=== PATIENT | male | born 1945 | race Caucasian/White ===

== ENCOUNTER 2019-02-08 01:09 | Inpatient (IN) | payer OTHER ==
[~2019-02-08] VITALS: Ht 180.3 cm; Wt 108.3 kg
[2019-02-08] MEDS ORDERED: cloNIDine HCL 0.1 MG TAB ONE (01:33)
[2019-02-08 02:14] LABS: Basophils # (auto) 0.1 uL; Eosinophils # (auto) 0.1 uL; Mean Corpuscular Hgb Conc. 32.9 g/dL (32.0-36.0); Monocytes # (auto) 0.4 uL; Monocytes % (auto) 3.3 % (0.0-12.0); Neutrophils # (auto) 11.3 uL; Red Blood Cells 4.66 10^6/uL (4.5-5.90)
[2019-02-08 02:16] LABS: Basophils % (auto) 0.5 % (0.0-2.0); Eosinophils % (auto) 1.1 % (0.0-7.0); Hematocrit 38.1 % (41.0-53.0); Hemoglobin 12.6 g/dL (13.5-17.5); Lymphocytes # (auto) 0.7 uL; Lymphocytes % (auto) 5.6 % (10.0-50.0); Mean Corpuscular Volume 81.9 fL (80.0-100.0); Neutrophils % (auto) 89.5 % (37.0-80.0); Platelet Count (auto) 292 10^3/uL (140-450); Red Cell Distribution Width 17.5 % (11.8-14.3); White Blood Cell 12.7 10^3/uL (4.4-10.8)
[2019-02-08 02:34] LABS: Albumin 3.9 g/dL (3.4-5.0); BUN/Creatinine Ratio 9.6; Calcium 9.1 mg/dL (8.5-10.1); Potassium 4.1 mmol/L (3.5-5.1)
[2019-02-08 02:37] LABS: Bilirubin, Total 0.6 mg/dL (0.2-1.0); Total Protein 7.9 g/dL (6.4-8.2)
[2019-02-08] MEDS ORDERED: BENZOCAINE (DENTAL) 20 % SPRAY 60ML MT ONE (02:45)
[2019-02-08 03:17] LABS: INR 0.99 (0.9-1.15); Partial Thromboplastin Time 27.4 sec (23.64-32.05)
[2019-02-08] MEDS ORDERED: ONDANSETRON HCL 4 MG/2 ML VIAL IV ONE (03:30)
[2019-02-08] MEDS ORDERED: HYDROmorphone HCL 2 MG/ML VL IV ONE (03:45)
[2019-02-08] MEDS ORDERED: SODIUM CHLORIDE 0.9% 500 ML IV ONE (03:45)
[2019-02-08] MEDS ORDERED: LOSA-39 PO (04:31)
[2019-02-08] MEDS ORDERED: OMEP-263 PO (04:31)
[2019-02-08] MEDS ORDERED: HYDR50TA15 PO (04:31)
[2019-02-08] MEDS ORDERED: TAMS0.4C36 PO (04:31)
[2019-02-08] MEDS ORDERED: FUR20T PO (04:31)
[2019-02-08] MEDS ORDERED: AMLO10TA13 PO (04:31)
[2019-02-08] MEDS ORDERED: ATEN50TA PO ×2 (04:31→04:40)
[2019-02-08] MEDS ORDERED: METF-372 PO (04:31)
[2019-02-08] MEDS ORDERED: DOCU-94 PO (04:31)
[2019-02-08] MEDS ORDERED: ATOR20TA50 PO (04:31)
[2019-02-08] MEDS ORDERED: RANI-185 PO (04:32)
[2019-02-08] MEDS ORDERED: OLAN5TAB30 PO (04:33)
[2019-02-08] MEDS ORDERED: ISOS30TA4 PO (04:33)
[2019-02-08] MEDS ORDERED: MAGN400T5 PO (04:34)
[2019-02-08] MEDS ORDERED: CHOL20007 PO (04:34)
[2019-02-08] MEDS ORDERED: ASPI81CH43 PO (04:34)
[2019-02-08] MEDS ORDERED: GABA300C10 PO (04:35)
[2019-02-08] MEDS ORDERED: TRAZ50TA2 PO (04:35)
[2019-02-08] MEDS ORDERED: COEN10CA4 PO (04:36)
[2019-02-08] MEDS ORDERED: MELA10TA PO (04:39)
[2019-02-08] MEDS ORDERED: SERT-274 PO (04:40)
[2019-02-08] MEDS ORDERED: FLUT1SPR5 (04:41)
[2019-02-08] MEDS ORDERED: SODIUM CHLORIDE 0.9% 1,000 ML IV SCH (05:54)
[2019-02-08] MEDS ORDERED: ACETAMINOPHEN 325 MG TAB PO PRN (06:00)
[2019-02-08] MEDS ORDERED: MORPHINE SULFATE 4 MG/ML SYR/VIAL IV PRN (06:00)
[2019-02-08] MEDS ORDERED: FLUTICASONE PROP NASAL SPR 0.05 % (50MCG) 16GM SCH (06:00)
[2019-02-08] MEDS ORDERED: DEXTROSE (50%) 50ML SYRG IV PRN (06:00)
[2019-02-08] MEDS ORDERED: GABAPENTIN 300 MG CAP PO SCH (06:00)
[2019-02-08] MEDS ORDERED: DOCUSATE SOD 100 MG CAP PO PRN (06:00)
[2019-02-08] MEDS ORDERED: HYDROcodone-ACET 5/325MG TAB PO PRN (06:00)
[2019-02-08] MEDS ORDERED: FUROSEMIDE 20 MG TAB PO ONE (06:45)
[2019-02-08] MEDS ORDERED: amLODIPine BESYLATE 5 MG TAB PO ONE (06:45)
[2019-02-08] MEDS ORDERED: LOSARTAN POTASSIUM 50 MG TAB PO ONE (06:45)
[2019-02-08] MEDS ORDERED: ATENOLOL 50 MG TAB PO ONE (06:45)
[2019-02-08] MEDS ORDERED: ASPirin 81 mg TAB PO ONE (06:45)
[2019-02-08] MEDS: traZODone HCL 50 MG TAB PO SCH ×3 (06:46→22:23)
[2019-02-08] MEDS: ASPirin 81 mg TAB PO SCH ×2 (06:58→10:31)
[2019-02-08] MEDS: LOSARTAN POTASSIUM 50 MG TAB PO SCH ×2 (06:58→10:33)
[2019-02-08] MEDS: FUROSEMIDE 20 MG TAB PO SCH ×2 (07:10→10:31)
[2019-02-08] MEDS: InsuLIN REG 1unit/0.01ml Soln (100units/ml) SC SCH ×4 (08:00→20:00)
[2019-02-08] MEDS: ACCU-CHEK COMFORT CURVE STRIP VI SCH ×4 (08:26→20:49)
--- NOTE | 2019-02-08 08:29 | NUR ---
RECEIVED REPORT FROM ERNST GALLEGOS.
--- NOTE | 2019-02-08 08:58 | NUR ---
MS admit from [facility] admitted to tele/MS after SBAR received. Patient oriented to SAMY MEHTA, primary RN, unit, room, bed, and unit policies regarding patient care and visiting hours. Patient weighed by bedscale and encouraged to call if they need something. PATIENT CONNECTED TO OXYGEN AT 2 LPM VIA NASAL CANNULA. NG TUBE CONNECTED TO LIS VIA WALL SUCTION. All questions and concerns addressed, patient verbalized understanding.
[2019-02-08] MEDS: OLANZapine 5 MG TAB PO SCH (10:30)
[2019-02-08] MEDS: ATENOLOL 50 MG TAB PO SCH ×2 (10:31→22:24)
[2019-02-08] MEDS: PANTOPRAZOLE 40 MG TAB PO SCH (10:32)
[2019-02-08] MEDS: ISOSORBIDE MONONITRATE ER 60 MG TAB PO SCH (10:32)
[2019-02-08] MEDS: TAMSULOSIN HYDROCHLORIDE 0.4 MG CAP PO SCH (10:33)
[2019-02-08] MEDS: amLODIPine BESYLATE 5 MG TAB PO SCH (10:33)
[2019-02-08] MEDS: SERTRALINE HCL 50 MG TAB PO SCH (10:33)
[2019-02-08] MEDS: ATORVASTATIN 20 MG TAB PO SCH (10:34)
[2019-02-08] MEDS: MAGNESIUM OXIDE 400 MG TAB PO SCH (10:34)
[2019-02-08 14:09] VITALS: BP 133/70
[2019-02-08] MEDS ORDERED: POTASSIUM CHLORIDE 20 MEQ, LIDOCAINE 1% (LOCAL ANESTH.) 2 ML in SODIUM CHL 0.9% 100 ML IV ONE (14:45)
[2019-02-08] MEDS: GABAPENTIN 100 MG CAP PO SCH ×2 (14:56→22:23)
[2019-02-08] MEDS: hydrALAZINE HCL 25 MG TAB PO SCH ×2 (14:57→22:23)
[2019-02-08] MEDS: ONDANSETRON HCL 4 MG/2 ML VIAL IV PRN ×2 (15:21→22:25)
[2019-02-08] MEDS: HYDROmorphone HCL 2 MG/ML VL IV PRN ×2 (15:22→22:26)
[2019-02-08 15:48] VITALS: BP 149/69
[2019-02-08] MEDS: D5W/ SOD CHL 0.9%/KCL 20MEQ 1,000 ML IV SCH (16:18)
[2019-02-08 17:00] VITALS: BP 122/58
--- NOTE | 2019-02-08 19:10 | NUR ---
Opening Shift Note Assumed care of patient, awake and alert. No S/S of distress/SOB or pain. NG tube in place on Low Intermittent suction. Instructed on POC and to call for assist PRN, will continue to monitor for changes Q1hr and PRN. Side rails up x2. Bed locked in lowest position. Call light within reach.
[2019-02-08 22:00] VITALS: BP 125/70
[2019-02-09] MEDS: InsuLIN REG 1unit/0.01ml Soln (100units/ml) SC SCH ×6 (04:00→20:00)
--- NOTE | 2019-02-09 04:03 | NUR ---
NG tube removal Patient removed NG tube. Patient verbalized "I dont want this thing anymore, it is very uncomfortable" Patient is alert and oriented. Reinforced patient on the importance of having the NG tube in place. Patient refused to have a new NG tube placed. Will continue to monitor.
[2019-02-09] MEDS: D5W/ SOD CHL 0.9%/KCL 20MEQ 1,000 ML IV SCH ×2 (04:36→17:25)
[2019-02-09] MEDS: ACCU-CHEK COMFORT CURVE STRIP VI SCH ×6 (04:36→22:39)
[2019-02-09 05:32] LABS: Basophils # (auto) 0 uL; Basophils % (auto) 0.5 % (0.0-2.0); Eosinophils # (auto) 0.4 uL; Hematocrit 31.7 % (41.0-53.0); Hemoglobin 10.7 g/dL (13.5-17.5); Mean Corpuscular Hemoglobin 27.8 pg (28.0-32.0); Mean Corpuscular Hgb Conc. 33.9 g/dL (32.0-36.0); Mean Corpuscular Volume 82.2 fL (80.0-100.0); Monocytes # (auto) 0.6 uL; Monocytes % (auto) 7.1 % (0.0-12.0); Neutrophils # (auto) 5.8 uL; Neutrophils % (auto) 74.4 % (37.0-80.0); Platelet Count (auto) 212 10^3/uL (140-450); Red Blood Cells 3.86 10^6/uL (4.5-5.90); Red Cell Distribution Width 17.6 % (11.8-14.3); White Blood Cell 7.8 10^3/uL (4.4-10.8)
[2019-02-09] MEDS: traZODone HCL 50 MG TAB PO SCH ×3 (05:47→22:31)
[2019-02-09] MEDS: hydrALAZINE HCL 25 MG TAB PO SCH ×3 (05:47→22:30)
[2019-02-09] MEDS: GABAPENTIN 100 MG CAP PO SCH ×3 (05:48→22:28)
[2019-02-09 05:51] LABS: BUN/Creatinine Ratio 11.7; Calcium 8.1 mg/dL (8.5-10.1); Potassium 4.1 mmol/L (3.5-5.1)
[2019-02-09 05:55] VITALS: BP 135/71
--- NOTE | 2019-02-09 07:20 | NUR ---
Endorsed care to day shift RN.
--- NOTE | 2019-02-09 07:30 | NUR ---
Opening Shift Note Assumed care of patient, awake and alert. No S/S of distress/SOB or pain. Instructed on POC and to call for assist PRN, will continue to monitor for changes Q1hr and PRN. Fall precautions in place per Safety protocol
[2019-02-09 08:00] VITALS: BP 138/78
[2019-02-09 09:00] VITALS: BP 138/78
--- NOTE | 2019-02-09 09:05 | NUR ---
Hospitalist at bedside MD Rodgers at bedside. aware of patient status and POC discussed with patient. No new orders received, will cont to monitor.
[2019-02-09] MEDS: TAMSULOSIN HYDROCHLORIDE 0.4 MG CAP PO SCH (10:20)
[2019-02-09] MEDS: PANTOPRAZOLE 40 MG TAB PO SCH (10:20)
[2019-02-09] MEDS: ISOSORBIDE MONONITRATE ER 60 MG TAB PO SCH (10:21)
[2019-02-09] MEDS: ATORVASTATIN 20 MG TAB PO SCH (10:22)
[2019-02-09] MEDS: ATENOLOL 50 MG TAB PO SCH ×2 (10:25→22:30)
[2019-02-09] MEDS: SERTRALINE HCL 50 MG TAB PO SCH (10:26)
[2019-02-09] MEDS: OLANZapine 5 MG TAB PO SCH (10:27)
[2019-02-09] MEDS: amLODIPine BESYLATE 5 MG TAB PO SCH (10:27)
[2019-02-09] MEDS: MAGNESIUM OXIDE 400 MG TAB PO SCH (10:28)
[2019-02-09 13:00] VITALS: BP 125/69
[2019-02-09 17:16] VITALS: BP 131/66
--- NOTE | 2019-02-09 19:10 | NUR ---
Patient care endorsed endorsed care to Mike rn. Patient resting comfortably in bed in no acute distress or sob. Call light within reach.
--- NOTE | 2019-02-09 19:30 | NUR ---
Opening Shift Note Assumed care of patient. Patient is awake and alert. No S/S of distress/SOB or pain. Instructed on POC and to call for assist PRN, will continue to monitor for changes. Bed locked in lowest position and bed rails up x2. Call light within reach.
--- NOTE | 2019-02-09 20:35 | NUR ---
Jermaine at bedside
[2019-02-09 21:46] VITALS: BP 154/75
[2019-02-10] MEDS: ACCU-CHEK COMFORT CURVE STRIP VI SCH ×6 (01:02→21:58)
[2019-02-10] MEDS: InsuLIN REG 1unit/0.01ml Soln (100units/ml) SC SCH ×6 (04:00→20:00)
[2019-02-10 04:46] VITALS: BP 129/71
[2019-02-10] MEDS: hydrALAZINE HCL 25 MG TAB PO SCH ×3 (06:32→21:59)
[2019-02-10] MEDS: GABAPENTIN 100 MG CAP PO SCH ×3 (06:32→22:00)
[2019-02-10] MEDS: traZODone HCL 50 MG TAB PO SCH ×3 (06:32→22:00)
[2019-02-10] MEDS: D5W/ SOD CHL 0.9%/KCL 20MEQ 1,000 ML IV SCH ×2 (06:34→22:09)
[2019-02-10 06:47] LABS: Basophils # (auto) 0 uL; Basophils % (auto) 0.7 % (0.0-2.0); Eosinophils # (auto) 0.4 uL; Eosinophils % (auto) 5.4 % (0.0-7.0); Hematocrit 37.7 % (41.0-53.0); Hemoglobin 12.4 g/dL (13.5-17.5); Lymphocytes # (auto) 1.1 uL; Lymphocytes % (auto) 16.4 % (10.0-50.0); Mean Corpuscular Hemoglobin 27.4 pg (28.0-32.0); Monocytes # (auto) 0.3 uL; Monocytes % (auto) 4.5 % (0.0-12.0); Neutrophils # (auto) 5.1 uL; Platelet Count (auto) 304 10^3/uL (140-450); Red Blood Cells 4.54 10^6/uL (4.5-5.90); Red Cell Distribution Width 17.7 % (11.8-14.3)
[2019-02-10 07:07] LABS: BUN/Creatinine Ratio 11.8; Calcium 9.1 mg/dL (8.5-10.1); Potassium 3.7 mmol/L (3.5-5.1)
[2019-02-10] MEDS ORDERED: GASTROGRAFIN 120 ML SOL ONE (07:28)
--- NOTE | 2019-02-10 07:30 | NUR ---
Opening Shift Note Assumed care of patient, awake and alert. No S/S of distress/SOB or pain. Instructed on POC and to call for assist PRN, will continue to monitor for changes Q1hr and PRN. Safety precautions in place per fall risk protocol.
[2019-02-10 08:17] LABS: Urine Bacteria NONE SEEN /hpf (None Seen); Urine Blood Negative /uL (Negative); Urine Specific Gravity 1.011 (1.001-1.035); Urine WBC <1 /hpf (0 - 3)
--- NOTE | 2019-02-10 09:13 | NUR ---
Hospitalist at bedside MD. Rodgers at bedside, aware of patient status. Patient currently in Radiology. New orders received for advanced diet as tolerated if bowel series is negative. Will cont to monitor patient when patient returns to unit.
[2019-02-10 09:19] VITALS: BP 115/71
[2019-02-10] MEDS: LOSARTAN POTASSIUM 50 MG TAB PO SCH (11:28)
[2019-02-10] MEDS: amLODIPine BESYLATE 5 MG TAB PO SCH (11:28)
[2019-02-10] MEDS: SERTRALINE HCL 50 MG TAB PO SCH (11:29)
[2019-02-10] MEDS: ISOSORBIDE MONONITRATE ER 60 MG TAB PO SCH (11:29)
[2019-02-10] MEDS: ATENOLOL 50 MG TAB PO SCH ×2 (11:30→22:00)
[2019-02-10] MEDS: OLANZapine 5 MG TAB PO SCH (11:30)
[2019-02-10] MEDS: ATORVASTATIN 20 MG TAB PO SCH (11:30)
[2019-02-10] MEDS: PANTOPRAZOLE 40 MG TAB PO SCH (11:30)
[2019-02-10] MEDS: FUROSEMIDE 20 MG TAB PO SCH (11:30)
[2019-02-10] MEDS: MAGNESIUM OXIDE 400 MG TAB PO SCH (11:31)
[2019-02-10] MEDS: TAMSULOSIN HYDROCHLORIDE 0.4 MG CAP PO SCH (11:31)
[2019-02-10] MEDS: ASPirin 81 mg TAB PO SCH (11:31)
[2019-02-10 12:57] VITALS: BP 142/82
--- NOTE | 2019-02-10 14:55 | NUR ---
Nutrition Assessment Notes please see attached link for complete assessment Est. Needs ABW 93 [id number] kcal (23-25 kcal/kgBW), 74-93 gms pro (0.8-1.0 gms/kgBW r/t elev RFT). Will continue to monitor pertinent labs and reassess nutrient need prn Addendum: 02/10/19 at [address] Amended: Links added.
[2019-02-10 17:00] VITALS: BP 130/72
--- NOTE | 2019-02-10 19:15 | NUR ---
Patient care endorsed Patient care endorsed to ERNST Mckeon. Patient is resting comfortably and showing no signs of distress, sob, or pain at this time. Call light within reach.
[2019-02-10 22:00] VITALS: BP 133/65
[2019-02-11] MEDS: ACCU-CHEK COMFORT CURVE STRIP VI SCH ×4 (00:30→12:00)
[2019-02-11] MEDS: InsuLIN REG 1unit/0.01ml Soln (100units/ml) SC SCH ×4 (04:00→12:00)
[2019-02-11 05:00] VITALS: BP 145/76
[2019-02-11] MEDS: GABAPENTIN 100 MG CAP PO SCH (05:30)
[2019-02-11] MEDS: traZODone HCL 50 MG TAB PO SCH (05:30)
[2019-02-11] MEDS: hydrALAZINE HCL 25 MG TAB PO SCH (05:30)
[2019-02-11 06:43] LABS: Basophils # (auto) 0 uL; Basophils % (auto) 0.6 % (0.0-2.0); Eosinophils # (auto) 0.2 uL; Eosinophils % (auto) 3.8 % (0.0-7.0); Hematocrit 35.5 % (41.0-53.0); Hemoglobin 11.6 g/dL (13.5-17.5); Lymphocytes % (auto) 14.8 % (10.0-50.0); Mean Corpuscular Hgb Conc. 32.6 g/dL (32.0-36.0); Mean Corpuscular Volume 82.8 fL (80.0-100.0); Monocytes # (auto) 0.5 uL; Monocytes % (auto) 7.1 % (0.0-12.0); Neutrophils # (auto) 4.8 uL; Neutrophils % (auto) 73.7 % (37.0-80.0); Platelet Count (auto) 253 10^3/uL (140-450); Red Blood Cells 4.29 10^6/uL (4.5-5.90); Red Cell Distribution Width 17.5 % (11.8-14.3); White Blood Cell 6.6 10^3/uL (4.4-10.8)
[2019-02-11 07:04] LABS: BUN/Creatinine Ratio 11.5; Calcium 8.8 mg/dL (8.5-10.1); Potassium 3.7 mmol/L (3.5-5.1)
--- NOTE | 2019-02-11 07:25 | NUR ---
Opening Shift Note Assumed care of patient, appears to be sleeping, awoken by name. No S/S of distress/SOB, no pain noted or reported at this time. Updated on POC and instructed to call for assistance as needed, patient verbalized understanding. Bed locked in lowest position, side rails up x 2, call light within reach. Safety measures in place. Will continue to monitor for changes Q1hr and PRN.
[2019-02-11] MEDS: D5W/ SOD CHL 0.9%/KCL 20MEQ 1,000 ML IV SCH (08:21)
--- NOTE | 2019-02-11 08:22 | NUR ---
IV removal IV DC'd with clean sterile technique, catheter fully intact. Pressure dressing applied to site. Patient tolerated well. NOTE: [IV was infiltrated, patient refused new IV insertion at this time, states I will be getting discharged soon, educated on importance of IV access during hospital stay, continues to refuse]
[2019-02-11 09:34] VITALS: BP 142/79
[2019-02-11] MEDS: PANTOPRAZOLE 40 MG TAB PO SCH (09:50)
[2019-02-11] MEDS: SERTRALINE HCL 50 MG TAB PO SCH (09:50)
[2019-02-11] MEDS: OLANZapine 5 MG TAB PO SCH (09:50)
[2019-02-11] MEDS: TAMSULOSIN HYDROCHLORIDE 0.4 MG CAP PO SCH (09:50)
[2019-02-11] MEDS: LOSARTAN POTASSIUM 50 MG TAB PO SCH (09:51)
[2019-02-11] MEDS: FUROSEMIDE 20 MG TAB PO SCH (09:51)
[2019-02-11] MEDS: ATENOLOL 50 MG TAB PO SCH (09:51)
[2019-02-11] MEDS: ATORVASTATIN 20 MG TAB PO SCH (09:52)
[2019-02-11] MEDS: ASPirin 81 mg TAB PO SCH (09:52)
[2019-02-11] MEDS: amLODIPine BESYLATE 5 MG TAB PO SCH (09:52)
[2019-02-11] MEDS: MAGNESIUM OXIDE 400 MG TAB PO SCH (09:52)
[2019-02-11] MEDS: ISOSORBIDE MONONITRATE ER 60 MG TAB PO SCH (09:53)
[2019-02-11 10:55] VITALS: BP 142/79
--- NOTE | 2019-02-11 12:10 | NUR ---
[facility] Discharge Home Discharge instructions given as ordered. Encourage to follow up with PMD as instructed. All questions and concerns addressed. Patient verbalized understanding. Medication reconciliation form completed and copy given to patient. Patient accompanied by staff with all personal belongings down to front lobby, patient requested to wait in lobby for to pickup. No distress noted at time of departure.
== END 2019-02-11 12:10 | disposition home or self-care (01) | DRG 388 ==
LOC: ER 01:13 → OVERFLOW 01:14 → CENTRAL 08:39
PROVIDERS: ADMIT Hospitalist; ATTEND Internal Medicine
PROC: 0D9670Z Drainage of Stomach with Drainage Device, Via Natural or Artificial Opening (ICD-10-PCS; principal; 2019-02-08)
DX: K56.609 Unspecified intestinal obstruction, unspecified as to partial versus complete obstruction (principal); N17.0 Acute kidney failure with tubular necrosis; I13.0 Hypertensive heart and chronic kidney disease with heart failure and stage 1 through stage 4 chronic kidney disease, or unspecified chronic kidney disease; K57.30 Diverticulosis of large intestine without perforation or abscess without bleeding; K80.20 Calculus of gallbladder without cholecystitis without obstruction; E11.21 Type 2 diabetes mellitus with diabetic nephropathy; N18.9 Chronic kidney disease, unspecified; N40.0 Benign prostatic hyperplasia without lower urinary tract symptoms; E78.5 Hyperlipidemia, unspecified; I50.9 Heart failure, unspecified; E66.9 Obesity, unspecified; E11.22 Type 2 diabetes mellitus with diabetic chronic kidney disease; Z68.33 Body mass index [BMI] 33.0-33.9, adult
CPT/HCPCS: 36415; 74176; 74250; 80048; 80053; 81001; 82150; 82962; 83036; 83690; 84443; 85025; 85610; 85730; 93005; 96365; 96366; G0378; J1815; J2001; J2405

== ENCOUNTER 2019-05-06 10:27 | Emergency (ER) | payer OTHER ==
[~2019-05-06] VITALS: Ht 180.3 cm; Wt 105.7 kg
[~2019-05-06 10:27] MED LIST: AMLO10TA13 PO; ASPI81CH43 PO; ATEN50TA PO; ATOR20TA50 PO; CHOL20007 PO; COEN10CA4 PO; DOCU-94 PO; FLUT1SPR5; FUR20T PO; GABA300C10 PO; HYDR50TA15 PO; ISOS30TA4 PO; LOSA-39 PO; MAGN400T40 PO; MELA10TA PO; METF-372 PO; OLAN5TAB30 PO; OMEP-263 PO; RANI-185 PO; SERT-274 PO; TAMS0.4C36 PO; TRAZ50TA2 PO
[2019-05-06 11:26] LABS: Urine Bacteria NONE SEEN /hpf (None Seen); Urine Blood Negative /uL (Negative); Urine Specific Gravity 1.006 (1.001-1.035); Urine WBC 1 /hpf (0 - 3)
[2019-05-06 13:06] VITALS: BP 109/60
== END 2019-05-06 13:40 | disposition home or self-care (01) ==
LOC: ER 10:27
DX: R33.9 Retention of urine, unspecified (principal); R10.30 Lower abdominal pain, unspecified; I13.0 Hypertensive heart and chronic kidney disease with heart failure and stage 1 through stage 4 chronic kidney disease, or unspecified chronic kidney disease; E11.22 Type 2 diabetes mellitus with diabetic chronic kidney disease; N18.3 Chronic kidney disease, stage 3 (moderate); I50.9 Heart failure, unspecified
CPT/HCPCS: 51702; 81001

== ENCOUNTER 2024-12-20 11:44 | Inpatient (IN) | payer OTHER, MEDICARE ==
[~2024-12-20] VITALS: Ht 180.3 cm; Wt 78.6 kg
[~2024-12-20 11:44] MED LIST changes: +AMIO200T13 PO; -AMLO10TA13 PO; +AMLO1TAB23 PO; +APIX5TAB PO; +BUSP5TAB51 PO; +FIN5T PO; -FUR20T PO; +FURO20TA4 PO; +GABA-1250 PO; -GABA300C10 PO; -HYDR50TA15 PO; +HYDR50TA47 PO; +ISOS1TAB28 PO; -ISOS30TA4 PO; +LEVO75TA6 PO; -LOSA-39 PO; +LOSA-535 PO; +METO1TAB9 PO; +OLAN1TAB7 PO; -OLAN5TAB30 PO; -OMEP-263 PO; +OMEP-448 PO; +PANT40T PO; +SERT-160 PO; +SERT-206 PO; -SERT-274 PO; -TAMS0.4C36 PO; +TAMS0.4C39 PO; +TRAZ-227 PO; -TRAZ50TA2 PO
--- NOTE | 2024-12-20 12:06 | ED.PDOC ---
SOB-HPI HPI Comments This is a 79 year old male BIB presenting to the ED with chief complaint of SOB. reports patient was discharged yesterday from a rehab facility where he was admitted following a bowel perforation, but since last night patient has been experiencing worsening SOB. relays that the patient was not sent home from rehab with O2 despite being on O2 throughout his stay in the rehab facility. Patient is due for dialysis tomorrow. Patient states that he had fell this morning as well due to weakness in his legs, unable to get up out of a chair. Patient denies any chest pain, fever, chills, N/V, dizziness, abdominal pain, or cough. Chief Complaint: Shortness of Breath Time Seen by MD: 12:03 Primary Care Provider: INES Moore notes: Nurses Notes, Medications, Allergies Information Source: Patient, Spouse Mode of Arrival: Wheelchair Severity: Severe Timing: Hours Duration: Since onset Context: At Rest PE Risk Factors: Recent Surgery History of: None Prehospital treatment: None Modifying Factors: Nothing Associated Signs and Symptoms: None Past Medical History PAST MEDICAL HISTORY: CHF, CKF, DM, Gallstones, HTN Past Medical History (Other): BPH Surgical History: Hernia Repair Surgical History (Other): Colostomy, right chest catheter Family History Family History: Reviewed,noncontributory to illness, Family hx of DM, Family hx of Cancer Family History (Other): Crohn's Disease Social History Smoker: Non-Smoker Alcohol: Rarely Drugs: Denies Drug Use Lives In: Home Constitutional: denies: chills, diaphoresis, fatigue, fever, malaise, sweats, weakness, others EENTM: denies: blurred vision, double vision, ear bleeding, ear discharge, ear drainage, ear pain, ear ringing, eye pain, eye redness, hearing loss, mouth pain, mouth swelling, nasal discharge, nose bleeding, nose congestion, nose pain, photophobia, tearing, throat pain, throat swelling, voice changes, others Respiratory: reports: shortness of breath; denies: cough, hemoptysis, orthopnea, SOB at rest, SOB with excertion, stridor, wheezing, others Cardiovascular: denies: chest pain, dizzy spells, diaphoresis, Dyspnea on exertion, edema, irregular heart beat, left arm pain, lightheadedness, palpitations, PND, syncope, others Gastrointestinal: denies: abdomen distended, abdominal pain, blood streaked bowels, constipated, diarrhea, dysphagia, difficulty swallowing, hematemesis, melena, nausea, poor appetite, poor fluid intake, rectal bleeding, rectal pain, vomiting, others Genitourinary: denies: burning, dysuria, flank pain, frequency, hematuria, incontinence, penile discharge, penile sore, pain, testicle pain, testicle swelling, urgency, others Neurological: denies: dizziness, fainting, headache, left sided numbness, left sided weakness, numbness, paresthesia, pre-existing deficit, right sided numbness, right sided weakness, seizure, speech problems, tingling, tremors, weakness, others Musculoskeletal: denies: back pain, gout, joint pain, joint swelling, muscle pain, muscle stiffness, neck pain, others Integumetry: denies: bruises, change in color, change in hair/nails, dryness, laceration, lesions, lumps, rash, wounds, others Allergic/Immunocompromised: denies: Difficulty Healing, Frequent Infections, Hives, Itching, others Hematologic/Lymphatic: denies: anemia, blood clots, easy bleeding, easy bruising, swollen glands, others Endocrine: denies: excessive hunger, excessive sweating, excessive thirst, excessive urination, flushing, intolerance to cold, intolerance to heat, unexplained weight gain, unexplained weight loss, others Psychiatric: denies: anxiety, bipolar disorder, depression, hopeless, panic disorder, schizophrenia, sleepless, suicidal, others All Other Systems: Reviewed and Negative Physical Exam General Appearance: Mild Distress HEENT: Other (Pupils and face symmetric. Moist mucous membranes.) Neck: Full Range of Motion, Normal Inspection Respiratory: Decreased Breath Sounds, No Accessory Muscle Use, Respiratory Distress (Mild), Other (Right chest hemodialysis catheter site appears clean, dry and intact) Cardiovascular: Irregular, Tachycardia Breast Exam: Deferred Gastrointestinal: Non Tender, Soft, Other (PEG and left lower abdominal colostomy sites appear clean, dry and intact) Genitalia: Deferred Pelvic: Deferred Rectal: Deferred Extremities: Normal inspection, Normal range of motion, Non-tender, No pedal edema Neurologic: Alert (Oriented x4), Normal Affect, Normal Mood, Other (Moves all extremities and follows commands) Cerebellar Function: NOT DONE Reflexes: NOT DONE Skin: Dry, Pallor, Warm Lymphatic: NOT DONE EKG EKG : Comments AFib/flutter with RVR, rate 131, normal QRS interval, QTC prolonged at 496, left axis deviation, lateral T-wave inversion Was a procedure done? Was a procedure done?: No Differential Dx Differential Diagnosis: Asthma, Bronchitis, CHF, COPD, Myocardial infarction, Pneumonia, Respiratory Distress, URI X-Ray, Labs, Meds, VS Vital Signs Date Time Temp Pulse Resp B/P (MAP) Pulse Ox O2 Delivery O2 Flow Rate FiO2 12/20/24 19:00 105 17 94/67 (76) 90 12/20/24 18:00 109 19 93/68 (76) 98 12/20/24 17:00 106 18 108/70 (83) 98 12/20/24 15:30 107 23 Nasal Cannula* 3 32 12/20/24 15:00 97.9 107 23 99/47 (64) 91 97.9 12/20/24 13:00 122 15 112/83 (93) 12/20/24 12:10 124 16 Nasal Cannula* 3 32 12/20/24 12:10 97.7 124 16 108/79 (89) 97.7 12/20/24 12:02 131 12/20/24 11:52 98.3 73 18 102/68 67 98.3 Lab Test 12/20/24 16:31 12/20/24 14:10 12/20/24 13:02 12/20/24 12:20 Range/Units Potassium Level 4.9 5.8 *H 3.5-5.1 mmol/L Troponin I High Sensitivity 8 9 10 </=54 ng/L White Blood Count 6.5 4.4-10.8 10^3/uL Red Blood Count 4.01 L 4.5-5.90 10^6/uL Hemoglobin 12.4 L 13.5-17.5 g/dL Hematocrit 38.8 L 41.0-53.0 % Mean Corpuscular Volume 96.7 80.0-100.0 fL Mean Corpuscular Hemoglobin 31.0 28.0-32.0 pg Mean Corpuscular Hemoglobin Concent 32.1 32.0-36.0 g/dL Red Cell Distribution Width 16.9 H 11.8-14.3 % Platelet Count 142 140-450 10^3/uL Mean Platelet Volume 10.0 6.9-10.8 fL Neutrophils (%) (Auto) 79.3 37.0-80.0 % Lymphocytes (%) (Auto) 13.1 10.0-50.0 % Monocytes (%) (Auto) 5.6 0.0-12.0 % Eosinophils (%) (Auto) 1.2 0.0-7.0 % Basophils (%) (Auto) 0.8 0.0-2.0 % Neutrophils # (Auto) 5.2 1.6-8.6 10 ^3/uL Lymphocytes # (Auto) 0.9 0.4-5.4 10 ^3/uL Monocytes # (Auto) 0.4 0-1.3 10 ^3/uL Eosinophils # (Auto) 0.1 0-0.8 10 ^3/uL Basophils # (Auto) 0.1 0-0.2 10 ^3/uL Nucleated Red Blood Cells 0.1 % Sodium Level 139 136-145 mmol/L Chloride Level 105 98-107 mmol/L Carbon Dioxide Level 22 20-31 mmol/L Anion Gap 12 5-15 Blood Urea Nitrogen 46 H 9-23 mg/dL Creatinine 5.63 H 0.700-1.30 mg/dL Glomerular Filtration Rate Calc 10 >90 mL/min BUN/Creatinine Ratio 8.2 L 10.0-20.0 Serum Glucose 141 H 74-106 mg/dL Calcium Level 8.4 L 8.7-10.4 mg/dL Total Bilirubin 0.6 0.2-1.0 mg/dL Aspartate Amino Transferase (AST) 21 13-40 U/L Alanine Aminotransferase (ALT) 44 H 7-40 U/L Alkaline Phosphatase 89 46-116 U/L B-Type Natriuretic Peptide > 5000.00 0-100 pg/mL Total Protein 5.9 5.7-8.2 g/dL Albumin 3.4 3.2-4.8 g/dL Blood Gas Specimen Type Arterial Blood Gas Sample Site Left radial Blood Gas Patient Temperature 37.0 Arterial Blood Date Drawn [id number] Arterial Blood pH 7.412 7.350-7.450 Arterial Blood Partial Pressure CO2 29.1 L 35.0-48.0 mmHg Arterial Blood Partial Pressure O2 211.2 H 83.0-108.0 mmHg Arterial Blood HCO3 18.1 L 21.0-28.0 mmol/L Arterial Blood Oxygen Saturation 99.5 H 94.0-98.0 % Arterial Blood Base Excess -5.2 L -2.0-3.0 mmol/L Arterial Blood Oxyhemoglobin 98.3 H 94.0-98.0 % Arterial Blood Carboxyhemoglobin 0.5 0.5-1.5 % Arterial Blood Methemoglobin 0.7 0.0-1.5 % Krishna Test Modified Blood Gas Total Hemoglobin 12.80 L 13.5-17.5 g/dL Blood Gas Liter Flow 10.00 Blood Gas Modality Oxymizer FiO2 % 72.0 Current Medications Medications (Trade) Dose Ordered Sig/Isidra Route Start Time Stop Time Status Last Admin Amiodarone HCl 100 ml @ 600 mls/hr ONCE ONCE IV 12/20/24 12:15 12/20/24 12:24 DC 12/20/24 12:58 Amiodarone HCL/ Dextrose 200 ml @ 33.33 mls/ hr ONCE ONCE IV 12/20/24 12:30 12/20/24 18:30 DC 12/20/24 13:11 Insulin Human Regular (InsuLIN R) 10 units ONCE ONCE IV 12/20/24 13:45 12/20/24 13:56 DC 12/20/24 14:49 Dextrose 50 ml ONCE ONCE IV 12/20/24 13:45 12/20/24 13:56 DC 12/20/24 14:48 Zirconium Oxide (Lokelma) 10 gm ONCE ONCE PO 12/20/24 13:45 12/20/24 13:56 DC 12/20/24 14:49 Calcium Gluconate/ Sodium Chloride 50 ml @ 100 mls/hr ONCE ONCE IV 12/20/24 13:45 12/20/24 14:14 DC 12/20/24 14:46 Sodium Bicarbonate 50 ml ONCE ONCE IV 12/20/24 13:45 12/20/24 13:56 DC 12/20/24 14:46 Ceftriaxone Sodium 50 ml @ 100 mls/hr ONCE ONCE IV 12/20/24 14:00 12/20/24 14:29 DC 12/20/24 15:03 Azithromycin 250 ml @ 125 mls/hr ONCE ONCE IV 12/20/24 14:00 12/20/24 15:59 DC 12/20/24 18:58 Amiodarone HCL/ Dextrose 200 ml @ 16.66 mls/ hr Q12H IV 12/20/24 19:00 12/20/24 19:29 [place] [id number] Ph: [phone] DIAGNOSTIC IMAGING Diagnostic Imaging Report : [id number] Signed PATIENT: ELIZABETH STAUFFER ACCT: [id number] UNIT: [id number] : 1945 LOC: ER ROOM / BED: / AGE / SEX: 79 / M ADM STATUS: REG ER SERVICE 1202 ORDERING PHYSICIAN: EDITA ESTRADA MD PROCEDURE(s): CXRP - CHEST PORTABLE REASON: sob hypoxia ORDER NUMBER(s): [id number], ACCESSION NUMBER(s): [id number] EXAM: XY CHEST PORTABLE Indication: sob hypoxia Technique: Single frontal view of the chest was obtained Comparison: None FINDINGS: Lines and Tubes: Right internal jugular central venous catheter tip projects over superior vena cava. Lungs: Bibasilar opacities. Pleura: Trace left pleural effusion. No pneumothorax. Cardiomediastinal contours: Cardiomegaly. Bones: No acute osseous abnormality. IMPRESSION: Cardiomegaly with bibasilar opacities and trace left pleural effusion. ATED BY: ROXY GENTILE MD DICTATED DATE/TIME: 12/20/24 1235 SIGNED BY: ROXY GENTILE MD SIGNED DATE/TIME: 12/20/24 1235 CC: X-Ray, Labs, Meds, VS Comment 79-year-old male with a history of diabetes, hypertension, dyslipidemia, end- stage renal disease on dialysis and recent bowel perforation status post colostomy and PEG complaining of shortness of breath Vitals remarkable for heart rate 131, oxygen saturation 67% on room air, improved to 93% on nasal cannula oxygen Exam remarkable for diminished breath sounds and pallor Rhythm strip independently interpreted by me: AFib RVR, rate 131, no PVCs. Chest x-ray Cardiomegaly with bibasilar opacities and trace left pleural effusion. CBC unremarkable, comprehensive metabolic panel remarkable for potassium 5.8, BUN 46, creatinine 5.63, troponin negative, BNP pending Patient treated with the following in the ED: Albuterol 2.5 mg/Atrovent 0.5 mg nebulized, amiodarone 150 mg IV bolus, then infused per protocol, Lokelma 10 g p.o., insulin 10 units IV, D50 50 ml IV, calcium gluconate 1 g IV, sodium bicarb 50 mEqu IV, Rocephin 1 g IV, Zithromax 500 mg IV On re-evaluation, heart rate is 115, AFib, other vitals were stable, patient is not in respiratory distress. Plan is to admit the patient for respiratory support, dialysis, rate control and Cardiology evaluation. Time of 1ST Reevaluation: 13:02 Reevaluation 1ST: Unchanged Patient Education/Counseling: Diagnosis, Treatment Family Education/Counseling: Diagnosis, Treatment SEPSIS Sepsis Screen Date sepsis recognized/suspect: Dec 20, 2024 Time Sepsis recognized/suspect: 1151 Recent Procedure: No On Antibiotic Therapy: No Respiratory Rate >20: No Heart Rate >90: Yes Temp<36 C (96.8 F) or >38.3 C: No SBP <90 or MAP <65 mmHG: No New Acute Mental Status Change: No Is the patient on CPAP, BIPAP,: No SEPSIS EXCLUSION NOTE: Sepsis Exclusion Note: Patient presents with SIRS criteria, but the SIRS response is attributed to [shortness of breath , hypoxic respiratory failure], not sepsis. Sepsis bundle is not initiated at this time, due to this reason. Further management will focus on the treatment of the above condition (s). Physician Orders Chest Portable (12/20/24 12:02) Urinalysis (12/20/24 12:02) Electrocardigram (12/20/24 12:02) Abg W/ Co-Ox (12/20/24 12:22) Amiodarone 360mg/200ml Premix (Nexterone (12/20/24 19:00) Vital Signs Date Time Temp Pulse Resp B/P (MAP) Pulse Ox O2 Delivery O2 Flow Rate FiO2 12/20/24 19:00 105 17 94/67 (76) 90 12/20/24 18:00 109 19 93/68 (76) 98 12/20/24 17:00 106 18 108/70 (83) 98 12/20/24 15:30 107 23 Nasal Cannula* 3 32 12/20/24 15:00 97.9 107 23 99/47 (64) 91 97.9 12/20/24 13:00 122 15 112/83 (93) 12/20/24 12:10 124 16 Nasal Cannula* 3 32 12/20/24 12:10 97.7 124 16 108/79 (89) 97.7 12/20/24 12:02 131 12/20/24 11:52 98.3 73 18 102/68 67 98.3 Laboratory Tests Test 12/20/24 13:02 White Blood Count 6.5 10^3/uL (4.4-10.8) Medications Medications Dose Ordered Sig/Isidra Route Start Time Stop Time Status Last Admin Dose Admin Amiodarone HCl 100 ml @ 600 mls/hr ONCE ONCE IV 12/20/24 12:15 12/20/24 12:24 DC 12/20/24 12:58 Amiodarone HCL/ Dextrose 200 ml @ 16.66 mls/ hr Q12H IV 12/20/24 19:00 12/20/24 19:29 Amiodarone HCL/ Dextrose 200 ml @ 33.33 mls/ hr ONCE ONCE IV 12/20/24 12:30 12/20/24 18:30 DC 12/20/24 13:11 Azithromycin 250 ml @ 125 mls/hr ONCE ONCE IV 12/20/24 14:00 12/20/24 15:59 DC 12/20/24 18:58 Calcium Gluconate/ Sodium Chloride 50 ml @ 100 mls/hr ONCE ONCE IV 12/20/24 13:45 12/20/24 14:14 DC 12/20/24 14:46 Ceftriaxone Sodium 50 ml @ 100 mls/hr ONCE ONCE IV 12/20/24 14:00 12/20/24 14:29 DC 12/20/24 15:03 Dextrose 50 ml ONCE ONCE IV 12/20/24 13:45 12/20/24 13:56 DC 12/20/24 14:48 Insulin Human Regular 10 units ONCE ONCE IV 12/20/24 13:45 12/20/24 13:56 DC 12/20/24 14:49 Sodium Bicarbonate 50 ml ONCE ONCE IV 12/20/24 13:45 12/20/24 13:56 DC 12/20/24 14:46 Zirconium Oxide 10 gm ONCE ONCE PO 12/20/24 13:45 9/22/25 13:56 DC 12/20/24 14:49 Departure 1 Departure Time of Disposition: 14:24 Impression: Primary Impression: Hypoxic respiratory failure Additional Impressions: Pneumonia Fluid overload Hyperkalemia Rapid atrial fibrillation Disposition: ADMITTED INPATIENT Admit to: Tele Condition: Guarded Critical Care Note Critical Care Time?: Yes (55 min-critical care time only) Critical care comment: Critical care time including multiple bedside re-evaluations, review of lab and imaging studies, and discussion of the case with the admitting provider. Patient is high risk for respiratory, metabolic and/or hemodynamic decompensation. Stability Stability form required: No Heart Score Heart Score: Heart Score Response (Comments) Value History N/A 0 EKG N/A 0 Age N/A 0 Risk Factors N/A 0 Troponin N/A 0 Total 0 I personally scribed for EDITA ESTRADA MD ([email or web address]) on 12/20/24 at 12:05. Electronically submitted by Asa Sahni ([email or web address]). I personally scribed for EDITA ESTRADA MD ([email or web address]) on 12/20/24 at 13:00. Electronically submitted by Asa aShni ([email or web address]). EDITA ESTRADA MD Dec 20, 2024 12:05
--- NOTE | 2024-12-20 12:09 | ECG ---
[facility] Test Date: 2024-12-20 Test Time: 12:02:49 Pat Name: ELIZABETH STAUFFER Department: ED Room: Gender: M [employer]pper Helper: FRANTZ : 1945 Requested By: EDITA RUBIO Order Number: [id number] Reading MD: Peyman Witt Measurements Intervals [place] Rate: 131 P: 0 ID: 0 QRS: -43 QRSD: 100 T: 138 QT: 336 QTc: 496 Interpretive Statements Atrial flutter with predominant 2:1 AV block Abnormal R-wave progression, late transition LVH with secondary repolarization abnormality Borderline prolonged QT interval Electronically Signed On 12-20-2024 19:19:36 PDT by Peyman Witt Please click the below link to view image of tracing.
[2024-12-20 12:10] VITALS: PULSE 124; RESP 16
[2024-12-20] MEDS ORDERED: ALBUTEROL SULF 2.5 MG/0.5ML(0.5%) NEB SOLN NEB ONE (12:15)
[2024-12-20] MEDS ORDERED: IPRATROPIUM BROM 0.5 MG/2.5ML INH SOL NEB ONE (12:15)
--- NOTE | 2024-12-20 12:38 | DVH ---
EXAM: XY CHEST PORTABLE Indication: sob hypoxia Technique: Single frontal view of the chest was obtained Comparison: None FINDINGS: Lines and Tubes: Right internal jugular central venous catheter tip projects over superior vena cava. Lungs: Bibasilar opacities. Pleura: Trace left pleural effusion. No pneumothorax. Cardiomediastinal contours: Cardiomegaly. Bones: No acute osseous abnormality. IMPRESSION: Cardiomegaly with bibasilar opacities and trace left pleural effusion.
[2024-12-20 12:50] LABS: Base Excess -5.2 mmol/L (-2.0-3.0)
[2024-12-20] MEDS: AMIODARONE BOLUS KIT 100 ML IV ONE (12:58)
[2024-12-20] MEDS: AMIODARONE 360mg/200mL PREMIX 200 ML IV ONE (13:11)
[2024-12-20 13:22] LABS: Hematocrit 38.8 % (41.0-53.0); Hemoglobin 12.4 g/dL (13.5-17.5); Mean Corpuscular Hemoglobin 31.0 pg (28.0-32.0); Mean Corpuscular Volume 96.7 fL (80.0-100.0); Nucleated Red Blood Cells % 0.1 %
[2024-12-20 13:38] LABS: Albumin 3.4 g/dL (3.2-4.8); Alkaline Phosphatase 89 U/L (46-116); Anion Gap 12 (5-15); BUN/Creatinine Ratio 8.2 (10.0-20.0); Bilirubin, Total 0.6 mg/dL (0.2-1.0); Carbon Dioxide 22 mmol/L (20-31); Chloride 105 mmol/L (98-107); Sodium 139 mmol/L (136-145); Total Protein 5.9 g/dL (5.7-8.2)
[2024-12-20 13:40] LABS: Alanine Aminotransferase 44 U/L (7-40); Blood Urea Nitrogen 46 mg/dL (9-23); Calcium 8.4 mg/dL (8.7-10.4); Glucose 141 mg/dL (74-106)
[2024-12-20 13:41] LABS: Potassium 5.8 mmol/L (3.5-5.1)
[2024-12-20] MEDS: SODIUM BICARB 8.4% 50Meq/50ml SYR Vial IV ONE (14:46)
[2024-12-20] MEDS: CALCIUM GLUC 1,000mg/50ml-NS 50 ML IV ONE (14:46)
[2024-12-20] MEDS: DEXTROSE (50%) 50ML SYRG IV ONE (14:48)
[2024-12-20] MEDS: SODIUM ZIRCONIUM CYCL 10 GM PAK PO ONE (14:49)
[2024-12-20] MEDS: InsuLIN REG 1unit/0.01ml Soln (100units/ml) IV ONE (14:49)
[2024-12-20 15:30] VITALS: PULSE 107; RESP 23
[2024-12-20] MEDS: AZITHROMYCIN 500MG/ 250ML 250 ML IV ONE (18:58)
[2024-12-20] MEDS: AMIODARONE 360mg/200mL PREMIX 200 ML IV SCH (19:29)
[2024-12-20] MEDS ORDERED: ONDANSETRON HCL 4 MG/2 ML VIAL IV PRN (19:30)
[2024-12-20] MEDS ORDERED: DEXTROSE (50%) 50ML SYRG IV PRN (19:30)
[2024-12-20] MEDS ORDERED: NITROGLYCERIN 0.4 MG SL TAB SL PRN (19:30)
[2024-12-20] MEDS ORDERED: MORPHINE SULFATE INJ 2 MG/ml SYRG IV PRN (19:30)
[2024-12-20 19:31] VITALS: BP 108/70; PULSE 106; RESP 18; TEMP 97.9; O2SAT 98
[2024-12-20] MEDS: diazePAM 5 MG TAB PO ONE (20:59)
[2024-12-20] MEDS: TEMAZEPAM 15 MG CAP PO ONE (21:00)
[2024-12-20] MEDS ORDERED: diazePAM 5 MG TAB PO ONE ×2 (21:00→21:15)
[2024-12-20] MEDS ORDERED: GABAPENTIN 300 MG CAP PO PRN (21:30)
[2024-12-20] MEDS: InsuLIN REG 1unit/0.01ml Soln (100units/ml) SC SCH (22:00)
[2024-12-20] MEDS: ACCU-CHEK COMFORT CURVE STRIP VI SCH (22:00)
[2024-12-20] MEDS: ALBUMIN 5% 250 ML IV ONE (22:28)
[2024-12-20] MEDS: ATORVASTATIN 20 MG TAB PO SCH (23:40)
[2024-12-21] VITALS (74 sets, daily range): BP systolic 27–150; BP diastolic 12–117; PULSE 60–128; RESP 9–29; TEMP 92.7–99.5; O2SAT 49–100
--- NOTE | 2024-12-21 04:18 | DVHHP2 ---
History of Present Illness Reason for Visit: Shortness for breath History of Present Illness 79-year-old male presents for evaluation of shortness for breath. Patient reports a one day history of shortness for breath. Patient states recently being discharged from rehab facility. Patient reports having dialysis Friday and Friday. Reports some chest pressure. States having a nonproductive cough as well. No fever or chills. Past Medical History ESRD, CHF, diabetes mellitus, hypertension, BPH Past Surgical History Colostomy Family History Noncontributory Smoke: No ALCOHOL: none Drugs: None Lives: with Family Review of Systems Review of Systems Review of systems are currently negative otherwise addressed in HPI. Allergies: Coded Allergies: NO KNOWN ALLERGIES (Unverified , 02/08/14) Medications Current Medications Medications Dose Ordered Sig/Isidra Route Start Time Stop Time Status Last Admin Dose Admin Amiodarone HCL/ Dextrose 200 ml @ 16.66 mls/ hr Q12H IV 12/20/24 19:00 12/20/24 19:29 16.66 MLS/HR Azithromycin 250 ml @ 125 mls/hr DAILY IV 12/21/24 10:00 Ceftriaxone Sodium 50 ml @ 100 mls/hr DAILY@09 IV 12/21/24 09:00 Atorvastatin Calcium 20 mg HS PO 12/20/24 22:00 12/20/24 23:40 20 MG Aspirin 162 mg DAILY PO 12/21/24 10:00 Atenolol 50 mg DAILY PO 12/21/24 10:00 Gabapentin 300 mg DAILY PO 12/21/24 10:00 Losartan Potassium 100 mg DAILY PO 12/21/24 10:00 Tamsulosin HCl 0.4 mg QPM PO 12/21/24 18:00 Furosemide 20 mg BIDD IV 12/21/24 06:00 Albuterol 2.5 mg Q6HPRN PRN NEB 12/20/24 19:30 Diagnostic Test (Pha) 1 strip ACHS 12/20/24 22:00 12/20/24 22:00 1 STRIP Insulin Human Regular ACHS SC 12/20/24 22:00 Dextrose 50 ml UD PRN IV 12/20/24 19:30 Ondansetron HCl 4 mg Q4HP PRN IV 12/20/24 19:30 Acetaminophen 650 mg Q6HP PRN PO 12/20/24 19:30 Nitroglycerin 0.4 mg Q5MINP PRN SL 12/20/24 19:30 Morphine Sulfate 2 mg Q30M PRN IV 12/20/24 19:30 Gabapentin 300 mg POSTDI PRN PO 12/20/24 21:30 Exam Vital Signs Vital Signs Date Time Temp Pulse Resp B/P (MAP) Pulse Ox O2 Delivery O2 Flow Rate FiO2 12/21/24 04:00 115 15 101/63 (76) 96 12/21/24 01:00 Nasal Cannula* 3 32 12/20/24 19:31 97.9 97.9 Exam Gen: 79-year-old male in mild distress Skin: Warm, dry, normal color and texture, no rash. HEENT: Normocephalic atraumatic, mucous membranes moist and pink. Neck: Cervical and supraclavicular nodes normal without enlargement, trachea is midline, thyroid gland is normal without masses. Pulmonary: Clear to auscultation and percussion bilaterally. Cardiac: Regular rate and rhythm. No murmur Abdomen: Soft, nontender, nondistended, bowel sounds present all 4 quadrants, no guarding, no rigidity, no organomegaly. Extremities: No cyanosis, clubbing, no edema Neuro: Cranial nerves II through XII grossly intact, normal affect and speech, no focal motor deficits. Labs/Xrays ORDERING PHYSICIAN: EDITA ESTRADA MD PROCEDURE(s): CXRP - CHEST PORTABLE REASON: sob hypoxia ORDER NUMBER(s): [id number], ACCESSION NUMBER(s): [id number] EXAM: XY CHEST PORTABLE Indication: sob hypoxia Technique: Single frontal view of the chest was obtained Comparison: None FINDINGS: Lines and Tubes: Right internal jugular central venous catheter tip projects over superior vena cava. Lungs: Bibasilar opacities. Pleura: Trace left pleural effusion. No pneumothorax. Cardiomediastinal contours: Cardiomegaly. Bones: No acute osseous abnormality. IMPRESSION: Cardiomegaly with bibasilar opacities and trace left pleural effusion. Labs Test 12/20/24 23:08 12/20/24 16:31 12/20/24 13:02 12/20/24 12:20 Range/Units POC Glucose 159 H 70-106 mg/dl Potassium Level 4.9 3.5-5.1 mmol/L Troponin I High Sensitivity 8 </=54 ng/L White Blood Count 6.5 4.4-10.8 10^3/uL Red Blood Count 4.01 L 4.5-5.90 10^6/uL Hemoglobin 12.4 L 13.5-17.5 g/dL Hematocrit 38.8 L 41.0-53.0 % Mean Corpuscular Volume 96.7 80.0-100.0 fL Mean Corpuscular Hemoglobin 31.0 28.0-32.0 pg Mean Corpuscular Hemoglobin Concent 32.1 32.0-36.0 g/dL Red Cell Distribution Width 16.9 H 11.8-14.3 % Platelet Count 142 140-450 10^3/uL Mean Platelet Volume 10.0 6.9-10.8 fL Neutrophils (%) (Auto) 79.3 37.0-80.0 % Lymphocytes (%) (Auto) 13.1 10.0-50.0 % Monocytes (%) (Auto) 5.6 0.0-12.0 % Eosinophils (%) (Auto) 1.2 0.0-7.0 % Basophils (%) (Auto) 0.8 0.0-2.0 % Neutrophils # (Auto) 5.2 1.6-8.6 10 ^3/uL Lymphocytes # (Auto) 0.9 0.4-5.4 10 ^3/uL Monocytes # (Auto) 0.4 0-1.3 10 ^3/uL Eosinophils # (Auto) 0.1 0-0.8 10 ^3/uL Basophils # (Auto) 0.1 0-0.2 10 ^3/uL Nucleated Red Blood Cells 0.1 % Sodium Level 139 136-145 mmol/L Chloride Level 105 98-107 mmol/L Carbon Dioxide Level 22 20-31 mmol/L Anion Gap 12 5-15 Blood Urea Nitrogen 46 H 9-23 mg/dL Creatinine 5.63 H 0.700-1.30 mg/dL Glomerular Filtration Rate Calc 10 >90 mL/min BUN/Creatinine Ratio 8.2 L 10.0-20.0 Serum Glucose 141 H 74-106 mg/dL Calcium Level 8.4 L 8.7-10.4 mg/dL Total Bilirubin 0.6 0.2-1.0 mg/dL Aspartate Amino Transferase (AST) 21 13-40 U/L Alanine Aminotransferase (ALT) 44 H 7-40 U/L Alkaline Phosphatase 89 46-116 U/L B-Type Natriuretic Peptide > 5000.00 0-100 pg/mL Total Protein 5.9 5.7-8.2 g/dL Albumin 3.4 3.2-4.8 g/dL Blood Gas Specimen Type Arterial Blood Gas Sample Site Left radial Blood Gas Patient Temperature 37.0 Arterial Blood Date Drawn [id number] Arterial Blood pH 7.412 7.350-7.450 Arterial Blood Partial Pressure CO2 29.1 L 35.0-48.0 mmHg Arterial Blood Partial Pressure O2 211.2 H 83.0-108.0 mmHg Arterial Blood HCO3 18.1 L 21.0-28.0 mmol/L Arterial Blood Oxygen Saturation 99.5 H 94.0-98.0 % Arterial Blood Base Excess -5.2 L -2.0-3.0 mmol/L Arterial Blood Oxyhemoglobin 98.3 H 94.0-98.0 % Arterial Blood Carboxyhemoglobin 0.5 0.5-1.5 % Arterial Blood Methemoglobin 0.7 0.0-1.5 % Krishna Test Modified Blood Gas Total Hemoglobin 12.80 L 13.5-17.5 g/dL Blood Gas Liter Flow 10.00 Blood Gas Modality Oxymizer FiO2 % 72.0 SEPSIS Sepsis Screen Date sepsis recognized/suspect: Dec 21, 2024 Time Sepsis recognized/suspect: 0100 Recent Procedure: No On Antibiotic Therapy: No Respiratory Rate >20: No Heart Rate >90: Yes Temp<36 C (96.8 F) or >38.3 C: No SBP <90 or MAP <65 mmHG: No New Acute Mental Status Change: No Is the patient on CPAP, BIPAP,: No Physician Orders Gabapentin Capsule (Neurontin Capsule) (12/20/24 21:30) Vital Signs Date Time Temp Pulse Resp B/P (MAP) Pulse Ox O2 Delivery O2 Flow Rate FiO2 12/21/24 04:00 115 15 101/63 (76) 96 12/21/24 03:00 107 16 103/71 (82) 96 12/21/24 02:00 103 26 93/66 (75) 95 12/21/24 01:00 101 9 95 Nasal Cannula* 3 32 12/21/24 01:00 101 18 99/69 (79) 96 12/21/24 00:00 107 23 97/71 (80) 95 12/20/24 23:00 103 15 95/65 (75) 95 12/20/24 22:00 100 22 92/74 (80) 95 12/20/24 21:00 101 17 94/76 (82) 95 Medications Medications Dose Ordered Sig/Isidra Route Start Time Stop Time Status Last Admin Dose Admin Albumin Human 250 ml @ 250 mls/hr ONCE ONCE IV 12/20/24 22:30 12/20/24 23:29 DC 12/20/24 22:28 250 MLS/HR Amiodarone HCL/ Dextrose 200 ml @ 16.66 mls/ hr Q12H IV 12/20/24 19:00 12/20/24 19:29 16.66 MLS/HR Atorvastatin Calcium 20 mg HS PO 12/20/24 22:00 12/20/24 23:40 20 MG Diagnostic Test (Pha) 1 strip ACHS 12/20/24 22:00 12/20/24 22:00 1 STRIP Temazepam 15 mg ONCE ONCE PO 12/20/24 21:00 12/20/24 22:18 DC 12/20/24 21:56 15 MG Assessment/Plan Assessment/Plan Assessment Acute on chronic respiratory failure Possible fluid overload CHF ? Pneumonia AFib with RVR Elevated troponin, demand ischemia Plan Admit the patient to [facility] to the hospitalist Nephrology consultation Cardiology consult Resume home medications Rocephin/azithromycin Med nebs Continue amiodarone drip Total critical care time excluding procedures performed this 50 minutes. Plan discussed with: Patient My Orders Orders - ALY HUTCHISON AGACNP Procedure Category Date Status Time Azithromycin 500mg/ PHA 12/21/24 In Process 250ml (Zithromax 50 10:00 Ceftriaxone 1gm/50ml PHA 12/21/24 In Process (Rocephin) 09:00 Atorvastatin (Lipitor) PHA 12/20/24 In Process 22:00 Aspirin Tablet PHA 12/21/24 In Process 10:00 Atenolol Tablet PHA 12/21/24 In Process (Tenormin Tablet) 10:00 Losartan Tablet PHA 12/21/24 In Process (Cozaar Tablet) 10:00 Tamsulosin PHA 12/21/24 In Process Hydrochloride (Flomax) 18:00 Furosemide Injection PHA 12/21/24 In Process (Lasix Injection) 06:00 Albuterol Medneb PHA 12/20/24 In Process (Ventolin Medneb) 19:30 *[facility] CONS 12/20/24 Transmitted -[place] 19:21 * Cardiology Consult CONS 12/20/24 Transmitted 19:21 Glucose Blood PHA 12/20/24 In Process (Accu-Chek Comfort 22:00 Insulin R (Human) PHA 12/20/24 In Process (Insulin R) 22:00 Dextrose 50% Syringe PHA 12/20/24 In Process 19:30 Admit ADMIT 12/20/24 Transmitted 19:21 Renal DIET 12/21/24 Transmitted Standard(2gna,3gk,Lopho) Breakfast Ondansetron Hcl PHA 12/20/24 In Process (Zofran) 19:30 Complete Blood Count LAB 12/21/24 Logged 04:00 Comprehensive LAB 12/21/24 Logged Metabolic Panel 04:00 Cardiac DIET 12/21/24 Transmitted Diet-2gna,Lofat,Lochol Breakfast Echo 2d Mode Cardiac US 12/20/24 Logged DOP 19:21 Condition: Serious JAYNE 12/20/24 In Process 19:21 Acetaminophen Tablet PHA 12/20/24 In Process (Tylenol Tablet) 19:30 Bedrest With Bathroom JAYNE 12/20/24 In Process Privileg 19:21 Nitroglycerin [facility] 12/20/24 In Process Sublingual (Ntrostat 19:30 Morphine Sulfate PHA 12/20/24 In Process Injection 19:30 Stat Ekg For Chest JAYNE 12/20/24 In Process Pain 19:21 Notify Md Of Changes [facility] 12/20/24 In Process From Base 19:21 Biochemistry Specialist For [facility] 12/20/24 In Process 24 Hours 19:21 Emergency Dysrhythmia JAYNE 12/20/24 In Process Protocol 19:21 Rhythm Strips Once [facility] 12/20/24 In Process Every Shift 19:21 Oxygen By Nasal RT 12/20/24 Transmitted Cannula 19:21 Gabapentin Capsule PHA 12/21/24 In Process (Neurontin Capsule) 10:00 Gabapentin Capsule PHA 12/20/24 In Process (Neurontin Capsule) 21:30 Date of Service: Dec 20, 2024 Billing Provider: ALY HUTCHISON Common Visit Codes: [id number] CARE 30-74 MIN [facility] Dec 21, 2024 04:18
[2024-12-21 05:37] LABS: Hematocrit 38.0 % (41.0-53.0); Hemoglobin 12.0 g/dL (13.5-17.5); Mean Corpuscular Hemoglobin 30.2 pg (28.0-32.0); Mean Corpuscular Volume 95.3 fL (80.0-100.0); Nucleated Red Blood Cells % 0.1 %
[2024-12-21 05:57] LABS: Alanine Aminotransferase 36 U/L (7-40); Albumin 3.4 g/dL (3.2-4.8); Alkaline Phosphatase 85 U/L (46-116); Anion Gap 13 (5-15); BUN/Creatinine Ratio 6.8 (10.0-20.0); Bilirubin, Total 0.5 mg/dL (0.2-1.0); Carbon Dioxide 24 mmol/L (20-31); Chloride 101 mmol/L (98-107); Sodium 138 mmol/L (136-145); Total Protein 5.9 g/dL (5.7-8.2)
[2024-12-21 06:15] LABS: Blood Urea Nitrogen 41 mg/dL (9-23); Calcium 8.5 mg/dL (8.7-10.4); Glucose 122 mg/dL (74-106)
[2024-12-21 06:16] LABS: Potassium 5.8 mmol/L (3.5-5.1)
[2024-12-21] MEDS: FUROSEMIDE 20 MG/2 ML VIAL IV SCH (08:19)
[2024-12-21] MEDS: AZITHROMYCIN 500MG/ 250ML 250 ML IV SCH (09:38)
[2024-12-21] MEDS: ATENOLOL 25 MG TAB PO SCH (09:58)
[2024-12-21] MEDS: LOSARTAN POTASSIUM 50 MG TAB PO SCH (09:58)
[2024-12-21] MEDS: GABAPENTIN 300 MG CAP PO SCH (09:59)
--- NOTE | 2024-12-21 10:33 | MEDREC ---
[facility] Intervention Section I [facility] Intervention: Review courses of therapy (Pt QTc reported to be 496. Currently on Azithromycin which may prolong QT. May consider changing to Doxycyline if/when clinically appropriate.) DONALD MAHARAJ [facility] Dec 21, 2024 10:33
[2024-12-21] MEDS: SODIUM BICARB 8.4% 50Meq/50ml SYR Vial IV ONE (11:00)
[2024-12-21] MEDS: DEXTROSE (50%) 50ML SYRG IV ONE (11:00)
[2024-12-21] MEDS: InsuLIN REG 1unit/0.01ml Soln (100units/ml) IV ONE (11:00)
[2024-12-21] MEDS: DIGOXIN (250MCG/ML) 2 ML AMPULE IV ONE (11:00)
[2024-12-21] MEDS: BUMETANIDE 2.5mg/10ml (0.25 mg/ml) INJ IV ONE (11:00)
[2024-12-21] MEDS: CALCIUM GLUC 1,000mg/50ml-NS 50 ML IV ONE (11:00)
[2024-12-21] MEDS ORDERED: ENOXAPARIN SOD 100 MG/1 ML SYRINGE SC ONE (11:00)
[2024-12-21] MEDS: InsuLIN REG 1unit/0.01ml Soln (100units/ml) ONE (11:10)
[2024-12-21] MEDS: DEXTROSE 50% SYRINGE 50 ML IV ONE (11:10)
[2024-12-21] MEDS: BUMETANIDE INJECTION 10 ML ONE (11:10)
[2024-12-21] MEDS: CALCIUM GLUC 1,000mg/50ml-NS 0 ML IV ONE ×2 (11:11→11:40)
[2024-12-21] MEDS: SODIUM BICARB 8.4% 50Meq/50ml SYR INJ ONE (11:11)
[2024-12-21] MEDS: ETOMIDATE (2MG/ML) 20ML VIAL IV ONE ×2 (11:19→12:34)
[2024-12-21] MEDS: ROCURONIUM 10MG/ML 10ML VIAL IV ONE (11:22)
--- NOTE | 2024-12-21 11:25 | DVHINCON2 ---
Date Seen: Dec 21, 2024 Referring Physician CK Barros Reason for Consultation CHF, A-fib History of Present Illness This is a 79-year-old man who presented to the emergency room via EMS with a chief complaint of shortness of breath since Friday night (). At time of assessment, the patient was found A&O x2. Information obtained from and son at bedside. Per , was discharged from [facility] on Friday and after arriving home developing increased SOB and dyspnea with calling 911. Denies any complains of chest pain, palpitations, diaphoresis, or syncopal events. A twelve-lead electrocardiogram revealed an atrial flutter rhythm with a predominant 2:1 AV block at 131 bpm. bus transportation manager at bedside revealed an atrial flutter rhythm with an associated left bundle branch block up to the 110s bpm. Serial troponin levels are negative. Follows up in the outpatient setting with primary regional engagement consultant at [facility], Dr. Mccauley. Significant medical history includes non-ischemic cardiomyopathy undergoing a cardiac catheterization without catheter based intervention on July 2022, atrial fibrillation/atrial flutter status post cardi ac ablation at [facility] on October 2022 with transient sinus rhythm and reoccurrence on 2024 currently on amiodarone/metoprolol Succ/Eliquis therapy, hypertension, dyslipidemia, thyroid disease, diverticulitis with bowel perforation and repair with colostomy on July 2024, chronic kidney disease stage III-IV, benign prostatic hyperplasia, and obstructive sleep apnea with history of CPAP HS which he stopped 2.5 years ago. Past Medical History Past medical history reviewed. No other significant than mentioned above. Past Surgical History Cardiac ablation, October 2022 Colon resection (9 in chest removed) with colostomy, July 2024 Hernia repair Prostate surgery Family History: Autoimmune disorder G8 MOTHER Family History Family history reviewed. Social History Per family at bedside, no use of alcohol, tobacco, or illicit drugs. Discharge from [facility] [place] on 2024. Allergies: Coded Allergies: NO KNOWN ALLERGIES (Unverified , 02/08/14) Home Meds Reported Medications Fluticasone Propionate (Nasal) (Flonase Allergy Relief) 50 Mcg/Act Spr, 50 MCG NA PRN, SPRAY 02/08/19 Sertraline Hcl (Sertraline Hcl) 50 Mg Tab, 100 MG PO DAILY for 30 Days, MG 02/08/19 Atenolol (Atenolol) 50 Mg Tab, 50 MG PO BID for 30 Days, MG 02/08/19 Melatonin (MELATONIN CR) 10 Mg Tab, 5 MG PO DAILY, TAB 02/08/19 Coenzyme Q10 (Co Q 10) 10 Mg Cap, 10 MG PO DAILY, CAP 02/08/19 Gabapentin (Gabapentin) 300 Mg Cap, 1 CAP PO TID, #90 CAP 5 Refills 02/08/19 Trazodone Hcl (Trazodone Hcl) 50 Mg Tab, 50 MG PO TID, TAB 02/08/19 Magnesium Oxide (MAGNESIUM OXIDE) 400 Mg Tab, 1 TAB PO DAILY, #90 TAB 3 Refills 02/08/19 Aspirin (Asa) 81 Mg Ch, 81 MG PO DAILY, TAB.CHEW 02/08/19 Cholecalciferol (VITAMIN D3) 2,000 Unit Tab, 1 TAB PO DAILY, #30 TAB 5 Refills 02/08/19 Olanzapine (OLANZAPINE) 5 Mg Tab, 5 MG PO DAILY for 30 Days, MG 02/08/19 Isosorbide Mononitrate (Isosorbide Mononitrate Er) 30 Mg Tab, 30 MG PO DAILY for 30 Days, MG 02/08/19 Ranitidine Hcl (Zantac) 150 Mg Tab, 150 MG PO PRN, TAB 02/08/19 Docusate Sodium (Colace) 100 Mg Cap, 1 CAP PO BID, #30 CAP 02/08/19 Atenolol (Atenolol) 50 Mg Tab, 50 MG PO BID 02/08/19 Metformin Hydrochloride (Metformin Hcl) 1,000 Mg Tab, 100 MG PO DAILY 02/08/19 Furosemide (Furosemide) 20 Mg Tab, 20 MG PO DAILY 02/08/19 Tamsulosin Hcl (Tamsulosin Hcl) 0.4 Mg Cap, 0.4 MG PO DAILY 02/08/19 Losartan Potassium (Losartan Potassium) 100 Mg Tab, 100 MG PO DAILY 02/08/19 Hydralazine Hcl (Hydralazine Hcl) 50 Mg Tab, 50 MG PO TID 02/08/19 Amlodipine Besylate (Amlodipine Besylate) 10 Mg Tab, 10 MG PO DAILY 02/08/19 Omeprazole (Omeprazole Dr) 40 Mg Cap, 40 MG PO DAILY 02/08/19 Atorvastatin Calcium (ATORVASTATIN CALCIUM) 20 Mg Tab, 20 MG PO DAILY 02/08/19 Home Meds Home medications reviewed. Current Medications Current Medications Medications (Trade) Dose Ordered Sig/Isidra Route PRN Reason Start Time Stop Time Status Last Admin Amiodarone HCL/ Dextrose 200 ml @ 16.66 mls/ hr Q12H IV 12/21/24 19:00 12/20/24 19:11 DC Amiodarone HCL/ Dextrose 200 ml @ 16.66 mls/ hr Q12H IV 12/20/24 19:00 12/20/24 19:29 Azithromycin 250 ml @ 125 mls/hr DAILY IV 12/21/24 10:00 Ceftriaxone Sodium 50 ml @ 100 mls/hr DAILY@09 IV 12/21/24 09:00 12/21/24 08:39 Atorvastatin Calcium (Lipitor) 20 mg HS PO 12/20/24 22:00 12/20/24 23:40 Aspirin 162 mg DAILY PO 12/21/24 10:00 Atenolol (Tenormin Tablet) 50 mg DAILY PO 12/21/24 10:00 Gabapentin (Neurontin Capsule) 300 mg DAILY PO 12/21/24 10:00 Losartan Potassium (Cozaar Tablet) 100 mg DAILY PO 12/21/24 10:00 Tamsulosin HCl (Flomax) 0.4 mg QPM PO 12/21/24 18:00 Furosemide (Lasix Injection) 20 mg BIDD IV 12/21/24 06:00 12/21/24 08:19 Albuterol (Ventolin Medneb) 2.5 mg Q6HPRN PRN NEB SHORTNESS OF BREATH 12/20/24 19:30 Diagnostic Test (Pha) (Accu-Chek Comfort Curve T) 1 strip ACHS 12/20/24 22:00 12/21/24 08:21 Insulin Human Regular (InsuLIN R) ACHS SC 12/20/24 22:00 Dextrose 50 ml UD PRN IV Blood Sugar LESS THAN 60 12/20/24 19:30 Ondansetron HCl (Zofran) 4 mg Q4HP PRN IV NAUSEA / VOMITING 12/20/24 19:30 Acetaminophen (Tylenol Tablet) 650 mg Q6HP PRN PO PAIN SCALE 1-3 OR TEMP>100.4 12/20/24 19:30 Nitroglycerin (Ntrostat Sublingual) 0.4 mg Q5MINP PRN SL FOR CHEST PAIN 12/20/24 19:30 Morphine Sulfate 2 mg Q30M PRN IV FOR CHEST PAIN 12/20/24 19:30 Gabapentin (Neurontin Capsule) 300 mg POSTDI PRN PO X1 DOSE POST HD 12/20/24 21:30 Review of Systems Constitutional: No symptom reported Ears, Nose, & Throat: No symptom reported Eyes: No symptom reported Neurological: ALOC Pulmonary/Respiratory: SOB Cardiovascular: No symptom reported Gastrointestinal: No symptom reported Genitourinary: No symptom reported Musculoskeletal: No symptom reported Skin: No symptom reported Psychiatric: No symptom reported Endocrine: No symptom reported Hemotologic/Lymphatic: No symptom reported Vital Signs Vital Signs Date Time Temp Pulse Resp B/P (MAP) Pulse Ox O2 Delivery O2 Flow Rate FiO2 12/21/24 08:19 107/62 12/21/24 06:57 125 14 99 Oxymizer 3 N/A 12/20/24 19:31 97.9 97.9 Physical Exam General Appearance: A&O x 2. Passive. Cooperative Head Exam: Normal inspection Neck Exam: Normal inspection. Normal alignment Pulmonary/Respiratory: Chest non-tender. Diminished bilateral breath sounds R>L. O2 via oxymizer Cardiovascular/Chest: Irregularly irregular rate and rhythm. Atrial flutter with an associated LBBB. No murmurs. +JVD. Peripheral Pulses: 2+ Radial (R). 2+ Radial (L). 2+ Pedal (R). 2+ Pedal (L) Abdominal Exam: Normal bowel sounds. Soft. Nontender. No hepatospenomegaly. No masses Ankle Exam: Negative ankle edema Lower extremities: Negative lower extremity edema Neuro/Mental Status: A&O x2. Passive Thoughts/Psych: Normal thought pattern. Alert, not coherent Appearance: In no acute distress Skin Exam: Normal inspection. Normal color. Warm. Dry Labs/Diagnostic Data Labs Test 12/21/24 08:26 12/21/24 04:21 12/20/24 16:31 12/20/24 13:02 Range/Units POC Glucose 107 H 70-106 mg/dl White Blood Count 7.0 4.4-10.8 10^3/uL Red Blood Count 3.99 L 4.5-5.90 10^6/uL Hemoglobin 12.0 L 13.5-17.5 g/dL Hematocrit 38.0 L 41.0-53.0 % Mean Corpuscular Volume 95.3 80.0-100.0 fL Mean Corpuscular Hemoglobin 30.2 28.0-32.0 pg Mean Corpuscular Hemoglobin Concent 31.7 L 32.0-36.0 g/dL Red Cell Distribution Width 16.8 H 11.8-14.3 % Platelet Count 156 140-450 10^3/uL Mean Platelet Volume 10.8 6.9-10.8 fL Neutrophils (%) (Auto) 75.2 37.0-80.0 % Lymphocytes (%) (Auto) 17.9 10.0-50.0 % Monocytes (%) (Auto) 6.2 0.0-12.0 % Eosinophils (%) (Auto) 0.2 0.0-7.0 % Basophils (%) (Auto) 0.5 0.0-2.0 % Neutrophils # (Auto) 5.2 1.6-8.6 10 ^3/uL Lymphocytes # (Auto) 1.2 0.4-5.4 10 ^3/uL Monocytes # (Auto) 0.4 0-1.3 10 ^3/uL Eosinophils # (Auto) 0 0-0.8 10 ^3/uL Basophils # (Auto) 0 0-0.2 10 ^3/uL Nucleated Red Blood Cells 0.1 % Sodium Level 138 136-145 mmol/L Potassium Level 5.8 *H 3.5-5.1 mmol/L Chloride Level 101 98-107 mmol/L Carbon Dioxide Level 24 20-31 mmol/L Anion Gap 13 5-15 Blood Urea Nitrogen 41 H 9-23 mg/dL Creatinine 6.01 H 0.700-1.30 mg/dL Glomerular Filtration Rate Calc 9 >90 mL/min BUN/Creatinine Ratio 6.8 L 10.0-20.0 Serum Glucose 122 H 74-106 mg/dL Calcium Level 8.5 L 8.7-10.4 mg/dL Total Bilirubin 0.5 0.2-1.0 mg/dL Aspartate Amino Transferase (AST) 17 13-40 U/L Alanine Aminotransferase (ALT) 36 7-40 U/L Alkaline Phosphatase 85 46-116 U/L Total Protein 5.9 5.7-8.2 g/dL Albumin 3.4 3.2-4.8 g/dL Troponin I High Sensitivity 8 </=54 ng/L B-Type Natriuretic Peptide > 5000.00 0-100 pg/mL Test 12/20/24 12:20 Range/Units Blood Gas Specimen Type Arterial Blood Gas Sample Site Left radial Blood Gas Patient Temperature 37.0 Arterial Blood Date Drawn [id number] Arterial Blood pH 7.412 7.350-7.450 Arterial Blood Partial Pressure CO2 29.1 L 35.0-48.0 mmHg Arterial Blood Partial Pressure O2 211.2 H 83.0-108.0 mmHg Arterial Blood HCO3 18.1 L 21.0-28.0 mmol/L Arterial Blood Oxygen Saturation 99.5 H 94.0-98.0 % Arterial Blood Base Excess -5.2 L -2.0-3.0 mmol/L Arterial Blood Oxyhemoglobin 98.3 H 94.0-98.0 % Arterial Blood Carboxyhemoglobin 0.5 0.5-1.5 % Arterial Blood Methemoglobin 0.7 0.0-1.5 % Krishna Test Modified Blood Gas Total Hemoglobin 12.80 L 13.5-17.5 g/dL Blood Gas Liter Flow 10.00 Blood Gas Modality Oxymizer FiO2 % 72.0 Assessment Atrial flutter/atrial fibrillation with RVR, likely Stage IIIa (on amiodarone/BB/Eliquis therapy at home-) Acute on chronic decompensated unspecified HF, NYHA Class IV Nonischemic cardiomyopathy Advanced CKD now ESRD with HD and associated hyperkalemia Hx of cardiac ablation in 2022 Thyroid disease Recent colon resection with colostomy Plan/Recommendation (Dr. Urias) We will continue further cardiac evaluation with a transthoracic echocardiogram to evaluate cardiac function. In the meantime, initiate rate control with digoxin therapy given hypotension including bolus dose and maintenance EOD. Continue amiodarone therapy per pharmacy protocol. Initiate therapeutic Lovenox for renal disease and transition to Eliquis with the appropriate ([id number] Score 5 points, HAS-BLED Score 3 points). Discontinue single-antiplatelet therapy given NICM, advanced age, and high-risk for bleed. Initiate home HF medications when BP able to tolerate (metoprolol succ., Entresto, empagliflozin). Continue Nephrology recommendations. Further recommendations per clinical course. Thank you for allowing us to participate in this patient's care. Please call if you have any questions or concerns. Critical care time: 40 min. This medical document was created using an electronic medical record system with voice recognition software and computerized dictation system. Although this document has been carefully reviewed, there might still be some phonetic and typographical errors. Occasional wrong-word or ``sound-alike substitutions may have occurred due to the inherent limitations of voice recognition software. These areas are purely typographical due to imperfections of the software programs and do not reflect any compromise in the patient's medical care. Please read the chart carefully and recognize, using context, where these substitutions have occurred. Plan discussed with: Patient, Spouse, Son, Other NYHA Physical activity limitations: Class4(Severe)discomfort (w any activit,symptoms at rest) Date of Service: Dec 21, 2024 Billing Provider: DAHLIA HENDRICKS Cardiology Common Codes: [id number] CARE 30-74 MIN DAHLIA HENDRICKS Dec 21, 2024 11:25
[2024-12-21] MEDS: ENOXAPARIN SOD 80 MG/0.8ML SYRINGE SC ONE (11:30)
[2024-12-21] MEDS: NOREPINEPHRINE 8 MG/250ML KIT 250 ML IV ONE (11:31)
[2024-12-21] MEDS: VASOPRESSIN 20 UNIT/ML ONE (11:42)
[2024-12-21] MEDS: fentaNYL Drip 2500mCg/250mlNS 250 ML IV SCH (11:45)
[2024-12-21] MEDS: MEROPENEM 1GM IVPB 50 ML IV ONE ×2 (11:45→11:50)
[2024-12-21] MEDS ORDERED: VANCOMYCIN PER PHARMACY 0 MG IV SCH (11:45)
[2024-12-21] MEDS: MIDAZOLAM DRIP 50 mg/50mL 50 ML IV SCH (11:45)
[2024-12-21] MEDS: fentaNYL Drip 2500mCg/250mlNS 250 ML IV ONE (11:47)
--- NOTE | 2024-12-21 12:05 | DVHPN2 ---
Progress Note Date Seen: Dec 21, 2024 Medical Necessity Reason Pt with a Central, PICC or Fol: Yes The following are medically ne: Stearns Catheter Reason for stearns catheter: Strict I&O Subjective Patient reports: No new complaints Review of Systems: HEENT:Normal, CVS:Normal, RESPIRATORY:Normal, GI:Normal, :Normal, MSK:Normal, NEURO:Normal Objective vital signs Vital Sign Date Time Temp Pulse Resp B/P (MAP) Pulse Ox O2 Delivery O2 Flow Rate FiO2 12/21/24 11:32 113 20 121/91 (101) 64 100 12/21/24 06:57 Oxymizer 3 12/20/24 19:31 97.9 97.9 Total Intake and Output 12/20/24 12/20/24 12/21/24 15:00 23:00 07:00 Intake Total 133.33 ml 383.33 ml 333.30 ml Balance 133.33 ml 383.33 ml 333.30 ml medications Current Medications Medications Dose Ordered Sig/Isidra Route Start Time Stop Time Status Last Admin Dose Admin Amiodarone HCL/ Dextrose 200 ml @ 16.66 mls/ hr Q12H IV 12/20/24 19:00 12/20/24 19:29 16.66 MLS/HR Albuterol 2.5 mg Q6HPRN PRN NEB 12/20/24 19:30 Diagnostic Test (Pha) 1 strip ACHS 12/20/24 22:00 12/21/24 08:21 1 STRIP Insulin Human Regular ACHS SC 12/20/24 22:00 Dextrose 50 ml UD PRN IV 12/20/24 19:30 Ondansetron HCl 4 mg Q4HP PRN IV 12/20/24 19:30 Acetaminophen 650 mg Q6HP PRN PO 12/20/24 19:30 Nitroglycerin 0.4 mg Q5MINP PRN SL 12/20/24 19:30 Morphine Sulfate 2 mg Q30M PRN IV 12/20/24 19:30 Enoxaparin Sodium 80 mg DAILY SC 12/22/24 10:00 UNV Vancomycin HCl 0 ml @ 0 mls/hr UD IV 12/21/24 11:45 UNV Meropenem 50 ml @ 17 mls/hr Q12HR IV 12/21/24 22:00 UNV Pantoprazole Sodium 40 mg DAILY IV 12/22/24 10:00 UNV Midazolam HCl 50 ml @ 1 mls/hr Q24H IV 12/21/24 11:45 UNV Fentanyl Citrate 250 ml @ 2.5 mls/hr Q24H IV 12/21/24 11:45 UNV Examination: GENERAL:Normal, HEENT:Normal, NECK:Normal, LUNGS:Normal, LUNGS:Abnormal (INTUBATED), CVS:Normal, ABDOMEN:Normal, MSK:Normal, SKIN:Normal, NEURO:Normal, :Normal laboratory and microbiology Laboratory Tests 12/21/24 04:21 Test 12/21/24 04:21 Range/Units Serum Glucose 122 H 74-106 mg/dL Problem List/Assessment/Plan Problem List/Assessment/Plan #1 acute resp failure: on acv #2 shock ? septic ?cardiac: cultures, iv antibiotics, iv pressors #3 esrd: on dialysis #4 s/p bowel perf s/p exp lap #5 s/p peg/ostomy #6 a fib s/p cardioversion #7 dm: ssi #8 bph long dw family regards current condition and code status Plan discussed with: Spouse My Orders My Orders Orders - ALY SCHROEDER MD Procedure Category Date Status Time Ventilator Orders RT 12/21/24 Transmitted 11:27 Abg W/ Co-Ox RT 12/21/24 Logged 12:30 Respiratory Culture KAELA 12/21/24 Logged W/ Gs 11:27 Ventilator Orders RT 12/21/24 Transmitted 11:33 Abg W/ Co-Ox RT 12/21/24 Logged 12:30 Respiratory Culture KAELA 12/21/24 Logged W/ Gs 11:33 Chest Xray 1 View XY 12/21/24 Taken 11:42 Blood Culture KAELA 12/21/24 Logged 11:43 Insert/Manage Urinary JAYNE 12/21/24 In Process Catheter 11:43 Urinalysis LAB 12/21/24 Uncollected 11:43 Urine Bacterial KAELA 12/21/24 Logged Culture 11:43 Vancomycin Per PHA 12/21/24 Logged Pharmacy 11:45 Meropenem 1gm Ivpb PHA 12/21/24 Logged (Merrem 1gm/50ml) 11:45 Meropenem 1gm Ivpb PHA 12/21/24 Logged (Merrem 1gm/50ml) 22:00 Pantoprazole PHA 12/21/24 Logged (Protonix) 11:45 Pantoprazole PHA 12/22/24 Logged (Protonix) 10:00 Midazolam Drip 50 PHA 12/21/24 Logged Mg/50ml (Versed Drip 5 11:45 Fentanyl Drip PHA 12/21/24 Logged 2500mcg/250mlns 11:45 Rass Sedation Scale JAYNE 12/21/24 In Process 11:45 Complete Blood Count LAB 12/22/24 Verified 06:00 Comprehensive LAB 12/22/24 Verified Metabolic Panel 06:00 Chest Portable XY 12/22/24 Logged 06:00 Abg W/ Co-Ox RT 12/22/24 Logged 06:00 PTPTT LAB 12/22/24 Verified 04:00 Respiratory Misc. RT 12/21/24 Transmitted Order 11:59 Critical Care Time (mins): 82 (critical care time excluding procedures is 82 mins) Date of Service: Dec 21, 2024 Billing Provider: ALY SCHROEDER MD Common Visit Codes: 27188-[id number] CARE 30-74 MIN, [id number] CARE-EACH +30MIN ALY SCHROEDER MD Dec 21, 2024 12:05
--- NOTE | 2024-12-21 12:06 | DVHNC2 ---
Central Line Recorder of insertion practice: Floor Steward/Stewardess Occupation of commutator undercutter: Attending Physician Indication: Hypotension Room prepared for procedure: Yes Floor Steward/Stewardess performed hand hygien: Yes Maximal sterile barrier precau: Mask/Eye shield, Sterile gown, Cap, Sterlie gloves, Large sterlie drape Skin Preparation: Chlorhexidine gluconate Skin preparation completely dr: Yes Insertion site: Left, Internal jugular Central line catheter type: [id number] dialysis Number of lumens: 3 Central line exchanged over a: No Antiseptic ointment applied to: Yes Post Assessment: Chest X-Ray Date of Service: Dec 21, 2024 Billing Provider: LAY SCHROEDER MD Common Visit Codes: PROCEDURE ONLY Procedure Codes: [id number] NON-TUNNEL CV CATH ALY SCHROEDER MD Dec 21, 2024 12:06
--- NOTE | 2024-12-21 12:10 | DVHNC2 ---
Intubation Indication: Respiratory Insufficiency Prep: Preoxygenation Pretreated with: Analgesia, Sedation Intubation Approach: Orotracheal Intubation size: cm (8) Date of Service: Dec 21, 2024 Billing Provider: ALY SCHROEDER MD Common Visit Codes: PROCEDURE ONLY Procedure Codes: [id number] ALY SCHROEDER MD Dec 21, 2024 12:10
[2024-12-21] MEDS: VASOPRESSIN 20 UNITS in SODIUM CHL 0.9% 99 ML IV SCH (12:15)
--- NOTE | 2024-12-21 12:20 | DVH ---
CHEST RADIOGRAPH Indication: CENTRAL LINE AND ETT PLACEMENT Technique: Single frontal view of the chest was obtained COMPARISON: XY CHEST PORTABLE on DOS: 12/20/24 FINDINGS: Lines and Tubes: Endotracheal tube is slightly low in position at the level of the mateo. Right tunn eled central venous catheter tip is located in the superior vena cava, unchanged compared to prior po rtable chest from 12/20/24. Left central venous catheter is in satisfactory position. Lungs: Pulmonary vascular congestion, unchanged Pleura: No effusion. No pneumothorax. Cardiomediastinal contours: Unremarkable Bones: Unremarkable IMPRESSION: Endotracheal tube is slightly low in position at the level of the mateo. Recommend retraction by 2 cm. Increased interstital prominence. This may represent pulmonary vascular congestion and/or viral pneum onia. Clinical correlation advised. Left central venous catheter in satisfactory position.
[2024-12-21] MEDS: LIDOCAINE 2% JELLY 11ml (GLYDO) ONE (12:32)
[2024-12-21] MEDS: NOREPINEPHRINE 8 MG/250ML KIT 250 ML IV SCH (12:35)
--- NOTE | 2024-12-21 12:44 | RESUS ---
KENDRA IRBY ASSESSSMENT History of Events History of Events: Per nurse, patient was having echocardiogram when suddenly a change in rhythym and heart rate was noted. Bradycardia in the 20's. Patient then became agonal and stopped breathing but did not lose pulse. Nurse immediately began bagging patient and kendra irby was called. Initial Information Date: Dec 21, 2024 Time: 11:12 Location of Arrest: ICU (Central) (104) Arrest Witnessed: Yes Pre-Hospital Care: ACLS Type of arrest: Respiratory, Adult, Witnessed Spontaneous Respirations: No Pulse Present: Yes Monitoring: ECG, Pulse Oximetry, Telemetry Crash Cart Opened and Supplies: Yes Airway Ventilation Breathing at Onset: Apneic Oxygen Delivery Method: Ambu-Bag Time of first Assisted Ventila: 11:14 Artificial Ventilation: Bag/Mask, Bag/Endo tube Intubation Size: 8.0 cuffed Intubated by: Dr. Santamaria Intubation Attempts: 1 Intubated orally: Yes Intubated Nasaly: No Tube secured at: 26 Cricoid pressure done: Yes CO2 indicator used: Yes Confirmation: Auscultation, Exhaled CO2, Chest X-ray Suctioning (Oral/Tracheal): No Circulation Circulation #1: Time: 11:16 Pulse Rate (adult): 120 Blood Pressure Systolic: 108 Blood Pressure Diastolic: 54 Circulation Comment: O2 sat 100%, bagged Circulation #2: Time: 11:19 Pulse Rate (adult): 55 Blood Pressure Systolic: 137 Blood Pressure Diastolic: 36 Circulation #3: Time: 11:21 Pulse Rate (adult): 56 Blood Pressure Systolic: 91 Blood Pressure Diastolic: 56 Circulation Comment: O2sat 89% intubated Circulation #4: Time: 11:25 Pulse Rate (adult): 104 Blood Pressure Systolic: 80 Blood Pressure Diastolic: 56 Circulation Comment: O2sat 89% Circulation #5: Time: 11:31 Pulse Rate (adult): 92 Blood Pressure Systolic: 27 Blood Pressure Diastolic: 12 Circulation Comment: O2sat 59% Circulation #6: Time: 11:37 Pulse Rate (adult): 137 Blood Pressure Systolic: 121 Blood Pressure Diastolic: 91 Circulation #7: Time: 11:42 Pulse Rate (adult): 159 Blood Pressure Systolic: 139 Blood Pressure Diastolic: 112 Circulation #8: Time: 11:45 Pulse Rate (adult): 178 Blood Pressure Systolic: 106 Blood Pressure Diastolic: 0 Circulation #9: Time: 11:53 Pulse Rate (adult): 92 Blood Pressure Systolic: 111 Blood Pressure Diastolic: 79 Defibrillation Defbrillation : Time Defibrillator Applied: 11:10 EKG Rhythm: SVT Time Defibrillator Shocked Pt.: 11:46 Defib. Joules: 120 (sync) EKG Rhythm: Sinus Rhythm Procedure - IV Procedure - IV #1: IV Side: Left IV Location: Antecubital IV Catheter Type: Peripheral IV IV Gauge: 20 IV Line Care: Saline Flush Comment Placed prior to respiratory arrest. Procedure - IV #2: IV Side: Right IV Location: Wrist IV Catheter Type: Saline Lock IV Gauge: 22 IV Line Care: Saline Flush Comment Placed prior to respiratory arrest. Medications & Response Medications and Responses #1: Medication Time: 11:13 ADULT Medications Given ADULT: 2 Amps Na Bicarb Route of Administration: IV Medication Comment: This securities underwriter not present for initial drug administrations. Data collected from Nneka RN. Medications and Responses #2: Medication Time: 11:14 ADULT Medications Given ADULT: Calcium Chloride 10 mL Route of Administration: IV Medication Comment: This securities underwriter not present for initial drug administrations. Data collected from Nneka RN. Medications and Responses #3: ADULT Medications Given ADULT: D50 (amp) Route of Administration: IV Medication Comment: Regular insulin 10 units IVP x1. This securities underwriter not present for initial drug administrations. Data collected from Nneka DUKES. Medications and Responses #4: Medication Time: 11:34 ADULT Medications Given ADULT: Epinephrine 1 mg Route of Administration: IV Medication Comment: Pulse present. Heart rate dropping. Medicated per V.O. Dr. Santamaria. Unable to obtain blood pressure during this time. O2sat 52%. Heart Rate: 68 Procedure - Central Venous Cat Central venous catheter time: 11:35 Central venous catheter site: Left IJ Comment: Central line placed at bedside by Dr. Santamaria. Nurses Notes Dimitris Coma Scale Eye Opening: None (1) Dimitris Coma Scale Verbal: None (1) Dimitris Coma Scale Motor: None (1) Glascow Total: 3 Pupil Reaction: Sluggish Bedside Blood Glucose: 106 (Checked at 1155) EKG Rhythm: Sinus Rhythm, Sinus Bradycardia, Atrial Fibrillation, SVT Nurses Notes - Comment: 1116- Etomidate 15 mg IVP x1 per V.O. Dr. Santamaria for intubation. 1118- Etomidate 15 mg IVP x1 repeated per V.O. Dr. Santamaria for intubation. 1131-Levophed gtt started at 20 mcg/min per V.O. Dr. Santamaria. 1135-Levophed gtt increased to 30 mcg/min per V.O. Dr. Santamaria. 1147-Fentanyl gtt started at 25 mcg/hr per V.O. Dr. Santamaria. 1150-Portable chest xray done at bedside. Time Code Ended Time Code Ended: 11:55 Post Arrest Status: Ventilated Outcome of code: Successful Family notified: Yes (Dr. Santamaria spoke to family.) Attending called: Yes (Dr. Santamaria) Code Team Present: Dr. Santamaria, Connor RN, Nneka RN, Ramya RN, Holli RN, Sara RN, Patrice RT, Shantal RT, Bev RN Post Resuscitation Neurologica Pupil Size: 2 Comment: Equal and sluggish. Date of Service: Dec 21, 2024 Billing Provider: ALY SANTAMARIA MD Common Visit Codes: PROCEDURE ONLY Procedure Codes: [id number] CODE Bev Espitia Dec 21, 2024 12:44 ALY SANTAMARIA MD Dec 26, 2024 10:53
[2024-12-21 12:57] LABS: Base Excess -11.5 mmol/L (-2.0-3.0)
--- NOTE | 2024-12-21 13:28 | DVHINCON2 ---
Date of service: Dec 21, [address] Santamaria Reason for Consultation stearns placement History of Present Illness History Source: MD Notes Exam Limitations: Clinical condition HPI 79 yo male BIB presented to the ED with chief complaint of SOB. reports patient was discharged yesterday from a rehab facility where he was admitted following a bowel perforation, but since last night patient has been experiencing worsening SOB. relays that the patient was not sent home from rehab with O2 despite being on O2 throughout his stay in the rehab facility. Patient is due for dialysis tomorrow.He is relatively new to ESRD and still produces urine. He is seen in ICU bed 264 intubated and on levophed. Stearns catheter placement attempted by RN unsuccessfully. US bedside shows 200 mls in the bladder with diverticulum, no hydronephrosis bilaterally. Urology asked to assist. Home Meds Reported Medications Fluticasone Propionate (Nasal) (Flonase Allergy Relief) 50 Mcg/Act Spr, 50 MCG NA PRN, SPRAY 02/08/19 Sertraline Hcl (Sertraline Hcl) 50 Mg Tab, 100 MG PO DAILY for 30 Days, MG 02/08/19 Atenolol (Atenolol) 50 Mg Tab, 50 MG PO BID for 30 Days, MG 02/08/19 Melatonin (MELATONIN CR) 10 Mg Tab, 5 MG PO DAILY, TAB 02/08/19 Coenzyme Q10 (Co Q 10) 10 Mg Cap, 10 MG PO DAILY, CAP 02/08/19 Gabapentin (Gabapentin) 300 Mg Cap, 1 CAP PO TID, #90 CAP 5 Refills 02/08/19 Trazodone Hcl (Trazodone Hcl) 50 Mg Tab, 50 MG PO TID, TAB 02/08/19 Magnesium Oxide (MAGNESIUM OXIDE) 400 Mg Tab, 1 TAB PO DAILY, #90 TAB 3 Refills 02/08/19 Aspirin (Asa) 81 Mg Ch, 81 MG PO DAILY, TAB.CHEW 02/08/19 Cholecalciferol (VITAMIN D3) 2,000 Unit Tab, 1 TAB PO DAILY, #30 TAB 5 Refills 02/08/19 Olanzapine (OLANZAPINE) 5 Mg Tab, 5 MG PO DAILY for 30 Days, MG 02/08/19 Isosorbide Mononitrate (Isosorbide Mononitrate Er) 30 Mg Tab, 30 MG PO DAILY for 30 Days, MG 02/08/19 Ranitidine Hcl (Zantac) 150 Mg Tab, 150 MG PO PRN, TAB 02/08/19 Docusate Sodium (Colace) 100 Mg Cap, 1 CAP PO BID, #30 CAP 02/08/19 Atenolol (Atenolol) 50 Mg Tab, 50 MG PO BID 02/08/19 Metformin Hydrochloride (Metformin Hcl) 1,000 Mg Tab, 100 MG PO DAILY 02/08/19 Furosemide (Furosemide) 20 Mg Tab, 20 MG PO DAILY 02/08/19 Tamsulosin Hcl (Tamsulosin Hcl) 0.4 Mg Cap, 0.4 MG PO DAILY 02/08/19 Losartan Potassium (Losartan Potassium) 100 Mg Tab, 100 MG PO DAILY 02/08/19 Hydralazine Hcl (Hydralazine Hcl) 50 Mg Tab, 50 MG PO TID 02/08/19 Amlodipine Besylate (Amlodipine Besylate) 10 Mg Tab, 10 MG PO DAILY 02/08/19 Omeprazole (Omeprazole Dr) 40 Mg Cap, 40 MG PO DAILY 02/08/19 Atorvastatin Calcium (ATORVASTATIN CALCIUM) 20 Mg Tab, 20 MG PO DAILY 02/08/19 Past Medical History Patient Family History: Autoimmune disorder G8 MOTHER Review of Systems Comments unable to obtain H&P Exam Vital Signs Vital Signs Date Time Temp Pulse Resp B/P (MAP) Pulse Ox O2 Delivery O2 Flow Rate FiO2 12/21/24 13:05 68 12/21/24 13:02 24 132/85 (101) 65 12/21/24 12:44 Ambu-Bag 12/21/24 11:32 64 12/21/24 06:57 3 12/20/24 19:31 97.9 97.9 General Appeara: Well developed, Well nourished Pulmonary/Respiratory: Other (intubated) Abdominal Exam: Soft, Other (old scar midline suprapubic, colostomy present) Rectal Exam: Deferred Male Genital Exam: Normal genitalia, Bleeding Neuro/Mental St: Other (responds to painful stimuli) Skin Exam: Cyanosis, Mottled, Pallor Labs/Xrays Labs Test 12/21/24 12:44 12/21/24 11:55 12/21/24 11:42 12/21/24 04:21 Range/Units Blood Gas Specimen Type Arterial Blood Gas Sample Site Left radial Blood Gas Patient Temperature 37.0 Arterial Blood Date Drawn [id number] Arterial Blood pH 7.296 L 7.350-7.450 Arterial Blood Partial Pressure CO2 28.3 L 35.0-48.0 mmHg Arterial Blood Partial Pressure O2 394.6 *H 83.0-108.0 mmHg Arterial Blood HCO3 13.5 L 21.0-28.0 mmol/L Arterial Blood Oxygen Saturation 99.6 H 94.0-98.0 % Arterial Blood Base Excess -11.5 L -2.0-3.0 mmol/L Arterial Blood Oxyhemoglobin 98.9 H 94.0-98.0 % Arterial Blood Carboxyhemoglobin 0.2 L 0.5-1.5 % Arterial Blood Methemoglobin 0.5 0.0-1.5 % Krishna Test Modified Blood Gas Total Hemoglobin 12.90 L 13.5-17.5 g/dL Blood Gas Set Respiration Rate 20.0 Blood Gas Modality Vent - ac FiO2 % 100.0 Blood Gas Tidal Volume 500.0 Blood Gas PEEP or CPAP 8.0 Blood Gas Critical Value Read Back yes Blood Gas Notified Whom dr. pa md Blood Gas Notified Time [id number] Blood Gas Notified By laurent guevara, dennis POC Glucose 106 70-106 mg/dl Magnesium Level 2.0 1.6-2.6 mg/dL Thyroid Stimulating Hormone (TSH) 14.60 H 0.55-4.78 uIU/mL White Blood Count 7.0 4.4-10.8 10^3/uL Red Blood Count 3.99 L 4.5-5.90 10^6/uL Hemoglobin 12.0 L 13.5-17.5 g/dL Hematocrit 38.0 L 41.0-53.0 % Mean Corpuscular Volume 95.3 80.0-100.0 fL Mean Corpuscular Hemoglobin 30.2 28.0-32.0 pg Mean Corpuscular Hemoglobin Concent 31.7 L 32.0-36.0 g/dL Red Cell Distribution Width 16.8 H 11.8-14.3 % Platelet Count 156 140-450 10^3/uL Mean Platelet Volume 10.8 6.9-10.8 fL Neutrophils (%) (Auto) 75.2 37.0-80.0 % Lymphocytes (%) (Auto) 17.9 10.0-50.0 % Monocytes (%) (Auto) 6.2 0.0-12.0 % Eosinophils (%) (Auto) 0.2 0.0-7.0 % Basophils (%) (Auto) 0.5 0.0-2.0 % Neutrophils # (Auto) 5.2 1.6-8.6 10 ^3/uL Lymphocytes # (Auto) 1.2 0.4-5.4 10 ^3/uL Monocytes # (Auto) 0.4 0-1.3 10 ^3/uL Eosinophils # (Auto) 0 0-0.8 10 ^3/uL Basophils # (Auto) 0 0-0.2 10 ^3/uL Nucleated Red Blood Cells 0.1 % Sodium Level 138 136-145 mmol/L Potassium Level 5.8 *H 3.5-5.1 mmol/L Chloride Level 101 98-107 mmol/L Carbon Dioxide Level 24 20-31 mmol/L Anion Gap 13 5-15 Blood Urea Nitrogen 41 H 9-23 mg/dL Creatinine 6.01 H 0.700-1.30 mg/dL Glomerular Filtration Rate Calc 9 >90 mL/min BUN/Creatinine Ratio 6.8 L 10.0-20.0 Serum Glucose 122 H 74-106 mg/dL Hemoglobin A1c 6.3 H <5.7 % A1C Calcium Level 8.5 L 8.7-10.4 mg/dL Phosphorus Level 4.6 2.4-5.1 mg/dL Total Bilirubin 0.5 0.2-1.0 mg/dL Aspartate Amino Transferase (AST) 17 13-40 U/L Alanine Aminotransferase (ALT) 36 7-40 U/L Alkaline Phosphatase 85 46-116 U/L Total Protein 5.9 5.7-8.2 g/dL Albumin 3.4 3.2-4.8 g/dL Test 12/20/24 16:31 12/20/24 13:02 12/20/24 12:20 Range/Units Troponin I High Sensitivity 8 </=54 ng/L B-Type Natriuretic Peptide > 5000.00 0-100 pg/mL Blood Gas Liter Flow 10.00 Assessment/Plan Problem List: (1) BPH loc w urin obs/LUTS (2) Complication of Stearns catheter (3) Accelerated hypertension (4) Anemia (5) Renal insufficiency (6) Accelerated hypertension (7) Fluid overload (8) Hyperkalemia (9) Pneumonia (10) Rapid atrial fibrillation (11) Hypoxic respiratory failure Plan stearns placement done over guidewire using bedside flexible cystoscope keep to gravity dialysis orders per nephrology Plan discussed with: RANDI Sanders NP Dec 21, 2024 13:28
--- NOTE | 2024-12-21 13:47 | DVHNC2 ---
Procedure Note Procedure: stearns placement over guidewire Indication: acute urinary retention, multiple failed attempts Informed consent discussed w/: No Emergent procedure Patient or: Yes Procedure Summary: The patient was prepped and draped in sterile fashion. multiple prior attempts to apss a coude catheter were unsuccessful. 10cc of viscous lidocaine jelly was adminstered into the urethra and was allowed to dwell for 5 min. then a flexible scope was introduced under sterile technique using copious lubrication. The bladder was entered and a guidewire was advanced into the bladder under direct visualization. Over the guidewire a 16F [place] tip stearns catheter was successfully placed. Balloon was inflated with 10 cc sterile water. yellow urine noted immediately. There were no strictures along the course of the urethra. There was bilobar hypertrophy and high median bar at the bladder neck. In the bladder there was a right small mouthed diverticulum. Visualization was impaired by blood however no obvious tumors or stones. Pertinent hx/findings - patient intubated on dialysis - colostomy present - Bladder diverticulum noted - bilobar prostatic hypertrophy with median lobe No immediate complications Dispo: stearns catheter to gravity drainage. Patient tolerated procedure. RANDI ABRAMS NP Dec 21, 2024 13:47
[2024-12-21 14:06] LABS: Alkaline Phosphatase 86 U/L (46-116); Anion Gap 19 (5-15); BUN/Creatinine Ratio 7.2 (10.0-20.0); Calcium 9.4 mg/dL (8.7-10.4); Chloride 102 mmol/L (98-107); Sodium 139 mmol/L (136-145)
[2024-12-21 14:07] LABS: Bilirubin, Total 0.5 mg/dL (0.2-1.0)
[2024-12-21 14:09] LABS: Alanine Aminotransferase 98 U/L (7-40); Albumin 3.1 g/dL (3.2-4.8); Blood Urea Nitrogen 44 mg/dL (9-23); Carbon Dioxide 18 mmol/L (20-31); Glucose 259 mg/dL (74-106); Total Protein 5.3 g/dL (5.7-8.2)
[2024-12-21 14:10] LABS: Potassium 6.3 mmol/L (3.5-5.1)
--- NOTE | 2024-12-21 14:11 | DVHCONRES ---
Date Seen: Dec 21, 2024 Resident Creating Document: JOSEFINA AKERS RESIDENT Referring Physician CK Barros Reason for Consultation ESRD History of Present Illness This is a 79 years old male with past medical history of ESRD on hemodialysis 3 times a week, CHF, AFib, type 2 diabetes mellitus, hypertension, BPH, status post colostomy for diverticular perforation presented to the ED with a chief complaint of shortness of breath. The patient stated that [facility] with diverticular perforation and later developed BECKY and [facility]. One month ago he discharge to rehab for physical therapy and he went to home 1 days ago from rehab. He was complaining of shortness of breath in home, desaturating that prompted this visit. He denies fever, chills, cough, sputum, chest pain, dizziness, abdominal pain, nausea, vomiting, hematuria, dysuria ,altered bowel habit, recent traveling or any positive sick contact. The patient was seen and examined on the bedside. The patient was complaining of shortness of breath, desaturating, respiratory arrest and underwent mechanical ventilation. Past Medical History Hypertension, CHF, AFib, type 2 diabetes mellitus, ESRD, BPH Past Surgical History Status post colostomy for diverticular perforation Family History: Autoimmune disorder G8 MOTHER Allergies: Coded Allergies: NO KNOWN ALLERGIES (Unverified , 02/08/14) Home Meds Reported Medications Apixaban Base (ELIQUIS) 5 Mg Tab, 1 TAB PO BID for 14 Days, #28 12/21/24 Tamsulosin Hcl (Tamsulosin Hcl) 0.4 Mg Cap, 1 CAP PO DAILY for 31 Days, #31 12/21/24 Sertraline Hcl (Sertraline Hcl) 100 Mg Tab, 1 TAB PO BID for 31 Days, #62 12/21/24 Buspirone Hcl (Buspirone Hcl) 5 Mg Tab, 1 TAB PO TID for 31 Days, #93 12/21/24 Finasteride (Finasteride) 5 Mg Tab, 1 TAB PO DAILY for 31 Days, #31 12/21/24 Amiodarone HCl (Amiodarone HCl) 200 Mg Tab, 1 TAB PO DAILY for 31 Days, #31 12/21/24 Metoprolol Succinate (Metoprolol Succinate Er) 100 Mg Tab, 100 MG PO UD for 31 Days, #124 12/21/24 Levothyroxine Sodium (Levothyroxine Sodium) 75 Mcg Tab, 1 TAB PO DAILY for 31 Days, #31 12/21/24 Pantoprazole Sodium Sesquihydr (Pantoprazole Sodium) 40 Mg Tab, 1 TAB PO BID for 31 Days, #62 12/21/24 Current Medications Current Medications Medications (Trade) Dose Ordered Sig/Isidra Route PRN Reason Start Time Stop Time Status Last Admin Amiodarone HCL/ Dextrose 200 ml @ 16.66 mls/ hr Q12H IV 12/21/24 19:00 12/20/24 19:11 DC Amiodarone HCL/ Dextrose 200 ml @ 16.66 mls/ hr Q12H IV 12/20/24 19:00 12/20/24 19:29 Azithromycin 250 ml @ 125 mls/hr DAILY IV 12/21/24 10:00 12/21/24 11:46 DC 12/21/24 09:38 Ceftriaxone Sodium 50 ml @ 100 mls/hr DAILY@09 IV 12/21/24 09:00 12/21/24 11:46 DC 12/21/24 08:39 Atorvastatin Calcium (Lipitor) 20 mg HS PO 12/20/24 22:00 12/21/24 11:46 DC 12/20/24 23:40 Aspirin 162 mg DAILY PO 12/21/24 10:00 12/21/24 11:09 DC 12/21/24 09:52 Atenolol (Tenormin Tablet) 50 mg DAILY PO 12/21/24 10:00 12/21/24 11:09 DC Gabapentin (Neurontin Capsule) 300 mg DAILY PO 12/21/24 10:00 12/21/24 11:46 DC 12/21/24 09:59 Losartan Potassium (Cozaar Tablet) 100 mg DAILY PO 12/21/24 10:00 12/21/24 11:09 DC Tamsulosin HCl (Flomax) 0.4 mg QPM PO 12/21/24 18:00 12/21/24 11:46 DC Furosemide (Lasix Injection) 20 mg BIDD IV 12/21/24 06:00 12/21/24 11:46 DC 12/21/24 08:19 Albuterol (Ventolin Medneb) 2.5 mg Q6HPRN PRN NEB SHORTNESS OF BREATH 12/20/24 19:30 Diagnostic Test (Pha) (Accu-Chek Comfort Curve T) 1 strip ACHS 12/20/24 22:00 12/21/24 11:30 Insulin Human Regular (InsuLIN R) ACHS SC 12/20/24 22:00 Dextrose 50 ml UD PRN IV Blood Sugar LESS THAN 60 12/20/24 19:30 Ondansetron HCl (Zofran) 4 mg Q4HP PRN IV NAUSEA / VOMITING 12/20/24 19:30 Acetaminophen (Tylenol Tablet) 650 mg Q6HP PRN PO PAIN SCALE 1-3 OR TEMP>100.4 12/20/24 19:30 Nitroglycerin (Ntrostat Sublingual) 0.4 mg Q5MINP PRN SL FOR CHEST PAIN 12/20/24 19:30 Morphine Sulfate 2 mg Q30M PRN IV FOR CHEST PAIN 12/20/24 19:30 Gabapentin (Neurontin Capsule) 300 mg POSTDI PRN PO X1 DOSE POST HD 12/20/24 21:30 12/21/24 11:46 DC Enoxaparin Sodium (Lovenox) 80 mg DAILY SC 12/22/24 10:00 UNV Digoxin (Lanoxin Tablet) 0.125 mg EOD PO 12/23/24 10:00 12/21/24 11:46 DC Enoxaparin Sodium (Lovenox) 80 mg DAILY SC 12/22/24 10:00 12/21/24 11:49 DC Vancomycin HCl 0 ml @ 0 mls/hr UD IV 12/21/24 11:45 Meropenem 50 ml @ 17 mls/hr DAILY@POSTDI IV 12/21/24 22:00 Pantoprazole Sodium (Protonix) 40 mg DAILY IV 12/22/24 10:00 Midazolam HCl 50 ml @ 1 mls/hr Q24H IV 12/21/24 11:45 12/21/24 11:45 Fentanyl Citrate 250 ml @ 2.5 mls/hr Q24H IV 12/21/24 11:45 12/21/24 11:45 Norepinephrine Bitartrate 250 ml @ 3.75 mls/hr Q24H IV 12/21/24 12:15 12/21/24 12:35 Vasopressin 20 units/Sodium Chloride 100 ml @ 9 mls/hr Q11H7M IV 12/21/24 12:15 Review of Systems Constitutional: No: Fever, Chills, Sweats, Weakness, Malaise, Other Eyes: No: Pain, Vision change, Conjunctivae inflammation, Eyelid inflammation, Other, Redness ENT: No: Ear pain, Ear discharge, Nose pain, Nose discharge, Nose congestion, Mouth pain, Mouth swelling, Throat pain, Throat swelling, Other Respiratory: Shortness of breath, No: Cough, Dry,Wheezing, Hemoptysis, Pleuritic Pain, Sputum, Wheezing, Other Cardiovascular: Palpitation No: Chest Pain, Orthopnea, Paroxysmal Noc. Dyspnea, Edema, Lt Headedness, Other Gastrointestinal: No: Nausea, Vomiting, Abdominal Pain, Diarrhea, Constipation, Melena, Hematochezia, Other Musculoskeletal: No: other, neck pain, shoulder pain, arm pain, back pain, hand pain, leg pain, foot pain Neurological:; No: Weakness, Numbness, Incoordination, Change in speech, Confusion, Seizures Vital Signs Vital Signs Date Time Temp Pulse Resp B/P (MAP) Pulse Ox O2 Delivery O2 Flow Rate FiO2 12/21/24 13:05 68 12/21/24 13:02 24 132/85 (101) 65 12/21/24 12:44 Ambu-Bag 12/21/24 11:32 64 12/21/24 06:57 3 12/20/24 19:31 97.9 97.9 Physical Exam Physical examination: General Appearance: Alert, Oriented X3, Cooperative, mild resp distress HEENT: Atraumatic, PERRLA, EOMI, Mucous membrane moist/pink Respiratory: Bilateral crackles, decreased breath sound in the left lower zone. Cardiovascular: Regular rate, Normal S1, Normal S2, No murmurs, no chest wall tenderness Abdominal: Normal bowel sounds, Soft, No tenderness, No hepatospenomegaly, No masses Extremities: No clubbing, No cyanosis, No edema, Normal pulses, No tenderness/swelling Skin: No rashes, No breakdown, No significant lesion Neuro: Normal speech, Strength at 5/5 X4 ext, Normal tone, Sensation intact, Cranial nerves 3-12 NL, Reflexes 2+ Psych/Mental Status: Mental status NL, Mood NL Labs/Diagnostic Data Labs Test 12/21/24 12:44 12/21/24 11:55 12/21/24 11:42 12/21/24 04:21 Range/Units Blood Gas Specimen Type Arterial Blood Gas Sample Site Left radial Blood Gas Patient Temperature 37.0 Arterial Blood Date Drawn [id number] Arterial Blood pH 7.296 L 7.350-7.450 Arterial Blood Partial Pressure CO2 28.3 L 35.0-48.0 mmHg Arterial Blood Partial Pressure O2 394.6 *H 83.0-108.0 mmHg Arterial Blood HCO3 13.5 L 21.0-28.0 mmol/L Arterial Blood Oxygen Saturation 99.6 H 94.0-98.0 % Arterial Blood Base Excess -11.5 L -2.0-3.0 mmol/L Arterial Blood Oxyhemoglobin 98.9 H 94.0-98.0 % Arterial Blood Carboxyhemoglobin 0.2 L 0.5-1.5 % Arterial Blood Methemoglobin 0.5 0.0-1.5 % Krishna Test Modified Blood Gas Total Hemoglobin 12.90 L 13.5-17.5 g/dL Blood Gas Set Respiration Rate 20.0 Blood Gas Modality Vent - ac FiO2 % 100.0 Blood Gas Tidal Volume 500.0 Blood Gas PEEP or CPAP 8.0 Blood Gas Critical Value Read Back yes Blood Gas Notified Whom dr. pa md Blood Gas Notified Time [id number] Blood Gas Notified By laurent guevara, dennis POC Glucose 106 70-106 mg/dl Magnesium Level 2.0 1.6-2.6 mg/dL Thyroid Stimulating Hormone (TSH) 14.60 H 0.55-4.78 uIU/mL Eosinophils (%) (Auto) 0.2 0.0-7.0 % Eosinophils # (Auto) 0 0-0.8 10 ^3/uL Basophils # (Auto) 0 0-0.2 10 ^3/uL Nucleated Red Blood Cells 0.1 % Hemoglobin A1c 6.3 H <5.7 % A1C Phosphorus Level 4.6 2.4-5.1 mg/dL Test 12/20/24 16:31 12/20/24 13:02 12/20/24 12:20 Range/Units Troponin I High Sensitivity 8 </=54 ng/L B-Type Natriuretic Peptide > 5000.00 0-100 pg/mL Blood Gas Liter Flow 10.00 Assessment Assessment and plan: # Acute hypoxic respiratory failure, status post mechanical ventilation # AFib with RVR # Acute on chronic CHF # possible septic/cardiogenic shock # Gram-positive versus Gram-negative community-acquired pneumonia # ESRD on hemodialysis # Hyperkalemia # Metabolic acidosis with respiratory alkalosis # BPH # S/P exploratory laparotomy with colostomy Plan: - status post mechanical ventilation - continue vasopressor - Hyperkalemia protocol management - 2 amp IV bicarb once - Hemodialysis today after stabilization of the patient - Rate control and pharmacological cardioversion as per Cardiology - Continue IV antibiotic as per primary for pneumonia - strict I&O - monitor BMP - we will follow this patient. Plan discussed with Plan discussed with: Spouse, Son ADDENDUM ADDENDUM seen with resident at bedside new ESRD presented with respiratory distress in setting of high cardiac demand from afib RVR. Noted decompensated HF EF < 30% , hyperkalemia and metabolic acidosis due to lactic acidosis emergently dialyzed for k 6.3 will schedule HD again tomorrow critical care time 75mins JOSEFINA AKERS RESIDENT Dec 21, 2024 14:11 JESSICA OBRIEN MD Dec 21, 2024 21:01
[2024-12-21 14:13] LABS: Hematocrit 37.5 % (41.0-53.0); Hemoglobin 11.8 g/dL (13.5-17.5); Mean Corpuscular Hemoglobin 30.3 pg (28.0-32.0); Mean Corpuscular Volume 96.7 fL (80.0-100.0)
[2024-12-21 14:32] LABS: Lactic Acid w/Reflex 7.3 mmol/L (0.4-2.0)
--- NOTE | 2024-12-21 14:38 | DVH ---
INDICATION: retention and hematuria TECHNIQUE: Multiple real-time sonographic images of the kidneys and bladder were obtained. COMPARISON: None FINDINGS: The right kidney measures 8.5 cm in length, which is normal in size. There is increased ech ogenicity of the right kidney. No hydronephrosis. Right renal cyst measuring 2.6 cm. The left kidney measures 9.2 cm in length, which is normal in size. There is increased echogenicity o f the left kidney. No hydronephrosis. Left renal cyst measuring 2.3 cm. Possible urinary bladder wall thickening. Small volume ascites. Partially visualized left pleural eff usion. IMPRESSION: Echogenic bilateral kidneys suggestive of chronic medical renal disease. No hydronephrosis. Possible urinary bladder wall thickening. Correlate with urinalysis for cystitis. Small volume ascites. Partially visualized left pleural effusion.
[2024-12-21 15:14] LABS: Total Cells Counted 100.0 (100)
--- NOTE | 2024-12-21 15:37 | ECG ---
[facility] [place] Test Date: 2024-12-20 Test Time: 12:47:10 Pat Name: ELIZABETH STAUFFER Department: Room: 0264 A Gender: M Marketing Teacher: IVANNA : 1945 Requested By: EDITA RUBIO Order Number: [id number] Reading MD: Peyman Witt Measurements Intervals Dawson Rate: 128 P: 0 NH: 0 QRS: -44 QRSD: 99 T: 125 QT: 345 QTc: 504 Interpretive Statements Atrial fibrillation Borderline low voltage, extremity leads LVH with secondary repolarization abnormality Prolonged QT interval Electronically Signed On 12-21-2024 15:40:06 PDT by Peyman Witt Please click the below link to view image of tracing.
[2024-12-21] MEDS: SODIUM CHL 0.9% 1000 ML BAG XX ONE (15:58)
[2024-12-21] MEDS: PANTOPRAZOLE 40 MG/10 ML VIAL INJ IV ONE (16:46)
[2024-12-21] MEDS: VANCOMYCIN 1GM/250ML KIT 250 ML IV ONE (16:46)
[2024-12-21] MEDS ORDERED: TAMSULOSIN HYDROCHLORIDE 0.4 MG CAP PO SCH (18:00)
--- NOTE | 2024-12-21 18:18 | DVHSR ---
APPROVED REPORT EXAM: Two-dimensional and M-mode echocardiogram with Doppler and color Doppler. Blood Pressure: 95/64 mmHg INDICATION EF RISK FACTORS Height: 5'11", Weight: 171 DIMENSIONS LVDd5.9 (3.8-5.7cm)LA (2D)4.7 (1.9-4.0cm)Aortic Root3.3 (2.0-3.7cm) LVDs5.1 (2.5-4.0cm)LA (MM) (1.9-4.0cm)Aortic Cusp Exc1.6 (1.5-2.0cm) EF (%) 29.0 (55-70%)Rt. Atrium6.0 (1.9-4.0cm)Asc. Aorta2.9 cm IVSd1.2 (0.7-1.1cm)RV (D)4.1 (1.8-2.4cm) PWd1.5 (0.7-1.1cm) Mitral Valve MitralMitral Stenosis E/A ratio0.02D MVAcm2 Aortic Valve Aortic ValveAortic Stenosis LVOT Diameter2.3 (1.8-2.4cm)Doppler AVAcm2 Tricuspid Valve TR Velocity1.37m/s [id number] Conclusion DILATED ALL CARDIAC CHAMBERS SEVERE GLOBAL HYPOKINESIS OF ALL CARDIAC CHAMBERS LV EF IS IN RANGE OF ONLY 25% MILD PERICARDIAL EFFUSION MODERATE DEGREE MR AND TR GROSSLY NORMAL VALVES
[2024-12-21] MEDS ORDERED: AMIODARONE 360mg/200mL PREMIX 200 ML IV SCH (19:00)
[2024-12-21] MEDS ORDERED: EPINEPHrine HCL 1 MG/10 ML SYRG IV ONE (20:15)
[2024-12-21 21:34] LABS: Chloride 102 mmol/L (98-107); Potassium 4.5 mmol/L (3.5-5.1); Sodium 141 mmol/L (136-145)
[2024-12-21 21:35] LABS: Anion Gap 12 (5-15); Carbon Dioxide 27 mmol/L (20-31)
[2024-12-21 21:40] LABS: Glucose 87 mg/dL (74-106)
[2024-12-21 21:41] LABS: BUN/Creatinine Ratio 6.8 (10.0-20.0); Magnesium 1.7 mg/dL (1.6-2.6)
[2024-12-21 21:43] LABS: Blood Urea Nitrogen 32 mg/dL (9-23); Calcium 8.3 mg/dL (8.7-10.4)
[2024-12-21] MEDS ORDERED: MEROPENEM 1GM IVPB 50 ML IV SCH (22:00)
--- NOTE | 2024-12-21 22:47 | DVHINCON2 ---
Date Seen: Dec 21, 2024 Referring Physician CK Barros Reason for Consultation CHF, A-fib History of Present Illness This is a 79-year-old male with a PMH of non-ischemic cardiomyopathy undergoing a cardiac catheterization without catheter based intervention on July 2022, atrial fibrillation/atrial flutter status post cardiac ablation at [facility] on October 2022 with transient sinus rhythm and reoccurrence on 2024 currently on amiodarone/metoprolol Succ/Eliquis therapy, hypertension, dyslipidemia, thyroid disease, diverticulitis with bowel perforation and repair with colostomy on July 2024, chronic kidney disease stage III-IV, benign prostatic hyperplasia, and obstructive sleep apnea with history of CPAP HS which he stopped 2.5 years ago who presented to the emergency room via EMS with a complaint of shortness of breath since Friday night (Spt. ). At time of assessment, the patient was found A&O x2. Information obtained from and son at bedside. Per , was discharged from [facility] on Friday and after arriving home developing increased SOB and dyspnea with calling 911. Denies any complains of chest pain, palpitations, diaphoresis, or syncopal events. A twelve-lead electrocardiogram revealed an atrial flutter rhythm with a predominant 2:1 AV block at 131 bpm. geological survey field assistant at bedside revealed an atrial flutter rhythm with an associated left bundle branch block up to the 110s bpm. Serial troponin levels are negative. Follows up in the outpatient setting with primary automatic wheel line operator at [facility], Dr. Mccauley. Patient was admitted to the hospital. I am asked to consult on this patient. Past Medical History Past medical history reviewed. No other significant than mentioned above. Past Surgical History Cardiac ablation, October 2022 Colon resection (9 in chest removed) with colostomy, July 2024 Hernia repair Prostate surgery Family History: Autoimmune disorder G8 MOTHER Allergies: Coded Allergies: NO KNOWN ALLERGIES (Unverified , 02/08/14) Home Meds Reported Medications Apixaban Base (ELIQUIS) 5 Mg Tab, 1 TAB PO BID for 14 Days, #28 12/21/24 Tamsulosin Hcl (Tamsulosin Hcl) 0.4 Mg Cap, 1 CAP PO DAILY for 31 Days, #31 12/21/24 Sertraline Hcl (Sertraline Hcl) 100 Mg Tab, 1 TAB PO BID for 31 Days, #62 12/21/24 Buspirone Hcl (Buspirone Hcl) 5 Mg Tab, 1 TAB PO TID for 31 Days, #93 12/21/24 Finasteride (Finasteride) 5 Mg Tab, 1 TAB PO DAILY for 31 Days, #31 12/21/24 Amiodarone HCl (Amiodarone HCl) 200 Mg Tab, 1 TAB PO DAILY for 31 Days, #31 12/21/24 Metoprolol Succinate (Metoprolol Succinate Er) 100 Mg Tab, 100 MG PO UD for 31 Days, #124 12/21/24 Levothyroxine Sodium (Levothyroxine Sodium) 75 Mcg Tab, 1 TAB PO DAILY for 31 Days, #31 12/21/24 Pantoprazole Sodium Sesquihydr (Pantoprazole Sodium) 40 Mg Tab, 1 TAB PO BID for 31 Days, #62 12/21/24 Current Medications Current Medications Medications (Trade) Dose Ordered Sig/Isidra Route PRN Reason Start Time Stop Time Status Last Admin Amiodarone HCL/ Dextrose 200 ml @ 16.66 mls/ hr Q12H IV 12/21/24 19:00 12/20/24 19:11 DC Azithromycin 250 ml @ 125 mls/hr DAILY IV 12/21/24 10:00 12/21/24 11:46 DC 12/21/24 09:38 Ceftriaxone Sodium 50 ml @ 100 mls/hr DAILY@09 IV 12/21/24 09:00 12/21/24 11:46 DC 12/21/24 08:39 Aspirin 162 mg DAILY PO 12/21/24 10:00 12/21/24 11:09 DC 12/21/24 09:52 Atenolol (Tenormin Tablet) 50 mg DAILY PO 12/21/24 10:00 12/21/24 11:09 DC Gabapentin (Neurontin Capsule) 300 mg DAILY PO 12/21/24 10:00 12/21/24 11:46 DC 12/21/24 09:59 Losartan Potassium (Cozaar Tablet) 100 mg DAILY PO 12/21/24 10:00 12/21/24 11:09 DC Tamsulosin HCl (Flomax) 0.4 mg QPM PO 12/21/24 18:00 12/21/24 11:46 DC Furosemide (Lasix Injection) 20 mg BIDD IV 12/21/24 06:00 12/21/24 11:46 DC 12/21/24 08:19 Enoxaparin Sodium (Lovenox) 80 mg DAILY SC 12/22/24 10:00 UNV Digoxin (Lanoxin Tablet) 0.125 mg EOD PO 12/23/24 10:00 12/21/24 11:46 DC Enoxaparin Sodium (Lovenox) 80 mg DAILY SC 12/22/24 10:00 12/21/24 11:49 DC Vancomycin HCl 0 ml @ 0 mls/hr UD IV 12/21/24 11:45 Meropenem 50 ml @ 17 mls/hr DAILY@POSTDI IV 12/21/24 22:00 Pantoprazole Sodium (Protonix) 40 mg DAILY IV 12/22/24 10:00 Midazolam HCl 50 ml @ 1 mls/hr Q24H IV 12/21/24 11:45 12/21/24 11:45 Fentanyl Citrate 250 ml @ 2.5 mls/hr Q24H IV 12/21/24 11:45 12/21/24 11:45 Norepinephrine Bitartrate 250 ml @ 3.75 mls/hr Q24H IV 12/21/24 12:15 12/21/24 12:35 Vasopressin 20 units/Sodium Chloride 100 ml @ 9 mls/hr Q11H7M IV 12/21/24 12:15 Diagnostic Test (Pha) (Accu-Chek Comfort Curve T) 1 strip Q6HR 12/22/24 00:00 Insulin Human Regular (InsuLIN R) Q6HR SC 12/22/24 00:00 Dextrose 50 ml UD PRN IV Blood Sugar LESS THAN 60 12/21/24 21:00 Review of Systems Constitutional: No symptom reported Ears, Nose, & Throat: No symptom reported Eyes: No symptom reported Neurological: ALOC Pulmonary/Respiratory: SOB Cardiovascular: No symptom reported Gastrointestinal: No symptom reported Genitourinary: No symptom reported Musculoskeletal: No symptom reported Skin: No symptom reported Psychiatric: No symptom reported Endocrine: No symptom reported Hemotologic/Lymphatic: No symptom reported Vital Signs Vital Signs Date Time Temp Pulse Resp B/P (MAP) Pulse Ox O2 Delivery O2 Flow Rate FiO2 12/21/24 21:44 72 22 99/55 (70) 100 40 12/21/24 18:30 98.4 209.1 12/21/24 18:00 Mechanical Ventilator+ 12/21/24 18:00 40.0 Physical Exam GENERAL: A&O x 2. No acute distress. EYES: PERRL, EOMI. Anicteric. HENT: Moist mucous membranes. LUNGS: Clear to auscultation bilaterally. CARDIOVASCULAR: Regular rate and rhythm. ABDOMEN: Soft, non-tender and non-distended. EXTREMITIES: No edema. SKIN: Warm, dry. Labs/Diagnostic Data Labs Test 12/21/24 21:00 12/21/24 17:07 12/21/24 12:44 12/21/24 11:42 Range/Units Sodium Level 141 136-145 mmol/L Potassium Level 4.5 3.5-5.1 mmol/L Chloride Level 102 98-107 mmol/L Carbon Dioxide Level 27 20-31 mmol/L Anion Gap 12 5-15 Blood Urea Nitrogen 32 #H 9-23 mg/dL Creatinine 4.70 H 0.700-1.30 mg/dL Glomerular Filtration Rate Calc 12 >90 mL/min BUN/Creatinine Ratio 6.8 L 10.0-20.0 Serum Glucose 87 # 74-106 mg/dL Calcium Level 8.3 L 8.7-10.4 mg/dL Magnesium Level 1.7 1.6-2.6 mg/dL POC Glucose 132 H 70-106 mg/dl Blood Gas Specimen Type Arterial Blood Gas Sample Site Left radial Blood Gas Patient Temperature 37.0 Arterial Blood Date Drawn [id number] Arterial Blood pH 7.296 L 7.350-7.450 Arterial Blood Partial Pressure CO2 28.3 L 35.0-48.0 mmHg Arterial Blood Partial Pressure O2 394.6 *H 83.0-108.0 mmHg Arterial Blood HCO3 13.5 L 21.0-28.0 mmol/L Arterial Blood Oxygen Saturation 99.6 H 94.0-98.0 % Arterial Blood Base Excess -11.5 L -2.0-3.0 mmol/L Arterial Blood Oxyhemoglobin 98.9 H 94.0-98.0 % Arterial Blood Carboxyhemoglobin 0.2 L 0.5-1.5 % Arterial Blood Methemoglobin 0.5 0.0-1.5 % Krishna Test Modified Blood Gas Total Hemoglobin 12.90 L 13.5-17.5 g/dL Blood Gas Set Respiration Rate 20.0 Blood Gas Modality Vent - ac FiO2 % 100.0 Blood Gas Tidal Volume 500.0 Blood Gas PEEP or CPAP 8.0 Blood Gas Critical Value Read Back yes Blood Gas Notified Whom dr. pa md Blood Gas Notified Time [id number] Blood Gas Notified By laurent guevara rrt White Blood Count 9.0 # 4.4-10.8 10^3/uL Red Blood Count 3.88 L 4.5-5.90 10^6/uL Hemoglobin 11.8 L 13.5-17.5 g/dL Hematocrit 37.5 L 41.0-53.0 % Mean Corpuscular Volume 96.7 80.0-100.0 fL Mean Corpuscular Hemoglobin 30.3 28.0-32.0 pg Mean Corpuscular Hemoglobin Concent 31.4 L 32.0-36.0 g/dL Red Cell Distribution Width 17.2 H 11.8-14.3 % Platelet Count 150 140-450 10^3/uL Mean Platelet Volume 11.7 H 6.9-10.8 fL Neutrophils (%) (Auto) 37.0-80.0 % Lymphocytes (%) (Auto) 10.0-50.0 % Monocytes (%) (Auto) 0.0-12.0 % Basophils (%) (Auto) 0.0-2.0 % Neutrophils # (Auto) 1.6-8.6 10 ^3/uL Lymphocytes # (Auto) 0.4-5.4 10 ^3/uL Monocytes # (Auto) 0-1.3 10 ^3/uL Differential Total Cells Counted 100.0 100 Neutrophils % (Manual) 60 37.0-80.0 Band Neutrophils % (Manual) 5 Lymphocytes % (Manual) 30 10.0-50.0 Monocytes % (Manual) 5 0-12 Eosinophils % (Manual) 0 0-7 Basophils % (Manual) 0 0.0-2.0 Metamyelocytes % (manual) 0 Myelocytes % (Manual) 0 Promyelocytes % (Manual) 0 Blast Cells % (Manual) 0 Reactive Lymphocytes 0 Platelet Estimate Adequate Large Platelets Few Lactic Acid Level 7.3 *H 0.4-2.0 mmol/L Total Bilirubin 0.5 0.2-1.0 mg/dL Aspartate Amino Transferase (AST) 128 H 13-40 U/L Alanine Aminotransferase (ALT) 98 H 7-40 U/L Alkaline Phosphatase 86 46-116 U/L Total Protein 5.3 L 5.7-8.2 g/dL Albumin 3.1 L 3.2-4.8 g/dL Thyroid Stimulating Hormone (TSH) 14.60 H 0.55-4.78 uIU/mL Test 12/21/24 04:21 12/20/24 16:31 12/20/24 13:02 12/20/24 12:20 Range/Units Eosinophils (%) (Auto) 0.2 0.0-7.0 % Eosinophils # (Auto) 0 0-0.8 10 ^3/uL Basophils # (Auto) 0 0-0.2 10 ^3/uL Nucleated Red Blood Cells 0.1 % Hemoglobin A1c 6.3 H <5.7 % A1C Phosphorus Level 4.6 2.4-5.1 mg/dL Troponin I High Sensitivity 8 </=54 ng/L B-Type Natriuretic Peptide > 5000.00 0-100 pg/mL Blood Gas Liter Flow 10.00 Assessment Atrial flutter/atrial fibrillation with RVR, likely Stage IIIa (on amiodarone/BB/Eliquis therapy at home-). Acute on chronic decompensated unspecified HF, NYHA Class IV. Nonischemic cardiomyopathy. Advanced CKD now ESRD with HD and associated hyperkalemia. Hx of cardiac ablation in 2022. Thyroid disease. Recent colon resection with colostomy. Plan/Recommendation I agree with your ongoing assessment and care of plan. Patient has been seen by Sonam Saleh NP on my behalf. We have discussed the plan with the patient. We will continue further cardiac evaluation with a transthoracic echocardiogram to evaluate cardiac function. In the meantime, initiate rate control with digoxin therapy given hypotension including bolus dose and maintenance EOD. Continue amiodarone therapy per pharmacy protocol. Initiate therapeutic Lovenox for renal disease and transition to Eliquis with the appropriate ([id number] Score 5 points, HAS-BLED Score 3 points). Discontinue single-antiplatelet therapy given NICM, advanced age, and high-risk for bleed. Initiate home HF medications when BP able to tolerate (metoprolol succ., Entresto, empagliflozin). Continue Nephrology recommendations. Additional plan as per the hospital course. Plan discussed with: Patient, Spouse NYHA Physical activity limitations: Class4(Severe)discomfort Date of Service: Dec 21, 2024 Billing Provider: KRISTOPHER ARMANDO MD Cardiology Common Codes: 43695-[facility], 95089-[id number] CARE 30-74 MIN KRISTOPHER ARMANDO MD Dec 21, 2024 22:47
[2024-12-22] VITALS (105 sets, daily range): BP systolic 82–128; BP diastolic 48–78; PULSE 59–69; RESP 15–24; TEMP 95.4–98.2; O2SAT 99–100
[2024-12-22] MEDS: InsuLIN REG 1unit/0.01ml Soln (100units/ml) SC SCH
[2024-12-22] MEDS: ACCU-CHEK COMFORT CURVE STRIP VI SCH
[2024-12-22 05:15] LABS: Hematocrit 37.1 % (41.0-53.0); Hemoglobin 12.0 g/dL (13.5-17.5); Mean Corpuscular Hemoglobin 30.6 pg (28.0-32.0); Mean Corpuscular Volume 94.3 fL (80.0-100.0); Nucleated Red Blood Cells % 0.2 %
[2024-12-22 05:28] LABS: INR 1.65 (0.9-1.15); Partial Thromboplastin Time 35.0 SEC (24.5-34.5); Prothrombin Time 16.6 sec (9.3-11.8)
--- NOTE | 2024-12-22 05:30 | DVH ---
CHEST RADIOGRAPH Indication: RESP FAILURE Technique: Single frontal view of the chest was obtained COMPARISON: XY CHEST XRAY 1 VIEW on DOS: 12/21/24, XY CHEST PORTABLE on DOS: 12/20/24 FINDINGS: Lines and Tubes: Interval retraction of endotracheal tube such that the tip now projects approximatel y 7.2 cm above the level of the mateo. Remaining lines and tubes unchanged. Lungs: Moderate diffuse increased prominence of the pulmonary vasculature. Small bilateral pleural e ffusions. No pneumothorax. Cardiomediastinal contours: Cardiomegaly. Bones: Unremarkable IMPRESSION: 1. Interval retraction of endotracheal tube such that the tip now projects approximately 7.2 cm above the level of the mateo. Remaining lines and tubes unchanged. 2. Diffuse increased prominence of the pulmonary vasculature, small bilateral pleural effusions and c ardiomegaly.
[2024-12-22 05:32] LABS: Alanine Aminotransferase 274 U/L (7-40); Albumin 2.7 g/dL (3.2-4.8); Alkaline Phosphatase 95 U/L (46-116); Anion Gap 15 (5-15); BUN/Creatinine Ratio 7.4 (10.0-20.0); Bilirubin, Total 0.8 mg/dL (0.2-1.0); Blood Urea Nitrogen 39 mg/dL (9-23); Carbon Dioxide 23 mmol/L (20-31); Chloride 103 mmol/L (98-107); Glucose 52 mg/dL (74-106); Potassium 4.9 mmol/L (3.5-5.1); Sodium 141 mmol/L (136-145); Total Protein 4.6 g/dL (5.7-8.2)
[2024-12-22 05:39] LABS: Calcium 8.2 mg/dL (8.7-10.4)
[2024-12-22] MEDS: DEXTROSE (50%) 50ML SYRG IV PRN (06:03)
[2024-12-22 08:27] LABS: Base Excess -0.2 mmol/L (-2.0-3.0)
[2024-12-22] MEDS ORDERED: ENOXAPARIN SOD 100 MG/1 ML SYRINGE SC SCH (10:00)
[2024-12-22] MEDS ORDERED: ENOXAPARIN SOD 80 MG/0.8ML SYRINGE SC SCH (10:00)
[2024-12-22] MEDS: PANTOPRAZOLE 40 MG/10 ML VIAL INJ IV SCH (10:11)
--- NOTE | 2024-12-22 11:26 | DVHPN2 ---
Progress Note Date Seen: Dec 22, 2024 Resident Creating Document: JOSEFINA AKERS RESIDENT Medical Necessity Reason Pt with a Central, PICC or Fol: Yes The following are medically ne: Stearns Catheter Reason for stearns catheter: Strict I&O Subjective Review of Systems The patient was seen and examined on the bedside. He is on mechanical ventilation with FiO2 35%, tidal volume 500 mL, peep 5 and respiratory rate 22. Objective vital signs Vital Sign Date Time Temp Pulse Resp B/P (MAP) Pulse Ox O2 Delivery O2 Flow Rate FiO2 12/22/24 09:42 61 22 98/60 (73) 100 30 12/22/24 06:15 98.1 208.6 12/21/24 20:00 Mechanical Ventilator+ 12/21/24 18:00 40.0 Total Intake and Output 12/21/24 12/21/24 12/22/24 15:00 23:00 07:00 Intake Total 483.98 ml 150.00 ml 152.50 ml Output Total 300 ml 450 ml Balance 483.98 ml -150.00 ml -297.50 ml medications Current Medications Medications Dose Ordered Sig/Isidra Route Start Time Stop Time Status Last Admin Dose Admin Amiodarone HCL/ Dextrose 200 ml @ 16.66 mls/ hr Q12H IV 12/20/24 19:00 12/20/24 19:29 16.66 MLS/HR Albuterol 2.5 mg Q6HPRN PRN NEB 12/20/24 19:30 Acetaminophen 650 mg Q6HP PRN PO 12/20/24 19:30 Nitroglycerin 0.4 mg Q5MINP PRN SL 12/20/24 19:30 Morphine Sulfate 2 mg Q30M PRN IV 12/20/24 19:30 Enoxaparin Sodium 80 mg DAILY SC 12/22/24 10:00 UNV Vancomycin HCl 0 ml @ 0 mls/hr UD IV 12/21/24 11:45 Meropenem 50 ml @ 17 mls/hr DAILY@POSTDI IV 12/21/24 22:00 Pantoprazole Sodium 40 mg DAILY IV 12/22/24 10:00 12/22/24 10:11 40 MG Midazolam HCl 50 ml @ 1 mls/hr Q24H IV 12/21/24 11:45 12/22/24 05:44 5 MLS/HR Fentanyl Citrate 250 ml @ 2.5 mls/hr Q24H IV 12/21/24 11:45 12/21/24 11:45 2.5 MLS/HR Norepinephrine Bitartrate 250 ml @ 3.75 mls/hr Q24H IV 12/21/24 12:15 12/22/24 05:44 7.5 MLS/HR Vasopressin 20 units/Sodium Chloride 100 ml @ 9 mls/hr Q11H7M IV 12/21/24 12:15 Diagnostic Test (Pha) 1 strip Q6HR 12/22/24 00:00 12/22/24 05:50 1 STRIP Insulin Human Regular Q6HR SC 12/22/24 00:00 Dextrose 50 ml UD PRN IV 12/21/24 21:00 12/22/24 06:03 50 ML Examination General: RASS -3, afebrile, mucosae are moist Cardiovascular: Normal S1 and S2. No murmurs, gallops or rubs Respiratory: Mechanically assisted ventilation, equal bilateral airway entree. Bilateral crackles Abdomen: Soft, nontender, no organomegaly, normal bowel sounds MSK/skin: Mobilization of limbs cannot be evaluated. Skin is dry and warm. Neurological: Orientation cannot be assessed. No apparent motor no sensitive deficits. Pupils are isocoric and reactive laboratory and microbiology Laboratory Tests 12/22/24 04:10 Test 12/22/24 04:10 Range/Units Serum Glucose 52 L 74-106 mg/dL Microbiology Date/Time Source Procedure Growth Status 12/21/24 11:27 Sputum Gram Stain Pending Resulted 12/21/24 11:27 Sputum Respiratory Culture - Preliminary Resulted Labs and/or images reviewed: Labs reviewed by me, Image(s) reviewed by me Problem List/Assessment/Plan Problem List/Assessment/Plan Assessment and plan: # Acute hypoxic respiratory failure, status post mechanical ventilation # AFib with RVR, currently sinus rhythm with controlled heart rate # Acute on chronic decompensated systolic heart failure with reduced EF # possible septic/cardiogenic shock # Gram-positive versus Gram-negative community-acquired pneumonia # ESRD on hemodialysis # Hyperkalemia resolved # Acute DVT of right upper extremity # Metabolic acidosis with respiratory alkalosis # BPH # S/P exploratory laparotomy with colostomy Plan: - status post mechanical ventilation - continue vasopressor - Had 1 session of dialysis yesterday, post dialysis BUN /creatinine 39/5.29 - Hemodialysis today . - Continue IV antibiotic and other management as per primary. - strict I&O - monitor BMP Thank you so much for the opportunity to consult on your patient. Nephro team will follow the patient. In case of any questions or concerns please feel free to reach out. Plan discussed with Dr. Walton . The patient and caregiver team agreed to the plan. Plan discussed with: Spouse (RN), Other Critical Care Time (mins): 33 JOSEFINA AKERS RESIDENT Dec 22, 2024 11:26 JESSICA WALTON MD Dec 23, 2024 14:09
[2024-12-22 11:29] LABS: Hepatitis B Surface Antigen Negative (Negative)
[2024-12-22 11:30] LABS: Hepatitis C Antibody Negative (Negative)
[2024-12-22] MEDS ORDERED: Nepro With Carb Steady 1 Liter Bottle GT SCH ×2 (12:00→13:15)
--- NOTE | 2024-12-22 12:05 | DVHPN2 ---
Progress Note Date Seen: Dec 22, 2024 Medical Necessity Reason Pt with a Central, PICC or Fol: Yes The following are medically ne: Central Line, Stearns Catheter Reason for stearns catheter: Strict I&O Subjective Patient reports: No new complaints Review of Systems: HEENT:Normal, CVS:Normal, RESPIRATORY:Normal, GI:Normal, :Normal, MSK:Normal, NEURO:Normal Objective vital signs Vital Sign Date Time Temp Pulse Resp B/P (MAP) Pulse Ox O2 Delivery O2 Flow Rate FiO2 12/22/24 11:00 96.3 59 22 107/61 (76) 100 205.3 12/22/24 10:00 35 12/22/24 08:00 Mechanical Ventilator+ 12/21/24 18:00 40.0 Total Intake and Output 12/21/24 12/21/24 12/22/24 15:00 23:00 07:00 Intake Total 483.98 ml 150.00 ml 152.50 ml Output Total 300 ml 450 ml Balance 483.98 ml -150.00 ml -297.50 ml medications Current Medications Medications Dose Ordered Sig/Isidra Route Start Time Stop Time Status Last Admin Dose Admin Amiodarone HCL/ Dextrose 200 ml @ 16.66 mls/ hr Q12H IV 12/20/24 19:00 12/20/24 19:29 16.66 MLS/HR Albuterol 2.5 mg Q6HPRN PRN NEB 12/20/24 19:30 Acetaminophen 650 mg Q6HP PRN PO 12/20/24 19:30 Nitroglycerin 0.4 mg Q5MINP PRN SL 12/20/24 19:30 Morphine Sulfate 2 mg Q30M PRN IV 12/20/24 19:30 Enoxaparin Sodium 80 mg DAILY SC 12/22/24 10:00 UNV Vancomycin HCl 0 ml @ 0 mls/hr UD IV 12/21/24 11:45 Meropenem 50 ml @ 17 mls/hr DAILY@POSTDI IV 12/21/24 22:00 Pantoprazole Sodium 40 mg DAILY IV 12/22/24 10:00 12/22/24 10:11 40 MG Midazolam HCl 50 ml @ 1 mls/hr Q24H IV 12/21/24 11:45 12/22/24 05:44 5 MLS/HR Fentanyl Citrate 250 ml @ 2.5 mls/hr Q24H IV 12/21/24 11:45 12/21/24 11:45 2.5 MLS/HR Norepinephrine Bitartrate 250 ml @ 3.75 mls/hr Q24H IV 12/21/24 12:15 12/22/24 05:44 7.5 MLS/HR Vasopressin 20 units/Sodium Chloride 100 ml @ 9 mls/hr Q11H7M IV 12/21/24 12:15 Diagnostic Test (Pha) 1 strip Q6HR 12/22/24 00:00 12/22/24 05:50 1 STRIP Insulin Human Regular Q6HR SC 12/22/24 00:00 Dextrose 50 ml UD PRN IV 12/21/24 21:00 12/22/24 06:03 50 ML Examination: GENERAL:Normal, HEENT:Normal, NECK:Normal, LUNGS:Normal, LUNGS:Abnormal (intubated), CVS:Normal, ABDOMEN:Normal, ABDOMEN:Abnormal (ostomy, peg), MSK:Normal, SKIN:Normal, NEURO:Normal, :Normal laboratory and microbiology Laboratory Tests 12/22/24 04:10 Test 12/22/24 04:10 Range/Units Serum Glucose 52 L 74-106 mg/dL Microbiology Date/Time Source Procedure Growth Status 12/21/24 11:27 Sputum Gram Stain Pending Resulted 12/21/24 11:27 Sputum Respiratory Culture - Preliminary Resulted Problem List/Assessment/Plan Problem List/Assessment/Plan #1 acute resp failure: on acv #2 shock ? septic ?cardiac: cultures, iv antibiotics, iv pressors #3 esrd: on dialysis #4 s/p bowel perf s/p exp lap: ct chest/abd #5 s/p peg/ostomy #6 a fib s/p cardioversion: off amiodarone #7 dm: ssi #8 bph #9 check for dvt long dw family regards current condition and code status- no cpr/cardioversion per Plan discussed with: Other (rn) My Orders My Orders Orders - ALY SCHROEDER MD Procedure Category Date Status Time * Urology Consult CONS 12/21/24 Transmitted 11:49 Norepinephrine 8 PHA 12/21/24 In Process Mg/250ml Kit 12:15 Sodium Chl 0.9% PHA 12/21/24 In Process (So... W/Vasopressin 12:15 Communication Order ORDERS 12/21/24 Transmitted 12:15 Ventilator Orders RT 12/21/24 Transmitted 12:58 * Dietary Consult CONS 12/21/24 Transmitted 17:41 Mrsa Screen KAELA 12/21/24 Logged 17:41 Transfer Orders XFER 12/21/24 Transmitted 20:39 Bi Lat Upper Dvt US 12/22/24 Logged 11:51 Ventilator Orders RT 12/22/24 Transmitted 11:59 Bilat Lower Dvt US 12/22/24 Verified 11:51 Right Upper Ext. US 12/22/24 Verified 11:51 Chst Ab Pel Wo Con-No CT 12/22/24 Verified Iv/Oral 11:51 Nutritional PHA 12/22/24 Verified Supplements (Nepro 12:00 Complete Blood Count LAB 12/23/24 Verified 06:00 Comprehensive LAB 12/23/24 Verified Metabolic Panel 06:00 Chest Portable XY 12/23/24 Verified 06:00 Abg W/ Co-Ox RT 12/23/24 Verified 06:00 Critical Care Time (mins): 81 (critical care time including dw family and excluding procedures is 81 mins) Date of Service: Dec 22, 2024 Billing Provider: ALY SCHROEDER MD Common Visit Codes: 84165-EDHINUYW CARE 30-74 MIN, 62446-RVNUUHTK CARE-EACH +30MIN ALY SCHROEDER MD Dec 22, 2024 12:05
--- NOTE | 2024-12-22 13:21 | DVHPN2 ---
Consult Progress Note Date Seen: Dec 22, 2024 Subjective Other Systems: Notified of code assist on status post DCCV Objective vital signs Vital Sign Date Time Temp Pulse Resp B/P (MAP) Pulse Ox O2 Delivery O2 Flow Rate FiO2 12/22/24 12:45 97.2 61 18 109/68 (82) 100 97.2 12/22/24 12:11 30 12/22/24 08:00 Mechanical Ventilator+ 12/21/24 18:00 40.0 Total Intake and Output 12/21/24 12/21/24 12/22/24 15:00 23:00 07:00 Intake Total 483.98 ml 150.00 ml 157.50 ml Output Total 300 ml 450 ml Balance 483.98 ml -150.00 ml -292.50 ml medications Current Medications Medications Dose Ordered Sig/Isidra Route Start Time Stop Time Status Last Admin Dose Admin Amiodarone HCL/ Dextrose 200 ml @ 16.66 mls/ hr Q12H IV 12/20/24 19:00 12/20/24 19:29 16.66 MLS/HR Albuterol 2.5 mg Q6HPRN PRN NEB 12/20/24 19:30 Acetaminophen 650 mg Q6HP PRN PO 12/20/24 19:30 Nitroglycerin 0.4 mg Q5MINP PRN SL 12/20/24 19:30 Morphine Sulfate 2 mg Q30M PRN IV 12/20/24 19:30 Enoxaparin Sodium 80 mg DAILY SC 12/22/24 10:00 UNV Vancomycin HCl 0 ml @ 0 mls/hr UD IV 12/21/24 11:45 Meropenem 50 ml @ 17 mls/hr DAILY@POSTDI IV 12/21/24 22:00 Pantoprazole Sodium 40 mg DAILY IV 12/22/24 10:00 12/22/24 10:11 40 MG Midazolam HCl 50 ml @ 1 mls/hr Q24H IV 12/21/24 11:45 12/22/24 05:44 5 MLS/HR Fentanyl Citrate 250 ml @ 2.5 mls/hr Q24H IV 12/21/24 11:45 12/22/24 11:45 10 MLS/HR Norepinephrine Bitartrate 250 ml @ 3.75 mls/hr Q24H IV 12/21/24 12:15 12/22/24 05:44 7.5 MLS/HR Vasopressin 20 units/Sodium Chloride 100 ml @ 9 mls/hr Q11H7M IV 12/21/24 12:15 Diagnostic Test (Pha) 1 strip Q6HR 12/22/24 00:00 12/22/24 12:00 1 STRIP Insulin Human Regular Q6HR SC 12/22/24 00:00 Dextrose 50 ml UD PRN IV 12/21/24 21:00 12/22/24 06:03 50 ML Enteral Nutritional Formula 1,000 ml 30ML/HR GT 12/22/24 12:00 Examination: GENERAL:Abnormal, LUNGS:Abnormal (Enodtracheally intubated with FiO2 at 30%), CVS:Abnormal (NSR. On low-dose single vasopressor), NEURO:Abnormal (Chemically sedated) laboratory and microbiology Laboratory Tests 12/22/24 04:10 Test 12/22/24 04:10 Range/Units Serum Glucose 52 L 74-106 mg/dL Problem List/Assessment/Plan Problem List/Assessment/Plan Atrial flutter/atrial fibrillation with RVR s/p DCCV, Stage IIIa, now NSR (on amiodarone/BB/Eliquis therapy at home-) Acute on chronic decompensated unspecified HF, NYHA Class IV Nonischemic/dilated cardiomyopathy Advanced CKD now ESRD with HD and associated hyperkalemia Hx of cardiac ablation in 2022 Thyroid disease Recent colon resection with colostomy Plan/Recommendation (Dr. Urias) Transthoracic echocardiogram revealed LVEF 25% with mild pericardial effusion and moderate degree of MR and TR. Status post DCCV, continue low-dose amiodarone therapy. Off AC therapy given borderline thrombocytopenia. Transition to low-dose Eliquis when appropriate ([id number] Score 5 points, HAS-BLED Score 3 points). Initiate home HF medications when BP able to tolerate (metoprolol succ., Entresto, empagliflozin). Continue Nephrology recommendations. Kindly call if in need to continue following up. Cardiac stable at this time. Thank you for allowing us to participate in this patient's care. Critical care time: 30 min. This medical document was created using an electronic medical record system with voice recognition software and computerized dictation system. Although this document has been carefully reviewed, there might still be some phonetic and typographical errors. Occasional wrong-word or ``sound-alike substitutions may have occurred due to the inherent limitations of voice recognition software. These areas are purely typographical due to imperfections of the software programs and do not reflect any compromise in the patient's medical care. Please read the chart carefully and recognize, using context, where these substitutions have occurred. Plan discussed with: Other Date of Service: Dec 22, 2024 Billing Provider: DAHLIA HENDRICKS Cardiology Common Codes: 69071-[id number] CARE 30-74 MIN DAHLIA HENDRICKS Dec 22, 2024 13:21
[2024-12-22 13:51] LABS: Urine Protein, UAD 1+ (Negative)
--- NOTE | 2024-12-22 14:36 | DVH ---
Bilateral lower extremity venous duplex Clinical History: Pain; dvt Comparison: US BI LAT UPPER DVT on DOS: 12/22/24 Technique: Duplex Doppler evaluation of the deep venous systems of both lower extremities from the common femora l veins to the popliteal veins including color Doppler and spectral/pulsed waveform analysis was perf ormed. Findings: RIGHT SIDE: The common femoral vein demonstrates appropriate compressibility and waveform variability. There is compressibility/patency of the great saphenous vein at the proximal thigh. The femoral vein demonstrates appropriate compressibility and waveform variability. The deep femoral vein demonstrates appropriate compressibility and waveform variability. The popliteal vein demonstrates appropriate compressibility and waveform variability. There is normal compressibility at the tibioperoneal trunk. LEFT SIDE: The common femoral vein demonstrates appropriate compressibility and waveform variability. There is compressibility/patency of the great saphenous vein at the proximal thigh. The femoral vein demonstrates appropriate compressibility and waveform variability. The deep femoral vein demonstrates appropriate compressibility and waveform variability. The popliteal vein demonstrates appropriate compressibility and waveform variability. There is normal compressibility at the tibioperoneal trunk. Impression: No right or left femoropopliteal venous thrombosis.
[2024-12-22] MEDS: MAGNESIUM SULFATE 1GM/100ML 100 ML IV ONE ×2 (14:49→21:31)
[2024-12-22] MEDS: AMIODARONE HCL 200 MG TAB GT ONE (14:51)
--- NOTE | 2024-12-22 14:59 | DVH ---
Bilateral Upper Extremity Venous Duplex Clinical History: edema Comparison: US BILAT LOWER DVT on DOS: 12/22/24 Findings: Duplex Doppler evaluation of the venous systems of the right and left lower neck and upper extremitie s including color Doppler and spectral/pulsed waveform analysis was performed. RIGHT SIDE: DVT seen in the right internal jugular vein, brachial vein, radial vein, ulnar vein, and cephalic vei n. LEFT SIDE: The internal jugular vein demonstrates appropriate compressibility and waveform variability. The subclavian vein is patent on color Doppler evaluation without intraluminal thrombus and demonstra gustavo waveform variability. The visualized portion of the brachiocephalic vein is patent on color Doppler evaluation without intr aluminal thrombus and demonstrates waveform variability. The axillary vein demonstrates appropriate compressibility and waveform variability. The brachial veins demonstrate appropriate compressibility and patency on Doppler evaluation. The basilic vein demonstrates appropriate compressibility and patency on Doppler evaluation. Superficial thrombus seen in the left cephalic vein. Impression: DVT right lower extremity. Superficial thrombus left lower extremity. If clinical concern/symptoms persist or worsen, short-interval follow-up study is suggested. Critical Result: DVT Findings discussed with patients RN at 12/22/2024 02:56 PM, and acknowledged receipt and understandin g of the findings. ..
[2024-12-22] MEDS: SODIUM CHL 0.9% 1000 ML BAG XX ONE (17:30)
--- NOTE | 2024-12-22 17:37 | DVH ---
EXAM: CT CHST AB PEL WO CON-NO IV/ORAL INDICATION: sepsis, s/p exp lap TECHNIQUE: Volumetric multidetector CT images of the chest, abdomen and pelvis were obtained after th e administration of IV contrast. All CT scans at this facility use dose modulation, iterative reconst ruction, and/or weight based dosing when appropriate to reduce radiation dose to as low as reasonably achievable. COMPARISON: None FINDINGS: LOWER NECK: Unremarkable LYMPH NODES/MEDIASTINUM: No abnormal lymph nodes by CT size criteria. CARDIOVASCULAR: Normal cardiac size. Moderate pericardial effusion. No aneurysmal dilatation of the g reat vessels. Coronary artery calcifications. LUNG PARENCHYMA/PLEURAL SPACE: Medium to large left-sided pleural effusion. Small right-sided pleural effusion. Atelectasis and consolidation suspected in the partially collapsed left lower lobe with ma rginal ground-glass. Atelectasis of the right lower lobe. CHEST WALL: Moderate right and mild left gynecomastia LIVER: Normal hepatic size without suspicious focal lesion. GALLBLADDER/BILIARY TREE: Cholelithiasis. SPLEEN: Unremarkable. PANCREAS: Unremarkable. ADRENAL GLANDS: Unremarkable KIDNEYS: No hydronephrosis. bilateral perinephric edema. Fluid attenuating cysts of the right kidney . BLADDER: Johnston catheter decompression PELVIC ORGANS: Unremarkable. BOWEL/MESENTERY: Gastrostomy tube in place. Mild stool burden. Left lower quadrant ostomy with the ad jacent edema. Minimal sigmoid diverticulosis. ASCITES: Small volume ascites. Mesenteric congestion. LYMPHADENOPATHY: No pathologically enlarged lymph nodes by CT size criteria VASCULATURE: No aneurysmal dilatation. ABDOMINAL WALL: Body wall edema. Left lower quadrant ostomy. MUSCULOSKELETAL: No acute fracture or aggressive focal osseous lesion. Multifocal degenerative change of the visualized spine. IMPRESSION: 1. Medium to large left-sided pleural effusion with atelectasis and consolidation in the left lower l obe. 2. Small right-sided pleural effusion with right lower lobe atelectasis. 3. Moderate pericardial effusion. 4. Cholelithiasis. 5. Small volume ascites. 6. Left lower quadrant ostomy with adjacent edema.
[2024-12-22] MEDS: ENOXAPARIN SOD 80 MG/0.8ML SYRINGE SC ONE (19:05)
[2024-12-22] MEDS: VANCOMYCIN 1GM/250ML KIT 250 ML IV ONE (20:13)
--- NOTE | 2024-12-22 21:12 | DVHPN2 ---
Consult Progress Note Date Seen: Dec 22, 2024 Subjective Other Systems: Patient was seen and evaluated in follow up in the ICU. Notified of code assist on status post DCCV. Patient was intubated for airway protection. BUN 39,RECREATION TEACHER 5.29, CA 8.2, AST 349,ALT 274. Chest x-ray shows diffuse increased prominence of the pulmonary vasculature, small bilateral pleural effusions and cardiomegaly. BLE Venous Doppler show is negative for DVT. Objective vital signs Vital Sign Date Time Temp Pulse Resp B/P (MAP) Pulse Ox O2 Delivery O2 Flow Rate FiO2 12/22/24 14:25 64 18 88/52 (64) 100 30 12/22/24 12:45 97.2 97.2 12/22/24 08:00 Mechanical Ventilator+ 12/21/24 18:00 40.0 Total Intake and Output 12/21/24 12/21/24 12/22/24 15:00 23:00 07:00 Intake Total 483.98 ml 150.00 ml 157.50 ml Output Total 300 ml 450 ml Balance 483.98 ml -150.00 ml -292.50 ml medications Current Medications Medications Dose Ordered Sig/Isidra Route Start Time Stop Time Status Last Admin Dose Admin Albuterol 2.5 mg Q6HPRN PRN NEB 12/20/24 19:30 Acetaminophen 650 mg Q6HP PRN PO 12/20/24 19:30 Nitroglycerin 0.4 mg Q5MINP PRN SL 12/20/24 19:30 Morphine Sulfate 2 mg Q30M PRN IV 12/20/24 19:30 Enoxaparin Sodium 80 mg DAILY SC 12/22/24 10:00 UNV Vancomycin HCl 0 ml @ 0 mls/hr UD IV 12/21/24 11:45 Meropenem 50 ml @ 17 mls/hr DAILY@POSTDI IV 12/21/24 22:00 Pantoprazole Sodium 40 mg DAILY IV 12/22/24 10:00 12/22/24 10:11 40 MG Midazolam HCl 50 ml @ 1 mls/hr Q24H IV 12/21/24 11:45 12/22/24 05:44 5 MLS/HR Fentanyl Citrate 250 ml @ 2.5 mls/hr Q24H IV 12/21/24 11:45 12/22/24 11:45 10 MLS/HR Norepinephrine Bitartrate 250 ml @ 3.75 mls/hr Q24H IV 12/21/24 12:15 12/22/24 05:44 7.5 MLS/HR Vasopressin 20 units/Sodium Chloride 100 ml @ 9 mls/hr Q11H7M IV 12/21/24 12:15 Diagnostic Test (Pha) 1 strip Q6HR 12/22/24 00:00 12/22/24 12:00 1 STRIP Insulin Human Regular Q6HR SC 12/22/24 00:00 Dextrose 50 ml UD PRN IV 12/21/24 21:00 12/22/24 06:03 50 ML Enteral Nutritional Formula 1,000 ml 30ML/HR GT 12/22/24 12:00 Enteral Nutritional Formula 1,000 ml 30ML/HR GT 12/22/24 13:15 Amiodarone HCl 100 mg Q12HR GT 12/22/24 22:00 Examination: GENERAL:Abnormal, LUNGS:Abnormal (Enodtracheally intubated with FiO2 at 30%), CVS:Abnormal (NSR. On low-dose single vasopressor), NEURO:Abnormal (Chemically sedated) laboratory and microbiology Laboratory Tests 12/22/24 04:10 Test 12/22/24 04:10 Range/Units Serum Glucose 52 L 74-106 mg/dL Problem List/Assessment/Plan Problem List/Assessment/Plan Problem list Atrial flutter/atrial fibrillation with RVR s/p DCCV, Stage IIIa, now NSR (on amiodarone/BB/Eliquis therapy at home-). Acute on chronic decompensated unspecified HF, NYHA Class IV. Nonischemic/dilated cardiomyopathy. Advanced CKD now ESRD with HD and associated hyperkalemia. History of cardiac ablation in 2022. Thyroid disease. Recent colon resection with colostomy. Plan/Recommendation Continued all current supportive medical care. Patient has been seen by Alicia Kumar NP on my behalf. We have discussed the plan with the patient. Transthoracic echocardiogram revealed LVEF 25% with mild pericardial effusion and moderate degree of MR and TR. Status post DCCV, continue low-dose amiodarone therapy. Off AC therapy given borderline thrombocytopenia. Transition to low-dose Eliquis when appropriate ([id number] Score 5 points, HAS-BLED Score 3 points). Initiate home HF medications when BP able to tolerate (metoprolol succ., Entresto, empagliflozin). Continue Nephrology recommendations. Additional plan as per the hospital course. Plan discussed with: Other Dietary Evaluation Review Comments: Nutrition Recommendation: 1) TF Nepro Carbsteady @ 40ml/hr x 24hr (goal rate) along with Pro-stat 1 pk TID. TF @ goal volume along with Pro-Stat provide 2028 kcal (100% energy needs), 123 gm protein (100% protein needs), 698 ml free water. 2) Water flush 80 ml Q6H if allowed, adjust PRN 3) TPN if NPO >7 days 4) Monitor NPO status, lab values, wt trend, I/O Expected Outcomes/Goals: To meet >75% estimated needs Lab values to improve Fu 2-3 days Date of Service: Dec 22, 2024 Billing Provider: KRISTOPHER ARMANDO MD Cardiology Common Codes: [id number]-[id number] CARE 30-74 MIN KRISTOPHER ARMANDO MD Dec 22, 2024 15:10
[2024-12-22] MEDS: AMIODARONE HCL 200 MG TAB GT SCH (22:00)
[2024-12-23] VITALS (109 sets, daily range): BP systolic 86–150; BP diastolic 45–86; PULSE 63–74; RESP 15–24; TEMP 78.1–99; O2SAT 98–100
[2024-12-23 05:05] LABS: Hematocrit 36.8 % (41.0-53.0); Hemoglobin 12.3 g/dL (13.5-17.5); Mean Corpuscular Hemoglobin 30.9 pg (28.0-32.0); Mean Corpuscular Volume 92.5 fL (80.0-100.0); Nucleated Red Blood Cells % 0.1 %
[2024-12-23 05:07] LABS: Alkaline Phosphatase 91 U/L (46-116); Anion Gap 12 (5-15); BUN/Creatinine Ratio 5.7 (10.0-20.0); Carbon Dioxide 26 mmol/L (20-31); Chloride 102 mmol/L (98-107); Glucose 102 mg/dL (74-106); Magnesium 2.1 mg/dL (1.6-2.6); Potassium 4.0 mmol/L (3.5-5.1); Sodium 140 mmol/L (136-145)
[2024-12-23 05:08] LABS: Bilirubin, Total 0.8 mg/dL (0.2-1.0)
[2024-12-23 05:11] LABS: Alanine Aminotransferase 191 U/L (7-40); Albumin 2.5 g/dL (3.2-4.8); Blood Urea Nitrogen 30 mg/dL (9-23); Calcium 8.0 mg/dL (8.7-10.4); Total Protein 4.7 g/dL (5.7-8.2)
--- NOTE | 2024-12-23 05:16 | DVH ---
CHEST RADIOGRAPH Indication: resp failue Technique: Single frontal view of the chest was obtained COMPARISON: XY CHEST PORTABLE on DOS: 12/22/24, XY CHEST XRAY 1 VIEW on DOS: 12/21/24, XY CHEST PORTABL E on DOS: 12/20/24 FINDINGS: Lines and Tubes: Endotracheal tube, enteric catheter, left central venous catheter in satisfactory po sition. Right tunneled central venous catheter unchanged. Lungs: Unchanged pulmonary vascular congestion. Pleura: No effusion.No pneumothorax. Cardiomediastinal contours: Unchanged cardiomegaly. Bones: Unremarkable. IMPRESSION: Lines and tubes in satisfactory position. No significant interval change.
[2024-12-23] MEDS: ALBUTEROL SULF 2.5 MG/0.5ML(0.5%) NEB SOLN NEB PRN (06:20)
--- NOTE | 2024-12-23 07:28 | ECG ---
[facility] Test Date: 2024-12-21 Test Time: 11:01:54 Pat Name: ELIZABETH STAUFFER Department: Room: 0264 A Gender: M Nursing Home Manager: ERNST : 1945 Requested By: ALY SCHROEDER Order Number: [id number] Reading MD: Peyman Witt Measurements Intervals [place] Rate: 108 P: 0 NE: 0 QRS: 262 QRSD: 186 T: 101 QT: 437 QTc: 586 Interpretive Statements Atrial fibrillation Nonspecific IVCD with LAD LVH with secondary repolarization abnormality Electronically Signed On 12-28-2024 21:33:59 PDT by Peyman Witt Please click the below link to view image of tracing.
[2024-12-23 07:49] LABS: Base Excess -0.6 mmol/L (-2.0-3.0)
[2024-12-23] MEDS ORDERED: DIGOXIN 0.125 MG TAB PO SCH (10:00)
--- NOTE | 2024-12-23 10:23 | DVHPN2 ---
Progress Note Date Seen: Dec 23, 2024 Resident Creating Document: JOSEFINA AKERS RESIDENT Medical Necessity Reason Pt with a Central, PICC or Fol: Yes The following are medically ne: Central Line, Stearns Catheter Reason for stearns catheter: Strict I&O Subjective Review of Systems The patient was seen and examined on the bedside. He is on mechanical ventilation with FiO2 35%, tidal volume 500 mL, peep 5 and respiratory rate 22. Objective vital signs Vital Sign Date Time Temp Pulse Resp B/P (MAP) Pulse Ox O2 Delivery O2 Flow Rate FiO2 12/23/24 08:40 88/50 12/23/24 08:30 70 18 100 30 12/23/24 08:00 Mechanical Ventilator+ 12/23/24 06:45 97.9 97.9 12/21/24 18:00 40.0 Total Intake and Output 12/22/24 12/22/24 12/23/24 15:00 23:00 07:00 Intake Total 183.75 ml 210.00 ml 312.00 ml Output Total 100 ml 205 ml Balance 183.75 ml 110.00 ml 107.00 ml medications Current Medications Medications Dose Ordered Sig/Isidra Route Start Time Stop Time Status Last Admin Dose Admin Albuterol 2.5 mg Q6HPRN PRN NEB 12/20/24 19:30 12/23/24 06:20 2.5 MG Acetaminophen 650 mg Q6HP PRN PO 12/20/24 19:30 Nitroglycerin 0.4 mg Q5MINP PRN SL 12/20/24 19:30 Morphine Sulfate 2 mg Q30M PRN IV 12/20/24 19:30 Enoxaparin Sodium 80 mg DAILY SC 12/22/24 10:00 UNV Vancomycin HCl 0 ml @ 0 mls/hr UD IV 12/21/24 11:45 Meropenem 50 ml @ 17 mls/hr DAILY@POSTDI IV 12/21/24 22:00 Pantoprazole Sodium 40 mg DAILY IV 12/22/24 10:00 12/22/24 10:11 40 MG Midazolam HCl 50 ml @ 1 mls/hr Q24H IV 12/21/24 11:45 12/23/24 01:13 5 MLS/HR Fentanyl Citrate 250 ml @ 2.5 mls/hr Q24H IV 12/21/24 11:45 12/22/24 11:45 10 MLS/HR Norepinephrine Bitartrate 250 ml @ 3.75 mls/hr Q24H IV 12/21/24 12:15 12/23/24 06:37 11.25 MLS/HR Vasopressin 20 units/Sodium Chloride 100 ml @ 9 mls/hr Q11H7M IV 12/21/24 12:15 Diagnostic Test (Pha) 1 strip Q6HR 12/22/24 00:00 12/23/24 06:23 1 STRIP Insulin Human Regular Q6HR SC 12/22/24 00:00 Dextrose 50 ml UD PRN IV 12/21/24 21:00 12/22/24 06:03 50 ML Enteral Nutritional Formula 1,000 ml 30ML/HR GT 12/22/24 12:00 Enteral Nutritional Formula 1,000 ml 30ML/HR GT 12/22/24 13:15 Amiodarone HCl 100 mg Q12HR GT 12/22/24 22:00 Enoxaparin Sodium 70 mg DAILY SC 12/23/24 10:00 Examination Examination General: RASS -3, afebrile, mucosae are moist Cardiovascular: Normal S1 and S2. No murmurs, gallops or rubs Respiratory: Mechanically assisted ventilation, equal bilateral airway entree. Bilateral crackles Abdomen: Soft, nontender, no organomegaly, normal bowel sounds MSK/skin: Mobilization of limbs cannot be evaluated. Rt upper extremity is swollen. Skin is dry and warm. Neurological: Orientation cannot be assessed. No apparent motor no sensitive deficits. Pupils are isocoric and reactive laboratory and microbiology Laboratory Tests 12/23/24 04:20 Test 12/23/24 04:20 Range/Units Serum Glucose 102 74-106 mg/dL Microbiology Date/Time Source Procedure Growth Status 12/22/24 13:19 Urine - [place] Urine Culture - Preliminary Resulted 12/21/24 12:00 Nose MRSA Screen - Final Methicillin Resistant S.aureus Complete 12/21/24 11:46 Blood Blood Culture - Preliminary NO GROWTH AFTER 24 HOURS OF INCUBATION. Resulted 12/21/24 11:27 Sputum Gram Stain - Final Resulted 12/21/24 11:27 Sputum Respiratory Culture - Preliminary Resulted Labs and/or images reviewed: Labs reviewed by me, Image(s) reviewed by me Problem List/Assessment/Plan Problem List/Assessment/Plan Assessment and plan: # Acute hypoxic respiratory failure, status post mechanical ventilation # AFib with RVR, currently sinus rhythm with controlled heart rate # Acute on chronic decompensated systolic heart failure with reduced EF # possible septic/cardiogenic shock # Gram-positive versus Gram-negative community-acquired pneumonia # ESRD on hemodialysis # Hyperkalemia resolved # Acute DVT of right upper extremity # Metabolic acidosis with respiratory alkalosis # BPH # S/P exploratory laparotomy with colostomy Plan: - status post mechanical ventilation - continue vasopressor - Had dialysis yesterday, post dialysis BUN /creatinine 30/5.22 - putty and patch worker was consulted for outpatient chair time. - Continue IV antibiotic and other management as per primary. - strict I&O - monitor BMP Thank you so much for the opportunity to consult on your patient. Nephro team will follow the patient. In case of any questions or concerns please feel free to reach out. Plan discussed with Dr. Walton . The patient and caregiver team agreed to the plan. Plan discussed with: Spouse, Other (RN) Dietary Evaluation Review Comments: Nutrition Recommendation: 1) TF Nepro Carbsteady @ 40ml/hr x 24hr (goal rate) along with Pro-stat 1 pk TID. TF @ goal volume along with Pro-Stat provide 2028 kcal (100% energy needs), 123 gm protein (100% protein needs), 698 ml free water. 2) Water flush 80 ml Q6H if allowed, adjust PRN 3) TPN if NPO >7 days 4) Monitor NPO status, lab values, wt trend, I/O Expected Outcomes/Goals: To meet >75% estimated needs Lab values to improve Fu 2-3 days JOSEFINA AKERS RESIDENT Dec 23, 2024 10:22
--- NOTE | 2024-12-23 10:31 | MEDREC ---
[facility] Intervention Section I [facility] Intervention: Review courses of therapy (MRSA nares resulted positive, may consider applying mupirocin 2% ointment in each nostril BID for 5 days.) DONALD MAHARAJ [facility] RESIDENT Dec 23, 2024 10:31
--- NOTE | 2024-12-23 14:13 | DVHPN2 ---
Progress Note Date Seen: Dec 23, 2024 Medical Necessity Reason Pt with a Central, PICC or Fol: Yes The following are medically ne: Central Line, Stearns Catheter Reason for stearns catheter: Strict I&O Subjective Patient reports: No new complaints Review of Systems: HEENT:Normal, CVS:Normal, RESPIRATORY:Normal, GI:Normal, :Normal, MSK:Normal, NEURO:Normal Objective vital signs Vital Sign Date Time Temp Pulse Resp B/P (MAP) Pulse Ox O2 Delivery O2 Flow Rate FiO2 12/23/24 13:00 97.5 70 18 138/85 (102) 100 207.5 12/23/24 12:33 30 12/23/24 08:00 Mechanical Ventilator+ 12/21/24 18:00 40.0 Total Intake and Output 12/22/24 12/22/24 12/23/24 15:00 23:00 07:00 Intake Total 183.75 ml 210.00 ml 312.00 ml Output Total 100 ml 205 ml Balance 183.75 ml 110.00 ml 107.00 ml medications Current Medications Medications Dose Ordered Sig/Isidra Route Start Time Stop Time Status Last Admin Dose Admin Albuterol 2.5 mg Q6HPRN PRN NEB 12/20/24 19:30 12/23/24 06:20 2.5 MG Acetaminophen 650 mg Q6HP PRN PO 12/20/24 19:30 Nitroglycerin 0.4 mg Q5MINP PRN SL 12/20/24 19:30 Morphine Sulfate 2 mg Q30M PRN IV 12/20/24 19:30 Enoxaparin Sodium 80 mg DAILY SC 12/22/24 10:00 UNV Vancomycin HCl 0 ml @ 0 mls/hr UD IV 12/21/24 11:45 Meropenem 50 ml @ 17 mls/hr DAILY@POSTDI IV 12/21/24 22:00 Pantoprazole Sodium 40 mg DAILY IV 12/22/24 10:00 12/23/24 10:29 40 MG Midazolam HCl 50 ml @ 1 mls/hr Q24H IV 12/21/24 11:45 12/23/24 10:28 5 MLS/HR Fentanyl Citrate 250 ml @ 2.5 mls/hr Q24H IV 12/21/24 11:45 12/22/24 11:45 10 MLS/HR Norepinephrine Bitartrate 250 ml @ 3.75 mls/hr Q24H IV 12/21/24 12:15 12/23/24 06:37 11.25 MLS/HR Vasopressin 20 units/Sodium Chloride 100 ml @ 9 mls/hr Q11H7M IV 12/21/24 12:15 Diagnostic Test (Pha) 1 strip Q6HR 12/22/24 00:00 12/23/24 06:23 1 STRIP Insulin Human Regular Q6HR SC 12/22/24 00:00 Dextrose 50 ml UD PRN IV 12/21/24 21:00 12/22/24 06:03 50 ML Enteral Nutritional Formula 1,000 ml 30ML/HR GT 12/22/24 12:00 Enteral Nutritional Formula 1,000 ml 30ML/HR GT 12/22/24 13:15 Amiodarone HCl 100 mg Q12HR GT 12/22/24 22:00 12/23/24 10:29 100 MG Enoxaparin Sodium 70 mg DAILY SC 12/23/24 10:00 Examination: GENERAL:Normal, HEENT:Normal, NECK:Normal, LUNGS:Normal, LUNGS:Abnormal (intubated), CVS:Normal, ABDOMEN:Normal, ABDOMEN:Abnormal (peg, ostomy), MSK:Normal, SKIN:Normal, NEURO:Normal, :Normal laboratory and microbiology Laboratory Tests 12/23/24 04:20 Test 12/23/24 04:20 Range/Units Serum Glucose 102 74-106 mg/dL Microbiology Date/Time Source Procedure Growth Status 12/22/24 13:19 Urine - [place] Urine Culture - Preliminary Resulted 12/21/24 12:00 Nose MRSA Screen - Final Methicillin Resistant S.aureus Complete 12/21/24 11:46 Blood Blood Culture - Preliminary NO GROWTH AFTER 48 HOURS OF INCUBATION. Resulted 12/21/24 11:27 Sputum Gram Stain - Final Complete 12/21/24 11:27 Respiratory Culture - Final Methicillin Resistant S.aureus Complete Problem List/Assessment/Plan Problem List/Assessment/Plan #1 acute resp failure: on acv #2 shock - septic due to mrsa pneumonia?cardiac: cultures, iv antibiotics, iv pressors #3 esrd: on dialysis #4 s/p bowel perf s/p exp lap: tube feedings #5 s/p peg/ostomy #6 a fib s/p cardioversion: amiodarone #7 dm: ssi #8 bph: stearns cath #9 right upper extremity dvt: lovenox #10 gallstones #11 thrombocytopeniap; monitor long dw family regards current condition and code status- no cpr/cardioversion per Plan discussed with: Son My Orders My Orders Orders - ALY SCHROEDER MD Procedure Category Date Status Time Enoxaparin Sodium PHA 12/23/24 In Process (Lovenox) 10:00 Vancomycin,Random LAB 12/24/24 Verified 04:00 Creatinine LAB 12/24/24 Verified 04:00 * Radiologist Consult CONS 12/23/24 Transmitted 13:56 Dietary Evaluation Review Comments: Nutrition Recommendation: 1) TF Nepro Carbsteady @ 40ml/hr x 24hr (goal rate) along with Pro-stat 1 pk TID. TF @ goal volume along with Pro-Stat provide 2028 kcal (100% energy needs), 123 gm protein (100% protein needs), 698 ml free water. 2) Water flush 80 ml Q6H if allowed, adjust PRN 3) TPN if NPO >7 days 4) Monitor NPO status, lab values, wt trend, I/O Expected Outcomes/Goals: To meet >75% estimated needs Lab values to improve Fu 2-3 days Critical Care Time (mins): 81 (critical care time excluding procedures is 81 mins) Date of Service: Dec 22, 2024 Billing Provider: ALY SCHROEDER MD Common Visit Codes: 72037-[id number] CARE 30-74 MIN, [id number] CARE-EACH +30MIN ALY SCHROEDER MD Dec 23, 2024 14:13
[2024-12-23] MEDS: ENOXAPARIN SOD 80 MG/0.8ML SYRINGE SC SCH (14:37)
--- NOTE | 2024-12-23 23:55 | DVHPN2 ---
Progress Note - Dictate Date Seen: Dec 23, 2024 Medical Necessity Reason Pt with a Central, PICC or Fol: Yes The following are medically ne: Central Line, Stearns Catheter Reason for stearns catheter: Strict I&O Subjective Patient was seen and evaluated in follow up in the ICU. Patient is intubated and sedated on ventilator. 30% FiO2. Per radiologist, thoracentesis will not be able to be performed today. Patient is planned for HD tomorrow. BUN 30, FACILITY ENVIRONMENTAL TECHNICIAN 5.22, AST 111, ALT 191. Chest x-ray shows pulmonary vascular congestion. vital signs Vital Sign Date Time Temp Pulse Resp B/P (MAP) Pulse Ox O2 Delivery O2 Flow Rate FiO2 12/23/24 18:45 97.0 65 18 118/72 (87) 100 206.6 12/23/24 16:38 30 12/23/24 08:00 Mechanical Ventilator+ 12/21/24 18:00 40.0 Total Intake and Output 12/22/24 12/22/24 12/23/24 15:00 23:00 07:00 Intake Total 183.75 ml 210.00 ml 312.00 ml Output Total 100 ml 205 ml Balance 183.75 ml 110.00 ml 107.00 ml medications Current Medications Medications Dose Ordered Sig/Isidra Route Start Time Stop Time Status Last Admin Dose Admin Albuterol 2.5 mg Q6HPRN PRN NEB 12/20/24 19:30 12/23/24 06:20 2.5 MG Acetaminophen 650 mg Q6HP PRN PO 12/20/24 19:30 Nitroglycerin 0.4 mg Q5MINP PRN SL 12/20/24 19:30 Morphine Sulfate 2 mg Q30M PRN IV 12/20/24 19:30 Enoxaparin Sodium 80 mg DAILY SC 12/22/24 10:00 UNV Vancomycin HCl 0 ml @ 0 mls/hr UD IV 12/21/24 11:45 Meropenem 50 ml @ 17 mls/hr DAILY@POSTDI IV 12/21/24 22:00 Pantoprazole Sodium 40 mg DAILY IV 12/22/24 10:00 12/23/24 10:29 40 MG Midazolam HCl 50 ml @ 1 mls/hr Q24H IV 12/21/24 11:45 12/23/24 10:28 5 MLS/HR Fentanyl Citrate 250 ml @ 2.5 mls/hr Q24H IV 12/21/24 11:45 12/23/24 14:37 10 MLS/HR Norepinephrine Bitartrate 250 ml @ 3.75 mls/hr Q24H IV 12/21/24 12:15 12/23/24 06:37 11.25 MLS/HR Vasopressin 20 units/Sodium Chloride 100 ml @ 9 mls/hr Q11H7M IV 12/21/24 12:15 Diagnostic Test (Pha) 1 strip Q6HR 12/22/24 00:00 12/23/24 12:00 1 STRIP Insulin Human Regular Q6HR SC 12/22/24 00:00 Dextrose 50 ml UD PRN IV 12/21/24 21:00 12/22/24 06:03 50 ML Enteral Nutritional Formula 1,000 ml 30ML/HR GT 12/22/24 12:00 Enteral Nutritional Formula 1,000 ml 30ML/HR GT 12/22/24 13:15 Amiodarone HCl 100 mg Q12HR GT 12/22/24 22:00 12/23/24 10:29 100 MG Enoxaparin Sodium 70 mg DAILY SC 12/23/24 10:00 12/23/24 14:37 70 MG objective GENERAL: Intubated on ventilator. EYES: PERRL, EOMI. Anicteric. HENT: Moist mucous membranes. LUNGS: Decreased breath sounds. CARDIOVASCULAR: Regular rate and rhythm. ABDOMEN: Soft, nontender and nondistended. EXTREMITIES: No edema. NEUROLOGIC: No focal neurological deficits. SKIN: Warm, dry. laboratory and microbiology Laboratory Tests 12/23/24 04:20 Test 12/23/24 04:20 Range/Units Serum Glucose 102 74-106 mg/dL Problem List Atrial flutter/atrial fibrillation with RVR s/p DCCV, Stage IIIa, now NSR (on amiodarone/BB/Eliquis therapy at home-). Acute on chronic decompensated unspecified HF, NYHA Class IV. Nonischemic/dilated cardiomyopathy. Advanced CKD now ESRD with HD and associated hyperkalemia. History of cardiac ablation in 2022. Thyroid disease. Recent colon resection with colostomy. Assessment/Plan Continued all current supportive medical care. Amiodarone. DVT and GI prophylactics. IV antibiotics as ordered. Morphine for pain management. Vasopressors for hemodynamic support. Additional plan as per the hospital course. Critical care time of 45 minutes provided to include time spent evaluation of patient at bedside, when appropriate patient/family education for diagnosis, treatment plan, review of pertinent medical information and discussion of care with specialty providers and PCP. Mechanical ventilator parameters, treatment and adjustments have personally been reviewed by me and treatment plan by beamster has also been reviewed. Dietary Evaluation Review Comments: Nutrition Recommendation: 1) TF Nepro Carbsteady @ 40ml/hr x 24hr (goal rate) along with Pro-stat 1 pk TID. TF @ goal volume along with Pro-Stat provide 2028 kcal (100% energy needs), 123 gm protein (100% protein needs), 698 ml free water. 2) Water flush 80 ml Q6H if allowed, adjust PRN 3) TPN if NPO >7 days 4) Monitor NPO status, lab values, wt trend, I/O Expected Outcomes/Goals: To meet >75% estimated needs Lab values to improve Fu 2-3 days Plan discussed with: KRISTOPHER Khan MD Dec 23, 2024 19:18
[2024-12-24] VITALS (110 sets, daily range): BP systolic 86–148; BP diastolic 46–90; PULSE 66–106; RESP 16–22; TEMP 97.9–99.7; O2SAT 95–100
[2024-12-24 04:51] LABS: Hematocrit 37.4 % (41.0-53.0); Hemoglobin 12.5 g/dL (13.5-17.5); Mean Corpuscular Hemoglobin 30.7 pg (28.0-32.0); Mean Corpuscular Volume 91.9 fL (80.0-100.0); Nucleated Red Blood Cells % 0.1 %
[2024-12-24 05:03] LABS: Alkaline Phosphatase 95 U/L (46-116); Anion Gap 10 (5-15); BUN/Creatinine Ratio 5.5 (10.0-20.0); Carbon Dioxide 26 mmol/L (20-31); Chloride 103 mmol/L (98-107); Potassium 4.2 mmol/L (3.5-5.1); Sodium 139 mmol/L (136-145)
[2024-12-24 05:04] LABS: Alanine Aminotransferase 141 U/L (7-40); Albumin 2.5 g/dL (3.2-4.8); Bilirubin, Total 0.6 mg/dL (0.2-1.0); Blood Urea Nitrogen 33 mg/dL (9-23); Calcium 8.2 mg/dL (8.7-10.4); Glucose 114 mg/dL (74-106); Total Protein 4.7 g/dL (5.7-8.2)
--- NOTE | 2024-12-24 05:58 | DVH ---
CHEST RADIOGRAPH Indication: RESP FAILURE Technique: Single frontal view of the chest was obtained COMPARISON: XY CHEST PORTABLE on DOS: 12/23/24, XY CHEST PORTABLE on DOS: 12/22/24, XY CHEST XRAY 1 VIE W on DOS: 12/21/24, XY CHEST PORTABLE on DOS: 12/20/24 FINDINGS: Lines and Tubes: Endotracheal tube in satisfactory position. Enteric catheter in satisfactory positio n. Left central venous catheter in satisfactory position. Right tunneled central venous catheter unch anged. Lungs: Unchanged pulmonary vascular congestion. Pleura: No effusion. No pneumothorax. Cardiomediastinal contours: Unchanged cardiomegaly. Bones: Unremarkable. IMPRESSION: No significant interval change.
[2024-12-24] MEDS: SODIUM CHL 0.9% 1000 ML BAG XX ONE (07:00)
[2024-12-24 07:15] LABS: Base Excess 1.2 mmol/L (-2.0-3.0)
--- NOTE | 2024-12-24 08:54 | DVH ---
Exam: US CHEST ULTRASOUND Clinical History: fluid check, possible thoracentesis Comparison: XY CHEST PORTABLE on DOS: 12/24/24, XY CHEST PORTABLE on DOS: 12/23/24, XY CHEST PORTABLE o n DOS: 12/22/24, US ECHO 2D MODE CARDIAC DOP on DOS: 12/21/24, XY CHEST XRAY 1 VIEW on DOS: 12/21/24 Technique: Targeted sonographic evaluation of the soft tissues of the chest was obtained utilizing grayscale an d color Doppler imaging. Findings/Impression: Trace right and moderate left pleural effusion.
--- NOTE | 2024-12-24 09:39 | DVHPN2 ---
Subjective Patient intubated and sedated Reviewed: Care Plan, H&P, Labs, Medications Changes from previous H/P or p: No Changes General: Per HPI Objective Vitals Vital Signs Date Time Temp Pulse Resp B/P (MAP) Pulse Ox O2 Delivery O2 Flow Rate FiO2 12/24/24 09:00 98.4 72 18 134/86 (102) 100 209.1 12/24/24 08:24 30 12/24/24 08:00 Mechanical Ventilator+ Intake/Output Intake and Output 12/24/24 07:00 Intake Total 1181.00 ml Output Total 375 ml Balance 806.00 ml Intake Oral 256 ml IV Total 625.00 ml Tube Feeding 300 ml Output Urine Total 375 ml General Appearance: moderate distress, Other (Chemically sedated) HEENT: Atraumatic, PERRLA Lungs: Clear to auscultation, Normal air movement Cardiovascular: Normal S1, Normal S2 Abdomen: Normal bowel sounds, Soft, No tenderness, No hepatospenomegaly Genitourinary: No Apparent Abnormalities Back: Flank Tenderness, Midline Tenderness Musculoskeletal: Normal sensory function, Normal motor function Neuro: Normal gait, Normal speech Skin: Dry, Intact Psych/Mental Status: Mental status NL, Mood NL Medications Current Medications Medications Dose Ordered Sig/Isidra Route Start Time Stop Time Status Last Admin Dose Admin Albuterol 2.5 mg Q6HPRN PRN NEB 12/20/24 19:30 12/23/24 06:20 2.5 MG Acetaminophen 650 mg Q6HP PRN PO 12/20/24 19:30 Nitroglycerin 0.4 mg Q5MINP PRN SL 12/20/24 19:30 Morphine Sulfate 2 mg Q30M PRN IV 12/20/24 19:30 Enoxaparin Sodium 80 mg DAILY SC 12/22/24 10:00 UNV Vancomycin HCl 0 ml @ 0 mls/hr UD IV 12/21/24 11:45 Meropenem 50 ml @ 17 mls/hr DAILY@POSTDI IV 12/21/24 22:00 Pantoprazole Sodium 40 mg DAILY IV 12/22/24 10:00 12/24/24 07:29 40 MG Midazolam HCl 50 ml @ 1 mls/hr Q24H IV 12/21/24 11:45 12/24/24 07:28 5 MLS/HR Fentanyl Citrate 250 ml @ 2.5 mls/hr Q24H IV 12/21/24 11:45 12/24/24 07:30 10 MLS/HR Norepinephrine Bitartrate 250 ml @ 3.75 mls/hr Q24H IV 12/21/24 12:15 12/24/24 03:00 11.25 MLS/HR Vasopressin 20 units/Sodium Chloride 100 ml @ 9 mls/hr Q11H7M IV 12/21/24 12:15 Diagnostic Test (Pha) 1 strip Q6HR 12/22/24 00:00 12/24/24 07:30 1 STRIP Insulin Human Regular Q6HR SC 12/22/24 00:00 Dextrose 50 ml UD PRN IV 12/21/24 21:00 12/22/24 06:03 50 ML Enteral Nutritional Formula 1,000 ml 30ML/HR GT 12/22/24 12:00 Enteral Nutritional Formula 1,000 ml 30ML/HR GT 12/22/24 13:15 Amiodarone HCl 100 mg Q12HR GT 12/22/24 22:00 12/24/24 07:29 100 MG Enoxaparin Sodium 70 mg DAILY SC 12/23/24 10:00 12/24/24 07:29 70 MG Laboratory Results Laboratory Tests 12/24/24 04:28 Chemistry Test 12/24/24 04:28 Albumin 2.5 g/dL (3.2-4.8) L Calcium Level 8.2 mg/dL (8.7-10.4) L Total Protein 4.7 g/dL (5.7-8.2) L LFT Test 12/24/24 04:28 Alanine Aminotransferase (ALT) 141 U/L (7-40) H Alkaline Phosphatase 95 U/L (46-116) Aspartate Amino Transferase (AST) 60 U/L (13-40) H Total Bilirubin 0.6 mg/dL (0.2-1.0) Urinalysis Test 12/22/24 12:02 Urine Color Dark yellow (Yellow) Urine Clarity Turbid (Clear) H Urine pH 7.5 (5.0-9.0) Urine Specific [place] 1.010 (1.001-1.035) Urine Protein 1+ (Negative) H Urine Ketones Negative (Negative) Urine Blood 3+ /uL (Negative) H Urine Nitrite Negative (Negative) Urine Bilirubin Negative (Negative) Urine Urobilinogen Normal mg/dL (Negative) Urine Leukocyte Esterase 3+ /uL (Negative) Urine RBC 273 /hpf (0 - 3) Urine Microscopic WBC 126 /HPF (0-3) H Urine Squamous Epithelial Cells Few /hpf (<5) Urine Bacteria None seen /hpf (None Seen) Urine Mucus Few (None Seen) Urine Glucose Normal mg/dL (Normal) Blood Gas Results Test 12/24/24 06:30 Arterial Blood pH 7.488 (7.350-7.450) FiO2 % 30.0 Microbiology Microbiology Date/Time Source Procedure Growth Status 12/22/24 13:19 Urine - [place] Urine Culture - Preliminary Resulted 12/21/24 12:00 Nose MRSA Screen - Final Methicillin Resistant S.aureus Complete 12/21/24 11:46 Blood Blood Culture - Preliminary NO GROWTH AFTER 48 HOURS OF INCUBATION. Resulted 12/21/24 11:27 Sputum Gram Stain - Final Complete 12/21/24 11:27 Respiratory Culture - Final Methicillin Resistant S.aureus Complete Labs and/or images reviewed: Labs reviewed by me, Image(s) reviewed by me Assessment/Plan Assessment/Plan Impression: -acute hypoxic respiratory failure -hospital-acquired pneumonia with MRSA -end-stage renal disease with hemodialysis -status post colostomy and PEG tube placement -anemia of chronic disease -DVT right upper arm -AFib with RVR, status post cardioversion -rule out pulmonary embolism -thrombocytopenia -cholelithiasis -BPH Plan: -CT angiogram of the chest rule out PE -nephrology consultation for hemodialysis -continue amiodarone for rate and rhythm control -continue tube feeding -continue full-dose anticoagulation -PPI -continue current ventilator settings and sedation -repeat labs, chest x-ray, ABG in a.m. Critical care time spent with patient discussing and formulating plan of care: 40 minutes. This does not include time spent performing procedures. This medical document was created using an electronic medical record system with [employer] dictation system. Although this document has been carefully reviewed, there may still be some phonetic and typographical errors. These areas are purely typographical due to imperfections of the software programs, and do not reflect any compromise in the patient's medical care. Plan discussed with: Patient, Other (RN) Date of Service: Dec 24, 2024 Billing Provider: FLORENTINO LANGLEY NP Common Visit Codes: [id number] CARE 30-74 MIN FLORENTINO LANGLEY NP Dec 24, 2024 09:39
--- NOTE | 2024-12-24 10:56 | DVHPN2 ---
Progress Note Date Seen: Dec 24, 2024 Resident Creating Document: JOSEFINA AKERS RESIDENT Medical Necessity Reason Pt with a Central, PICC or Fol: Yes The following are medically ne: Central Line, Stearns Catheter Reason for stearns catheter: Strict I&O Subjective Review of Systems The patient was seen and examined on the bedside. He is on mechanical ventilation with FiO2 30%, tidal volume 500 mL, peep 5 and respiratory rate 22. Objective vital signs Vital Sign Date Time Temp Pulse Resp B/P (MAP) Pulse Ox O2 Delivery O2 Flow Rate FiO2 12/24/24 10:24 82 18 92/58 (69) 98 30 12/24/24 10:00 98.1 208.6 12/24/24 08:00 Mechanical Ventilator+ Total Intake and Output 12/23/24 12/23/24 12/24/24 15:00 23:00 07:00 Intake Total 344.75 ml 427.25 ml 409.00 ml Output Total 175 ml 200 ml Balance 344.75 ml 252.25 ml 209.00 ml medications Current Medications Medications Dose Ordered Sig/Isidra Route Start Time Stop Time Status Last Admin Dose Admin Albuterol 2.5 mg Q6HPRN PRN NEB 12/20/24 19:30 12/23/24 06:20 2.5 MG Acetaminophen 650 mg Q6HP PRN PO 12/20/24 19:30 Nitroglycerin 0.4 mg Q5MINP PRN SL 12/20/24 19:30 Morphine Sulfate 2 mg Q30M PRN IV 12/20/24 19:30 Enoxaparin Sodium 80 mg DAILY SC 12/22/24 10:00 UNV Vancomycin HCl 0 ml @ 0 mls/hr UD IV 12/21/24 11:45 Pantoprazole Sodium 40 mg DAILY IV 12/22/24 10:00 12/24/24 07:29 40 MG Midazolam HCl 50 ml @ 1 mls/hr Q24H IV 12/21/24 11:45 12/24/24 07:28 5 MLS/HR Fentanyl Citrate 250 ml @ 2.5 mls/hr Q24H IV 12/21/24 11:45 12/24/24 07:30 10 MLS/HR Norepinephrine Bitartrate 250 ml @ 3.75 mls/hr Q24H IV 12/21/24 12:15 12/24/24 03:00 11.25 MLS/HR Vasopressin 20 units/Sodium Chloride 100 ml @ 9 mls/hr Q11H7M IV 12/21/24 12:15 Diagnostic Test (Pha) 1 strip Q6HR 12/22/24 00:00 12/24/24 07:30 1 STRIP Insulin Human Regular Q6HR SC 12/22/24 00:00 Dextrose 50 ml UD PRN IV 12/21/24 21:00 12/22/24 06:03 50 ML Enteral Nutritional Formula 1,000 ml 30ML/HR GT 12/22/24 12:00 Amiodarone HCl 100 mg Q12HR GT 12/22/24 22:00 12/24/24 07:29 100 MG Enoxaparin Sodium 70 mg DAILY SC 12/23/24 10:00 12/24/24 07:29 70 MG Examination Examination General: RASS -3, afebrile, mucosae are moist Cardiovascular: Normal S1 and S2. No murmurs, gallops or rubs Respiratory: Mechanically assisted ventilation, equal bilateral airway entree. Bilateral crackles Abdomen: Soft, nontender, no organomegaly, normal bowel sounds MSK/skin: Mobilization of limbs cannot be evaluated. Rt upper extremity is swollen. Skin is dry and warm. Neurological: Orientation cannot be assessed. No apparent motor no sensitive deficits. Pupils are isocoric and reactive laboratory and microbiology Laboratory Tests 12/24/24 04:28 Test 12/24/24 04:28 Range/Units Serum Glucose 114 H 74-106 mg/dL Microbiology Date/Time Source Procedure Growth Status 12/22/24 13:19 Urine - [place] Urine Culture - Preliminary Resulted 12/21/24 12:00 Nose MRSA Screen - Final Methicillin Resistant S.aureus Complete 12/21/24 11:46 Blood Blood Culture - Preliminary NO GROWTH AFTER 48 HOURS OF INCUBATION. Resulted 12/21/24 11:27 Sputum Gram Stain - Final Complete 12/21/24 11:27 Respiratory Culture - Final Methicillin Resistant S.aureus Complete Labs and/or images reviewed: Labs reviewed by me, Image(s) reviewed by me Problem List/Assessment/Plan Problem List/Assessment/Plan Assessment and plan: # Acute hypoxic respiratory failure, status post mechanical ventilation # AFib with RVR, currently sinus rhythm with controlled heart rate # Acute on chronic decompensated systolic heart failure with reduced EF # possible septic/cardiogenic shock # Gram-positive versus Gram-negative community-acquired pneumonia # ESRD on hemodialysis # Hyperkalemia resolved # Acute DVT of right upper extremity # Metabolic acidosis with respiratory alkalosis # BPH # S/P exploratory laparotomy with colostomy Plan: - status post mechanical ventilation - Underwent hemodialysis today and 1 L removed - continue vasopressor - plant worker was consulted for outpatient chair time. - Continue IV antibiotic and other management as per primary. - strict I&O - monitor BMP Thank you so much for the opportunity to consult on your patient. Nephro team will follow the patient. In case of any questions or concerns please feel free to reach out. Plan discussed with Dr. Marin . The patient and caregiver team agreed to the plan. Plan discussed with: Spouse, Other (RN) My Orders My Orders Orders - JOSEFINA AKERS RESIDENT Procedure Category Date Status Time * Fleet Maintenance Foreman CONS 12/23/24 Transmitted Consult Hepatitis B Surface LAB 12/24/24 Logged Antigen 10:52 Dietary Evaluation Review Comments: Nutrition Recommendation: 1) TF Nepro Carbsteady @ 40ml/hr x 24hr (goal rate) along with Pro-stat 1 pk TID. TF @ goal volume along with Pro-Stat provide 2028 kcal (100% energy needs), 123 gm protein (100% protein needs), 698 ml free water. 2) Water flush 80 ml Q6H if allowed, adjust PRN 3) TPN if NPO >7 days 4) Monitor NPO status, lab values, wt trend, I/O Expected Outcomes/Goals: To meet >75% estimated needs Lab values to improve Fu 2-3 days JOSEFINA AKERS RESIDENT Dec 24, 2024 10:56
[2024-12-24] MEDS: VANCOMYCIN 750MG KIT 100 ML IV ONE (12:14)
--- NOTE | 2024-12-24 13:30 | DVH ---
US THORACENTESIS, HISTORY: LT PLEURAL EFFUSION PROCEDURE: Informed consent was obtained. The patient was decubitus on the bed. A limited localizatio n ultrasound of the left thorax was obtained, and the optimal approach was marked on the skin. The ar ea was prepped with chlorhexidine which was allowed to dry and draped in the usual sterile fashion. T pancho out was performed. The skin and the soft tissues were infiltrated with 1% lidocaine. A 5.5 [place] centesis needle catheter was advanced into left pleural space. Following aspiration of fluid, the ca theter was advanced and the needle removed. About 1050 cc of fluid was drained. Specimen/s was/were s ent for appropriate cultures/cytology/cultures and cytology. No immediate complication was identified . FINDINGS: Moderate left pleural effusion. Aspirated fluid is clear and serous. IMPRESSION: Left thoracentesis with 1.05L removed.
--- NOTE | 2024-12-24 14:30 | DVH ---
XY CHEST PORTABLE, HISTORY: S/P THORA COMPARISON: US CHEST ULTRASOUND on DOS: 12/24/24, XY CHEST PORTABLE on DOS: 12/24/24, XY CHEST PORTABLE on DOS: 12/23/24 US CHEST ULTRASOUND on DOS: 12/24/24, XY CHEST PORTABLE on DOS: 12/24/24, XY CHEST PORTABLE on DOS: 11/30 08/22 TECHNICAL DATA: 1 view of the chest was obtained. FINDINGS: Lines and tubes: ET in the mid thoracic trachea, Right CVC in similar position. Left central line is noted. Cardiomediastinal silhouette: normal Pulmonary vasculature: normal Lung expansion: normal Lung airspace: normal Lung interstitium: normal Pleura: normal Pneumothorax: no Bones: Unremarkable Other: no IMPRESSION: Resolved left pleural effusion and no pneumothorax after thoracentesis.
[2024-12-24] MEDS: IOHEXOL 350 MG/ML 100ML IJ ONE (15:09)
--- NOTE | 2024-12-24 19:26 | DVH ---
CLINICAL HISTORY: rule out PE TECHNIQUE: CT angiogram of the chest was performed with intravenous contrast. 3D MIP reconstructed i mages were created and archived on the PACS system. This exam was performed according to our [facility] dose optimization program. Up-to-date CT equipment and radiation dose reduction techniques are u tilized as appropriate. 17.98 CTDI: 17.98 DLP: 616.17 WID: COMPARISON: CT chest abdomen and pelvis from 12/22/2024 FINDINGS: Lower Neck: Unremarkable Axilla, Mediastinum and Jossy: No axillary lymphadenopathy. No hilar lymphadenopathy. Mildly prominen t mediastinal lymph nodes. There is mild fluid distention of the esophagus in the upper aspect. Heart and Great Vessels: Mild cardiomegaly with small pericardial effusion. The thoracic aorta is pat ent and normal caliber containing [id number] mixed atherosclerotic plaque. Common origin of th e left common carotid and right brachiocephalic arteries, normal variant. Mild calcified coronary art jannet disease. There is a tunneled right IJ central venous catheter which terminates in the upper SVC. No central, segmental, or subsegmental pulmonary artery filling defect to suggest pulmonary embolism. Left IJ central venous catheter is in place which terminates in the low SVC. Airway, Lungs and Pleura: Endotracheal tube terminates above the mateo. There is mild bronchial wall thickening. The trachea and central airways are patent. There is mild interlobular septal thickeni ng in the lungs. A few subtle patchy ground-glass opacities in the lungs. Small bilateral pleural eff usions. There are mild dependent consolidations in the bilateral lungs likely atelectasis. Chest Wall and Osseous Structures: Mild thoracic spondylosis. No destructive osseous lesion. Mild ch est wall edema. Upper abdomen: Mild ascites in the upper abdomen. No acute abnormality in the upper abdomen. IMPRESSION: 1. No evidence of pulmonary embolism. 2. CHF/volume overload, with mild cardiomegaly, small pericardial effusion, mild interstitial and scarlett eolar pulmonary edema, and small bilateral pleural effusions. 3. Mild fluid distention of the upper esophagus which could be due to gastroesophageal reflux or esop hageal dysmotility. 4. Mild ascites in the upper abdomen. 5. Mild calcified coronary artery disease. 6. Right IJ central venous catheter and left IJ central venous catheter in place.
--- NOTE | 2024-12-24 22:44 | DVHPN2 ---
Progress Note - Dictate Date Seen: Dec 24, 2024 Medical Necessity Reason Pt with a Central, PICC or Fol: Yes The following are medically ne: Central Line, Stearns Catheter Reason for stearns catheter: Strict I&O Subjective Patient was seen and evaluated in follow up in the ICU. Patient is intubated and sedated on ventilator. 30% FiO2. Patient receiving vasopressors. Patient received HD with 1018ml removed. BUN 33, WASTE BALER 5.97, CA 8.2, AST 60, ALT 141. Chest US showed trace right and moderate left pleural effusion. vital signs Vital Sign Date Time Temp Pulse Resp B/P (MAP) Pulse Ox O2 Delivery O2 Flow Rate FiO2 12/24/24 12:30 98.2 78 19 147/89 (108) 100 208.8 12/24/24 12:04 30 12/24/24 08:00 Mechanical Ventilator+ Total Intake and Output 12/23/24 12/23/24 12/24/24 15:00 23:00 07:00 Intake Total 344.75 ml 427.25 ml 409.00 ml Output Total 175 ml 200 ml Balance 344.75 ml 252.25 ml 209.00 ml medications Current Medications Medications Dose Ordered Sig/Isidra Route Start Time Stop Time Status Last Admin Dose Admin Albuterol 2.5 mg Q6HPRN PRN NEB 12/20/24 19:30 12/23/24 06:20 2.5 MG Acetaminophen 650 mg Q6HP PRN PO 12/20/24 19:30 Nitroglycerin 0.4 mg Q5MINP PRN SL 12/20/24 19:30 Morphine Sulfate 2 mg Q30M PRN IV 12/20/24 19:30 Enoxaparin Sodium 80 mg DAILY SC 12/22/24 10:00 UNV Vancomycin HCl 0 ml @ 0 mls/hr UD IV 12/21/24 11:45 Pantoprazole Sodium 40 mg DAILY IV 12/22/24 10:00 12/24/24 07:29 40 MG Midazolam HCl 50 ml @ 1 mls/hr Q24H IV 12/21/24 11:45 12/24/24 07:28 5 MLS/HR Fentanyl Citrate 250 ml @ 2.5 mls/hr Q24H IV 12/21/24 11:45 12/24/24 07:30 10 MLS/HR Norepinephrine Bitartrate 250 ml @ 3.75 mls/hr Q24H IV 12/21/24 12:15 12/24/24 03:00 11.25 MLS/HR Vasopressin 20 units/Sodium Chloride 100 ml @ 9 mls/hr Q11H7M IV 12/21/24 12:15 Diagnostic Test (Pha) 1 strip Q6HR 12/22/24 00:00 12/24/24 07:30 1 STRIP Insulin Human Regular Q6HR SC 12/22/24 00:00 Dextrose 50 ml UD PRN IV 12/21/24 21:00 12/22/24 06:03 50 ML Enteral Nutritional Formula 1,000 ml 30ML/HR GT 12/22/24 12:00 Amiodarone HCl 100 mg Q12HR GT 12/22/24 22:00 12/24/24 07:29 100 MG Enoxaparin Sodium 70 mg DAILY SC 12/23/24 10:00 12/24/24 07:29 70 MG Enteral Nutritional Formula 1,000 ml 30ML/HR GT 12/24/24 12:45 UNV objective GENERAL: Ill appearing, intubated on ventilator. EYES: PERRL, EOMI. Anicteric. HENT: Moist mucous membranes. LUNGS: Decreased breath sounds. CARDIOVASCULAR: Regular rate and rhythm. ABDOMEN: Soft, nontender and nondistended. EXTREMITIES: No edema. SKIN: Warm, dry. laboratory and microbiology Laboratory Tests 12/24/24 04:28 Test 12/24/24 04:28 Range/Units Serum Glucose 114 H 74-106 mg/dL Problem List Atrial flutter/atrial fibrillation with RVR s/p DCCV, Stage IIIa, now NSR (on amiodarone/BB/Eliquis therapy at home-). Acute on chronic decompensated unspecified HF, NYHA Class IV. Nonischemic/dilated cardiomyopathy. Advanced CKD now ESRD with HD and associated hyperkalemia. History of cardiac ablation in 2022. Thyroid disease. Recent colon resection with colostomy. Assessment/Plan Continued all current supportive medical care. Amiodarone. DVT and GI prophylactics. IV antibiotics as ordered. Morphine for pain management. Vasopressors for hemodynamic support. Additional plan as per the hospital course. Critical care time of 45 minutes provided to include time spent evaluation of patient at bedside, when appropriate patient/family education for diagnosis, treatment plan, review of pertinent medical information and discussion of care with specialty providers and PCP. Mechanical ventilator parameters, treatment and adjustments have personally been reviewed by me and treatment plan by medical device engineer has also been reviewed. Dietary Evaluation Review Comments: Nutrition Recommendation: 1) TF Nepro Carbsteady @ 40ml/hr x 24hr (goal rate) along with Pro-stat 1 pk TID. TF @ goal volume along with Pro-Stat provide 2028 kcal (100% energy needs), 123 gm protein (100% protein needs), 698 ml free water. 2) Water flush 80 ml Q6H if allowed, adjust PRN 3) TPN if NPO >7 days 4) Monitor NPO status, lab values, wt trend, I/O Expected Outcomes/Goals: To meet >75% estimated needs Lab values to improve Fu 2-3 days Plan discussed with: KRISTOPHER Khan MD Dec 24, 2024 12:48
[2024-12-25] VITALS (135 sets, daily range): BP systolic 73–161; BP diastolic 49–93; PULSE 67–160; RESP 17–22; TEMP 77.9–99.3; O2SAT 95–100
[2024-12-25 05:41] LABS: Hematocrit 37.7 % (41.0-53.0); Hemoglobin 12.5 g/dL (13.5-17.5); Mean Corpuscular Hemoglobin 30.7 pg (28.0-32.0); Mean Corpuscular Volume 92.3 fL (80.0-100.0); Nucleated Red Blood Cells % 0.0 %
[2024-12-25 05:42] LABS: Anion Gap 11 (5-15); Carbon Dioxide 27 mmol/L (20-31); Chloride 101 mmol/L (98-107); Potassium 4.3 mmol/L (3.5-5.1); Sodium 139 mmol/L (136-145)
[2024-12-25 05:47] LABS: Calcium 8.1 mg/dL (8.7-10.4)
[2024-12-25 05:49] LABS: BUN/Creatinine Ratio 5.2 (10.0-20.0); Blood Urea Nitrogen 27 mg/dL (9-23); Glucose 182 mg/dL (74-106); Magnesium 2.0 mg/dL (1.6-2.6)
--- NOTE | 2024-12-25 06:22 | DVH ---
CHEST RADIOGRAPH Indication: RESP FAILURE Technique: Single frontal view of the chest was obtained COMPARISON: CT CT ANGIO CHEST CONTRAST on DOS: 12/24/24, XY CHEST PORTABLE on DOS: 12/24/24, US CHEST U LTRASOUND on DOS: 12/24/24, XY CHEST PORTABLE on DOS: 12/24/24, XY CHEST PORTABLE on DOS: 12/23/24 FINDINGS: Lines and Tubes: Slight interval advancement of the endotracheal tube such that the tip now projects approximately 6.1 cm above the level of the mateo. Remaining lines and tubes unchanged. Lungs: Clear Pleura: No effusion. No pneumothorax. Cardiomediastinal contours: Unremarkable Bones: Unremarkable IMPRESSION: 1. Slight interval advancement of the endotracheal tube such that the tip now projects approximately 6.1 cm above the level of the mateo. Remaining lines and tubes unchanged. 2. No acute cardiopulmonary process.
[2024-12-25 07:13] LABS: Base Excess 2.4 mmol/L (-2.0-3.0)
[2024-12-25 12:07] LABS: Glucose, Body Fluid 124.0 mg/dL (.); LD, Body Fluid 77.0 IU/L (.)
[2024-12-25] MEDS: AMIODARONE BOLUS KIT 100 ML IV ONE (12:42)
[2024-12-25] MEDS: AMIODARONE 360mg/200mL PREMIX 200 ML IV ONE (12:50)
--- NOTE | 2024-12-25 13:55 | DVHPN2 ---
Progress Note - Dictate Date Seen: Dec 25, 2024 Medical Necessity Reason Pt with a Central, PICC or Fol: Yes The following are medically ne: Central Line, Stearns Catheter Reason for stearns catheter: Strict I&O Subjective Remains intubated, CT angiogram without signs of pulmonary embolism. vital signs Vital Sign Date Time Temp Pulse Resp B/P (MAP) Pulse Ox O2 Delivery O2 Flow Rate FiO2 12/25/24 13:01 97.9 129 19 102/67 (79) 100 208.2 12/25/24 12:08 30 12/25/24 08:00 Mechanical Ventilator+ Total Intake and Output 12/24/24 12/24/24 12/25/24 15:00 23:00 07:00 Intake Total 310.00 ml 405.00 ml 600.00 ml Output Total 150 ml 200 ml Balance 310.00 ml 255.00 ml 400.00 ml medications Current Medications Medications Dose Ordered Sig/Isidra Route Start Time Stop Time Status Last Admin Dose Admin Albuterol 2.5 mg Q6HPRN PRN NEB 12/20/24 19:30 12/23/24 06:20 2.5 MG Acetaminophen 650 mg Q6HP PRN PO 12/20/24 19:30 Nitroglycerin 0.4 mg Q5MINP PRN SL 12/20/24 19:30 Morphine Sulfate 2 mg Q30M PRN IV 12/20/24 19:30 Enoxaparin Sodium 80 mg DAILY SC 12/22/24 10:00 UNV Vancomycin HCl 0 ml @ 0 mls/hr UD IV 12/21/24 11:45 Pantoprazole Sodium 40 mg DAILY IV 12/22/24 10:00 12/25/24 07:27 40 MG Midazolam HCl 50 ml @ 1 mls/hr Q24H IV 12/21/24 11:45 12/25/24 12:44 5 MLS/HR Fentanyl Citrate 250 ml @ 2.5 mls/hr Q24H IV 12/21/24 11:45 12/25/24 06:44 10 MLS/HR Norepinephrine Bitartrate 250 ml @ 3.75 mls/hr Q24H IV 12/21/24 12:15 12/24/24 20:31 11.25 MLS/HR Vasopressin 20 units/Sodium Chloride 100 ml @ 9 mls/hr Q11H7M IV 12/21/24 12:15 Diagnostic Test (Pha) 1 strip Q6HR 12/22/24 00:00 12/25/24 07:27 1 STRIP Insulin Human Regular Q6HR SC 12/22/24 00:00 12/25/24 06:36 2 UNITS Dextrose 50 ml UD PRN IV 12/21/24 21:00 12/22/24 06:03 50 ML Enoxaparin Sodium 70 mg DAILY SC 12/23/24 10:00 12/25/24 07:27 70 MG Enteral Nutritional Formula 1,000 ml 30ML/HR GT 12/24/24 12:45 Amiodarone HCL/ Dextrose 200 ml @ 16.66 mls/ hr Q12H IV 12/25/24 18:45 objective Gen: nad, intubated lungs: Occasional rhonchi cvs: no rub ext: + edema laboratory and microbiology Laboratory Tests 12/25/24 04:51 Test 12/25/24 04:51 Range/Units Serum Glucose 182 H 74-106 mg/dL Assessment/Plan IMP: 1) ESRD on dialysis 2) acute hypoxemic respiratory failure 3) AFib with RVR 4) right upper extremity DVT 5) acute on chronic systolic heart failure REC: - dialysis again today for solute and volume removal as hemodynamics permit - we will continue to follow closely. Dietary Evaluation Review Comments: Nutrition Recommendation: 1) TF Nepro Carbsteady @ 40ml/hr x 24hr (goal rate) along with Pro-stat 1 pk TID. TF @ goal volume along with Pro-Stat provide 2028 kcal (100% energy needs), 123 gm protein (100% protein needs), 698 ml free water. 2) Water flush 80 ml Q6H if allowed, adjust PRN 3) TPN if NPO >7 days 4) Monitor NPO status, lab values, wt trend, I/O Expected Outcomes/Goals: To meet >75% estimated needs Lab values to improve Fu 2-3 days Plan discussed with: Other FAYE ORTIZ MD Dec 25, 2024 13:55
[2024-12-25] MEDS: PHENYLEPHRINE IV 250 ML IV SCH (15:30)
[2024-12-25] MEDS: SODIUM CHLORIDE 0.9% 250 ML IV ONE (15:59)
[2024-12-25] MEDS: DIGOXIN (250MCG/ML) 2 ML AMPULE IV SCH (16:06)
[2024-12-25] MEDS: ALBUMIN 25% 50 ML IV ONE (16:36)
--- NOTE | 2024-12-25 17:37 | DVHPN2 ---
Subjective VENT Reviewed: Care Plan, H&P, Labs, Medications, Previous Orders, Radiology Changes from previous H/P or p: No Changes General: Per HPI Objective Vitals Vital Signs Date Time Temp Pulse Resp B/P (MAP) Pulse Ox O2 Delivery O2 Flow Rate FiO2 12/25/24 17:00 98.2 129 18 136/76 (96) 98 208.8 12/25/24 16:01 30 12/25/24 08:00 Mechanical Ventilator+ Intake/Output Intake and Output 12/25/24 06:59 Intake Total 1315.00 ml Output Total 350 ml Balance 965.00 ml Intake Oral 105 ml IV Total 730.00 ml Tube Feeding 480 ml Output Urine Total 350 ml General Appearance: Other (ON VENT) HEENT: Atraumatic Lungs: Other (FEW CRACKLES B LUNGS) Cardiovascular: Other (IRREG TACHYCARDIA) Abdomen: No tenderness Skin: Dry, Intact Medications Current Medications Medications Dose Ordered Sig/Isidra Route Start Time Stop Time Status Last Admin Dose Admin Albuterol 2.5 mg Q6HPRN PRN NEB 12/20/24 19:30 12/23/24 06:20 2.5 MG Acetaminophen 650 mg Q6HP PRN PO 12/20/24 19:30 Nitroglycerin 0.4 mg Q5MINP PRN SL 12/20/24 19:30 Morphine Sulfate 2 mg Q30M PRN IV 12/20/24 19:30 Enoxaparin Sodium 80 mg DAILY SC 12/22/24 10:00 UNV Vancomycin HCl 0 ml @ 0 mls/hr UD IV 12/21/24 11:45 Pantoprazole Sodium 40 mg DAILY IV 12/22/24 10:00 12/25/24 07:27 40 MG Midazolam HCl 50 ml @ 1 mls/hr Q24H IV 12/21/24 11:45 12/25/24 12:44 5 MLS/HR Fentanyl Citrate 250 ml @ 2.5 mls/hr Q24H IV 12/21/24 11:45 12/25/24 06:44 10 MLS/HR Norepinephrine Bitartrate 250 ml @ 3.75 mls/hr Q24H IV 12/21/24 12:15 12/24/24 20:31 11.25 MLS/HR Vasopressin 20 units/Sodium Chloride 100 ml @ 9 mls/hr Q11H7M IV 12/21/24 12:15 Diagnostic Test (Pha) 1 strip Q6HR 12/22/24 00:00 12/25/24 16:06 1 STRIP Insulin Human Regular Q6HR SC 12/22/24 00:00 12/25/24 06:36 2 UNITS Dextrose 50 ml UD PRN IV 12/21/24 21:00 12/22/24 06:03 50 ML Enteral Nutritional Formula 1,000 ml 30ML/HR GT 12/24/24 12:45 Amiodarone HCL/ Dextrose 200 ml @ 16.66 mls/ hr Q12H IV 12/25/24 18:45 Digoxin 250 mcg Q4H IV 12/25/24 16:00 12/26/24 00:01 12/25/24 16:06 250 MCG Digoxin 125 mcg DAILY IV 12/26/24 10:00 Phenylephrine HCl 250 ml @ 30 mls/hr Q8H20M IV 12/25/24 15:30 Enoxaparin Sodium 80 mg DAILY SC 12/26/24 10:00 Laboratory Results Laboratory Tests 12/25/24 04:51 Chemistry Test 12/25/24 04:51 Calcium Level 8.1 mg/dL (8.7-10.4) L Magnesium Level 2.0 mg/dL (1.6-2.6) Urinalysis Test 12/22/24 12:02 Urine Color Dark yellow (Yellow) Urine Clarity Turbid (Clear) H Urine pH 7.5 (5.0-9.0) Urine Specific [place] 1.010 (1.001-1.035) Urine Protein 1+ (Negative) H Urine Ketones Negative (Negative) Urine Blood 3+ /uL (Negative) H Urine Nitrite Negative (Negative) Urine Bilirubin Negative (Negative) Urine Urobilinogen Normal mg/dL (Negative) Urine Leukocyte Esterase 3+ /uL (Negative) Urine RBC 273 /hpf (0 - 3) Urine Microscopic WBC 126 /HPF (0-3) H Urine Squamous Epithelial Cells Few /hpf (<5) Urine Bacteria None seen /hpf (None Seen) Urine Mucus Few (None Seen) Urine Glucose Normal mg/dL (Normal) Blood Gas Results Test 12/25/24 07:05 Arterial Blood pH 7.425 (7.350-7.450) FiO2 % 30.0 Microbiology Microbiology Date/Time Source Procedure Growth Status 12/24/24 13:05 Pleural Fluid Gram Stain - Final Resulted 12/24/24 13:05 Pleural Fluid Aerobic Culture - Preliminary Resulted 12/22/24 13:19 Urine - [place] Urine Culture - Final Complete 12/21/24 12:00 Nose MRSA Screen - Final Methicillin Resistant S.aureus Complete 12/21/24 11:46 Blood Blood Culture - Preliminary NO GROWTH AFTER 72 HOURS OF INCUBATION. Resulted 12/21/24 11:27 Sputum Gram Stain - Final Complete 12/21/24 11:27 Respiratory Culture - Final Methicillin Resistant S.aureus Complete Assessment/Plan Assessment/Plan Acute respiratory failure with hypoxemia AFib with RVR End-stage renal disease on hemodialysis Pneumonia with MRSA UTI Colostomy Peg tube Anemia Thrombocytopenia Plan: IV amiodarone drip. Digoxin. Antibiotics. Bolus normal saline 250 mL x1. Monitor vital signs blood pressure and oxygenation. Further plan per orders. Total critical care time 55 minutes. Plan discussed with: Other (Nursing) My Orders Orders - PILAR CARSON MD Procedure Category Date Status Time Amiodarone PHA 12/25/24 In Process 360mg/200ml Premix 12:45 Amiodarone PHA 12/25/24 In Process 360mg/200ml Premix 18:45 Digoxin Injection PHA 12/25/24 In Process (Lanoxin Injection) 16:00 Digoxin Injection PHA 12/26/24 In Process (Lanoxin Injection) 10:00 Phenylephrine Iv PHA 12/25/24 In Process (Phenylephrine/Ns) 15:30 Cleanse Wound With JAYNE 12/25/24 In Process Wound Clean 17:23 Apply Z-Guard JAYNE 12/25/24 In Process 10:05 * Wound Consult CONS 12/25/24 Transmitted Complete Blood Count LAB 12/26/24 Verified 06:00 Comprehensive LAB 12/26/24 Verified Metabolic Panel 06:00 Chest Portable XY 12/26/24 Logged 06:00 Abg W/ Co-Ox RT 12/26/24 Logged 06:00 Urine Bacterial KAELA 12/25/24 Transmitted Culture 17:32 Ceftriaxone Ivpb PHA 12/26/24 Transmitted Rocephin 09:00 Ceftriaxone Ivpb PHA 12/25/24 Transmitted Rocephin 17:45 Date of Service: Dec 25, 2024 Billing Provider: PILAR CARSON MD Common Visit Codes: 14822-[id number] CARE 30-74 MIN PILAR CARSON MD Dec 25, 2024 17:37
[2024-12-25] MEDS: AMIODARONE 360mg/200mL PREMIX 200 ML IV SCH (17:58)
--- NOTE | 2024-12-25 20:03 | DVHPN2 ---
Progress Note - Dictate Date Seen: Dec 25, 2024 Medical Necessity Reason Pt with a Central, PICC or Fol: Yes The following are medically ne: Central Line, Stearns Catheter Reason for stearns catheter: Strict I&O Subjective Patient was seen and evaluated in follow up in the ICU. Patient is intubated and sedated on ventilator. 30% FiO2. Patient is in A-fib with RVR in the 170's on the registered nurse cardiac telemetry. HD was terminated. BUN 27, BIOMEDICAL EQUIPMENT TECHNICIAN 5.19, CA 8.1. Chest x-ray showed slight interval advancement of the endotracheal tube such that the tip now projects approximately 6.1 cm above the level of the mateo. Remaining lines and tubes unchanged. vital signs Vital Sign Date Time Temp Pulse Resp B/P (MAP) Pulse Ox O2 Delivery O2 Flow Rate FiO2 12/25/24 18:00 126/63 12/25/24 18:00 98.2 116 18 100 208.8 12/25/24 17:46 30 12/25/24 08:00 Mechanical Ventilator+ Total Intake and Output 12/24/24 12/24/24 12/25/24 15:00 23:00 07:00 Intake Total 310.00 ml 405.00 ml 600.00 ml Output Total 150 ml 200 ml Balance 310.00 ml 255.00 ml 400.00 ml medications Current Medications Medications Dose Ordered Sig/Isidra Route Start Time Stop Time Status Last Admin Dose Admin Albuterol 2.5 mg Q6HPRN PRN NEB 12/20/24 19:30 12/23/24 06:20 2.5 MG Acetaminophen 650 mg Q6HP PRN PO 12/20/24 19:30 Nitroglycerin 0.4 mg Q5MINP PRN SL 12/20/24 19:30 Morphine Sulfate 2 mg Q30M PRN IV 12/20/24 19:30 Enoxaparin Sodium 80 mg DAILY SC 12/22/24 10:00 UNV Vancomycin HCl 0 ml @ 0 mls/hr UD IV 12/21/24 11:45 Pantoprazole Sodium 40 mg DAILY IV 12/22/24 10:00 12/25/24 07:27 40 MG Midazolam HCl 50 ml @ 1 mls/hr Q24H IV 12/21/24 11:45 12/25/24 12:44 5 MLS/HR Fentanyl Citrate 250 ml @ 2.5 mls/hr Q24H IV 12/21/24 11:45 12/25/24 06:44 10 MLS/HR Norepinephrine Bitartrate 250 ml @ 3.75 mls/hr Q24H IV 12/21/24 12:15 12/25/24 17:00 15 MLS/HR Vasopressin 20 units/Sodium Chloride 100 ml @ 9 mls/hr Q11H7M IV 12/21/24 12:15 Diagnostic Test (Pha) 1 strip Q6HR 12/22/24 00:00 12/25/24 16:06 1 STRIP Insulin Human Regular Q6HR SC 12/22/24 00:00 12/25/24 06:36 2 UNITS Dextrose 50 ml UD PRN IV 12/21/24 21:00 12/22/24 06:03 50 ML Enteral Nutritional Formula 1,000 ml 30ML/HR GT 12/24/24 12:45 Amiodarone HCL/ Dextrose 200 ml @ 16.66 mls/ hr Q12H IV 12/25/24 18:45 12/25/24 17:58 16.66 MLS/HR Digoxin 250 mcg Q4H IV 12/25/24 16:00 12/26/24 00:01 12/25/24 16:06 250 MCG Digoxin 125 mcg DAILY IV 12/26/24 10:00 Phenylephrine HCl 250 ml @ 30 mls/hr Q8H20M IV 12/25/24 15:30 Enoxaparin Sodium 80 mg DAILY SC 12/26/24 10:00 Ceftriaxone Sodium 50 ml @ 100 mls/hr DAILY@09 IV 12/26/24 09:00 objective GENERAL: Ill appearing, intubated on ventilator. EYES: PERRL, EOMI. Anicteric. HENT: Moist mucous membranes. LUNGS: Decreased breath sounds. CARDIOVASCULAR: Regular rate and rhythm. ABDOMEN: Soft, nontender and nondistended. EXTREMITIES: No edema. SKIN: Warm, dry. laboratory and microbiology Laboratory Tests 12/25/24 04:51 Test 12/25/24 04:51 Range/Units Serum Glucose 182 H 74-106 mg/dL Problem List Atrial flutter/atrial fibrillation with RVR s/p DCCV, Stage IIIa, now NSR (on amiodarone/BB/Eliquis therapy at home-). Acute on chronic decompensated unspecified HF, NYHA Class IV. Nonischemic/dilated cardiomyopathy. Advanced CKD now ESRD with HD and associated hyperkalemia. History of cardiac ablation in 2022. Thyroid disease. Recent colon resection with colostomy. Assessment/Plan Continued all current supportive medical care. IV Amiodarone. IV antibiotics as ordered. Digoxin. DVT and GI prophylactics. Morphine for pain management. Vasopressors for hemodynamic support. Additional plan as per the hospital course. Critical care time of 45 minutes provided to include time spent evaluation of patient at bedside, when appropriate patient/family education for diagnosis, treatment plan, review of pertinent medical information and discussion of care with specialty providers and PCP. Mechanical ventilator parameters, treatment and adjustments have personally been reviewed by me and treatment plan by electric well logging operator has also been reviewed. Dietary Evaluation Review Comments: Nutrition Recommendation: 1) TF Nepro Carbsteady @ 40ml/hr x 24hr (goal rate) along with Pro-stat 1 pk TID. TF @ goal volume along with Pro-Stat provide 2028 kcal (100% energy needs), 123 gm protein (100% protein needs), 698 ml free water. 2) Water flush 80 ml Q6H if allowed, adjust PRN 3) TPN if NPO >7 days 4) Monitor NPO status, lab values, wt trend, I/O Expected Outcomes/Goals: To meet >75% estimated needs Lab values to improve Fu 2-3 days Plan discussed with: KRISTOPHER Khan MD Dec 25, 2024 18:47
[2024-12-25] MEDS: Nepro With Carb Steady 1 Liter Bottle GT SCH (20:21)
--- NOTE | 2024-12-25 21:51 | DVH ---
Exam: XY KUB ABDOMEN SINGLE VIEW Indication: r/o Bowel Obstruction. Pain. Comparison: None Technique: Single AP radiographic views of the abdomen. Findings: Nonobstructive bowel gas pattern noted. There is no definite evidence for pneumoperitoneum. No abnormal calcifications noted. Impression: Nonobstructive bowel gas pattern noted.
[2024-12-26] VITALS (122 sets, daily range): BP systolic 70–170; BP diastolic 36–97; PULSE 76–126; RESP 16–20; TEMP 91.6–99.1; O2SAT 97–100
[2024-12-26 04:32] LABS: Alanine Aminotransferase 58 U/L (7-40); Albumin 2.0 g/dL (3.2-4.8); Alkaline Phosphatase 84 U/L (46-116); Anion Gap 8 (5-15); BUN/Creatinine Ratio 6.5 (10.0-20.0); Blood Urea Nitrogen 29 mg/dL (9-23); Calcium 7.6 mg/dL (8.7-10.4); Carbon Dioxide 30 mmol/L (20-31); Chloride 102 mmol/L (98-107); Glucose 135 mg/dL (74-106); Magnesium 1.8 mg/dL (1.6-2.6); Potassium 3.8 mmol/L (3.5-5.1); Sodium 140 mmol/L (136-145); Total Protein 3.7 g/dL (5.7-8.2)
[2024-12-26 04:33] LABS: Bilirubin, Total 0.4 mg/dL (0.2-1.0)
[2024-12-26 05:08] LABS: Hematocrit 32.8 % (41.0-53.0); Hemoglobin 11.0 g/dL (13.5-17.5); Mean Corpuscular Hemoglobin 30.8 pg (28.0-32.0); Mean Corpuscular Volume 91.6 fL (80.0-100.0); Nucleated Red Blood Cells % 0.0 %
[2024-12-26 06:08] LABS: Base Excess 0.8 mmol/L (-2.0-3.0)
--- NOTE | 2024-12-26 06:11 | DVH ---
INDICATION: FU TECHNIQUE: Single frontal view of the chest was obtained COMPARISON: XY CHEST PORTABLE on DOS: 12/25/24, CT CT ANGIO CHEST CONTRAST on DOS: 12/24/24, XY CHEST P ORTABLE on DOS: 12/24/24, XY CHEST PORTABLE on DOS: 12/24/24, XY CHEST PORTABLE on DOS: 12/23/24, XY COLLEEN ST PORTABLE on DOS: 12/25/24 FINDINGS: Lines and Tubes: ET tube 5.8 cm cm above the level of the mateo. Remaining lines and tubes unchang ed. Lungs: congestion Pleura: No effusion. No pneumothorax. Cardiomediastinal contours: cardiomegaly Impression: No interval change.
[2024-12-26] MEDS: MAGNESIUM SULFATE 1GM/100ML 100 ML IV ONE (06:56)
[2024-12-26] MEDS: DIGOXIN (250MCG/ML) 2 ML AMPULE IV SCH (08:22)
[2024-12-26] MEDS: ENOXAPARIN SOD 80 MG/0.8ML SYRINGE SC SCH (10:00)
--- NOTE | 2024-12-26 11:13 | DVHPN2 ---
Progress Note - Dictate Date Seen: Dec 26, 2024 Medical Necessity Reason Pt with a Central, PICC or Fol: Yes The following are medically ne: Central Line, Stearns Catheter Reason for stearns catheter: Strict I&O Subjective Hemodialysis treatment discontinued yesterday due to rapid AFib. Patient's and patient's sister are at bedside. vital signs Vital Sign Date Time Temp Pulse Resp B/P (MAP) Pulse Ox O2 Delivery O2 Flow Rate FiO2 12/26/24 11:04 98 18 116/67 (83) 100 30 12/26/24 11:00 98.1 208.6 12/26/24 08:00 Mechanical Ventilator+ Total Intake and Output 12/25/24 12/25/24 12/26/24 15:00 23:00 07:00 Intake Total 315.74 ml 1024.95 ml 603.28 ml Output Total 100 ml 125 ml Balance 315.74 ml 924.95 ml 478.28 ml medications Current Medications Medications Dose Ordered Sig/Isidra Route Start Time Stop Time Status Last Admin Dose Admin Albuterol 2.5 mg Q6HPRN PRN NEB 12/20/24 19:30 12/23/24 06:20 2.5 MG Acetaminophen 650 mg Q6HP PRN PO 12/20/24 19:30 Nitroglycerin 0.4 mg Q5MINP PRN SL 12/20/24 19:30 Morphine Sulfate 2 mg Q30M PRN IV 12/20/24 19:30 Enoxaparin Sodium 80 mg DAILY SC 12/22/24 10:00 UNV Vancomycin HCl 0 ml @ 0 mls/hr UD IV 12/21/24 11:45 Pantoprazole Sodium 40 mg DAILY IV 12/22/24 10:00 12/26/24 08:22 40 MG Midazolam HCl 50 ml @ 1 mls/hr Q24H IV 12/21/24 11:45 12/26/24 06:57 5 MLS/HR Fentanyl Citrate 250 ml @ 2.5 mls/hr Q24H IV 12/21/24 11:45 12/26/24 08:28 12.5 MLS/HR Norepinephrine Bitartrate 250 ml @ 3.75 mls/hr Q24H IV 12/21/24 12:15 12/25/24 17:00 15 MLS/HR Vasopressin 20 units/Sodium Chloride 100 ml @ 9 mls/hr Q11H7M IV 12/21/24 12:15 Diagnostic Test (Pha) 1 strip Q6HR 12/22/24 00:00 12/26/24 06:57 1 STRIP Insulin Human Regular Q6HR SC 12/22/24 00:00 12/25/24 06:36 2 UNITS Dextrose 50 ml UD PRN IV 12/21/24 21:00 12/22/24 06:03 50 ML Enteral Nutritional Formula 1,000 ml 30ML/HR GT 12/24/24 12:45 12/25/24 20:21 1,000 ML Amiodarone HCL/ Dextrose 200 ml @ 16.66 mls/ hr Q12H IV 12/25/24 18:45 12/26/24 04:19 16.66 MLS/HR Digoxin 125 mcg DAILY IV 12/26/24 10:00 Phenylephrine HCl 250 ml @ 30 mls/hr Q8H20M IV 12/25/24 15:30 Enoxaparin Sodium 80 mg DAILY SC 12/26/24 10:00 Ceftriaxone Sodium 50 ml @ 100 mls/hr DAILY@09 IV 12/26/24 09:00 12/26/24 08:21 100 MLS/HR objective Gen: nad, intubated lungs: Occasional rhonchi cvs: no rub, irr ext: + edema laboratory and microbiology Laboratory Tests 12/26/24 03:39 Test 12/26/24 03:39 Range/Units Serum Glucose 135 H 74-106 mg/dL Assessment/Plan IMP: 1) ESRD on dialysis 2) acute hypoxemic respiratory failure 3) AFib with RVR 4) right upper extremity DVT 5) acute on chronic systolic heart failure 6) thrombocytopenia REC: - metabolic parameters acceptable - we will continue to evaluate daily for EXTRUDER TENDER needs - tentatively for dialysis December 27. - discussed plan of care from Nephrology perspective with patient's family at bedside and with FLORIST DESIGNER Chiara. Dietary Evaluation Review Comments: Nutrition Recommendation: 1) TF Nepro Carbsteady @ 40ml/hr x 24hr (goal rate) along with Pro-stat 1 pk TID. TF @ goal volume along with Pro-Stat provide 2028 kcal (100% energy needs), 123 gm protein (100% protein needs), 698 ml free water. 2) Water flush 80 ml Q6H if allowed, adjust PRN 3) TPN if NPO >7 days 4) Monitor NPO status, lab values, wt trend, I/O Expected Outcomes/Goals: To meet >75% estimated needs Lab values to improve Fu 2-3 days Plan discussed with: Spouse FAYE ORTIZ MD Dec 26, 2024 11:13
[2024-12-26] MEDS: NOREPINEPHRINE 8 MG/250ML KIT 250 ML IV SCH (14:15)
[2024-12-26] MEDS: DOCUSATE ORAL LIQUID 100 MG/10 ML UD GT ONE (15:04)
--- NOTE | 2024-12-26 16:21 | DVHPN2 ---
Subjective Patient is on VENT. No BM since admission. Reviewed: Care Plan, H&P, Labs, Medications, Previous Orders, Radiology Changes from previous H/P or p: No Changes General: Per HPI Objective Vitals Vital Signs Date Time Temp Pulse Resp B/P (MAP) Pulse Ox O2 Delivery O2 Flow Rate FiO2 12/26/24 15:11 101 18 151/64 (93) 100 30 12/26/24 14:45 97.9 208.2 12/26/24 08:00 Mechanical Ventilator+ Intake/Output Intake and Output 12/26/24 07:00 Intake Total 1943.97 ml Output Total 225 ml Balance 1718.97 ml Intake Oral 50 ml IV Total 1443.97 ml Tube Feeding 450 ml Output Urine Total 225 ml Urine/Stool Mix 0 ml General Appearance: Other (ON VENT) HEENT: Atraumatic Lungs: Other (FEW CRACKLES B LUNGS) Cardiovascular: Other (IRREG TACHYCARDIA) Abdomen: No tenderness Skin: Dry, Intact Medications Current Medications Medications Dose Ordered Sig/Isidra Route Start Time Stop Time Status Last Admin Dose Admin Albuterol 2.5 mg Q6HPRN PRN NEB 12/20/24 19:30 12/23/24 06:20 2.5 MG Acetaminophen 650 mg Q6HP PRN PO 12/20/24 19:30 Nitroglycerin 0.4 mg Q5MINP PRN SL 12/20/24 19:30 Morphine Sulfate 2 mg Q30M PRN IV 12/20/24 19:30 Enoxaparin Sodium 80 mg DAILY SC 12/22/24 10:00 UNV Vancomycin HCl 0 ml @ 0 mls/hr UD IV 12/21/24 11:45 Pantoprazole Sodium 40 mg DAILY IV 12/22/24 10:00 12/26/24 08:22 40 MG Midazolam HCl 50 ml @ 1 mls/hr Q24H IV 12/21/24 11:45 12/26/24 06:57 5 MLS/HR Fentanyl Citrate 250 ml @ 2.5 mls/hr Q24H IV 12/21/24 11:45 12/26/24 08:28 12.5 MLS/HR Vasopressin 20 units/Sodium Chloride 100 ml @ 9 mls/hr Q11H7M IV 12/21/24 12:15 Diagnostic Test (Pha) 1 strip Q6HR 12/22/24 00:00 12/26/24 15:04 1 STRIP Insulin Human Regular Q6HR SC 12/22/24 00:00 12/25/24 06:36 2 UNITS Dextrose 50 ml UD PRN IV 12/21/24 21:00 12/22/24 06:03 50 ML Enteral Nutritional Formula 1,000 ml 30ML/HR GT 12/24/24 12:45 12/25/24 20:21 1,000 ML Amiodarone HCL/ Dextrose 200 ml @ 16.66 mls/ hr Q12H IV 12/25/24 18:45 12/26/24 15:04 16.66 MLS/HR Digoxin 125 mcg DAILY IV 12/26/24 10:00 Phenylephrine HCl 250 ml @ 30 mls/hr Q8H20M IV 12/25/24 15:30 Enoxaparin Sodium 80 mg DAILY SC 12/26/24 10:00 12/26/24 10:00 80 MG Ceftriaxone Sodium 50 ml @ 100 mls/hr DAILY@09 IV 12/26/24 09:00 12/26/24 08:21 100 MLS/HR Lactulose 30 ml BID PO 12/26/24 22:00 Docusate Sodium 100 mg BID GT 12/26/24 22:00 Norepinephrine Bitartrate 250 ml @ 1.875 mls/ hr Q24H IV 12/26/24 14:15 12/26/24 14:15 1.875 MLS/HR Laboratory Results Laboratory Tests 12/26/24 03:39 Chemistry Test 12/26/24 03:39 Albumin 2.0 g/dL (3.2-4.8) L Calcium Level 7.6 mg/dL (8.7-10.4) L Magnesium Level 1.8 mg/dL (1.6-2.6) Total Protein 3.7 g/dL (5.7-8.2) L LFT Test 12/26/24 03:39 Alanine Aminotransferase (ALT) 58 U/L (7-40) H Alkaline Phosphatase 84 U/L (46-116) Aspartate Amino Transferase (AST) 12 U/L (13-40) L Total Bilirubin 0.4 mg/dL (0.2-1.0) Urinalysis Test 12/22/24 12:02 Urine Color Dark yellow (Yellow) Urine Clarity Turbid (Clear) H Urine pH 7.5 (5.0-9.0) Urine Specific [place] 1.010 (1.001-1.035) Urine Protein 1+ (Negative) H Urine Ketones Negative (Negative) Urine Blood 3+ /uL (Negative) H Urine Nitrite Negative (Negative) Urine Bilirubin Negative (Negative) Urine Urobilinogen Normal mg/dL (Negative) Urine Leukocyte Esterase 3+ /uL (Negative) Urine RBC 273 /hpf (0 - 3) Urine Microscopic WBC 126 /HPF (0-3) H Urine Squamous Epithelial Cells Few /hpf (<5) Urine Bacteria None seen /hpf (None Seen) Urine Mucus Few (None Seen) Urine Glucose Normal mg/dL (Normal) Blood Gas Results Test 12/26/24 06:05 Arterial Blood pH 7.449 (7.350-7.450) FiO2 % 30.0 Microbiology Microbiology Date/Time Source Procedure Growth Status 12/25/24 18:00 Voided Urine Urine Culture - Preliminary Resulted 12/24/24 13:05 Pleural Fluid Gram Stain - Final Resulted 12/24/24 13:05 Pleural Fluid Aerobic Culture - Preliminary Resulted 12/21/24 12:00 Nose MRSA Screen - Final Methicillin Resistant S.aureus Complete 12/21/24 11:46 Blood Blood Culture - Final NO GROWTH AFTER 5 DAYS OF INCUBATION. Complete 12/21/24 11:27 Sputum Gram Stain - Final Complete 12/21/24 11:27 Respiratory Culture - Final Methicillin Resistant S.aureus Complete Assessment/Plan Assessment/Plan Acute respiratory failure with hypoxemia AFib with RVR End-stage renal disease on hemodialysis Pneumonia with MRSA UTI Colostomy Peg tube Anemia Thrombocytopenia Plan: IV amiodarone drip. Digoxin. Antibiotics. Bolus normal saline 250 mL x1. Monitor vital signs blood pressure and oxygenation. Further plan per orders. Lactulose x1 in an attempt to have a BM in the colostomy Total critical care time 55 minutes. Plan discussed with: Spouse, Other (Nursing) My Orders Orders - PILAR CARSON MD Procedure Category Date Status Time Cleanse Wound With JAYNE 12/25/24 In Process Wound Clean 17:23 Apply Z-Guard JAYNE 12/25/24 In Process 10:05 * Wound Consult CONS 12/25/24 Transmitted Chest Portable XY 12/26/24 Resulted 06:00 Abg W/ Co-Ox RT 12/26/24 Logged 06:00 Urine Bacterial KAELA 12/25/24 In Process Culture 17:32 Ceftriaxone 1gm/50ml PHA 12/26/24 In Process (Rocephin) 09:00 Date of Service: Dec 26, 2024 Billing Provider: PILAR CARSON MD Common Visit Codes: 11748-[id number] CARE 30-74 MIN PILAR CARSON MD Dec 26, 2024 16:21
[2024-12-26] MEDS: LACTULOSE 20Gm/30ML SOLN GT ONE (16:30)
--- NOTE | 2024-12-26 21:36 | DVHPN2 ---
Progress Note - Dictate Date Seen: Dec 26, 2024 Medical Necessity Reason Pt with a Central, PICC or Fol: Yes The following are medically ne: Central Line, Stearns Catheter Reason for stearns catheter: Strict I&O Subjective Patient was seen and evaluated in follow up in the ICU. Patient is intubated and sedated on ventilator. 30% FiO2. Patient's and patient's sister are at bedside. Per RN, patient has not had a BM through his colostomy in several days. BUN 29, SLOT ROUTER 4.47. Chest x-ray showed no interval change. vital signs Vital Sign Date Time Temp Pulse Resp B/P (MAP) Pulse Ox O2 Delivery O2 Flow Rate FiO2 12/26/24 13:37 30 12/26/24 13:37 96 12/26/24 13:07 18 120/57 (78) 100 12/26/24 12:45 98.6 209.5 12/26/24 08:00 Mechanical Ventilator+ Total Intake and Output 12/25/24 12/25/24 12/26/24 15:00 23:00 07:00 Intake Total 315.74 ml 1024.95 ml 603.28 ml Output Total 100 ml 125 ml Balance 315.74 ml 924.95 ml 478.28 ml medications Current Medications Medications Dose Ordered Sig/Isidra Route Start Time Stop Time Status Last Admin Dose Admin Albuterol 2.5 mg Q6HPRN PRN NEB 12/20/24 19:30 12/23/24 06:20 2.5 MG Acetaminophen 650 mg Q6HP PRN PO 12/20/24 19:30 Nitroglycerin 0.4 mg Q5MINP PRN SL 12/20/24 19:30 Morphine Sulfate 2 mg Q30M PRN IV 12/20/24 19:30 Enoxaparin Sodium 80 mg DAILY SC 12/22/24 10:00 UNV Vancomycin HCl 0 ml @ 0 mls/hr UD IV 12/21/24 11:45 Pantoprazole Sodium 40 mg DAILY IV 12/22/24 10:00 12/26/24 08:22 40 MG Midazolam HCl 50 ml @ 1 mls/hr Q24H IV 12/21/24 11:45 12/26/24 06:57 5 MLS/HR Fentanyl Citrate 250 ml @ 2.5 mls/hr Q24H IV 12/21/24 11:45 12/26/24 08:28 12.5 MLS/HR Norepinephrine Bitartrate 250 ml @ 3.75 mls/hr Q24H IV 12/21/24 12:15 12/25/24 17:00 15 MLS/HR Vasopressin 20 units/Sodium Chloride 100 ml @ 9 mls/hr Q11H7M IV 12/21/24 12:15 Diagnostic Test (Pha) 1 strip Q6HR 12/22/24 00:00 12/26/24 11:59 1 STRIP Insulin Human Regular Q6HR SC 12/22/24 00:00 12/25/24 06:36 2 UNITS Dextrose 50 ml UD PRN IV 12/21/24 21:00 12/22/24 06:03 50 ML Enteral Nutritional Formula 1,000 ml 30ML/HR GT 12/24/24 12:45 12/25/24 20:21 1,000 ML Amiodarone HCL/ Dextrose 200 ml @ 16.66 mls/ hr Q12H IV 12/25/24 18:45 12/26/24 04:19 16.66 MLS/HR Digoxin 125 mcg DAILY IV 12/26/24 10:00 Phenylephrine HCl 250 ml @ 30 mls/hr Q8H20M IV 12/25/24 15:30 Enoxaparin Sodium 80 mg DAILY SC 12/26/24 10:00 12/26/24 10:00 80 MG Ceftriaxone Sodium 50 ml @ 100 mls/hr DAILY@09 IV 12/26/24 09:00 12/26/24 08:21 100 MLS/HR objective GENERAL: Ill appearing, intubated on ventilator. EYES: PERRL, EOMI. Anicteric. HENT: Moist mucous membranes. LUNGS: Decreased breath sounds. CARDIOVASCULAR: Regular rate and rhythm. ABDOMEN: Soft, nontender and nondistended. EXTREMITIES: No edema. SKIN: Warm, dry. laboratory and microbiology Laboratory Tests 12/26/24 03:39 Test 12/26/24 03:39 Range/Units Serum Glucose 135 H 74-106 mg/dL Problem List Atrial flutter/atrial fibrillation with RVR s/p DCCV, Stage IIIa, now NSR (on amiodarone/BB/Eliquis therapy at home-). Acute on chronic decompensated unspecified HF, NYHA Class IV. Nonischemic/dilated cardiomyopathy. Advanced CKD now ESRD with HD and associated hyperkalemia. History of cardiac ablation in 2022. Thyroid disease. Recent colon resection with colostomy. Assessment/Plan Continued all current supportive medical care. IV Amiodarone. IV antibiotics as ordered. DVT and GI prophylactics. Morphine for pain management. Additional plan as per the hospital course. Critical care time of 45 minutes provided to include time spent evaluation of patient at bedside, when appropriate patient/family education for diagnosis, treatment plan, review of pertinent medical information and discussion of care with specialty providers and PCP. Mechanical ventilator parameters, treatment and adjustments have personally been reviewed by me and treatment plan by aquaculture and fisheries professor has also been reviewed. Dietary Evaluation Review Comments: Nutrition Recommendation: 1) TF Nepro Carbsteady @ 40ml/hr x 24hr (goal rate) along with Pro-stat 1 pk TID. TF @ goal volume along with Pro-Stat provide 2028 kcal (100% energy needs), 123 gm protein (100% protein needs), 698 ml free water. 2) Water flush 80 ml Q6H if allowed, adjust PRN 3) TPN if NPO >7 days 4) Monitor NPO status, lab values, wt trend, I/O Expected Outcomes/Goals: To meet >75% estimated needs Lab values to improve Fu 2-3 days Plan discussed with: KRISTOPHER Khan MD Dec 26, 2024 13:45
--- NOTE | 2024-12-26 22:18 | DVHINCON2 ---
Date Seen: Dec 25, 2024 Referring Physician CK Cortez Reason for Consultation Acute hypoxic respiratory failure requiring mechanical ventilator and pneumonia. History of Present Illness A 79-year-old man with past medical history of ESRD, on hemodialysis, CHF, diabetes mellitus, hypertension, and BPH who presented to ED on 12/21/24 for evaluation of shortness of breath. Patient reported a one-day history of shortness of breath. He had recently been discharged from rehab facility. Patient reported some chest pressure and nonproductive cough. Denied fever or chills. Patient gets dialysis on Friday, and Friday. Patient was admitted for further care. Pulmonary consultation is requested for evaluation and management of acute hypoxic respiratory failure requiring mechanical ventilator and pneumonia. Review of Systems: Unable to obtain d/t intubated status Past Medical History: ESRD, CHF, diabetes mellitus, hypertension, BPH Past Surgical History: Colostomy Medications: Reviewed. Allergies: No known drug allergies. Family History: No family history of premature CAD. No family history of lung disorders. Social History: Nonsmoker. No alcohol or illicit drug use. Family History: Autoimmune disorder G8 MOTHER Allergies: Coded Allergies: NO KNOWN ALLERGIES (Unverified , 02/08/14) Home Meds Reported Medications Apixaban Base (ELIQUIS) 5 Mg Tab, 1 TAB PO BID for 14 Days, #28 12/21/24 Tamsulosin Hcl (Tamsulosin Hcl) 0.4 Mg Cap, 1 CAP PO DAILY for 31 Days, #31 12/21/24 Sertraline Hcl (Sertraline Hcl) 100 Mg Tab, 1 TAB PO BID for 31 Days, #62 12/21/24 Buspirone Hcl (Buspirone Hcl) 5 Mg Tab, 1 TAB PO TID for 31 Days, #93 12/21/24 Finasteride (Finasteride) 5 Mg Tab, 1 TAB PO DAILY for 31 Days, #31 12/21/24 Amiodarone HCl (Amiodarone HCl) 200 Mg Tab, 1 TAB PO DAILY for 31 Days, #31 12/21/24 Metoprolol Succinate (Metoprolol Succinate Er) 100 Mg Tab, 100 MG PO UD for 31 Days, #124 12/21/24 Levothyroxine Sodium (Levothyroxine Sodium) 75 Mcg Tab, 1 TAB PO DAILY for 31 Days, #31 12/21/24 Pantoprazole Sodium Sesquihydr (Pantoprazole Sodium) 40 Mg Tab, 1 TAB PO BID for 31 Days, #62 12/21/24 Current Medications Current Medications Medications (Trade) Dose Ordered Sig/Isidra Route PRN Reason Start Time Stop Time Status Last Admin Digoxin (Lanoxin Injection) 125 mcg DAILY IV 12/26/24 10:00 Enoxaparin Sodium (Lovenox) 80 mg DAILY SC 12/26/24 10:00 12/26/24 10:00 Ceftriaxone Sodium 50 ml @ 100 mls/hr DAILY@09 IV 12/26/24 09:00 12/26/24 08:21 Lactulose 30 ml BID PO 12/26/24 22:00 Docusate Sodium (Colace Liquid) 100 mg BID GT 12/26/24 22:00 Norepinephrine Bitartrate 250 ml @ 1.875 mls/ hr Q24H IV 12/26/24 14:15 12/26/24 14:15 Vital Signs Vital Signs Date Time Temp Pulse Resp B/P (MAP) Pulse Ox O2 Delivery O2 Flow Rate FiO2 12/26/24 20:40 99 18 136/77 (96) 100 30 12/26/24 20:00 Mechanical Ventilator+ 12/26/24 18:00 98.2 208.8 Physical Exam Gen.: Patient lying in bed in medical ICU. Sedated, intubated on mechanical ventilator. Head: Normocephalic, atraumatic. Eyes: PERRLA. Ears: Normal external anatomy. Throat: Endotracheal tube and orogastric tube in place. Neck: Supple, trachea midline. Chest: Transmitted breath sounds bilaterally. Decreased air entry bilaterally. No wheezing. Bibasilar crackles. Cardiovascular: Positive S1, positive S2. Regular rate and rhythm. Abdomen: Positive bowel sounds in all 4 quadrants. Soft, nontender, non distended. : Johnston in place. Normal external genitalia. Rectal: Deferred. Skin: Warm, dry. Intact. Extremities: 2+ radial pulses bilaterally. No lower extremity edema. Neuro: Sedated. Labs/Diagnostic Data Labs Test 12/26/24 17:19 12/26/24 06:05 12/26/24 03:39 12/25/24 07:05 Range/Units POC Glucose 139 H 70-106 mg/dl Blood Gas Specimen Type Arterial Blood Gas Sample Site Left radial Blood Gas Patient Temperature 37.0 Arterial Blood Date Drawn [id number] Arterial Blood pH 7.449 7.350-7.450 Arterial Blood Partial Pressure CO2 35.9 35.0-48.0 mmHg Arterial Blood Partial Pressure O2 80.4 L 83.0-108.0 mmHg Arterial Blood HCO3 24.3 21.0-28.0 mmol/L Arterial Blood Oxygen Saturation 96.0 94.0-98.0 % Arterial Blood Base Excess 0.8 -2.0-3.0 mmol/L Arterial Blood Oxyhemoglobin 94.3 94.0-98.0 % Arterial Blood Carboxyhemoglobin 1.4 0.5-1.5 % Arterial Blood Methemoglobin 0.4 0.0-1.5 % Krishna Test Modified Blood Gas Total Hemoglobin 14.90 13.5-17.5 g/dL Blood Gas Set Respiration Rate 18.0 Blood Gas Modality Vent - ac FiO2 % 30.0 Blood Gas Tidal Volume 500.0 Blood Gas PEEP or CPAP 5.0 White Blood Count 5.6 # 4.4-10.8 10^3/uL Red Blood Count 3.59 L 4.5-5.90 10^6/uL Hemoglobin 11.0 L 13.5-17.5 g/dL Hematocrit 32.8 #L 41.0-53.0 % Mean Corpuscular Volume 91.6 80.0-100.0 fL Mean Corpuscular Hemoglobin 30.8 28.0-32.0 pg Mean Corpuscular Hemoglobin Concent 33.6 32.0-36.0 g/dL Red Cell Distribution Width 16.8 H 11.8-14.3 % Platelet Count 76 L 140-450 10^3/uL Mean Platelet Volume 9.1 6.9-10.8 fL Neutrophils (%) (Auto) 83.4 H 37.0-80.0 % Lymphocytes (%) (Auto) 9.9 L 10.0-50.0 % Monocytes (%) (Auto) 4.6 0.0-12.0 % Eosinophils (%) (Auto) 1.8 0.0-7.0 % Basophils (%) (Auto) 0.3 0.0-2.0 % Neutrophils # (Auto) 4.7 1.6-8.6 10 ^3/uL Lymphocytes # (Auto) 0.6 0.4-5.4 10 ^3/uL Monocytes # (Auto) 0.3 0-1.3 10 ^3/uL Eosinophils # (Auto) 0.1 0-0.8 10 ^3/uL Basophils # (Auto) 0 0-0.2 10 ^3/uL Nucleated Red Blood Cells 0.0 % Sodium Level 140 136-145 mmol/L Potassium Level 3.8 3.5-5.1 mmol/L Chloride Level 102 98-107 mmol/L Carbon Dioxide Level 30 20-31 mmol/L Anion Gap 8 5-15 Blood Urea Nitrogen 29 H 9-23 mg/dL Creatinine 4.47 H 0.700-1.30 mg/dL Glomerular Filtration Rate Calc 13 >90 mL/min BUN/Creatinine Ratio 6.5 L 10.0-20.0 Serum Glucose 135 H 74-106 mg/dL Calcium Level 7.6 L 8.7-10.4 mg/dL Magnesium Level 1.8 1.6-2.6 mg/dL Total Bilirubin 0.4 0.2-1.0 mg/dL Aspartate Amino Transferase (AST) 12 L 13-40 U/L Alanine Aminotransferase (ALT) 58 H 7-40 U/L Alkaline Phosphatase 84 46-116 U/L Total Protein 3.7 L 5.7-8.2 g/dL Albumin 2.0 L 3.2-4.8 g/dL Random Vancomycin Level 21.2 H 5-10 ug/mL Digoxin Level 6.59 *H 0.8-2 ng/mL Blood Gas Spontaneous Rate 18 Test 12/24/24 13:05 12/24/24 04:28 12/22/24 12:02 12/22/24 04:10 Range/Units Body Fluid Source Pleural Body Fluid pH 7.0 Body Fluid WBC (Manual) 435 H 0-200 CUMM Body Fluid RBC (Manual) 162 0-2000 CUMM Body Fluid Mononuclear Cells 58 % Body Fluid Polymorphonuclear Cells 42 H 0-25 % Body Fluid Glucose 124 . mg/dL Body Fluid Total Protein 1.7 . g/dL Body Fluid Lactate Dehydrogenase 77 . IU/L Hepatitis B Surface Antigen Negative Negative Urine Color Dark yellow Yellow Urine Clarity Turbid H Clear Urine pH 7.5 5.0-9.0 Urine Specific [place] 1.010 1.001-1.035 Urine Protein 1+ H Negative Urine Ketones Negative Negative Urine Blood 3+ H Negative /uL Urine Nitrite Negative Negative Urine Bilirubin Negative Negative Urine Urobilinogen Normal Negative mg/dL Urine Leukocyte Esterase 3+ Negative /uL Urine RBC 273 0 - 3 /hpf Urine Microscopic WBC 126 H 0-3 /HPF Urine Squamous Epithelial Cells Few <5 /hpf Urine Bacteria None seen None Seen /hpf Urine Mucus Few None Seen Urine Glucose Normal Normal mg/dL Prothrombin Time 16.6 H 9.3-11.8 sec Prothrombin Time INR 1.65 H 0.9-1.15 Activated Partial Thromboplast Time 35.0 H 24.5-34.5 SEC Test 12/21/24 12:44 12/21/24 11:42 12/21/24 04:21 12/20/24 16:31 Range/Units Blood Gas Critical Value Read Back yes Blood Gas Notified Whom dr. pa md Blood Gas Notified Time [id number] Blood Gas Notified By laurent guevara rrt Differential Total Cells Counted 100.0 100 Neutrophils % (Manual) 60 37.0-80.0 Band Neutrophils % (Manual) 5 Lymphocytes % (Manual) 30 10.0-50.0 Monocytes % (Manual) 5 0-12 Eosinophils % (Manual) 0 0-7 Basophils % (Manual) 0 0.0-2.0 Metamyelocytes % (manual) 0 Myelocytes % (Manual) 0 Promyelocytes % (Manual) 0 Blast Cells % (Manual) 0 Reactive Lymphocytes 0 Platelet Estimate Adequate Large Platelets Few Lactic Acid Level 7.3 *H 0.4-2.0 mmol/L Thyroid Stimulating Hormone (TSH) 14.60 H 0.55-4.78 uIU/mL Hemoglobin A1c 6.3 H <5.7 % A1C Phosphorus Level 4.6 2.4-5.1 mg/dL Hepatitis A IgM Antibody Negative Hepatitis B Core IgM Antibody Negative Negative Hepatitis C Antibody Negative Negative Troponin I High Sensitivity 8 </=54 ng/L Test 12/20/24 13:02 12/20/24 12:20 Range/Units B-Type Natriuretic Peptide > 5000.00 0-100 pg/mL Blood Gas Liter Flow 10.00 Microbiology Date/Time Source Procedure Growth Status 12/25/24 18:00 Voided Urine Urine Culture - Preliminary Resulted 12/24/24 13:05 Pleural Fluid Gram Stain - Final Resulted 12/24/24 13:05 Pleural Fluid Aerobic Culture - Preliminary Resulted 12/21/24 12:00 Nose MRSA Screen - Final Methicillin Resistant S.aureus Complete 12/21/24 11:46 Blood Blood Culture - Final NO GROWTH AFTER 5 DAYS OF INCUBATION. Complete 12/21/24 11:27 Sputum Gram Stain - Final Complete 12/21/24 11:27 Respiratory Culture - Final Methicillin Resistant S.aureus Complete Assessment Impression: Acute hypoxic respiratory failure On mechanical ventilator Atrial fibrillation w/ rapid ventricular response Acute on chronic CHF exacerbation Pneumonia, likely GNR. End-stage renal disease, on hemodialysis Pulmonary edema Plan: s/p intubation on mechanical ventilator. CXR image and report reviewed. Devices in place. Pulmonary vascular congestion ABG reviewed, compensated. On AC mode; RR 18, VT 500, PEEP 5, FiO2 30% Titrate FIO2 to keep O2 saturation above 90%. VAP bundle. Daily ABG and CXR while intubated Sedate for ventilator synchrony Follow up Cardiology recs Amiodarone drip for AFib Continue bronchodilators. Continue antibiotics. F/u cultures Pressors as necessary for hemodynamic support Titrate to keep mean arterial pressure greater than 65 mmHg. HD per Nephrology Monitor renal function Monitor electrolytes. Supplement as necessary. Magnesium supplementation Monitor ins and outs. Maintain euvolemia. GI prophylaxis - Protonix. DVT prophylaxis - Lovenox. Prognosis: Poor given patient's multiple co-morbidities. Condition: Critical Rest of plan per hospitalist and other consultants. A total of 35 minutes of critical care time was spent reviewing the patient record, examining the patient, making a diagnostic and therapeutic plan, discussing this plan with the medical personnel, following up on diagnostic studies and following the patient for clinical stability excluding any and all procedures. At least 50% of this time was spent in direct, [id number] contact. Thank you, CK Cortez, for allowing me to participate in this patient's care. Further recommendations will depend on the patient's clinical course. Please do not hesitate to contact me if you have any questions or concerns. This medical document was created using an electronic medical record system with [employer] system. Although these documentations are being carefully reviewed, there may still be some phonetic and typographical changes. The errors are purely typographical, due to imperfection on the software program, and do not reflect any compromise in the patient's medical care. Plan discussed with: Other (RN/MD) Date of Service: Dec 25, 2024 Billing Provider: TORY MATUTE MD Common Visit Codes: [id number] INP/OBS CARE (HIGH), [id number] CARE 30-74 MIN TORY MATUTE MD Dec 26, 2024 22:18
[2024-12-26] MEDS: DOCUSATE ORAL LIQUID 100 MG/10 ML UD GT SCH (23:15)
--- NOTE | 2024-12-26 23:15 | DVHPN2 ---
Subjective DOS: 12/26/2024 Patient seen and examined at bedside. Sedated, intubated on mechanical ventilator. Overnight events reviewed. Reviewed: Care Plan, H&P, Labs, Medications, Previous Orders, Radiology Changes from previous H/P or p: No Changes General: Per HPI Objective Vitals Vital Signs Date Time Temp Pulse Resp B/P (MAP) Pulse Ox O2 Delivery O2 Flow Rate FiO2 12/26/24 22:49 83 18 137/64 (88) 100 30 12/26/24 20:00 Mechanical Ventilator+ 12/26/24 18:00 98.2 208.8 Intake/Output Intake and Output 12/26/24 07:00 Intake Total 1943.97 ml Output Total 225 ml Balance 1718.97 ml Intake Oral 50 ml IV Total 1443.97 ml Tube Feeding 450 ml Output Urine Total 225 ml Urine/Stool Mix 0 ml General Appearance: Other (ON VENT) HEENT: Atraumatic Lungs: Other (FEW CRACKLES B LUNGS) Cardiovascular: Other (IRREG TACHYCARDIA) Abdomen: No tenderness Skin: Dry, Intact Medications Current Medications Medications Dose Ordered Sig/Isidra Route Start Time Stop Time Status Last Admin Dose Admin Albuterol 2.5 mg Q6HPRN PRN NEB 12/20/24 19:30 12/23/24 06:20 2.5 MG Acetaminophen 650 mg Q6HP PRN PO 12/20/24 19:30 Nitroglycerin 0.4 mg Q5MINP PRN SL 12/20/24 19:30 Morphine Sulfate 2 mg Q30M PRN IV 12/20/24 19:30 Enoxaparin Sodium 80 mg DAILY SC 12/22/24 10:00 UNV Vancomycin HCl 0 ml @ 0 mls/hr UD IV 12/21/24 11:45 Pantoprazole Sodium 40 mg DAILY IV 12/22/24 10:00 12/26/24 08:22 40 MG Midazolam HCl 50 ml @ 1 mls/hr Q24H IV 12/21/24 11:45 12/26/24 06:57 5 MLS/HR Fentanyl Citrate 250 ml @ 2.5 mls/hr Q24H IV 12/21/24 11:45 12/26/24 08:28 12.5 MLS/HR Vasopressin 20 units/Sodium Chloride 100 ml @ 9 mls/hr Q11H7M IV 12/21/24 12:15 Diagnostic Test (Pha) 1 strip Q6HR 12/22/24 00:00 12/26/24 15:04 1 STRIP Insulin Human Regular Q6HR SC 12/22/24 00:00 12/25/24 06:36 2 UNITS Dextrose 50 ml UD PRN IV 12/21/24 21:00 12/22/24 06:03 50 ML Enteral Nutritional Formula 1,000 ml 30ML/HR GT 12/24/24 12:45 12/25/24 20:21 1,000 ML Amiodarone HCL/ Dextrose 200 ml @ 16.66 mls/ hr Q12H IV 12/25/24 18:45 12/26/24 15:04 16.66 MLS/HR Digoxin 125 mcg DAILY IV 12/26/24 10:00 Phenylephrine HCl 250 ml @ 30 mls/hr Q8H20M IV 12/25/24 15:30 Enoxaparin Sodium 80 mg DAILY SC 12/26/24 10:00 12/26/24 10:00 80 MG Ceftriaxone Sodium 50 ml @ 100 mls/hr DAILY@09 IV 12/26/24 09:00 12/26/24 08:21 100 MLS/HR Lactulose 30 ml BID PO 12/26/24 22:00 Docusate Sodium 100 mg BID GT 12/26/24 22:00 Norepinephrine Bitartrate 250 ml @ 1.875 mls/ hr Q24H IV 12/26/24 14:15 12/26/24 14:15 1.875 MLS/HR Laboratory Results Laboratory Tests 12/26/24 03:39 Chemistry Test 12/26/24 03:39 Albumin 2.0 g/dL (3.2-4.8) L Calcium Level 7.6 mg/dL (8.7-10.4) L Magnesium Level 1.8 mg/dL (1.6-2.6) Total Protein 3.7 g/dL (5.7-8.2) L LFT Test 12/26/24 03:39 Alanine Aminotransferase (ALT) 58 U/L (7-40) H Alkaline Phosphatase 84 U/L (46-116) Aspartate Amino Transferase (AST) 12 U/L (13-40) L Total Bilirubin 0.4 mg/dL (0.2-1.0) Urinalysis Test 12/22/24 12:02 Urine Color Dark yellow (Yellow) Urine Clarity Turbid (Clear) H Urine pH 7.5 (5.0-9.0) Urine Specific [place] 1.010 (1.001-1.035) Urine Protein 1+ (Negative) H Urine Ketones Negative (Negative) Urine Blood 3+ /uL (Negative) H Urine Nitrite Negative (Negative) Urine Bilirubin Negative (Negative) Urine Urobilinogen Normal mg/dL (Negative) Urine Leukocyte Esterase 3+ /uL (Negative) Urine RBC 273 /hpf (0 - 3) Urine Microscopic WBC 126 /HPF (0-3) H Urine Squamous Epithelial Cells Few /hpf (<5) Urine Bacteria None seen /hpf (None Seen) Urine Mucus Few (None Seen) Urine Glucose Normal mg/dL (Normal) Blood Gas Results Test 12/26/24 06:05 Arterial Blood pH 7.449 (7.350-7.450) FiO2 % 30.0 Microbiology Microbiology Date/Time Source Procedure Growth Status 12/25/24 18:00 Voided Urine Urine Culture - Preliminary Resulted 12/24/24 13:05 Pleural Fluid Gram Stain - Final Resulted 12/24/24 13:05 Pleural Fluid Aerobic Culture - Preliminary Resulted 12/21/24 12:00 Nose MRSA Screen - Final Methicillin Resistant S.aureus Complete 12/21/24 11:46 Blood Blood Culture - Final NO GROWTH AFTER 5 DAYS OF INCUBATION. Complete 12/21/24 11:27 Sputum Gram Stain - Final Complete 12/21/24 11:27 Respiratory Culture - Final Methicillin Resistant S.aureus Complete Assessment/Plan Assessment/Plan Impression: Acute hypoxic respiratory failure On mechanical ventilator Atrial fibrillation w/ rapid ventricular response Acute on chronic CHF exacerbation Pneumonia, likely GNR. End-stage renal disease, on hemodialysis Events: Remains on vent support On AC mode; RR 18, VT 500, PEEP 5, FiO2 30% Sedated on Versed, Fentanyl Taper sedation as tolerated CPAP with PS 8, PEEP 5 when awake in AM. Continue abx Amiodarone drip + anticoagulation with Lovenox for AFIB. HD per Nephrology Nephrology recs appreciated Labs and imaging reviewed. Rest of plan as noted below. Plan: s/p intubation on mechanical ventilator. CXR image and report reviewed. Devices in place. Pulmonary vascular congestion ABG reviewed, compensated. On AC mode; RR 18, VT 500, PEEP 5, FiO2 30% Titrate FIO2 to keep O2 saturation above 90%. VAP bundle. Daily ABG and CXR while intubated Sedate for ventilator synchrony Follow up Cardiology recs Amiodarone drip for AFib Continue bronchodilators. Continue antibiotics. F/u cultures Pressors as necessary for hemodynamic support Titrate to keep mean arterial pressure greater than 65 mmHg. HD per Nephrology Monitor renal function Monitor electrolytes. Supplement as necessary. Magnesium supplementation Monitor ins and outs. Maintain euvolemia. GI prophylaxis - Protonix. DVT prophylaxis - Lovenox. Prognosis: Poor given patient's multiple co-morbidities. Condition: Critical Rest of plan per hospitalist and other consultants. A total of 35 minutes of critical care time was spent reviewing the patient record, examining the patient, making a diagnostic and therapeutic plan, discussing this plan with the medical personnel, following up on diagnostic studies and following the patient for clinical stability excluding any and all procedures. At least 50% of this time was spent in direct, [id number] contact. Thank you, CK Cortez, for allowing me to participate in this patient's care. Further recommendations will depend on the patient's clinical course. Please do not hesitate to contact me if you have any questions or concerns. This medical document was created using an electronic medical record system with [employer] dictation system. Although these documentations are being carefully reviewed, there may still be some phonetic and typographical changes. The errors are purely typographical, due to imperfection on the software program, and do not reflect any compromise in the patient's medical care. Plan discussed with: Other (ERNST [place]) My Orders Orders - TORY MATUTE MD Procedure Category Date Status Time Lactulose Oral PHA 12/26/24 In Process 22:00 Docusate Sodium PHA 12/26/24 In Process Liquid (Colace Liquid) 22:00 Cpap Trial For Am ORDERS 12/27/24 Transmitted 04:00 Cpap/Sed Vacation Med ORDERS 12/27/24 Transmitted Weaning 04:00 Dexmedetomidine Hcl PHA 12/26/24 In Process In D5w (Precedex) 22:00 Norepinephrine 8 PHA 12/26/24 In Process Mg/250ml Kit 14:15 Communication Order ORDERS 12/26/24 Transmitted 14:07 Date of Service: Dec 26, 2024 Billing Provider: TORY MATUTE MD Common Visit Codes: [id number] INP/OBS CARE(HIGH), [id number] CARE 30-74 MIN TORY MATUTE MD Dec 26, 2024 23:15
[2024-12-26] MEDS: LACTULOSE 20Gm/30ML SOLN PO SCH (23:16)
[2024-12-27] VITALS (108 sets, daily range): BP systolic 84–159; BP diastolic 46–95; PULSE 77–121; RESP 15–24; TEMP 97.3–98.6; O2SAT 95–100
[2024-12-27] MEDS: DEXMEDETOMIDINE HCL IN D5W 100 ML IV SCH (00:20)
[2024-12-27 05:15] LABS: Hematocrit 31.8 % (41.0-53.0); Hemoglobin 10.6 g/dL (13.5-17.5); Mean Corpuscular Hemoglobin 30.2 pg (28.0-32.0); Mean Corpuscular Volume 91.1 fL (80.0-100.0); Nucleated Red Blood Cells % 0.2 %
[2024-12-27 06:13] LABS: Base Excess -0.7 mmol/L (-2.0-3.0)
[2024-12-27 07:35] LABS: Alanine Aminotransferase 36 U/L (7-40); Alkaline Phosphatase 80 U/L (46-116); Anion Gap 10 (5-15); BUN/Creatinine Ratio 5.9 (10.0-20.0); Carbon Dioxide 26 mmol/L (20-31); Chloride 104 mmol/L (98-107); Potassium 3.6 mmol/L (3.5-5.1); Sodium 140 mmol/L (136-145)
[2024-12-27 07:38] LABS: Albumin 2.2 g/dL (3.2-4.8); Bilirubin, Total 0.2 mg/dL (0.2-1.0); Blood Urea Nitrogen 28 mg/dL (9-23); Calcium 7.5 mg/dL (8.7-10.4); Glucose 111 mg/dL (74-106); Total Protein 4.2 g/dL (5.7-8.2)
--- NOTE | 2024-12-27 11:31 | DVHPN2 ---
Progress Note Date Seen: Dec 27, 2024 Medical Necessity Reason Pt with a Central, PICC or Fol: Yes The following are medically ne: Central Line, Stearns Catheter Reason for stearns catheter: Strict I&O Subjective Patient reports: No new complaints Review of Systems: HEENT:Normal, CVS:Normal, RESPIRATORY:Normal, GI:Normal, :Normal, MSK:Normal, NEURO:Normal Objective vital signs Vital Sign Date Time Temp Pulse Resp B/P (MAP) Pulse Ox O2 Delivery O2 Flow Rate FiO2 12/27/24 11:15 97.5 80 18 114/66 (82) 100 207.5 12/27/24 10:00 30 12/27/24 08:00 Mechanical Ventilator+ Total Intake and Output 12/26/24 12/26/24 12/27/24 15:00 23:00 07:00 Intake Total 449.155 ml 527.155 ml 263.445 ml Output Total 100 ml 300 ml Balance 449.155 ml 427.155 ml -36.555 ml medications Current Medications Medications Dose Ordered Sig/Isidra Route Start Time Stop Time Status Last Admin Dose Admin Albuterol 2.5 mg Q6HPRN PRN NEB 12/20/24 19:30 12/23/24 06:20 2.5 MG Acetaminophen 650 mg Q6HP PRN PO 12/20/24 19:30 Nitroglycerin 0.4 mg Q5MINP PRN SL 12/20/24 19:30 Morphine Sulfate 2 mg Q30M PRN IV 12/20/24 19:30 Enoxaparin Sodium 80 mg DAILY SC 12/22/24 10:00 UNV Vancomycin HCl 0 ml @ 0 mls/hr UD IV 12/21/24 11:45 Pantoprazole Sodium 40 mg DAILY IV 12/22/24 10:00 12/27/24 10:20 40 MG Midazolam HCl 50 ml @ 1 mls/hr Q24H IV 12/21/24 11:45 12/26/24 06:57 5 MLS/HR Fentanyl Citrate 250 ml @ 2.5 mls/hr Q24H IV 12/21/24 11:45 12/26/24 08:28 12.5 MLS/HR Vasopressin 20 units/Sodium Chloride 100 ml @ 9 mls/hr Q11H7M IV 12/21/24 12:15 Diagnostic Test (Pha) 1 strip Q6HR 12/22/24 00:00 12/27/24 06:50 1 STRIP Insulin Human Regular Q6HR SC 12/22/24 00:00 12/25/24 06:36 2 UNITS Dextrose 50 ml UD PRN IV 12/21/24 21:00 12/22/24 06:03 50 ML Enteral Nutritional Formula 1,000 ml 30ML/HR GT 12/24/24 12:45 12/25/24 20:21 1,000 ML Amiodarone HCL/ Dextrose 200 ml @ 16.66 mls/ hr Q12H IV 12/25/24 18:45 12/27/24 05:38 16.66 MLS/HR Digoxin 125 mcg DAILY IV 12/26/24 10:00 Phenylephrine HCl 250 ml @ 30 mls/hr Q8H20M IV 12/25/24 15:30 Enoxaparin Sodium 80 mg DAILY SC 12/26/24 10:00 12/26/24 10:00 80 MG Ceftriaxone Sodium 50 ml @ 100 mls/hr DAILY@09 IV 12/26/24 09:00 12/27/24 10:20 100 MLS/HR Lactulose 30 ml BID PO 12/26/24 22:00 12/26/24 23:16 30 ML Docusate Sodium 100 mg BID GT 12/26/24 22:00 12/26/24 23:15 100 MG Norepinephrine Bitartrate 250 ml @ 1.875 mls/ hr Q24H IV 12/26/24 14:15 12/26/24 14:15 1.875 MLS/HR Examination: GENERAL:Normal, HEENT:Normal, NECK:Normal, LUNGS:Normal, LUNGS:Abnormal (INTUBATED), CVS:Normal, ABDOMEN:Normal, MSK:Normal, SKIN:Normal, NEURO:Normal, :Normal laboratory and microbiology Laboratory Tests 12/27/24 04:40 Test 12/27/24 04:40 Range/Units Serum Glucose 111 H 74-106 mg/dL Microbiology Date/Time Source Procedure Growth Status 12/25/24 18:00 Voided Urine Urine Culture - Preliminary Resulted 12/24/24 13:05 Pleural Fluid Gram Stain - Final Resulted 12/24/24 13:05 Pleural Fluid Aerobic Culture - Preliminary Resulted 12/21/24 12:00 Nose MRSA Screen - Final Methicillin Resistant S.aureus Complete 12/21/24 11:46 Blood Blood Culture - Final NO GROWTH AFTER 5 DAYS OF INCUBATION. Complete 12/21/24 11:27 Sputum Gram Stain - Final Complete 12/21/24 11:27 Respiratory Culture - Final Methicillin Resistant S.aureus Complete Problem List/Assessment/Plan Problem List/Assessment/Plan #1 acute resp failure: on acv, cpap trial in am #2 shock - septic due to mrsa pneumonia?cardiac: cultures, iv antibiotics, iv pressors #3 esrd: on dialysis #4 s/p bowel perf s/p exp lap: tube feedings #5 s/p peg/ostomy #6 a fib s/p cardioversion: amiodarone #7 dm: ssi #8 bph: stearns cath #9 right upper extremity dvt: lovenox #10 gallstones #11 thrombocytopeniap; monitor long dw family regards current condition and code status- no cpr/cardioversion per Plan discussed with: Spouse, Son My Orders My Orders Orders - ALY SCHROEDER MD Procedure Category Date Status Time Vancomycin,Random LAB 12/28/24 Verified 04:00 Creatinine LAB 12/28/24 Verified 04:00 Cpap Trial For Am ORDERS 12/27/24 Transmitted 11:23 Basic Metabolic Panel LAB 12/28/24 Verified 06:00 Complete Blood Count LAB 12/28/24 Verified 06:00 Chest Portable XY 12/28/24 Transmitted 06:00 Abg W/ Co-Ox RT 12/28/24 Transmitted 06:00 Dietary Evaluation Review Comments: Nutrition Recommendation: 1) TF Nepro Carbsteady @ 40ml/hr x 24hr (goal rate) along with Pro-stat 1 pk TID. TF @ goal volume along with Pro-Stat provide 2028 kcal (100% energy needs), 123 gm protein (100% protein needs), 698 ml free water. 2) Water flush 80 ml Q6H if allowed, adjust PRN 3) TPN if NPO >7 days 4) Monitor NPO status, lab values, wt trend, I/O Expected Outcomes/Goals: To meet >75% estimated needs Lab values to improve Fu 2-3 days Critical Care Time (mins): 46 (critical care time excluding procedures is 46 mins) Date of Service: Dec 27, 2024 Billing Provider: ALY SCHROEDER MD Common Visit Codes: [id number] CARE 30-74 MIN ALY SCHROEDER MD Dec 27, 2024 11:31
[2024-12-27] MEDS: ALBUMIN 25% 100 ML IV PRN (16:08)
--- NOTE | 2024-12-27 17:34 | DVHPNRES ---
Progress Note Date Seen: Dec 27, 2024 Resident Creating Document: JOSEFINA AKERS RESIDENT Medical Necessity Reason Pt with a Central, PICC or Fol: Yes The following are medically ne: Central Line, Stearns Catheter Reason for stearns catheter: Strict I&O Subjective Review of Systems Patient was seen and examined on the bedside. He is on mechanical ventilation with FiO2 30%, tidal volume 500 mL, peep 5 and respiratory rate 22. Off vasopressor and sedation Objective vital signs Vital Sign Date Time Temp Pulse Resp B/P (MAP) Pulse Ox O2 Delivery O2 Flow Rate FiO2 12/27/24 16:03 113 22 97/55 (69) 100 30 12/27/24 15:15 98.1 208.6 12/27/24 08:00 Mechanical Ventilator+ Total Intake and Output 12/26/24 12/26/24 12/27/24 15:00 23:00 07:00 Intake Total 449.155 ml 527.155 ml 286.045 ml Output Total 100 ml 300 ml Balance 449.155 ml 427.155 ml -13.955 ml medications Current Medications Medications Dose Ordered Sig/Isidra Route Start Time Stop Time Status Last Admin Dose Admin Albuterol 2.5 mg Q6HPRN PRN NEB 12/20/24 19:30 12/23/24 06:20 2.5 MG Acetaminophen 650 mg Q6HP PRN PO 12/20/24 19:30 Nitroglycerin 0.4 mg Q5MINP PRN SL 12/20/24 19:30 Morphine Sulfate 2 mg Q30M PRN IV 12/20/24 19:30 Enoxaparin Sodium 80 mg DAILY SC 12/22/24 10:00 UNV Vancomycin HCl 0 ml @ 0 mls/hr UD IV 12/21/24 11:45 Pantoprazole Sodium 40 mg DAILY IV 12/22/24 10:00 12/27/24 10:20 40 MG Midazolam HCl 50 ml @ 1 mls/hr Q24H IV 12/21/24 11:45 12/26/24 06:57 5 MLS/HR Fentanyl Citrate 250 ml @ 2.5 mls/hr Q24H IV 12/21/24 11:45 12/26/24 08:28 12.5 MLS/HR Diagnostic Test (Pha) 1 strip Q6HR 12/22/24 00:00 12/27/24 17:25 1 STRIP Insulin Human Regular Q6HR SC 12/22/24 00:00 12/27/24 17:27 2 UNITS Dextrose 50 ml UD PRN IV 12/21/24 21:00 12/22/24 06:03 50 ML Enteral Nutritional Formula 1,000 ml 30ML/HR GT 12/24/24 12:45 12/27/24 14:52 1,000 ML Amiodarone HCL/ Dextrose 200 ml @ 16.66 mls/ hr Q12H IV 12/25/24 18:45 12/27/24 15:19 16.66 MLS/HR Enoxaparin Sodium 80 mg DAILY SC 12/26/24 10:00 12/26/24 10:00 80 MG Ceftriaxone Sodium 50 ml @ 100 mls/hr DAILY@09 IV 12/26/24 09:00 12/27/24 10:20 100 MLS/HR Lactulose 30 ml BID PO 12/26/24 22:00 12/26/24 23:16 30 ML Docusate Sodium 100 mg BID GT 12/26/24 22:00 12/26/24 23:15 100 MG Norepinephrine Bitartrate 250 ml @ 1.875 mls/ hr Q24H IV 12/26/24 14:15 12/26/24 14:15 1.875 MLS/HR Albumin Human 100 ml @ 100 mls/hr UD PRN IV 12/27/24 16:00 12/27/24 16:08 100 MLS/HR Examination Examination General: RASS -3, afebrile, mucosae are moist Cardiovascular: Normal S1 and S2. No murmurs, gallops or rubs Respiratory: Mechanically assisted ventilation, equal bilateral airway entree. Bilateral crackles Abdomen: Soft, nontender, no organomegaly, normal bowel sounds MSK/skin: Mobilization of limbs cannot be evaluated. Rt upper extremity is swollen. Skin is dry and warm. Neurological: Orientation cannot be assessed. No apparent motor no sensitive deficits. Pupils are isocoric and reactive laboratory and microbiology Laboratory Tests 12/27/24 04:40 Test 12/27/24 04:40 Range/Units Serum Glucose 111 H 74-106 mg/dL Microbiology Date/Time Source Procedure Growth Status 12/25/24 18:00 Voided Urine Urine Culture - Preliminary Resulted 12/24/24 13:05 Pleural Fluid Gram Stain - Final Resulted 12/24/24 13:05 Pleural Fluid Aerobic Culture - Preliminary Resulted 12/21/24 12:00 Nose MRSA Screen - Final Methicillin Resistant S.aureus Complete 12/21/24 11:46 Blood Blood Culture - Final NO GROWTH AFTER 5 DAYS OF INCUBATION. Complete 12/21/24 11:27 Sputum Gram Stain - Final Complete 12/21/24 11:27 Respiratory Culture - Final Methicillin Resistant S.aureus Complete Labs and/or images reviewed: Labs reviewed by me, Image(s) reviewed by me Problem List/Assessment/Plan Problem List/Assessment/Plan Assessment and plan: # ESRD on hemodialysis # Hyperkalemia resolved # Metabolic acidosis with respiratory alkalosis # Acute hypoxic respiratory failure, status post mechanical ventilation # AFib with RVR, currently sinus rhythm with controlled heart rate # Acute on chronic decompensated systolic heart failure with reduced EF # possible septic/cardiogenic shock # Gram-positive versus Gram-negative community-acquired pneumonia # Acute DVT of right upper extremity # BPH # S/P exploratory laparotomy with colostomy Plan: - status post mechanical ventilation - Scheduled for hemodialysis today - apron worker was consulted for outpatient chair time. - Continue IV antibiotic and other management as per primary. - strict I&O - monitor BMP Thank you so much for the opportunity to consult on your patient. Nephro team will follow the patient. In case of any questions or concerns please feel free to reach out. Plan discussed with Dr. Key . The patient and caregiver team agreed to the plan. Addendum Patient seen and examined, plan discussed with resident. Agree with above, we will follow closely HD today and tomorrow Plan discussed with: Daughter, Other (RN) Dietary Evaluation Review Comments: Nutrition Recommendation: 1) TF Nepro Carbsteady @ 40ml/hr x 24hr (goal rate) along with Pro-stat 1 pk TID. TF @ goal volume along with Pro-Stat provide 2028 kcal (100% energy needs), 123 gm protein (100% protein needs), 698 ml free water. 2) Water flush 80 ml Q6H if allowed, adjust PRN 3) TPN if NPO >7 days 4) Monitor NPO status, lab values, wt trend, I/O Expected Outcomes/Goals: To meet >75% estimated needs Lab values to improve Fu 2-3 days JOSEFINA AKERS RESIDENT Dec 27, 2024 17:34 CIRO KEY MD Dec 27, 2024 22:28
--- NOTE | 2024-12-27 19:30 | DVHPN2 ---
Progress Note - Dictate Date Seen: Dec 27, 2024 Medical Necessity Reason Pt with a Central, PICC or Fol: Yes The following are medically ne: Central Line, Stearns Catheter Reason for stearns catheter: Strict I&O Subjective Patient was seen and evaluated in follow up in the ICU. Patient is intubated on ventilator. 30% FiO2. Patietn off sedation and vasopressors. BUN 28, Application Development Project Manager 4.77. vital signs Vital Sign Date Time Temp Pulse Resp B/P (MAP) Pulse Ox O2 Delivery O2 Flow Rate FiO2 12/27/24 18:45 98.2 108 18 138/65 (89) 100 208.8 12/27/24 18:17 30 12/27/24 08:00 Mechanical Ventilator+ Total Intake and Output 12/26/24 12/26/24 12/27/24 15:00 23:00 07:00 Intake Total 449.155 ml 527.155 ml 286.045 ml Output Total 100 ml 300 ml Balance 449.155 ml 427.155 ml -13.955 ml medications Current Medications Medications Dose Ordered Sig/Isidra Route Start Time Stop Time Status Last Admin Dose Admin Albuterol 2.5 mg Q6HPRN PRN NEB 12/20/24 19:30 12/27/24 18:23 2.5 MG Acetaminophen 650 mg Q6HP PRN PO 12/20/24 19:30 Nitroglycerin 0.4 mg Q5MINP PRN SL 12/20/24 19:30 Morphine Sulfate 2 mg Q30M PRN IV 12/20/24 19:30 Enoxaparin Sodium 80 mg DAILY SC 12/22/24 10:00 UNV Vancomycin HCl 0 ml @ 0 mls/hr UD IV 12/21/24 11:45 Pantoprazole Sodium 40 mg DAILY IV 12/22/24 10:00 12/27/24 10:20 40 MG Midazolam HCl 50 ml @ 1 mls/hr Q24H IV 12/21/24 11:45 12/26/24 06:57 5 MLS/HR Fentanyl Citrate 250 ml @ 2.5 mls/hr Q24H IV 12/21/24 11:45 12/26/24 08:28 12.5 MLS/HR Diagnostic Test (Pha) 1 strip Q6HR 12/22/24 00:00 12/27/24 17:25 1 STRIP Insulin Human Regular Q6HR SC 12/22/24 00:00 12/27/24 17:27 2 UNITS Dextrose 50 ml UD PRN IV 12/21/24 21:00 12/22/24 06:03 50 ML Enteral Nutritional Formula 1,000 ml 30ML/HR GT 12/24/24 12:45 12/27/24 14:52 1,000 ML Amiodarone HCL/ Dextrose 200 ml @ 16.66 mls/ hr Q12H IV 12/25/24 18:45 12/27/24 15:19 16.66 MLS/HR Enoxaparin Sodium 80 mg DAILY SC 12/26/24 10:00 12/26/24 10:00 80 MG Ceftriaxone Sodium 50 ml @ 100 mls/hr DAILY@09 IV 12/26/24 09:00 12/27/24 10:20 100 MLS/HR Lactulose 30 ml BID PO 12/26/24 22:00 12/26/24 23:16 30 ML Docusate Sodium 100 mg BID GT 12/26/24 22:00 12/26/24 23:15 100 MG Norepinephrine Bitartrate 250 ml @ 1.875 mls/ hr Q24H IV 12/26/24 14:15 12/26/24 14:15 1.875 MLS/HR Albumin Human 100 ml @ 100 mls/hr UD PRN IV 12/27/24 16:00 12/27/24 16:08 100 MLS/HR objective GENERAL: Ill appearing, intubated on ventilator. EYES: PERRL, EOMI. Anicteric. HENT: Moist mucous membranes. LUNGS: Decreased breath sounds. CARDIOVASCULAR: Regular rate and rhythm. ABDOMEN: Soft, nontender and nondistended. EXTREMITIES: No edema. SKIN: Warm, dry. laboratory and microbiology Laboratory Tests 12/27/24 04:40 Test 12/27/24 04:40 Range/Units Serum Glucose 111 H 74-106 mg/dL Problem List Atrial flutter/atrial fibrillation with RVR s/p DCCV, Stage IIIa, now NSR (on amiodarone/BB/Eliquis therapy at home-). Acute on chronic decompensated unspecified HF, NYHA Class IV. Nonischemic/dilated cardiomyopathy. Advanced CKD now ESRD with HD and associated hyperkalemia. History of cardiac ablation in 2023. Thyroid disease. Recent colon resection with colostomy. Assessment/Plan Continued all current supportive medical care. IV Amiodarone. IV antibiotics as ordered. DVT and GI prophylactics. Morphine for pain management. Additional plan as per the hospital course. Critical care time of 45 minutes provided to include time spent evaluation of patient at bedside, when appropriate patient/family education for diagnosis, treatment plan, review of pertinent medical information and discussion of care with specialty providers and PCP. Mechanical ventilator parameters, treatment and adjustments have personally been reviewed by me and treatment plan by customer energy specialist has also been reviewed. Dietary Evaluation Review Comments: Nutrition Recommendation: 1) TF Nepro Carbsteady @ 40ml/hr x 24hr (goal rate) along with Pro-stat 1 pk TID. TF @ goal volume along with Pro-Stat provide 2028 kcal (100% energy needs), 123 gm protein (100% protein needs), 698 ml free water. 2) Water flush 80 ml Q6H if allowed, adjust PRN 3) TPN if NPO >7 days 4) Monitor NPO status, lab values, wt trend, I/O Expected Outcomes/Goals: To meet >75% estimated needs Lab values to improve Fu 2-3 days Plan discussed with: KRISTOPHER Khan MD Dec 27, 2024 19:30
[2024-12-28] VITALS (114 sets, daily range): BP systolic 111–202; BP diastolic 65–100; PULSE 89–117; RESP 15–21; TEMP 97.7–98.6; O2SAT 96–100
[2024-12-28 05:05] LABS: Hematocrit 34.6 % (41.0-53.0); Hemoglobin 11.7 g/dL (13.5-17.5); Mean Corpuscular Hemoglobin 30.3 pg (28.0-32.0); Mean Corpuscular Volume 89.7 fL (80.0-100.0); Nucleated Red Blood Cells % 0.0 %
[2024-12-28 05:13] LABS: Chloride 100 mmol/L (98-107); Potassium 3.9 mmol/L (3.5-5.1); Sodium 139 mmol/L (136-145)
[2024-12-28 05:14] LABS: Anion Gap 12 (5-15); Carbon Dioxide 27 mmol/L (20-31)
[2024-12-28 05:20] LABS: BUN/Creatinine Ratio 6.2 (10.0-20.0)
[2024-12-28 05:26] LABS: Blood Urea Nitrogen 30 mg/dL (9-23); Calcium 8.6 mg/dL (8.7-10.4); Glucose 133 mg/dL (74-106)
--- NOTE | 2024-12-28 05:28 | DVH ---
CHEST RADIOGRAPH Indication: CHF Technique: Single frontal view of the chest was obtained COMPARISON: XY CHEST PORTABLE on DOS: 12/26/24, XY CHEST PORTABLE on DOS: 12/25/24, CT CT ANGIO CHEST C ONTRAST on DOS: 12/24/24, XY CHEST PORTABLE on DOS: 12/24/24, US CHEST ULTRASOUND on DOS: 12/24/24 FINDINGS: Lines and Tubes: Unchanged. Lungs: Interval decrease in pulmonary vascular congestion. No evidence of focal consolidation. Pleura: No effusion. No pneumothorax. Cardiomediastinal contours: Unremarkable Bones: Unremarkable IMPRESSION: 1. Interval decrease in pulmonary vascular congestion. 2. Lines and tubes unchanged.
[2024-12-28 07:32] LABS: Base Excess -1.1 mmol/L (-2.0-3.0)
--- NOTE | 2024-12-28 10:50 | DVHPN2 ---
Progress Note Date Seen: Dec 28, 2024 Medical Necessity Reason Pt with a Central, PICC or Fol: Yes The following are medically ne: Central Line, Stearns Catheter Reason for stearns catheter: Strict I&O Subjective Patient reports: No new complaints Review of Systems: HEENT:Normal, CVS:Normal, RESPIRATORY:Normal, GI:Normal, :Normal, MSK:Normal, NEURO:Normal Objective vital signs Vital Sign Date Time Temp Pulse Resp B/P (MAP) Pulse Ox O2 Delivery O2 Flow Rate FiO2 12/28/24 10:31 98.1 98 18 132/91 (105) 100 208.6 12/28/24 10:00 30 12/28/24 08:00 Mechanical Ventilator+ Total Intake and Output 12/27/24 12/27/24 12/28/24 15:00 23:00 07:00 Intake Total 172.50 ml 363.28 ml 275.62 ml Output Total 700 ml 2225 ml 110 ml Balance -527.50 ml -1861.72 ml 165.62 ml medications Current Medications Medications Dose Ordered Sig/Isidra Route Start Time Stop Time Status Last Admin Dose Admin Albuterol 2.5 mg Q6HPRN PRN NEB 12/20/24 19:30 12/28/24 00:19 2.5 MG Acetaminophen 650 mg Q6HP PRN PO 12/20/24 19:30 Nitroglycerin 0.4 mg Q5MINP PRN SL 12/20/24 19:30 Morphine Sulfate 2 mg Q30M PRN IV 12/20/24 19:30 Enoxaparin Sodium 80 mg DAILY SC 12/22/24 10:00 UNV Vancomycin HCl 0 ml @ 0 mls/hr UD IV 12/21/24 11:45 Pantoprazole Sodium 40 mg DAILY IV 12/22/24 10:00 12/28/24 10:03 40 MG Midazolam HCl 50 ml @ 1 mls/hr Q24H IV 12/21/24 11:45 12/26/24 06:57 5 MLS/HR Fentanyl Citrate 250 ml @ 2.5 mls/hr Q24H IV 12/21/24 11:45 12/26/24 08:28 12.5 MLS/HR Diagnostic Test (Pha) 1 strip Q6HR 12/22/24 00:00 12/28/24 06:03 1 STRIP Insulin Human Regular Q6HR SC 12/22/24 00:00 12/28/24 00:29 3 UNITS Dextrose 50 ml UD PRN IV 12/21/24 21:00 12/22/24 06:03 50 ML Enteral Nutritional Formula 1,000 ml 30ML/HR GT 12/24/24 12:45 12/27/24 14:52 1,000 ML Amiodarone HCL/ Dextrose 200 ml @ 16.66 mls/ hr Q12H IV 12/25/24 18:45 12/28/24 04:20 16.66 MLS/HR Enoxaparin Sodium 80 mg DAILY SC 12/26/24 10:00 12/26/24 10:00 80 MG Ceftriaxone Sodium 50 ml @ 100 mls/hr DAILY@09 IV 12/26/24 09:00 12/28/24 10:03 100 MLS/HR Lactulose 30 ml BID PO 12/26/24 22:00 12/28/24 10:03 30 ML Docusate Sodium 100 mg BID GT 12/26/24 22:00 12/26/24 23:15 100 MG Norepinephrine Bitartrate 250 ml @ 1.875 mls/ hr Q24H IV 12/26/24 14:15 12/26/24 14:15 1.875 MLS/HR Albumin Human 100 ml @ 100 mls/hr UD PRN IV 12/27/24 16:00 12/27/24 16:08 100 MLS/HR Examination: GENERAL:Normal, HEENT:Normal, NECK:Normal, LUNGS:Normal, LUNGS:Abnormal (intubated), CVS:Normal, ABDOMEN:Normal, MSK:Normal, SKIN:Normal, NEURO:Normal, :Normal laboratory and microbiology Laboratory Tests 12/28/24 04:29 Test 12/28/24 04:29 Range/Units Serum Glucose 133 H 74-106 mg/dL Microbiology Date/Time Source Procedure Growth Status 12/25/24 18:00 Voided Urine Urine Culture - Final Complete 12/24/24 13:05 Pleural Fluid Gram Stain - Final Resulted 12/24/24 13:05 Pleural Fluid Aerobic Culture - Preliminary Resulted 12/21/24 12:00 Nose MRSA Screen - Final Methicillin Resistant S.aureus Complete 12/21/24 11:46 Blood Blood Culture - Final NO GROWTH AFTER 5 DAYS OF INCUBATION. Complete 12/21/24 11:27 Sputum Gram Stain - Final Complete 12/21/24 11:27 Respiratory Culture - Final Methicillin Resistant S.aureus Complete Problem List/Assessment/Plan Problem List/Assessment/Plan #1 acute resp failure: on acv, cpap trial in am #2 shock - septic due to mrsa pneumonia?cardiac: cultures, iv antibiotics, iv pressors #3 esrd: on dialysis #4 s/p bowel perf s/p exp lap: tube feedings #5 s/p peg/ostomy #6 a fib s/p cardioversion: amiodarone #7 dm: ssi #8 bph: stearns cath #9 right upper extremity dvt: lovenox #10 gallstones #11 thrombocytopenia; monitor long dw family regards current condition and code status- no cpr/cardioversion per Plan discussed with: Spouse My Orders My Orders Orders - ALY SCHROEDER MD Procedure Category Date Status Time Cpap Trial For Am ORDERS 12/27/24 Transmitted 11:23 Chest Portable XY 12/28/24 Resulted 06:00 Abg W/ Co-Ox RT 12/28/24 Logged 06:00 Vancomycin 500mg/100ml PHA 12/28/24 In Process 14:00 Vancomycin,Random LAB 12/29/24 Verified 04:00 Creatinine LAB 12/29/24 Verified 04:00 Cpap Trial For Am ORDERS 12/28/24 Verified 10:47 Complete Blood Count LAB 12/29/24 Verified 06:00 Comprehensive LAB 12/29/24 Verified Metabolic Panel 06:00 Chest Portable XY 12/29/24 Verified 06:00 Abg W/ Co-Ox RT 12/29/24 Verified 06:00 Dietary Evaluation Review Comments: Nutrition Recommendation: 1) TF Nepro Carbsteady @ 40ml/hr x 24hr (goal rate) along with Pro-stat 1 pk TID. TF @ goal volume along with Pro-Stat provide 2028 kcal (100% energy needs), 123 gm protein (100% protein needs), 698 ml free water. 2) Water flush 80 ml Q6H if allowed, adjust PRN 3) TPN if NPO >7 days 4) Monitor NPO status, lab values, wt trend, I/O Expected Outcomes/Goals: To meet >75% estimated needs Lab values to improve Fu 2-3 days Critical Care Time (mins): 46 (critical care time excluding procedures is 46 mins) Date of Service: Dec 28, 2024 Billing Provider: ALY SCHROEDER MD Common Visit Codes: 26065-[id number] CARE 30-74 MIN ALY SCHROEDER MD Dec 28, 2024 10:50
[2024-12-28] MEDS: VANCOMYCIN 500mg/100mL 100 ML IV ONE (16:00)
--- NOTE | 2024-12-28 18:05 | DVHPN2 ---
Progress Note Date Seen: Dec 28, 2024 Resident Creating Document: JOSEFINA AKERS RESIDENT Medical Necessity Reason Pt with a Central, PICC or Fol: Yes The following are medically ne: Central Line, Stearns Catheter Reason for stearns catheter: Strict I&O Subjective Review of Systems Patient was seen and examined on the bedside. Off vasopressor and sedation for more than 48 hours but patient is not waking up and underwent hemodialysis today. scheduled for CPAP trial tomorrow Objective vital signs Vital Sign Date Time Temp Pulse Resp B/P (MAP) Pulse Ox O2 Delivery O2 Flow Rate FiO2 12/28/24 16:46 98.1 103 15 148/96 (113) 100 208.6 12/28/24 16:00 30 12/28/24 08:00 Mechanical Ventilator+ Total Intake and Output 12/27/24 12/27/24 12/28/24 15:00 23:00 07:00 Intake Total 172.50 ml 363.28 ml 292.28 ml Output Total 700 ml 2225 ml 110 ml Balance -527.50 ml -1861.72 ml 182.28 ml medications Current Medications Medications Dose Ordered Sig/Isidra Route Start Time Stop Time Status Last Admin Dose Admin Albuterol 2.5 mg Q6HPRN PRN NEB 12/20/24 19:30 12/28/24 00:19 2.5 MG Acetaminophen 650 mg Q6HP PRN PO 12/20/24 19:30 Nitroglycerin 0.4 mg Q5MINP PRN SL 12/20/24 19:30 Morphine Sulfate 2 mg Q30M PRN IV 12/20/24 19:30 Enoxaparin Sodium 80 mg DAILY SC 12/22/24 10:00 UNV Vancomycin HCl 0 ml @ 0 mls/hr UD IV 12/21/24 11:45 Pantoprazole Sodium 40 mg DAILY IV 12/22/24 10:00 12/28/24 10:03 40 MG Midazolam HCl 50 ml @ 1 mls/hr Q24H IV 12/21/24 11:45 12/26/24 06:57 5 MLS/HR Fentanyl Citrate 250 ml @ 2.5 mls/hr Q24H IV 12/21/24 11:45 12/26/24 08:28 12.5 MLS/HR Diagnostic Test (Pha) 1 strip Q6HR 12/22/24 00:00 12/28/24 17:15 1 STRIP Insulin Human Regular Q6HR SC 12/22/24 00:00 12/28/24 11:51 2 UNITS Dextrose 50 ml UD PRN IV 12/21/24 21:00 12/22/24 06:03 50 ML Enteral Nutritional Formula 1,000 ml 30ML/HR GT 12/24/24 12:45 12/27/24 14:52 1,000 ML Amiodarone HCL/ Dextrose 200 ml @ 16.66 mls/ hr Q12H IV 12/25/24 18:45 12/28/24 04:20 16.66 MLS/HR Enoxaparin Sodium 80 mg DAILY SC 12/26/24 10:00 12/26/24 10:00 80 MG Ceftriaxone Sodium 50 ml @ 100 mls/hr DAILY@09 IV 12/26/24 09:00 12/28/24 10:03 100 MLS/HR Lactulose 30 ml BID PO 12/26/24 22:00 12/28/24 10:03 30 ML Docusate Sodium 100 mg BID GT 12/26/24 22:00 12/26/24 23:15 100 MG Norepinephrine Bitartrate 250 ml @ 1.875 mls/ hr Q24H IV 12/26/24 14:15 12/26/24 14:15 1.875 MLS/HR Albumin Human 100 ml @ 100 mls/hr UD PRN IV 12/27/24 16:00 12/27/24 16:08 100 MLS/HR Examination Examination General: RASS -2, afebrile, mucosae are moist Cardiovascular: Normal S1 and S2. No murmurs, gallops or rubs Respiratory: Mechanically assisted ventilation, equal bilateral airway entree. Bilateral crackles Abdomen: Soft, nontender, no organomegaly, normal bowel sounds MSK/skin: Mobilization of limbs cannot be evaluated. Rt upper extremity is swollen. Skin is dry and warm. Neurological: Orientation cannot be assessed. No apparent motor no sensitive deficits. Pupils are isocoric and reactive laboratory and microbiology Laboratory Tests 12/28/24 04:29 Test 12/28/24 04:29 Range/Units Serum Glucose 133 H 74-106 mg/dL Microbiology Date/Time Source Procedure Growth Status 12/25/24 18:00 Voided Urine Urine Culture - Final Complete 12/24/24 13:05 Pleural Fluid Gram Stain - Final Resulted 12/24/24 13:05 Pleural Fluid Aerobic Culture - Preliminary Resulted 12/21/24 12:00 Nose MRSA Screen - Final Methicillin Resistant S.aureus Complete 12/21/24 11:46 Blood Blood Culture - Final NO GROWTH AFTER 5 DAYS OF INCUBATION. Complete 12/21/24 11:27 Sputum Gram Stain - Final Complete 12/21/24 11:27 Respiratory Culture - Final Methicillin Resistant S.aureus Complete Labs and/or images reviewed: Labs reviewed by me, Image(s) reviewed by me Problem List/Assessment/Plan Problem List/Assessment/Plan Assessment and plan: # ESRD on hemodialysis # Hyperkalemia resolved # Metabolic acidosis with respiratory alkalosis # Acute hypoxic respiratory failure, status post mechanical ventilation # AFib with RVR, currently sinus rhythm with controlled heart rate # Acute on chronic decompensated systolic heart failure with reduced EF # possible septic/cardiogenic shock # Gram-positive versus Gram-negative community-acquired pneumonia # Acute DVT of right upper extremity # BPH # S/P exploratory laparotomy with colostomy Plan: - Hemodialysis yesterday and 2.2 L ultrafiltration removed. - underwent hemodialysis today . - kitchen and counter worker was consulted for outpatient chair time. - Continue IV antibiotic and other management as per primary. - strict I&O - monitor BMP Thank you so much for the opportunity to consult on your patient. Nephro team will follow the patient. In case of any questions or concerns please feel free to reach out. Plan discussed with Dr. Key . The patient and caregiver team agreed to the plan. Addendum Patient seen and examined, plan discussed with resident. Agree with above, we will follow closely next HD Plan discussed with: Spouse, Other (RN) Dietary Evaluation Review Comments: Nutrition Recommendation: 1) TF Nepro Carbsteady @ 40ml/hr x 24hr (goal rate) along with Pro-stat 1 pk TID. TF @ goal volume along with Pro-Stat provide 2028 kcal (100% energy needs), 123 gm protein (100% protein needs), 698 ml free water. 2) Water flush 80 ml Q6H if allowed, adjust PRN 3) TPN if NPO >7 days 4) Monitor NPO status, lab values, wt trend, I/O Expected Outcomes/Goals: To meet >75% estimated needs Lab values to improve Fu 2-3 days JOSEFINA AKERS Dec 28, 2024 18:05 CIRO KEY MD Dec 28, 2024 21:07
[2024-12-29] VITALS (86 sets, daily range): BP systolic 111–189; BP diastolic 81–114; PULSE 88–127; RESP 16–22; TEMP 97.3–98.8; O2SAT 87–100
--- NOTE | 2024-12-29 00:03 | DVHPN2 ---
Progress Note - Dictate Date Seen: Dec 28, 2024 Medical Necessity Reason Pt with a Central, PICC or Fol: Yes The following are medically ne: Central Line, Stearns Catheter Reason for stearns catheter: Strict I&O Subjective Patient was seen and evaluated in follow up in the ICU. Patient is intubated on ventilator. 30% FiO2. The patient is off sedation and vasopressors x 48 hours. Patient not awake. Patient received HD today. Patient is scheduled for CPAP trial tomorrow. BUN 30, Mixer Tender 4.85. vital signs Vital Sign Date Time Temp Pulse Resp B/P (MAP) Pulse Ox O2 Delivery O2 Flow Rate FiO2 12/28/24 23:55 104 18 111/96 (101) 100 30 12/28/24 20:00 Nasal Cannula* 4 12/28/24 18:46 98.2 208.8 Total Intake and Output 12/28/24 12/28/24 12/29/24 15:00 23:00 07:00 Intake Total 183.28 ml 199.96 ml Output Total 50 ml 2525 ml Balance 133.28 ml -2325.04 ml medications Current Medications Medications Dose Ordered Sig/Isidra Route Start Time Stop Time Status Last Admin Dose Admin Albuterol 2.5 mg Q6HPRN PRN NEB 12/20/24 19:30 12/28/24 00:19 2.5 MG Acetaminophen 650 mg Q6HP PRN PO 12/20/24 19:30 Nitroglycerin 0.4 mg Q5MINP PRN SL 12/20/24 19:30 Morphine Sulfate 2 mg Q30M PRN IV 12/20/24 19:30 Enoxaparin Sodium 80 mg DAILY SC 12/22/24 10:00 UNV Vancomycin HCl 0 ml @ 0 mls/hr UD IV 12/21/24 11:45 Pantoprazole Sodium 40 mg DAILY IV 12/22/24 10:00 12/28/24 10:03 40 MG Midazolam HCl 50 ml @ 1 mls/hr Q24H IV 12/21/24 11:45 12/26/24 06:57 5 MLS/HR Fentanyl Citrate 250 ml @ 2.5 mls/hr Q24H IV 12/21/24 11:45 12/26/24 08:28 12.5 MLS/HR Diagnostic Test (Pha) 1 strip Q6HR 12/22/24 00:00 12/28/24 17:15 1 STRIP Insulin Human Regular Q6HR SC 12/22/24 00:00 12/28/24 11:51 2 UNITS Dextrose 50 ml UD PRN IV 12/21/24 21:00 12/22/24 06:03 50 ML Enteral Nutritional Formula 1,000 ml 30ML/HR GT 12/24/24 12:45 12/27/24 14:52 1,000 ML Amiodarone HCL/ Dextrose 200 ml @ 16.66 mls/ hr Q12H IV 12/25/24 18:45 12/28/24 04:20 16.66 MLS/HR Enoxaparin Sodium 80 mg DAILY SC 12/26/24 10:00 12/26/24 10:00 80 MG Ceftriaxone Sodium 50 ml @ 100 mls/hr DAILY@09 IV 12/26/24 09:00 12/28/24 10:03 100 MLS/HR Lactulose 30 ml BID PO 12/26/24 22:00 12/28/24 21:42 30 ML Docusate Sodium 100 mg BID GT 12/26/24 22:00 12/28/24 21:42 100 MG Norepinephrine Bitartrate 250 ml @ 1.875 mls/ hr Q24H IV 12/26/24 14:15 12/26/24 14:15 1.875 MLS/HR Albumin Human 100 ml @ 100 mls/hr UD PRN IV 12/27/24 16:00 12/27/24 16:08 100 MLS/HR objective GENERAL: Ill appearing, intubated on ventilator. EYES: PERRL, EOMI. Anicteric. HENT: Moist mucous membranes. LUNGS: Decreased breath sounds. CARDIOVASCULAR: Regular rate and rhythm. ABDOMEN: Soft, nontender and nondistended. EXTREMITIES: No edema. SKIN: Warm, dry. laboratory and microbiology Laboratory Tests 12/28/24 04:29 Test 12/28/24 04:29 Range/Units Serum Glucose 133 H 74-106 mg/dL Problem List Atrial flutter/atrial fibrillation with RVR s/p DCCV, Stage IIIa, now NSR (on amiodarone/BB/Eliquis therapy at home-). Acute on chronic decompensated unspecified HF, NYHA Class IV. Nonischemic/dilated cardiomyopathy. Advanced CKD now ESRD with HD and associated hyperkalemia. History of cardiac ablation in 2022. Thyroid disease. Recent colon resection with colostomy. Assessment/Plan Continued all current supportive medical care. IV Amiodarone. IV antibiotics as ordered. DVT and GI prophylactics. Morphine for pain management. Additional plan as per the hospital course. Critical care time of 45 minutes provided to include time spent evaluation of patient at bedside, when appropriate patient/family education for diagnosis, treatment plan, review of pertinent medical information and discussion of care with specialty providers and PCP. Mechanical ventilator parameters, treatment and adjustments have personally been reviewed by me and treatment plan by computer field technician has also been reviewed. Dietary Evaluation Review Comments: Nutrition Recommendation: 1) TF Nepro Carbsteady @ 40ml/hr x 24hr (goal rate) along with Pro-stat 1 pk TID. TF @ goal volume along with Pro-Stat provide 2028 kcal (100% energy needs), 123 gm protein (100% protein needs), 698 ml free water. 2) Water flush 80 ml Q6H if allowed, adjust PRN 3) TPN if NPO >7 days 4) Monitor NPO status, lab values, wt trend, I/O Expected Outcomes/Goals: To meet >75% estimated needs Lab values to improve Fu 2-3 days Plan discussed with: KRISTOPHER Khan MD Dec 29, 2024 00:03
--- NOTE | 2024-12-29 05:01 | DVH ---
CHEST RADIOGRAPH Indication: RESP FAILURE Technique: Single frontal view of the chest was obtained COMPARISON: XY CHEST PORTABLE on DOS: 12/28/24, XY CHEST PORTABLE on DOS: 12/26/24, XY CHEST PORTABLE o n DOS: 12/25/24, CT CT ANGIO CHEST CONTRAST on DOS: 12/24/24, XY CHEST PORTABLE on DOS: 12/24/24 FINDINGS: Lines and Tubes: Unchanged. Lungs: Clear Pleura: No effusion. No pneumothorax. Cardiomediastinal contours: Unremarkable Bones: Unremarkable IMPRESSION: 1. No acute cardiopulmonary disease. 2. Lines and tubes unchanged.
[2024-12-29 05:06] LABS: Hematocrit 32.9 % (41.0-53.0); Hemoglobin 11.1 g/dL (13.5-17.5); Mean Corpuscular Hemoglobin 30.1 pg (28.0-32.0); Mean Corpuscular Volume 89.3 fL (80.0-100.0)
[2024-12-29 05:24] LABS: Alanine Aminotransferase 29 U/L (7-40); Albumin 3.3 g/dL (3.2-4.8); Alkaline Phosphatase 88 U/L (46-116); Anion Gap 12 (5-15); BUN/Creatinine Ratio 5.3 (10.0-20.0); Blood Urea Nitrogen 18 mg/dL (9-23); Calcium 8.8 mg/dL (8.7-10.4); Carbon Dioxide 30 mmol/L (20-31); Chloride 99 mmol/L (98-107); Glucose 91 mg/dL (74-106); Sodium 141 mmol/L (136-145); Total Protein 5.7 g/dL (5.7-8.2)
[2024-12-29 05:25] LABS: Bilirubin, Total 0.4 mg/dL (0.2-1.0)
[2024-12-29 05:31] LABS: Potassium 3.5 mmol/L (3.5-5.1)
[2024-12-29 06:40] LABS: Total Cells Counted 100.0 (100)
[2024-12-29 08:29] LABS: Base Excess 3.3 mmol/L (-2.0-3.0)
--- NOTE | 2024-12-29 09:45 | DVH ---
Bilateral lower extremity venous duplex Clinical History: edema Comparison: US BILAT LOWER DVT on DOS: 12/22/24, US BI LAT UPPER DVT on DOS: 12/22/24 Findings: Duplex Doppler evaluation of the deep venous systems of both lower extremities from the common femora l veins to the popliteal veins including color Doppler and spectral/pulsed waveform analysis was perf ormed. RIGHT SIDE: The common femoral vein demonstrates appropriate compressibility and waveform variability. There is compressibility/patency of the great saphenous vein at the proximal thigh. The femoral vein demonstrates appropriate compressibility and waveform variability. The deep femoral vein demonstrates appropriate compressibility and waveform variability. The popliteal vein demonstrates appropriate compressibility and waveform variability. There is normal compressibility at the tibioperoneal trunk. LEFT SIDE: The common femoral vein demonstrates appropriate compressibility and waveform variability. There is compressibility/patency of the great saphenous vein at the proximal thigh. The femoral vein demonstrates appropriate compressibility and waveform variability. The deep femoral vein demonstrates appropriate compressibility and waveform variability. The popliteal vein demonstrates appropriate compressibility and waveform variability. There is normal compressibility at the tibioperoneal trunk. IMPRESSION: No right or left femoropopliteal venous thrombosis. If clinical concern/symptoms persist or worsen, short-interval follow-up study is suggested. END IMPRESSION:
--- NOTE | 2024-12-29 10:31 | DVHPN2 ---
Progress Note Date Seen: Dec 29, 2024 Medical Necessity Reason Pt with a Central, PICC or Fol: Yes The following are medically ne: Central Line, Stearns Catheter Reason for stearns catheter: Strict I&O Subjective Patient reports: No new complaints Review of Systems: HEENT:Normal, CVS:Normal, RESPIRATORY:Normal, GI:Normal, :Normal, MSK:Normal, NEURO:Normal Objective vital signs Vital Sign Date Time Temp Pulse Resp B/P (MAP) Pulse Ox O2 Delivery O2 Flow Rate FiO2 12/29/24 09:50 108 18 156/105 (122) 100 30 12/29/24 08:00 Mechanical Ventilator+ 12/29/24 06:15 98.2 208.8 12/28/24 20:00 4 Total Intake and Output 12/28/24 12/28/24 12/29/24 15:00 23:00 07:00 Intake Total 183.28 ml 233.28 ml 273.62 ml Output Total 50 ml 2525 ml 540 ml Balance 133.28 ml -2291.72 ml -266.38 ml medications Current Medications Medications Dose Ordered Sig/Isidra Route Start Time Stop Time Status Last Admin Dose Admin Albuterol 2.5 mg Q6HPRN PRN NEB 12/20/24 19:30 12/28/24 00:19 2.5 MG Acetaminophen 650 mg Q6HP PRN PO 12/20/24 19:30 Nitroglycerin 0.4 mg Q5MINP PRN SL 12/20/24 19:30 Morphine Sulfate 2 mg Q30M PRN IV 12/20/24 19:30 Enoxaparin Sodium 80 mg DAILY SC 12/22/24 10:00 UNV Vancomycin HCl 0 ml @ 0 mls/hr UD IV 12/21/24 11:45 Pantoprazole Sodium 40 mg DAILY IV 12/22/24 10:00 12/29/24 09:58 40 MG Midazolam HCl 50 ml @ 1 mls/hr Q24H IV 12/21/24 11:45 12/26/24 06:57 5 MLS/HR Fentanyl Citrate 250 ml @ 2.5 mls/hr Q24H IV 12/21/24 11:45 12/26/24 08:28 12.5 MLS/HR Diagnostic Test (Pha) 1 strip Q6HR 12/22/24 00:00 12/29/24 05:24 1 STRIP Insulin Human Regular Q6HR SC 12/22/24 00:00 12/29/24 00:31 3 UNITS Dextrose 50 ml UD PRN IV 12/21/24 21:00 12/22/24 06:03 50 ML Enteral Nutritional Formula 1,000 ml 30ML/HR GT 12/24/24 12:45 12/27/24 14:52 1,000 ML Amiodarone HCL/ Dextrose 200 ml @ 16.66 mls/ hr Q12H IV 12/25/24 18:45 12/29/24 02:04 16.66 MLS/HR Enoxaparin Sodium 80 mg DAILY SC 12/26/24 10:00 12/29/24 10:05 80 MG Ceftriaxone Sodium 50 ml @ 100 mls/hr DAILY@09 IV 12/26/24 09:00 12/29/24 09:58 100 MLS/HR Docusate Sodium 100 mg BID GT 12/26/24 22:00 12/29/24 10:05 100 MG Norepinephrine Bitartrate 250 ml @ 1.875 mls/ hr Q24H IV 12/26/24 14:15 12/26/24 14:15 1.875 MLS/HR Albumin Human 100 ml @ 100 mls/hr UD PRN IV 12/27/24 16:00 12/27/24 16:08 100 MLS/HR Metoprolol Succinate 50 mg DAILY PO 12/29/24 10:00 UNV Examination: GENERAL:Normal, HEENT:Normal, NECK:Normal, LUNGS:Normal, LUNGS:Abnormal (intubated), CVS:Normal, ABDOMEN:Normal, MSK:Normal, SKIN:Normal, NEURO:Normal, :Normal laboratory and microbiology Laboratory Tests 12/29/24 04:43 Test 12/29/24 04:43 Range/Units Serum Glucose 91 74-106 mg/dL Microbiology Date/Time Source Procedure Growth Status 12/25/24 18:00 Voided Urine Urine Culture - Final Complete 12/24/24 13:05 Pleural Fluid Gram Stain - Final Resulted 12/24/24 13:05 Pleural Fluid Aerobic Culture - Preliminary Resulted 12/21/24 12:00 Nose MRSA Screen - Final Methicillin Resistant S.aureus Complete 12/21/24 11:46 Blood Blood Culture - Final NO GROWTH AFTER 5 DAYS OF INCUBATION. Complete 12/21/24 11:27 Sputum Gram Stain - Final Complete 12/21/24 11:27 Respiratory Culture - Final Methicillin Resistant S.aureus Complete Problem List/Assessment/Plan Problem List/Assessment/Plan #1 acute resp failure: on acv, cpap trial in am #2 shock - septic due to mrsa pneumonia?cardiac: cultures, iv antibiotics, iv pressors #3 esrd: on dialysis #4 s/p bowel perf s/p exp lap: tube feedings #5 s/p peg/ostomy #6 a fib s/p cardioversion: amiodarone #7 dm: ssi #8 bph: stearns cath #9 right upper extremity dvt: lovenox #10 gallstones #11 thrombocytopenia; monitor #12 encephalopathy; check ct head long dw family regards current condition and code status- no cpr/cardioversion per Plan discussed with: Spouse My Orders My Orders Orders - ALY SCHROEDER MD Procedure Category Date Status Time Cpap Trial For Am ORDERS 12/28/24 Transmitted 10:47 Chest Portable XY 12/29/24 Resulted 06:00 Abg W/ Co-Ox RT 12/29/24 Logged 06:00 Vancomycin,Random LAB 12/30/24 Verified 04:00 Creatinine LAB 12/30/24 Verified 04:[address] 12/29/24 Verified 10:28 Complete Blood Count LAB 12/30/24 Verified 06:00 Basic Metabolic Panel LAB 12/30/24 Verified 06:00 Chest Portable XY 12/30/24 Verified 06:00 Abg W/ Co-Ox RT 12/30/24 Verified 06:00 Dietary Evaluation Review Comments: Nutrition Recommendation: 1) TF Nepro Carbsteady @ 40ml/hr x 24hr (goal rate) along with Pro-stat 1 pk TID. TF @ goal volume along with Pro-Stat provide 2028 kcal (100% energy needs), 123 gm protein (100% protein needs), 698 ml free water. 2) Water flush 80 ml Q6H if allowed, adjust PRN 3) TPN if NPO >7 days 4) Monitor NPO status, lab values, wt trend, I/O Expected Outcomes/Goals: To meet >75% estimated needs Lab values to improve Fu 2-3 days Critical Care Time (mins): 51 (critical care time excluding procedures is 51 mins) Date of Service: Dec 29, 2024 Billing Provider: ALY SCHROEDER MD Common Visit Codes: 76124-[id number] CARE 30-74 MIN ALY SCHROEDER MD Dec 29, 2024 10:31
--- NOTE | 2024-12-29 10:47 | DVHPN2 ---
Progress Note Date Seen: Dec 29, 2024 Resident Creating Document: JOSEFINA AKERS RESIDENT Medical Necessity Reason Pt with a Central, PICC or Fol: Yes The following are medically ne: Central Line, Stearns Catheter Reason for stearns catheter: Strict I&O Subjective Review of Systems Patient was seen and examined on the bedside. Off vasopressor and sedation for more than 48 hours but patient is not waking up. scheduled for CPAP trial tomorrow Objective vital signs Vital Sign Date Time Temp Pulse Resp B/P (MAP) Pulse Ox O2 Delivery O2 Flow Rate FiO2 12/29/24 10:31 98.2 109 21 164/107 (126) 97 208.8 12/29/24 10:00 30 12/29/24 08:00 Mechanical Ventilator+ 12/28/24 20:00 4 Total Intake and Output 12/28/24 12/28/24 12/29/24 15:00 23:00 07:00 Intake Total 183.28 ml 233.28 ml 273.62 ml Output Total 50 ml 2525 ml 540 ml Balance 133.28 ml -2291.72 ml -266.38 ml medications Current Medications Medications Dose Ordered Sig/Isidra Route Start Time Stop Time Status Last Admin Dose Admin Albuterol 2.5 mg Q6HPRN PRN NEB 12/20/24 19:30 12/28/24 00:19 2.5 MG Acetaminophen 650 mg Q6HP PRN PO 12/20/24 19:30 Nitroglycerin 0.4 mg Q5MINP PRN SL 12/20/24 19:30 Morphine Sulfate 2 mg Q30M PRN IV 12/20/24 19:30 Enoxaparin Sodium 80 mg DAILY SC 12/22/24 10:00 UNV Vancomycin HCl 0 ml @ 0 mls/hr UD IV 12/21/24 11:45 Pantoprazole Sodium 40 mg DAILY IV 12/22/24 10:00 12/29/24 09:58 40 MG Midazolam HCl 50 ml @ 1 mls/hr Q24H IV 12/21/24 11:45 12/26/24 06:57 5 MLS/HR Fentanyl Citrate 250 ml @ 2.5 mls/hr Q24H IV 12/21/24 11:45 12/26/24 08:28 12.5 MLS/HR Diagnostic Test (Pha) 1 strip Q6HR 12/22/24 00:00 101/25 05:24 1 STRIP Insulin Human Regular Q6HR SC 12/22/24 00:00 12/29/24 00:31 3 UNITS Dextrose 50 ml UD PRN IV 12/21/24 21:00 12/22/24 06:03 50 ML Enteral Nutritional Formula 1,000 ml 30ML/HR GT 12/24/24 12:45 12/27/24 14:52 1,000 ML Amiodarone HCL/ Dextrose 200 ml @ 16.66 mls/ hr Q12H IV 12/25/24 18:45 12/29/24 02:04 16.66 MLS/HR Enoxaparin Sodium 80 mg DAILY SC 12/26/24 10:00 12/29/24 10:05 80 MG Ceftriaxone Sodium 50 ml @ 100 mls/hr DAILY@09 IV 12/26/24 09:00 12/29/24 09:58 100 MLS/HR Docusate Sodium 100 mg BID GT 12/26/24 22:00 12/29/24 10:05 100 MG Norepinephrine Bitartrate 250 ml @ 1.875 mls/ hr Q24H IV 12/26/24 14:15 12/26/24 14:15 1.875 MLS/HR Albumin Human 100 ml @ 100 mls/hr UD PRN IV 12/27/24 16:00 12/27/24 16:08 100 MLS/HR Metoprolol Succinate 50 mg DAILY PO 12/29/24 10:00 UNV Examination Examination General: RASS -2, afebrile, mucosae are moist Cardiovascular: Normal S1 and S2. No murmurs, gallops or rubs Respiratory: Mechanically assisted ventilation, equal bilateral airway entree. Bilateral crackles Abdomen: Soft, nontender, no organomegaly, normal bowel sounds MSK/skin: Mobilization of limbs cannot be evaluated. Rt upper extremity is swollen. Skin is dry and warm. Neurological: Orientation cannot be assessed. No apparent motor no sensitive deficits. Pupils are isocoric and reactive laboratory and microbiology Laboratory Tests 12/29/24 04:43 Test 12/29/24 04:43 Range/Units Serum Glucose 91 74-106 mg/dL Microbiology Date/Time Source Procedure Growth Status 12/25/24 18:00 Voided Urine Urine Culture - Final Complete 12/24/24 13:05 Pleural Fluid Gram Stain - Final Resulted 12/24/24 13:05 Pleural Fluid Aerobic Culture - Preliminary Resulted 12/21/24 12:00 Nose MRSA Screen - Final Methicillin Resistant S.aureus Complete 12/21/24 11:46 Blood Blood Culture - Final NO GROWTH AFTER 5 DAYS OF INCUBATION. Complete 12/21/24 11:27 Sputum Gram Stain - Final Complete 12/21/24 11:27 Respiratory Culture - Final Methicillin Resistant S.aureus Complete Labs and/or images reviewed: Labs reviewed by me, Image(s) reviewed by me Problem List/Assessment/Plan Problem List/Assessment/Plan Assessment and plan: # ESRD on hemodialysis # Hyperkalemia resolved # Metabolic acidosis with respiratory alkalosis # Acute hypoxic respiratory failure, status post mechanical ventilation # AFib with RVR, currently sinus rhythm with controlled heart rate # Acute on chronic decompensated systolic heart failure with reduced EF # possible septic/cardiogenic shock # Gram-positive versus Gram-negative community-acquired pneumonia # Acute DVT of right upper extremity # BPH # S/P exploratory laparotomy with colostomy Plan: - Hemodialysis yesterday and 2.5 L ultrafiltration removed. - underwent hemodialysis today . - prop worker was consulted for outpatient chair time. - Continue IV antibiotic and other management as per primary. - strict I&O - monitor BMP Thank you so much for the opportunity to consult on your patient. Nephro team will follow the patient. In case of any questions or concerns please feel free to reach out. Plan discussed with Dr. Key . The patient and caregiver team agreed to the plan. Addendum Patient seen and examined, plan discussed with resident. Agree with above, we will follow closely Plan discussed with: Spouse, Other (RN) My Orders My Orders Orders - JOSEFINA AKERS RESIDENT Procedure Category Date Status Time Metoprolol Xl PHA 12/29/24 Logged Succinate (Toprol Xl) 10:00 Dietary Evaluation Review Comments: Nutrition Recommendation: 1) TF Nepro Carbsteady @ 40ml/hr x 24hr (goal rate) along with Pro-stat 1 pk TID. TF @ goal volume along with Pro-Stat provide 2028 kcal (100% energy needs), 123 gm protein (100% protein needs), 698 ml free water. 2) Water flush 80 ml Q6H if allowed, adjust PRN 3) TPN if NPO >7 days 4) Monitor NPO status, lab values, wt trend, I/O Expected Outcomes/Goals: To meet >75% estimated needs Lab values to improve Fu 2-3 days JOSEFINA AKERS Dec 29, 2024 10:47 CIRO KEY MD Dec 30, 2024 10:47
[2024-12-29] MEDS: METOPROLOL SUCCINATE XL 50 MG TAB PO SCH (14:57)
--- NOTE | 2024-12-29 16:44 | DVH ---
CLINICAL HISTORY: Mental status change. TECHNIQUE: Helical scanning was performed of the head from the skull base to the vertex. Multiplanar reconstructions were performed. This exam was performed according to our departmental dose optimizat ion program. Up-to-date CT equipment and radiation dose reduction techniques are utilized as appropri ate. CTDI 60 DLP 1178 COMPARISON: None FINDINGS: There is no evidence for acute intracranial hemorrhage, acute ischemic changes, mass, mass effect, or extra-axial fluid collection. There is no hydrocephalus or midline shift. There is no effacement of the cerebral sulci and basal subarachnoid cisterns. The hines-white matter differentiation is well evert ntained. There is ccdz-ma-onodkioe brain volume loss and mild chronic small vessel ischemic change. The imaged paranasal sinuses demonstrate minimal right maxillary sinus mucosal thickening. IMPRESSION: NO ACUTE INTRACRANIAL ABNORMALITY SEEN.
--- NOTE | 2024-12-29 23:58 | DVHPN2 ---
Progress Note - Dictate Date Seen: Dec 29, 2024 Medical Necessity Reason Pt with a Central, PICC or Fol: Yes The following are medically ne: Central Line, Stearns Catheter Reason for stearns catheter: Strict I&O Subjective Patient was seen and evaluated in follow up in the ICU. Patient is intubated on ventilator. 30% FiO2. Patient is not waking up. CPAP trial is scheduled for tomorrow. BLE venous duplex is negative for DVT. Chest x-ray showed NAD. CT head is WNL. vital signs Vital Sign Date Time Temp Pulse Resp B/P (MAP) Pulse Ox O2 Delivery O2 Flow Rate FiO2 12/29/24 17:31 98.4 92 17 175/100 (125) 97 209.1 12/29/24 16:23 30 12/29/24 08:00 Mechanical Ventilator+ 12/28/24 20:00 4 Total Intake and Output 12/28/24 12/28/24 12/29/24 15:00 23:00 07:00 Intake Total 183.28 ml 233.28 ml 290.28 ml Output Total 50 ml 2525 ml 540 ml Balance 133.28 ml -2291.72 ml -249.72 ml medications Current Medications Medications Dose Ordered Sig/Isidra Route Start Time Stop Time Status Last Admin Dose Admin Albuterol 2.5 mg Q6HPRN PRN NEB 12/20/24 19:30 12/28/24 00:19 2.5 MG Acetaminophen 650 mg Q6HP PRN PO 12/20/24 19:30 Nitroglycerin 0.4 mg Q5MINP PRN SL 12/20/24 19:30 Morphine Sulfate 2 mg Q30M PRN IV 12/20/24 19:30 Enoxaparin Sodium 80 mg DAILY SC 12/22/24 10:00 UNV Vancomycin HCl 0 ml @ 0 mls/hr UD IV 12/21/24 11:45 Pantoprazole Sodium 40 mg DAILY IV 12/22/24 10:00 12/29/24 09:58 40 MG Midazolam HCl 50 ml @ 1 mls/hr Q24H IV 12/21/24 11:45 12/26/24 06:57 5 MLS/HR Fentanyl Citrate 250 ml @ 2.5 mls/hr Q24H IV 12/21/24 11:45 12/26/24 08:28 12.5 MLS/HR Diagnostic Test (Pha) 1 strip Q6HR 12/22/24 00:00 12/29/24 17:29 1 STRIP Insulin Human Regular Q6HR SC 12/22/24 00:00 12/29/24 00:31 3 UNITS Dextrose 50 ml UD PRN IV 12/21/24 21:00 12/22/24 06:03 50 ML Enteral Nutritional Formula 1,000 ml 30ML/HR GT 12/24/24 12:45 12/27/24 14:52 1,000 ML Amiodarone HCL/ Dextrose 200 ml @ 16.66 mls/ hr Q12H IV 12/25/24 18:45 12/29/24 14:48 16.66 MLS/HR Enoxaparin Sodium 80 mg DAILY SC 12/26/24 10:00 12/29/24 10:05 80 MG Ceftriaxone Sodium 50 ml @ 100 mls/hr DAILY@09 IV 12/26/24 09:00 12/29/24 09:58 100 MLS/HR Docusate Sodium 100 mg BID GT 12/26/24 22:00 12/29/24 10:05 100 MG Norepinephrine Bitartrate 250 ml @ 1.875 mls/ hr Q24H IV 12/26/24 14:15 12/26/24 14:15 1.875 MLS/HR Albumin Human 100 ml @ 100 mls/hr UD PRN IV 12/27/24 16:00 12/27/24 16:08 100 MLS/HR Metoprolol Succinate 50 mg DAILY PO 12/29/24 10:00 12/29/24 14:57 50 MG objective GENERAL: Ill appearing, intubated on ventilator. EYES: PERRL, EOMI. Anicteric. HENT: Moist mucous membranes. LUNGS: Decreased breath sounds. CARDIOVASCULAR: Regular rate and rhythm. ABDOMEN: Soft, nontender and nondistended. EXTREMITIES: No edema. SKIN: Warm, dry. laboratory and microbiology Laboratory Tests 12/29/24 04:43 Test 12/29/24 04:43 Range/Units Serum Glucose 91 74-106 mg/dL Problem List Atrial flutter/atrial fibrillation with RVR s/p DCCV, Stage IIIa, now NSR (on amiodarone/BB/Eliquis therapy at home-). Acute on chronic decompensated unspecified HF, NYHA Class IV. Nonischemic/dilated cardiomyopathy. Advanced CKD now ESRD with HD and associated hyperkalemia. History of cardiac ablation in 2022. Thyroid disease. Recent colon resection with colostomy. Assessment/Plan Continued all current supportive medical care. Metoprolol. IV Amiodarone. IV antibiotics as ordered. DVT and GI prophylactics. Morphine for pain management. Additional plan as per the hospital course. Critical care time of 45 minutes provided to include time spent evaluation of patient at bedside, when appropriate patient/family education for diagnosis, treatment plan, review of pertinent medical information and discussion of care with specialty providers and PCP. Mechanical ventilator parameters, treatment and adjustments have personally been reviewed by me and treatment plan by director it project has also been reviewed. Dietary Evaluation Review Comments: Nutrition Recommendation: 1) TF Nepro Carbsteady @ 40ml/hr x 24hr (goal rate) along with Pro-stat 1 pk TID. TF @ goal volume along with Pro-Stat provide 2028 kcal (100% energy needs), 123 gm protein (100% protein needs), 698 ml free water. 2) Water flush 80 ml Q6H if allowed, adjust PRN 3) TPN if NPO >7 days 4) Monitor NPO status, lab values, wt trend, I/O Expected Outcomes/Goals: To meet >75% estimated needs Lab values to improve Fu 2-3 days Plan discussed with: KRISTOPHER Khan MD Dec 29, 2024 18:14
[2024-12-30] VITALS (85 sets, daily range): BP systolic 101–192; BP diastolic 70–112; PULSE 69–122; RESP 15–23; TEMP 97.7–98.8; O2SAT 97–100
[2024-12-30 05:29] LABS: Hematocrit 31.8 % (41.0-53.0); Hemoglobin 10.8 g/dL (13.5-17.5); Mean Corpuscular Hemoglobin 30.5 pg (28.0-32.0); Mean Corpuscular Volume 89.6 fL (80.0-100.0)
[2024-12-30 05:43] LABS: Chloride 99 mmol/L (98-107); Potassium 3.5 mmol/L (3.5-5.1); Sodium 140 mmol/L (136-145)
[2024-12-30 05:44] LABS: Anion Gap 13 (5-15); Carbon Dioxide 28 mmol/L (20-31)
[2024-12-30 05:46] LABS: Calcium 8.7 mg/dL (8.7-10.4)
[2024-12-30 05:49] LABS: Glucose 94 mg/dL (74-106)
--- NOTE | 2024-12-30 05:55 | DVH ---
CHEST RADIOGRAPH Indication: RESP FAILURE Technique: Single frontal view of the chest was obtained COMPARISON: XY CHEST PORTABLE on DOS: 12/29/24, XY CHEST PORTABLE on DOS: 12/28/24, XY CHEST PORTABLE o n DOS: 12/26/24, XY CHEST PORTABLE on DOS: 12/25/24, CT CT ANGIO CHEST CONTRAST on DOS: 12/24/24 FINDINGS: Lines and Tubes: Endotracheal tube in satisfactory position, right and left central venous catheter i n satisfactory position. Lungs: Right lower lobe airspace disease. Pleura: No effusion.No pneumothorax. Cardiomediastinal contours: Cardiomegaly. Bones: Unremarkable. IMPRESSION: Lines and tubes in satisfactory position. No significant interval change.
[2024-12-30 06:03] LABS: BUN/Creatinine Ratio 4.5 (10.0-20.0); Blood Urea Nitrogen 19 mg/dL (9-23)
[2024-12-30 06:29] LABS: Total Cells Counted 100.0 (100)
[2024-12-30] MEDS: ACETAMINOPHEN 325 MG TAB PO PRN (06:35)
[2024-12-30 07:58] LABS: Base Excess 4.1 mmol/L (-2.0-3.0)
[2024-12-30] MEDS: METOPROLOL SUCCINATE XL 50 MG TAB PO SCH (10:10)
[2024-12-30] MEDS: VANCOMYCIN 500mg/100mL 100 ML IV ONE ×2 (11:00→18:30)
--- NOTE | 2024-12-30 13:30 | DVHPN2 ---
Progress Note Date Seen: Dec 30, 2024 Medical Necessity Reason Pt with a Central, PICC or Fol: Yes The following are medically ne: Central Line, Stearns Catheter Reason for stearns catheter: Strict I&O Subjective Patient reports: No new complaints Review of Systems: HEENT:Normal, CVS:Normal, RESPIRATORY:Normal, GI:Normal, :Normal, MSK:Normal, NEURO:Normal Objective vital signs Vital Sign Date Time Temp Pulse Resp B/P (MAP) Pulse Ox O2 Delivery O2 Flow Rate FiO2 12/30/24 12:00 84 18 131/88 (102) 100 12/30/24 11:39 30 12/30/24 08:00 98.2 208.8 12/30/24 07:49 Mechanical Ventilator+ 12/28/24 20:00 4 Total Intake and Output 12/29/24 12/29/24 12/30/24 14:59 22:59 06:59 Intake Total 183.28 ml 166.62 ml 180.28 ml Output Total 60 ml 130 ml Balance 183.28 ml 106.62 ml 50.28 ml medications Current Medications Medications Dose Ordered Sig/Isidra Route Start Time Stop Time Status Last Admin Dose Admin Albuterol 2.5 mg Q6HPRN PRN NEB 12/20/24 19:30 12/28/24 00:19 2.5 MG Acetaminophen 650 mg Q6HP PRN PO 12/20/24 19:30 12/30/24 06:35 650 MG Nitroglycerin 0.4 mg Q5MINP PRN SL 12/20/24 19:30 Morphine Sulfate 2 mg Q30M PRN IV 12/20/24 19:30 Enoxaparin Sodium 80 mg DAILY SC 12/22/24 10:00 UNV Vancomycin HCl 0 ml @ 0 mls/hr UD IV 12/21/24 11:45 Pantoprazole Sodium 40 mg DAILY IV 12/22/24 10:00 12/30/24 09:05 40 MG Midazolam HCl 50 ml @ 1 mls/hr Q24H IV 12/21/24 11:45 12/26/24 06:57 5 MLS/HR Fentanyl Citrate 250 ml @ 2.5 mls/hr Q24H IV 12/21/24 11:45 12/26/24 08:28 12.5 MLS/HR Diagnostic Test (Pha) 1 strip Q6HR 12/22/24 00:00 12/30/24 06:42 1 STRIP Insulin Human Regular Q6HR SC 12/22/24 00:00 12/29/24 00:31 3 UNITS Dextrose 50 ml UD PRN IV 12/21/24 21:00 12/22/24 06:03 50 ML Enteral Nutritional Formula 1,000 ml 30ML/HR GT 12/24/24 12:45 12/29/24 22:02 1,000 ML Amiodarone HCL/ Dextrose 200 ml @ 16.66 mls/ hr Q12H IV 12/25/24 18:45 12/30/24 02:23 16.66 MLS/HR Enoxaparin Sodium 80 mg DAILY SC 12/26/24 10:00 12/30/24 10:10 80 MG Ceftriaxone Sodium 50 ml @ 100 mls/hr DAILY@09 IV 12/26/24 09:00 12/30/24 09:05 100 MLS/HR Docusate Sodium 100 mg BID GT 12/26/24 22:00 12/30/24 09:06 100 MG Norepinephrine Bitartrate 250 ml @ 1.875 mls/ hr Q24H IV 12/26/24 14:15 12/26/24 14:15 1.875 MLS/HR Albumin Human 100 ml @ 100 mls/hr UD PRN IV 12/27/24 16:00 12/27/24 16:08 100 MLS/HR Metoprolol Succinate 100 mg DAILY PO 12/30/24 09:45 12/30/24 10:10 100 MG Examination: GENERAL:Normal, HEENT:Normal, NECK:Normal, LUNGS:Normal, LUNGS:Abnormal (intubated), CVS:Normal, ABDOMEN:Normal, MSK:Normal, SKIN:Normal, NEURO:Normal, :Normal laboratory and microbiology Laboratory Tests 12/30/24 04:45 Test 12/30/24 04:45 Range/Units Serum Glucose 94 74-106 mg/dL Microbiology Date/Time Source Procedure Growth Status 12/25/24 18:00 Voided Urine Urine Culture - Final Complete 12/24/24 13:05 Pleural Fluid Gram Stain - Final Complete 12/24/24 13:05 Pleural Fluid Aerobic Culture - Final Complete 12/21/24 12:00 Nose MRSA Screen - Final Methicillin Resistant S.aureus Complete 12/21/24 11:46 Blood Blood Culture - Final NO GROWTH AFTER 5 DAYS OF INCUBATION. Complete 12/21/24 11:27 Sputum Gram Stain - Final Complete 12/21/24 11:27 Respiratory Culture - Final Methicillin Resistant S.aureus Complete Problem List/Assessment/Plan Problem List/Assessment/Plan #1 acute resp failure: on acv, cpap trial- failed #2 shock - septic due to mrsa pneumonia?cardiac: cultures, iv antibiotics, off iv pressors #3 esrd: on dialysis #4 s/p bowel perf s/p exp lap: tube feedings #5 s/p peg/ostomy #6 a fib s/p cardioversion: amiodarone, lopressor #7 dm: ssi #8 bph: stearns cath #9 right upper extremity dvt: lovenox #10 gallstones #11 thrombocytopenia; monitor #12 encephalopathy; check ct head long dw family regards current condition and code status- no cpr/cardioversion per Plan discussed with: Spouse My Orders My Orders Orders - ALY SCHROEDER MD Procedure Category Date Status Time Cpap/Sed Vacation Med ORDERS 12/30/24 Transmitted Weaning 10:27 Creatinine LAB 12/31/24 Verified 04:00 Vancomycin,Random LAB 12/31/24 Verified 04:00 Metoprolol Tartrate PHA 12/30/24 Verified Tablet (Lopressor Ta 22:00 Cpap Trial For Am ORDERS 12/30/24 Verified 13:24 Basic Metabolic Panel LAB 12/31/24 Verified 06:00 Complete Blood Count LAB 12/31/24 Verified 06:00 Magnesium LAB 12/31/24 Verified 05:00 Chest Portable XY 12/31/24 Verified 06:00 Abg W/ Co-Ox RT 12/31/24 Verified 06:00 Dietary Evaluation Review Comments: Nutrition Recommendation: 1) TF Nepro Carbsteady @ 40ml/hr x 24hr (goal rate) along with Pro-stat 1 pk TID. TF @ goal volume along with Pro-Stat provide 2028 kcal (100% energy needs), 123 gm protein (100% protein needs), 698 ml free water. 2) Water flush 80 ml Q6H if allowed, adjust PRN 3) TPN if NPO >7 days 4) Monitor NPO status, lab values, wt trend, I/O Expected Outcomes/Goals: To meet >75% estimated needs Lab values to improve Fu 2-3 days Critical Care Time (mins): 81 (critical care time excluding procedures and including cpap trial was 81 mins) Date of Service: Dec 30, 2024 Billing Provider: ALY SCHROEDER MD Common Visit Codes: 91817-[id number] CARE 30-74 MIN, [id number] CARE-EACH +30MIN ALY SCHROEDER MD Dec 30, 2024 13:30
[2024-12-30] MEDS ORDERED: MORPHINE SULFATE 4 MG/ML SYR/VIAL IV PRN (14:15)
--- NOTE | 2024-12-30 15:15 | ECG ---
[facility] Test Date: 2024-12-25 Test Time: 12:19:04 Pat Name: ELIZABETH STAUFFER Department: Respiratoy Room: 0264 A Gender: M Environmental Geologist: HC : 1945 Requested By: PILAR CARSON Order Number: [id number] Reading MD: Peyman Witt Measurements Intervals [place] Rate: 136 P: 0 ID: 0 QRS: -40 QRSD: 104 T: 97 QT: 339 QTc: 510 Interpretive Statements Atrial flutter with predominant 2:1 AV block Left axis deviation Low voltage, extremity leads Repolarization abnormality, prob rate related Prolonged QT interval Electronically Signed On 12-30-2024 21:05:52 PDT by Peyman Witt Please click the below link to view image of tracing.
--- NOTE | 2024-12-30 18:02 | DVHPN2 ---
Progress Note Date Seen: Dec 30, 2024 Resident Creating Document: JOSEFINA AKERS Medical Necessity Reason Pt with a Central, PICC or Fol: Yes The following are medically ne: Central Line, Stearns Catheter Reason for stearns catheter: Strict I&O Subjective Review of Systems Patient was seen and examined on the bedside. Off vasopressor and sedation for more than 48 hours but patient is not waking up. Failed CPAP trial today and scheduled for CPAP trial tomorrow Objective vital signs Vital Sign Date Time Temp Pulse Resp B/P (MAP) Pulse Ox O2 Delivery O2 Flow Rate FiO2 12/30/24 17:45 80 12/30/24 17:45 30 12/30/24 15:47 18 157/100 (119) 100 12/30/24 08:00 98.2 208.8 12/30/24 07:49 Mechanical Ventilator+ 12/28/24 20:00 4 Total Intake and Output 12/29/24 12/29/24 12/30/24 15:00 23:00 07:00 Intake Total 183.28 ml 166.62 ml 180.28 ml Output Total 60 ml 130 ml Balance 183.28 ml 106.62 ml 50.28 ml medications Current Medications Medications Dose Ordered Sig/Isidra Route Start Time Stop Time Status Last Admin Dose Admin Albuterol 2.5 mg Q6HPRN PRN NEB 12/20/24 19:30 12/28/24 00:19 2.5 MG Acetaminophen 650 mg Q6HP PRN PO 12/20/24 19:30 12/30/24 06:35 650 MG Nitroglycerin 0.4 mg Q5MINP PRN SL 12/20/24 19:30 Enoxaparin Sodium 80 mg DAILY SC 12/22/24 10:00 UNV Vancomycin HCl 0 ml @ 0 mls/hr UD IV 12/21/24 11:45 Pantoprazole Sodium 40 mg DAILY IV 12/22/24 10:00 12/30/24 09:05 40 MG Midazolam HCl 50 ml @ 1 mls/hr Q24H IV 12/21/24 11:45 12/26/24 06:57 5 MLS/HR Fentanyl Citrate 250 ml @ 2.5 mls/hr Q24H IV 12/21/24 11:45 12/26/24 08:28 12.5 MLS/HR Diagnostic Test (Pha) 1 strip Q6HR 12/22/24 00:00 12/30/24 06:42 1 STRIP Insulin Human Regular Q6HR SC 12/22/24 00:00 12/29/24 00:31 3 UNITS Dextrose 50 ml UD PRN IV 12/21/24 21:00 12/22/24 06:03 50 ML Enteral Nutritional Formula 1,000 ml 30ML/HR GT 12/24/24 12:45 12/29/24 22:02 1,000 ML Amiodarone HCL/ Dextrose 200 ml @ 16.66 mls/ hr Q12H IV 12/25/24 18:45 12/30/24 02:23 16.66 MLS/HR Enoxaparin Sodium 80 mg DAILY SC 12/26/24 10:00 12/30/24 10:10 80 MG Ceftriaxone Sodium 50 ml @ 100 mls/hr DAILY@09 IV 12/26/24 09:00 12/30/24 09:05 100 MLS/HR Docusate Sodium 100 mg BID GT 12/26/24 22:00 12/30/24 09:06 100 MG Albumin Human 100 ml @ 100 mls/hr UD PRN IV 12/27/24 16:00 12/27/24 16:08 100 MLS/HR Metoprolol Tartrate 50 mg BID PO 12/30/24 22:00 Morphine Sulfate 2 mg Q30M PRN IV 12/30/24 14:15 Examination Examination General: RASS -3, afebrile, mucosae are moist Cardiovascular: Normal S1 and S2. No murmurs, gallops or rubs Respiratory: Mechanically assisted ventilation, equal bilateral airway entree. Bilateral crackles Abdomen: Soft, nontender, no organomegaly, normal bowel sounds MSK/skin: Mobilization of limbs cannot be evaluated. Rt upper extremity is swollen. Skin is dry and warm. Neurological: Orientation cannot be assessed. No apparent motor no sensitive deficits. Pupils are isocoric and reactive laboratory and microbiology Laboratory Tests 12/30/24 04:45 Test 12/30/24 04:45 Range/Units Serum Glucose 94 74-106 mg/dL Microbiology Date/Time Source Procedure Growth Status 12/25/24 18:00 Voided Urine Urine Culture - Final Complete 12/24/24 13:05 Pleural Fluid Gram Stain - Final Complete 12/24/24 13:05 Pleural Fluid Aerobic Culture - Final Complete 12/21/24 12:00 Nose MRSA Screen - Final Methicillin Resistant S.aureus Complete 12/21/24 11:46 Blood Blood Culture - Final NO GROWTH AFTER 5 DAYS OF INCUBATION. Complete 12/21/24 11:27 Sputum Gram Stain - Final Complete 12/21/24 11:27 Respiratory Culture - Final Methicillin Resistant S.aureus Complete Labs and/or images reviewed: Labs reviewed by me (RN), Image(s) reviewed by me Problem List/Assessment/Plan Problem List/Assessment/Plan Assessment and plan: # ESRD on hemodialysis # Hyperkalemia resolved # Metabolic acidosis with respiratory alkalosis # Acute hypoxic respiratory failure, status post mechanical ventilation # AFib with RVR, currently sinus rhythm with controlled heart rate # Acute on chronic decompensated systolic heart failure with reduced EF # possible septic/cardiogenic shock # Gram-positive versus Gram-negative community-acquired pneumonia # Acute DVT of right upper extremity # BPH # S/P exploratory laparotomy with colostomy Plan: - Hemodialysis 12/30 - egg factory worker was consulted for outpatient chair time. - Continue IV antibiotic and other management as per primary. - strict I&O - monitor BMP Thank you so much for the opportunity to consult on your patient. Nephro team will follow the patient. In case of any questions or concerns please feel free to reach out. Plan discussed with Dr. Key . The patient and caregiver team agreed to the plan. Addendum Patient seen and examined, plan discussed with resident. Agree with above, we will follow closely Plan discussed with: Spouse, Other Dietary Evaluation Review Comments: Nutrition Recommendation: 1) TF Nepro Carbsteady @ 40ml/hr x 24hr (goal rate) along with Pro-stat 1 pk TID. TF @ goal volume along with Pro-Stat provide 2028 kcal (100% energy needs), 123 gm protein (100% protein needs), 698 ml free water. 2) Water flush 80 ml Q6H if allowed, adjust PRN 3) TPN if NPO >7 days 4) Monitor NPO status, lab values, wt trend, I/O Expected Outcomes/Goals: To meet >75% estimated needs Lab values to improve Fu 2-3 days JOSEFINA AKERS Dec 30, 2024 18:02 CIRO KEY MD Dec 30, 2024 22:38
[2024-12-30] MEDS: METOPROLOL TARTRATE 50 MG TAB PO SCH (21:52)
--- NOTE | 2024-12-30 22:01 | DVHPN2 ---
Progress Note - Dictate Date Seen: Dec 30, 2024 Medical Necessity Reason Pt with a Central, PICC or Fol: Yes The following are medically ne: Central Line, Stearns Catheter Reason for stearns catheter: Strict I&O Subjective Patient was seen and evaluated in follow up in the ICU. Patient is intubated on ventilator. 30% FiO2. FINANCIAL AID OFFICER 4.26. Chest x-ray shows right lower lobe airspace disease and cardiomegaly. vital signs Vital Sign Date Time Temp Pulse Resp B/P (MAP) Pulse Ox O2 Delivery O2 Flow Rate FiO2 12/30/24 12:00 84 18 131/88 (102) 100 12/30/24 11:39 30 12/30/24 08:00 98.2 208.8 12/30/24 07:49 Mechanical Ventilator+ 12/28/24 20:00 4 Total Intake and Output 12/29/24 12/29/24 12/30/24 15:00 23:00 07:00 Intake Total 183.28 ml 166.62 ml 180.28 ml Output Total 60 ml 130 ml Balance 183.28 ml 106.62 ml 50.28 ml medications Current Medications Medications Dose Ordered Sig/Isidra Route Start Time Stop Time Status Last Admin Dose Admin Albuterol 2.5 mg Q6HPRN PRN NEB 12/20/24 19:30 12/28/24 00:19 2.5 MG Acetaminophen 650 mg Q6HP PRN PO 12/20/24 19:30 12/30/24 06:35 650 MG Nitroglycerin 0.4 mg Q5MINP PRN SL 12/20/24 19:30 Morphine Sulfate 2 mg Q30M PRN IV 12/20/24 19:30 Enoxaparin Sodium 80 mg DAILY SC 12/22/24 10:00 UNV Vancomycin HCl 0 ml @ 0 mls/hr UD IV 12/21/24 11:45 Pantoprazole Sodium 40 mg DAILY IV 12/22/24 10:00 12/30/24 09:05 40 MG Midazolam HCl 50 ml @ 1 mls/hr Q24H IV 12/21/24 11:45 12/26/24 06:57 5 MLS/HR Fentanyl Citrate 250 ml @ 2.5 mls/hr Q24H IV 12/21/24 11:45 12/26/24 08:28 12.5 MLS/HR Diagnostic Test (Pha) 1 strip Q6HR 12/22/24 00:00 12/30/24 06:42 1 STRIP Insulin Human Regular Q6HR SC 12/22/24 00:00 12/29/24 00:31 3 UNITS Dextrose 50 ml UD PRN IV 12/21/24 21:00 12/22/24 06:03 50 ML Enteral Nutritional Formula 1,000 ml 30ML/HR GT 12/24/24 12:45 12/29/24 22:02 1,000 ML Amiodarone HCL/ Dextrose 200 ml @ 16.66 mls/ hr Q12H IV 12/25/24 18:45 12/30/24 02:23 16.66 MLS/HR Enoxaparin Sodium 80 mg DAILY SC 12/26/24 10:00 12/30/24 10:10 80 MG Ceftriaxone Sodium 50 ml @ 100 mls/hr DAILY@09 IV 12/26/24 09:00 12/30/24 09:05 100 MLS/HR Docusate Sodium 100 mg BID GT 12/26/24 22:00 12/30/24 09:06 100 MG Norepinephrine Bitartrate 250 ml @ 1.875 mls/ hr Q24H IV 12/26/24 14:15 12/26/24 14:15 1.875 MLS/HR Albumin Human 100 ml @ 100 mls/hr UD PRN IV 12/27/24 16:00 12/27/24 16:08 100 MLS/HR Metoprolol Succinate 100 mg DAILY PO 12/30/24 09:45 12/30/24 10:10 100 MG objective GENERAL: Ill appearing, intubated on ventilator. EYES: PERRL, EOMI. Anicteric. HENT: Moist mucous membranes. LUNGS: Decreased breath sounds. CARDIOVASCULAR: Regular rate and rhythm. ABDOMEN: Soft, nontender and nondistended. EXTREMITIES: No edema. SKIN: Warm, dry. laboratory and microbiology Laboratory Tests 12/30/24 04:45 Test 12/30/24 04:45 Range/Units Serum Glucose 94 74-106 mg/dL Problem List Atrial flutter/atrial fibrillation with RVR s/p DCCV, Stage IIIa, now NSR (on amiodarone/BB/Eliquis therapy at home-). Acute on chronic decompensated unspecified HF, NYHA Class IV. Nonischemic/dilated cardiomyopathy. Advanced CKD now ESRD with HD and associated hyperkalemia. History of cardiac ablation in 2022. Thyroid disease. Recent colon resection with colostomy. Assessment/Plan Continued all current supportive medical care. Metoprolol. IV Amiodarone. IV antibiotics as ordered. DVT and GI prophylactics. Morphine for pain management. Additional plan as per the hospital course. Critical care time of 45 minutes provided to include time spent evaluation of patient at bedside, when appropriate patient/family education for diagnosis, treatment plan, review of pertinent medical information and discussion of care with specialty providers and PCP. Mechanical ventilator parameters, treatment and adjustments have personally been reviewed by me and treatment plan by algorithm design engineer has also been reviewed. Dietary Evaluation Review Comments: Nutrition Recommendation: 1) TF Nepro Carbsteady @ 40ml/hr x 24hr (goal rate) along with Pro-stat 1 pk TID. TF @ goal volume along with Pro-Stat provide 2028 kcal (100% energy needs), 123 gm protein (100% protein needs), 698 ml free water. 2) Water flush 80 ml Q6H if allowed, adjust PRN 3) TPN if NPO >7 days 4) Monitor NPO status, lab values, wt trend, I/O Expected Outcomes/Goals: To meet >75% estimated needs Lab values to improve Fu 2-3 days Plan discussed with: KRISTOPHER Khan MD Dec 30, 2024 12:44
[2024-12-31] VITALS (76 sets, daily range): BP systolic 110–163; BP diastolic 72–105; PULSE 61–85; RESP 16–24; TEMP 96.4–97.9; O2SAT 96–100
[2024-12-31 05:32] LABS: Hematocrit 30.2 % (41.0-53.0); Hemoglobin 10.1 g/dL (13.5-17.5); Mean Corpuscular Hemoglobin 29.8 pg (28.0-32.0); Mean Corpuscular Volume 89.1 fL (80.0-100.0)
[2024-12-31 05:40] LABS: Chloride 100 mmol/L (98-107); Sodium 142 mmol/L (136-145)
[2024-12-31 05:41] LABS: Anion Gap 11 (5-15); Carbon Dioxide 31 mmol/L (20-31)
[2024-12-31 05:46] LABS: BUN/Creatinine Ratio 5.4 (10.0-20.0); Blood Urea Nitrogen 20 mg/dL (9-23)
[2024-12-31 05:47] LABS: Magnesium 2.2 mg/dL (1.6-2.6)
--- NOTE | 2024-12-31 05:59 | DVH ---
CHEST RADIOGRAPH Indication: RESP FAILURE Technique: Single frontal view of the chest was obtained Comparison: XY CHEST PORTABLE on DOS: 12/30/24. FINDINGS: Lines and Tubes: There is a right central venous catheter with its tip terminating in the superior ve na cava. The endotracheal tube terminates 3.9 cm above the mateo. There is a left central venous c atheter with its tip projecting over the superior vena cava. Lungs: Bilateral airspace disease is decreased since prior study. Pleura: No large pleural effusion. No pneumothorax. Cardiomediastinal contours: Stable Cardiovascular silhouette. Bones: No acute osseous abnormality. IMPRESSION: 1. Interval decrease in bilateral airspace disease. 2. Stable position of the support lines and tubes. 3. Similar cardiomegaly.
[2024-12-31 06:11] LABS: Calcium 8.4 mg/dL (8.7-10.4); Glucose 141 mg/dL (74-106); Potassium 3.2 mmol/L (3.5-5.1)
[2024-12-31 08:19] LABS: Base Excess 6.1 mmol/L (-2.0-3.0)
[2024-12-31 08:59] LABS: Total Cells Counted 100.0 (100)
--- NOTE | 2024-12-31 09:10 | DVHPN2 ---
Subjective Patient intubated and encephalopathic Reviewed: Care Plan, H&P, Labs, Medications, Previous Orders, Radiology Changes from previous H/P or p: No Changes General: Per HPI Objective Vitals Vital Signs Date Time Temp Pulse Resp B/P (MAP) Pulse Ox O2 Delivery O2 Flow Rate FiO2 12/31/24 08:25 62 18 117/84 (95) 100 30 12/31/24 04:00 97.6 97.6 12/30/24 20:00 Mechanical Ventilator+ Intake/Output Intake and Output 12/31/24 07:00 Intake Total 840.226 ml Output Total 300 ml Balance 540.226 ml Intake Oral 180 ml IV Total 460.226 ml Tube Feeding 200 ml Output Urine Total 300 ml Stool Total 0 ml General Appearance: Other (Encephalopathic) HEENT: Atraumatic Lungs: Clear to auscultation, Normal air movement, Other (FEW CRACKLES B LUNGS) Cardiovascular: Normal S1, Normal S2, Other (Atrial fibrillation) Abdomen: No tenderness Genitourinary: No Apparent Abnormalities (Catheter) Musculoskeletal: Weak motor strength RUE, Weak motor strength LUE, Weak motor strength RLE, Weak motor strength LLE Neuro: Other (Unable to assess) Skin: Dry, Intact Psych/Mental Status: Other (Unable to assess) Medications Current Medications Medications Dose Ordered Sig/Isidra Route Start Time Stop Time Status Last Admin Dose Admin Albuterol 2.5 mg Q6HPRN PRN NEB 12/20/24 19:30 12/28/24 00:19 2.5 MG Acetaminophen 650 mg Q6HP PRN PO 12/20/24 19:30 12/30/24 06:35 650 MG Nitroglycerin 0.4 mg Q5MINP PRN SL 12/20/24 19:30 Enoxaparin Sodium 80 mg DAILY SC 12/22/24 10:00 UNV Vancomycin HCl 0 ml @ 0 mls/hr UD IV 12/21/24 11:45 Pantoprazole Sodium 40 mg DAILY IV 12/22/24 10:00 12/30/24 09:05 40 MG Midazolam HCl 50 ml @ 1 mls/hr Q24H IV 12/21/24 11:45 12/26/24 06:57 5 MLS/HR Fentanyl Citrate 250 ml @ 2.5 mls/hr Q24H IV 12/21/24 11:45 12/26/24 08:28 12.5 MLS/HR Diagnostic Test (Pha) 1 strip Q6HR 12/22/24 00:00 12/31/24 06:18 1 STRIP Insulin Human Regular Q6HR SC 12/22/24 00:00 12/31/24 06:34 2 UNITS Dextrose 50 ml UD PRN IV 12/21/24 21:00 12/22/24 06:03 50 ML Enteral Nutritional Formula 1,000 ml 30ML/HR GT 12/24/24 12:45 12/29/24 22:02 1,000 ML Amiodarone HCL/ Dextrose 200 ml @ 16.66 mls/ hr Q12H IV 12/25/24 18:45 12/30/24 23:49 16.66 MLS/HR Enoxaparin Sodium 80 mg DAILY SC 12/26/24 10:00 12/30/24 10:10 80 MG Ceftriaxone Sodium 50 ml @ 100 mls/hr DAILY@09 IV 12/26/24 09:00 12/30/24 09:05 100 MLS/HR Docusate Sodium 100 mg BID GT 12/26/24 22:00 12/30/24 21:52 100 MG Albumin Human 100 ml @ 100 mls/hr UD PRN IV 12/27/24 16:00 12/27/24 16:08 100 MLS/HR Metoprolol Tartrate 50 mg BID PO 12/30/24 22:00 12/30/24 21:52 50 MG Morphine Sulfate 2 mg Q30M PRN IV 12/30/24 14:15 Laboratory Results Laboratory Tests 12/31/24 04:35 Chemistry Test 12/31/24 04:35 Calcium Level 8.4 mg/dL (8.7-10.4) L Magnesium Level 2.2 mg/dL (1.6-2.6) Urinalysis Test 12/22/24 12:02 Urine Color Dark yellow (Yellow) Urine Clarity Turbid (Clear) H Urine pH 7.5 (5.0-9.0) Urine Specific Johnson 1.010 (1.001-1.035) Urine Protein 1+ (Negative) H Urine Ketones Negative (Negative) Urine Blood 3+ /uL (Negative) H Urine Nitrite Negative (Negative) Urine Bilirubin Negative (Negative) Urine Urobilinogen Normal mg/dL (Negative) Urine Leukocyte Esterase 3+ /uL (Negative) Urine RBC 273 /hpf (0 - 3) Urine Microscopic WBC 126 /HPF (0-3) H Urine Squamous Epithelial Cells Few /hpf (<5) Urine Bacteria None seen /hpf (None Seen) Urine Mucus Few (None Seen) Urine Glucose Normal mg/dL (Normal) Blood Gas Results Test 12/31/24 08:06 Arterial Blood pH 7.545 (7.350-7.450) FiO2 % 30.0 Microbiology Microbiology Date/Time Source Procedure Growth Status 12/25/24 18:00 Voided Urine Urine Culture - Final Complete 12/24/24 13:05 Pleural Fluid Gram Stain - Final Complete 12/24/24 13:05 Pleural Fluid Aerobic Culture - Final Complete 12/21/24 12:00 Nose MRSA Screen - Final Methicillin Resistant S.aureus Complete 12/21/24 11:46 Blood Blood Culture - Final NO GROWTH AFTER 5 DAYS OF INCUBATION. Complete 12/21/24 11:27 Sputum Gram Stain - Final Complete 12/21/24 11:27 Respiratory Culture - Final Methicillin Resistant S.aureus Complete Labs and/or images reviewed: Labs reviewed by me, Image(s) reviewed by me Assessment/Plan Assessment/Plan Impression: -acute hypoxic respiratory failure -hospital-acquired pneumonia with MRSA -end-stage renal disease with hemodialysis -status post colostomy and PEG tube placement -anemia of chronic disease -DVT right upper arm -AFib with RVR, status post cardioversion -rule out pulmonary embolism -thrombocytopenia -cholelithiasis -BPH Plan: -events: Patient off sedation. Continues to be slow to arouse. Failed CPAP trial yesterday. Patient withdrawing to pain today. Noted respiratory and metabolic alkalosis. -CPAP trial daily. Change a.c. settings to rate of 16, tidal volume 500, peep of five. Continue 30% FiO2 -nephrology consultation for hemodialysis, potassium replacement -continue tube feeding -continue current antibiotic. -continue full-dose anticoagulation -PPI -repeat labs, chest x-ray, ABG in a.m. Critical care time spent with patient discussing and formulating plan of care: 40 minutes. This does not include time spent performing procedures. This medical document was created using an electronic medical record system with [employer] system. Although this document has been carefully reviewed, there may still be some phonetic and typographical errors. These areas are purely typographical due to imperfections of the software programs, and do not reflect any compromise in the patient's medical care. Plan discussed with: Patient, Other (RN) My Orders Orders - FLORENTINO LANGLEY NP Procedure Category Date Status Time Cpap Trial For Am ORDERS 12/31/24 Transmitted 09:06 Cpap/Sed Vacation Med ORDERS 12/31/24 Transmitted Weaning 09:06 Date of Service: Dec 31, 2024 Billing Provider: FLORENTINO LANGLEY NP Common Visit Codes: [id number] CARE 30-74 MIN FLORENTINO LANGLEY NP Dec 31, 2024 09:10
--- NOTE | 2024-12-31 11:09 | DVHPN2 ---
Progress Note Date Seen: Dec 31, 2024 Resident Creating Document: JOSEFINA AKERS Medical Necessity Reason Pt with a Central, PICC or Fol: Yes The following are medically ne: Central Line, Stearns Catheter Reason for stearns catheter: Strict I&O Subjective Review of Systems Patient was seen and examined on the bedside. Off vasopressor and sedation for more than 48 hours but patient is not waking up. recent head CT revealed no acute intracranial abnormality. failed CPAP trial today because the patient got apneic within a minute of spontaneous breathing trial. underwent hemodialysis yesterday and 1 L removed. Objective vital signs Vital Sign Date Time Temp Pulse Resp B/P (MAP) Pulse Ox O2 Delivery O2 Flow Rate FiO2 12/31/24 10:59 68 130/105 12/31/24 09:58 16 100 30 12/31/24 08:00 Mechanical Ventilator+ 12/31/24 04:00 97.6 97.6 Total Intake and Output 12/30/24 12/30/24 12/31/24 15:00 23:00 07:00 Intake Total 133.28 ml 333.556 ml 373.39 ml Output Total 150 ml 150 ml Balance 133.28 ml 183.556 ml 223.39 ml medications Current Medications Medications Dose Ordered Sig/Isidra Route Start Time Stop Time Status Last Admin Dose Admin Albuterol 2.5 mg Q6HPRN PRN NEB 12/20/24 19:30 12/28/24 00:19 2.5 MG Acetaminophen 650 mg Q6HP PRN PO 12/20/24 19:30 12/30/24 06:35 650 MG Nitroglycerin 0.4 mg Q5MINP PRN SL 12/20/24 19:30 Enoxaparin Sodium 80 mg DAILY SC 12/22/24 10:00 UNV Vancomycin HCl 0 ml @ 0 mls/hr UD IV 12/21/24 11:45 Pantoprazole Sodium 40 mg DAILY IV 12/22/24 10:00 12/31/24 11:01 40 MG Midazolam HCl 50 ml @ 1 mls/hr Q24H IV 12/21/24 11:45 12/26/24 06:57 5 MLS/HR Fentanyl Citrate 250 ml @ 2.5 mls/hr Q24H IV 12/21/24 11:45 12/26/24 08:28 12.5 MLS/HR Diagnostic Test (Pha) 1 strip Q6HR 12/22/24 00:00 12/31/24 06:18 1 STRIP Insulin Human Regular Q6HR SC 12/22/24 00:00 12/31/24 06:34 2 UNITS Dextrose 50 ml UD PRN IV 12/21/24 21:00 12/22/24 06:03 50 ML Enteral Nutritional Formula 1,000 ml 30ML/HR GT 12/24/24 12:45 12/29/24 22:02 1,000 ML Amiodarone HCL/ Dextrose 200 ml @ 16.66 mls/ hr Q12H IV 12/25/24 18:45 12/30/24 23:49 16.66 MLS/HR Enoxaparin Sodium 80 mg DAILY SC 12/26/24 10:00 12/31/24 11:01 80 MG Ceftriaxone Sodium 50 ml @ 100 mls/hr DAILY@09 IV 12/26/24 09:00 12/31/24 10:58 100 MLS/HR Docusate Sodium 100 mg BID GT 12/26/24 22:00 12/31/24 10:58 100 MG Albumin Human 100 ml @ 100 mls/hr UD PRN IV 12/27/24 16:00 12/27/24 16:08 100 MLS/HR Metoprolol Tartrate 50 mg BID PO 12/30/24 22:00 12/31/24 10:59 50 MG Morphine Sulfate 2 mg Q30M PRN IV 12/30/24 14:15 Examination Examination General: RASS -3, afebrile, mucosae are moist Cardiovascular: Normal S1 and S2. No murmurs, gallops or rubs Respiratory: Mechanically assisted ventilation, equal bilateral airway entree. Bilateral crackles Abdomen: Soft, nontender, no organomegaly, normal bowel sounds MSK/skin: Mobilization of limbs cannot be evaluated. Rt upper extremity is swollen. Skin is dry and warm. Neurological: Orientation cannot be assessed. No apparent motor no sensitive deficits. Pupils are isocoric and reactive laboratory and microbiology Laboratory Tests 12/31/24 04:35 Test 12/31/24 04:35 Range/Units Serum Glucose 141 H 74-106 mg/dL Microbiology Date/Time Source Procedure Growth Status 12/25/24 18:00 Voided Urine Urine Culture - Final Complete 12/24/24 13:05 Pleural Fluid Gram Stain - Final Complete 12/24/24 13:05 Pleural Fluid Aerobic Culture - Final Complete 12/21/24 12:00 Nose MRSA Screen - Final Methicillin Resistant S.aureus Complete 12/21/24 11:46 Blood Blood Culture - Final NO GROWTH AFTER 5 DAYS OF INCUBATION. Complete 12/21/24 11:27 Sputum Gram Stain - Final Complete 12/21/24 11:27 Respiratory Culture - Final Methicillin Resistant S.aureus Complete Labs and/or images reviewed: Labs reviewed by me, Image(s) reviewed by me Problem List/Assessment/Plan Problem List/Assessment/Plan Assessment and plan: # ESRD on hemodialysis # Hypokalemia # Metabolic acidosis with respiratory alkalosis # Acute hypoxic respiratory failure, status post mechanical ventilation # AFib with RVR, currently sinus rhythm with controlled heart rate # Acute on chronic decompensated systolic heart failure with reduced EF # possible septic/cardiogenic shock # Gram-positive versus Gram-negative community-acquired pneumonia # Acute DVT of right upper extremity # BPH # S/P exploratory laparotomy with colostomy Plan: - Hemodialysis yesterday . '- Potassium replaced - vehicle delivery worker was consulted for outpatient chair time. - Continue IV antibiotic and other management as per primary. - strict I&O - monitor BMP Thank you so much for the opportunity to consult on your patient. Nephro team will follow the patient. In case of any questions or concerns please feel free to reach out. Plan discussed with Dr. Walton . The patient and caregiver team agreed to the plan. Plan discussed with: Spouse, Other (RN) Dietary Evaluation Review Comments: Nutrition Recommendation: 1) TF Nepro Carbsteady @ 40ml/hr x 24hr (goal rate) along with Pro-stat 1 pk TID. TF @ goal volume along with Pro-Stat provide 2028 kcal (100% energy needs), 123 gm protein (100% protein needs), 698 ml free water. 2) Water flush 80 ml Q6H if allowed, adjust PRN 3) TPN if NPO >7 days 4) Monitor NPO status, lab values, wt trend, I/O Expected Outcomes/Goals: To meet >75% estimated needs Lab values to improve Fu 2-3 days JOSEFINA AKERS RESIDENT Dec 31, 2024 11:09
[2024-12-31] MEDS: POTASSIUM EFFERVESENT TAB 25 MEQ GT ONE (14:34)
--- NOTE | 2024-12-31 23:18 | DVHPN2 ---
Progress Note - Dictate Date Seen: Dec 31, 2024 Medical Necessity Reason Pt with a Central, PICC or Fol: Yes The following are medically ne: Central Line, Stearns Catheter Reason for stearns catheter: Strict I&O Subjective Patient was seen and evaluated in follow up in the ICU. Patient is intubated on ventilator. 30% FiO2. Patient failed CPAP trial today. K 3.2, DATA ANALYTICS CHIEF SCIENTIST 3.70, CA 8.4. Chest x-ray shows interval decrease in bilateral airspace disease, similar cardiomegaly. vital signs Vital Sign Date Time Temp Pulse Resp B/P (MAP) Pulse Ox O2 Delivery O2 Flow Rate FiO2 12/31/24 11:39 78 16 127/82 (97) 99 30 12/31/24 08:00 Mechanical Ventilator+ 12/31/24 04:00 97.6 97.6 Total Intake and Output 12/30/24 12/30/24 12/31/24 15:00 23:00 07:00 Intake Total 133.28 ml 333.556 ml 373.39 ml Output Total 150 ml 150 ml Balance 133.28 ml 183.556 ml 223.39 ml medications Current Medications Medications Dose Ordered Sig/Isidra Route Start Time Stop Time Status Last Admin Dose Admin Albuterol 2.5 mg Q6HPRN PRN NEB 12/20/24 19:30 12/28/24 00:19 2.5 MG Acetaminophen 650 mg Q6HP PRN PO 12/20/24 19:30 12/30/24 06:35 650 MG Nitroglycerin 0.4 mg Q5MINP PRN SL 12/20/24 19:30 Enoxaparin Sodium 80 mg DAILY SC 12/22/24 10:00 UNV Vancomycin HCl 0 ml @ 0 mls/hr UD IV 12/21/24 11:45 Pantoprazole Sodium 40 mg DAILY IV 12/22/24 10:00 12/31/24 11:01 40 MG Midazolam HCl 50 ml @ 1 mls/hr Q24H IV 12/21/24 11:45 12/26/24 06:57 5 MLS/HR Fentanyl Citrate 250 ml @ 2.5 mls/hr Q24H IV 12/21/24 11:45 12/26/24 08:28 12.5 MLS/HR Diagnostic Test (Pha) 1 strip Q6HR 12/22/24 00:00 12/31/24 06:18 1 STRIP Insulin Human Regular Q6HR SC 12/22/24 00:00 12/31/24 06:34 2 UNITS Dextrose 50 ml UD PRN IV 12/21/24 21:00 12/22/24 06:03 50 ML Enteral Nutritional Formula 1,000 ml 30ML/HR GT 12/24/24 12:45 12/29/24 22:02 1,000 ML Amiodarone HCL/ Dextrose 200 ml @ 16.66 mls/ hr Q12H IV 12/25/24 18:45 12/31/24 11:35 16.66 MLS/HR Enoxaparin Sodium 80 mg DAILY SC 12/26/24 10:00 12/31/24 11:01 80 MG Ceftriaxone Sodium 50 ml @ 100 mls/hr DAILY@09 IV 12/26/24 09:00 12/31/24 10:58 100 MLS/HR Docusate Sodium 100 mg BID GT 12/26/24 22:00 12/31/24 10:58 100 MG Albumin Human 100 ml @ 100 mls/hr UD PRN IV 12/27/24 16:00 12/27/24 16:08 100 MLS/HR Metoprolol Tartrate 50 mg BID PO 12/30/24 22:00 12/31/24 10:59 50 MG Morphine Sulfate 2 mg Q30M PRN IV 12/30/24 14:15 objective GENERAL: Ill appearing, intubated on ventilator. EYES: PERRL, EOMI. Anicteric. HENT: Moist mucous membranes. LUNGS: Decreased breath sounds. CARDIOVASCULAR: Regular rate and rhythm. ABDOMEN: Soft, nontender and nondistended. EXTREMITIES: No edema. SKIN: Warm, dry. laboratory and microbiology Laboratory Tests 12/31/24 04:35 Test 12/31/24 04:35 Range/Units Serum Glucose 141 H 74-106 mg/dL Problem List Atrial flutter/atrial fibrillation with RVR s/p DCCV, Stage IIIa, now NSR (on amiodarone/BB/Eliquis therapy at home-). Acute on chronic decompensated unspecified HF, NYHA Class IV. Nonischemic/dilated cardiomyopathy. Advanced CKD now ESRD with HD and associated hyperkalemia. History of cardiac ablation in 2022. Thyroid disease. Recent colon resection with colostomy. Assessment/Plan Continued all current supportive medical care. Metoprolol. IV Amiodarone. IV antibiotics as ordered. DVT and GI prophylactics. Morphine for pain management. Additional plan as per the hospital course. Critical care time of 45 minutes provided to include time spent evaluation of patient at bedside, when appropriate patient/family education for diagnosis, treatment plan, review of pertinent medical information and discussion of care with specialty providers and PCP. Mechanical ventilator parameters, treatment and adjustments have personally been reviewed by me and treatment plan by object oriented programmer has also been reviewed. Dietary Evaluation Review Comments: Nutrition Recommendation: 1) TF Nepro Carbsteady @ 40ml/hr x 24hr (goal rate) along with Pro-stat 1 pk TID. TF @ goal volume along with Pro-Stat provide 2028 kcal (100% energy needs), 123 gm protein (100% protein needs), 698 ml free water. 2) Water flush 80 ml Q6H if allowed, adjust PRN 3) TPN if NPO >7 days 4) Monitor NPO status, lab values, wt trend, I/O Expected Outcomes/Goals: To meet >75% estimated needs Lab values to improve Fu 2-3 days Plan discussed with: KRISTOPHER Khan MD Dec 31, 2024 12:34
[2025-01-01] VITALS (105 sets, daily range): BP systolic 120–181; BP diastolic 71–157; PULSE 66–124; RESP 11–28; TEMP 96.6–98.1; O2SAT 95–100
[2025-01-01 04:05] LABS: Chloride 101 mmol/L (98-107); Potassium 3.7 mmol/L (3.5-5.1); Sodium 140 mmol/L (136-145)
[2025-01-01 04:06] LABS: Anion Gap 10 (5-15); Carbon Dioxide 29 mmol/L (20-31)
[2025-01-01 04:09] LABS: Calcium 8.3 mg/dL (8.7-10.4)
[2025-01-01 04:11] LABS: BUN/Creatinine Ratio 6.3 (10.0-20.0)
[2025-01-01 04:12] LABS: Blood Urea Nitrogen 27 mg/dL (9-23); Glucose 115 mg/dL (74-106)
--- NOTE | 2025-01-01 09:19 | DVHPN2 ---
Subjective Patient awake and following commands. Reviewed: Care Plan, H&P, Labs, Medications, Previous Orders, Radiology Changes from previous H/P or p: Changes General: Per HPI Objective Vitals Vital Signs Date Time Temp Pulse Resp B/P (MAP) Pulse Ox O2 Delivery O2 Flow Rate FiO2 01/01/25 09:13 16 01/01/25 09:13 99 01/01/25 08:46 73 164/107 (126) 01/01/25 08:09 30 01/01/25 08:01 96.6 96.6 01/01/25 08:00 Mechanical Ventilator+ Intake/Output Intake and Output 01/01/25 07:00 Intake Total 822.656 ml Output Total 265 ml Balance 557.656 ml IV Total 583.656 ml Tube Feeding 239 ml Output Urine Total 135 ml Stool Total 130 ml General Appearance: Alert, mild distress HEENT: Atraumatic Lungs: Clear to auscultation, Normal air movement, Other (FEW CRACKLES B LUNGS) Cardiovascular: Normal S1, Normal S2, Other (Atrial fibrillation) Abdomen: No tenderness Genitourinary: No Apparent Abnormalities (Catheter) Musculoskeletal: Weak motor strength RUE, Weak motor strength LUE, Weak motor strength RLE, Weak motor strength LLE Neuro: Other (Unable to assess) Skin: Dry, Intact Psych/Mental Status: Other (Unable to assess) Medications Current Medications Medications Dose Ordered Sig/Isidra Route Start Time Stop Time Status Last Admin Dose Admin Albuterol 2.5 mg Q6HPRN PRN NEB 12/20/24 19:30 12/28/24 00:19 2.5 MG Acetaminophen 650 mg Q6HP PRN PO 12/20/24 19:30 12/30/24 06:35 650 MG Nitroglycerin 0.4 mg Q5MINP PRN SL 12/20/24 19:30 Enoxaparin Sodium 80 mg DAILY SC 12/22/24 10:00 UNV Vancomycin HCl 0 ml @ 0 mls/hr UD IV 12/21/24 11:45 Pantoprazole Sodium 40 mg DAILY IV 12/22/24 10:00 12/31/24 11:01 40 MG Midazolam HCl 50 ml @ 1 mls/hr Q24H IV 12/21/24 11:45 12/26/24 06:57 5 MLS/HR Fentanyl Citrate 250 ml @ 2.5 mls/hr Q24H IV 12/21/24 11:45 12/26/24 08:28 12.5 MLS/HR Diagnostic Test (Pha) 1 strip Q6HR 12/22/24 00:00 01/01/25 05:51 1 STRIP Insulin Human Regular Q6HR SC 12/22/24 00:00 12/31/24 06:34 2 UNITS Dextrose 50 ml UD PRN IV 12/21/24 21:00 12/22/24 06:03 50 ML Enteral Nutritional Formula 1,000 ml 30ML/HR GT 12/24/24 12:45 12/29/24 22:02 1,000 ML Amiodarone HCL/ Dextrose 200 ml @ 16.66 mls/ hr Q12H IV 12/25/24 18:45 12/31/24 21:42 16.66 MLS/HR Enoxaparin Sodium 80 mg DAILY SC 12/26/24 10:00 12/31/24 11:01 80 MG Ceftriaxone Sodium 50 ml @ 100 mls/hr DAILY@09 IV 12/26/24 09:00 12/31/24 10:58 100 MLS/HR Docusate Sodium 100 mg BID GT 12/26/24 22:00 12/31/24 21:54 100 MG Albumin Human 100 ml @ 100 mls/hr UD PRN IV 12/27/24 16:00 12/27/24 16:08 100 MLS/HR Metoprolol Tartrate 50 mg BID PO 12/30/24 22:00 12/31/24 22:57 50 MG Morphine Sulfate 2 mg Q30M PRN IV 12/30/24 14:15 Laboratory Results Laboratory Tests 12/31/24 04:35 01/01/25 03:30 Chemistry Test 01/01/25 03:30 Calcium Level 8.3 mg/dL (8.7-10.4) L Urinalysis Test 12/22/24 12:02 Urine Color Dark yellow (Yellow) Urine Clarity Turbid (Clear) H Urine pH 7.5 (5.0-9.0) Urine Specific [place] 1.010 (1.001-1.035) Urine Protein 1+ (Negative) H Urine Ketones Negative (Negative) Urine Blood 3+ /uL (Negative) H Urine Nitrite Negative (Negative) Urine Bilirubin Negative (Negative) Urine Urobilinogen Normal mg/dL (Negative) Urine Leukocyte Esterase 3+ /uL (Negative) Urine RBC 273 /hpf (0 - 3) Urine Microscopic WBC 126 /HPF (0-3) H Urine Squamous Epithelial Cells Few /hpf (<5) Urine Bacteria None seen /hpf (None Seen) Urine Mucus Few (None Seen) Urine Glucose Normal mg/dL (Normal) Microbiology Microbiology Date/Time Source Procedure Growth Status 12/25/24 18:00 Voided Urine Urine Culture - Final Complete 12/24/24 13:05 Pleural Fluid Gram Stain - Final Complete 12/24/24 13:05 Pleural Fluid Aerobic Culture - Final Complete 12/21/24 12:00 Nose MRSA Screen - Final Methicillin Resistant S.aureus Complete 12/21/24 11:46 Blood Blood Culture - Final NO GROWTH AFTER 5 DAYS OF INCUBATION. Complete 12/21/24 11:27 Sputum Gram Stain - Final Complete 12/21/24 11:27 Respiratory Culture - Final Methicillin Resistant S.aureus Complete Labs and/or images reviewed: Labs reviewed by me, Image(s) reviewed by me Assessment/Plan Assessment/Plan Impression: -acute hypoxic respiratory failure -hospital-acquired pneumonia with MRSA -end-stage renal disease with hemodialysis -status post colostomy and PEG tube placement -anemia of chronic disease -DVT right upper arm -AFib with RVR, status post cardioversion -rule out pulmonary embolism -thrombocytopenia -cholelithiasis -BPH Plan: -events: Patient more awake today and following commands. Plans for hemodialysis today. Currently on CPAP. Patient with adequate vital capacity. Awaiting remainder of parameters. Probable extubation today. -stop amiodarone drip, switched to p.o. -nephrology consultation for hemodialysis, potassium replacement -continue tube feeding -continue current antibiotic. -continue full-dose anticoagulation -PPI Repeat labs and chest x-ray in a.m. Critical care time spent with patient discussing and formulating plan of care: 40 minutes. This does not include time spent performing procedures. This medical document was created using an electronic medical record system with [employer] system. Although this document has been carefully reviewed, there may still be some phonetic and typographical errors. These areas are purely typographical due to imperfections of the software programs, and do not reflect any compromise in the patient's medical care. Plan discussed with: Patient, Other (RN) My Orders Orders - FLORENTINO LANGLEY NP Procedure Category Date Status Time Abg W/ Co-Ox RT 01/01/25 Logged 05:50 Brain Head Wo Contrast MRI 01/01/25 Logged 08:33 Amiodarone Tablet PHA 01/01/25 Transmitted (Cordarone Tablet) 10:00 Date of Service: Jan 01, 2025 Billing Provider: FLORENTINO LANGLEY NP Common Visit Codes: [id number] CARE 30-74 MIN FLORENTINO LANGLEY NP Jan 01, 2025 09:19
[2025-01-01 09:40] LABS: Base Excess 4.8 mmol/L (-2.0-3.0)
[2025-01-01] MEDS: AMIODARONE HCL 200 MG TAB PO SCH (10:45)
--- NOTE | 2025-01-01 11:22 | DVHPN2 ---
Progress Note Date Seen: Jan 01, 2025 Medical Necessity Reason Pt with a Central, PICC or Fol: Yes The following are medically ne: Central Line, Stearns Catheter Reason for stearns catheter: Strict I&O Subjective Patient reports: Feels better Objective vital signs Vital Sign Date Time Temp Pulse Resp B/P (MAP) Pulse Ox O2 Delivery O2 Flow Rate FiO2 01/01/25 11:01 70 21 162/101 (121) 100 01/01/25 10:10 8.0 01/01/25 10:00 Mechanical Ventilator+ 30 30 01/01/25 08:01 96.6 96.6 Total Intake and Output 12/31/24 12/31/24 01/01/25 15:00 23:00 07:00 Intake Total 217.748 ml 222.858 ml 382.050 ml Output Total 105 ml 160 ml Balance 217.748 ml 117.858 ml 222.050 ml medications Current Medications Medications Dose Ordered Sig/Isidra Route Start Time Stop Time Status Last Admin Dose Admin Albuterol 2.5 mg Q6HPRN PRN NEB 12/20/24 19:30 12/28/24 00:19 2.5 MG Acetaminophen 650 mg Q6HP PRN PO 12/20/24 19:30 12/30/24 06:35 650 MG Nitroglycerin 0.4 mg Q5MINP PRN SL 12/20/24 19:30 Enoxaparin Sodium 80 mg DAILY SC 12/22/24 10:00 UNV Vancomycin HCl 0 ml @ 0 mls/hr UD IV 12/21/24 11:45 Pantoprazole Sodium 40 mg DAILY IV 12/22/24 10:00 01/01/25 09:39 40 MG Midazolam HCl 50 ml @ 1 mls/hr Q24H IV 12/21/24 11:45 12/26/24 06:57 5 MLS/HR Fentanyl Citrate 250 ml @ 2.5 mls/hr Q24H IV 12/21/24 11:45 12/26/24 08:28 12.5 MLS/HR Diagnostic Test (Pha) 1 strip Q6HR 12/22/24 00:00 01/01/25 05:51 1 STRIP Insulin Human Regular Q6HR SC 12/22/24 00:00 12/31/24 06:34 2 UNITS Dextrose 50 ml UD PRN IV 12/21/24 21:00 12/22/24 06:03 50 ML Enteral Nutritional Formula 1,000 ml 30ML/HR GT 12/24/24 12:45 12/29/24 22:02 1,000 ML Enoxaparin Sodium 80 mg DAILY SC 12/26/24 10:00 01/01/25 09:40 80 MG Ceftriaxone Sodium 50 ml @ 100 mls/hr DAILY@09 IV 12/26/24 09:00 01/01/25 09:38 100 MLS/HR Docusate Sodium 100 mg BID GT 12/26/24 22:00 01/01/25 09:39 100 MG Albumin Human 100 ml @ 100 mls/hr UD PRN IV 12/27/24 16:00 12/27/24 16:08 100 MLS/HR Metoprolol Tartrate 50 mg BID PO 12/30/24 22:00 12/31/24 22:57 50 MG Morphine Sulfate 2 mg Q30M PRN IV 12/30/24 14:15 Amiodarone HCl 200 mg Q12HR PO 01/01/25 10:00 01/01/25 10:45 200 MG Examination: GENERAL:Normal, CVS:Abnormal, ABDOMEN:Normal laboratory and microbiology Laboratory Tests 01/01/25 03:30 12/31/24 04:35 Test 01/01/25 03:30 Range/Units Serum Glucose 115 H 74-106 mg/dL Microbiology Date/Time Source Procedure Growth Status 12/25/24 18:00 Voided Urine Urine Culture - Final Complete 12/24/24 13:05 Pleural Fluid Gram Stain - Final Complete 12/24/24 13:05 Pleural Fluid Aerobic Culture - Final Complete 12/21/24 12:00 Nose MRSA Screen - Final Methicillin Resistant S.aureus Complete 12/21/24 11:46 Blood Blood Culture - Final NO GROWTH AFTER 5 DAYS OF INCUBATION. Complete 12/21/24 11:27 Sputum Gram Stain - Final Complete 12/21/24 11:27 Respiratory Culture - Final Methicillin Resistant S.aureus Complete Problem List/Assessment/Plan Problem List/Assessment/Plan # ESRD on hemodialysis # Hypokalemia # Metabolic acidosis with respiratory alkalosis # Acute hypoxic respiratory failure, status post mechanical ventilation resolved # AFib with RVR, currently sinus rhythm with controlled heart rate # Acute on chronic decompensated systolic heart failure with reduced EF # possible septic/cardiogenic shock # Gram-positive versus Gram-negative community-acquired pneumonia # Acute DVT of right upper extremity # BPH # S/P exploratory laparotomy with colostomy Plan: - Hemodialysis today . - extubated today - mobile home lot utility worker was consulted for outpatient chair time. - Continue IV antibiotic and other management as per primary. - strict I&O - monitor BMP Plan discussed with: Patient My Orders My Orders Orders - JESSICA OBRIEN MD Procedure Category Date Status Time Hemodialysis Orders ORDERS 01/01/25 Transmitted 07:00 Dialysis Nursing JAYNE 01/01/25 In Process Message 07:00 Document Fluid Input JAYNE 01/01/25 In Process And Outpu 07:00 Dietary Evaluation Review Comments: Nutrition Recommendation: 1) TF Nepro Carbsteady @ 40ml/hr x 24hr (goal rate) along with Pro-stat 1 pk TID. TF @ goal volume along with Pro-Stat provide 2028 kcal (100% energy needs), 123 gm protein (100% protein needs), 698 ml free water. 2) Water flush 80 ml Q6H if allowed, adjust PRN 3) TPN if NPO >7 days 4) Monitor NPO status, lab values, wt trend, I/O Expected Outcomes/Goals: To meet >75% estimated needs Lab values to improve Fu 2-3 days Critical Care Time (mins): 33 JESSICA OBRIEN MD Jan 01, 2025 11:22
[2025-01-01] MEDS: SODIUM CHL 0.9% 1000 ML BAG XX ONE (14:25)
[2025-01-01] MEDS: HALOPERIDOL LACTATE 5 MG/ML INJ VIAL IM ONE (15:14)
[2025-01-01] MEDS: HALOPERIDOL LACTATE 5 MG/ML INJ VIAL ONE (15:46)
[2025-01-01] MEDS: HALOPERIDOL LACTATE 5 MG/ML INJ VIAL IV ONE (15:47)
[2025-01-01] MEDS: VANCOMYCIN 500mg/100mL 100 ML IV ONE (17:50)
--- NOTE | 2025-01-01 18:00 | DVHPN2 ---
Progress Note - Dictate Date Seen: Jan 01, 2025 Medical Necessity Reason Pt with a Central, PICC or Fol: Yes The following are medically ne: Central Line, Stearns Catheter Reason for stearns catheter: Strict I&O Subjective Patient was seen and evaluated in follow up in the ICU. Patient was successfully extubated this morning. Patient is on 2 LPM NC. BUN 27, LIFE CLAIMS EXAMINER 4.26, CA 8.3. vital signs Vital Sign Date Time Temp Pulse Resp B/P (MAP) Pulse Ox O2 Delivery O2 Flow Rate FiO2 01/01/25 11:01 70 21 162/101 (121) 100 01/01/25 10:10 8.0 01/01/25 10:00 Mechanical Ventilator+ 30 30 01/01/25 08:01 96.6 96.6 Total Intake and Output 12/31/24 12/31/24 01/01/25 15:00 23:00 07:00 Intake Total 217.748 ml 222.858 ml 382.050 ml Output Total 105 ml 160 ml Balance 217.748 ml 117.858 ml 222.050 ml medications Current Medications Medications Dose Ordered Sig/Isidra Route Start Time Stop Time Status Last Admin Dose Admin Albuterol 2.5 mg Q6HPRN PRN NEB 12/20/24 19:30 12/28/24 00:19 2.5 MG Acetaminophen 650 mg Q6HP PRN PO 12/20/24 19:30 12/30/24 06:35 650 MG Nitroglycerin 0.4 mg Q5MINP PRN SL 12/20/24 19:30 Enoxaparin Sodium 80 mg DAILY SC 12/22/24 10:00 UNV Vancomycin HCl 0 ml @ 0 mls/hr UD IV 12/21/24 11:45 Pantoprazole Sodium 40 mg DAILY IV 12/22/24 10:00 01/01/25 09:39 40 MG Midazolam HCl 50 ml @ 1 mls/hr Q24H IV 12/21/24 11:45 12/26/24 06:57 5 MLS/HR Fentanyl Citrate 250 ml @ 2.5 mls/hr Q24H IV 12/21/24 11:45 12/26/24 08:28 12.5 MLS/HR Diagnostic Test (Pha) 1 strip Q6HR 12/22/24 00:00 01/01/25 12:02 1 STRIP Insulin Human Regular Q6HR SC 12/22/24 00:00 12/31/24 06:34 2 UNITS Dextrose 50 ml UD PRN IV 12/21/24 21:00 12/22/24 06:03 50 ML Enteral Nutritional Formula 1,000 ml 30ML/HR GT 12/24/24 12:45 12/29/24 22:02 1,000 ML Enoxaparin Sodium 80 mg DAILY SC 12/26/24 10:00 01/01/25 09:40 80 MG Ceftriaxone Sodium 50 ml @ 100 mls/hr DAILY@09 IV 12/26/24 09:00 01/01/25 09:38 100 MLS/HR Docusate Sodium 100 mg BID GT 12/26/24 22:00 01/01/25 09:39 100 MG Albumin Human 100 ml @ 100 mls/hr UD PRN IV 12/27/24 16:00 12/27/24 16:08 100 MLS/HR Metoprolol Tartrate 50 mg BID PO 12/30/24 22:00 12/31/24 22:57 50 MG Morphine Sulfate 2 mg Q30M PRN IV 12/30/24 14:15 Amiodarone HCl 200 mg Q12HR PO 01/01/25 10:00 01/01/25 10:45 200 MG objective GENERAL: Alert and oriented x 3. No acute distress. EYES: PERRL, EOMI. Anicteric. HENT: Moist mucous membranes. LUNGS: Decreased breath sounds. CARDIOVASCULAR: Regular rate and rhythm. ABDOMEN: Soft, nontender and nondistended. EXTREMITIES: No edema. SKIN: Warm, dry. laboratory and microbiology Laboratory Tests 01/01/25 03:30 12/31/24 04:35 Test 01/01/25 03:30 Range/Units Serum Glucose 115 H 74-106 mg/dL Problem List Atrial flutter/atrial fibrillation with RVR s/p DCCV, Stage IIIa, now NSR (on amiodarone/BB/Eliquis therapy at home-). Acute on chronic decompensated unspecified HF, NYHA Class IV. Nonischemic/dilated cardiomyopathy. Advanced CKD now ESRD with HD and associated hyperkalemia. History of cardiac ablation in 2022. Thyroid disease. Recent colon resection with colostomy. Assessment/Plan Continued all current supportive medical care. Amiodarone. IV antibiotics as ordered. DVT and GI prophylactics. Morphine for pain management. Additional plan as per the hospital course. Critical care time of 45 minutes provided to include time spent evaluation of patient at bedside, when appropriate patient/family education for diagnosis, treatment plan, review of pertinent medical information and discussion of care with specialty providers and PCP. Dietary Evaluation Review Comments: Nutrition Recommendation: 1) TF Nepro Carbsteady @ 40ml/hr x 24hr (goal rate) along with Pro-stat 1 pk TID. TF @ goal volume along with Pro-Stat provide 2028 kcal (100% energy needs), 123 gm protein (100% protein needs), 698 ml free water. 2) Water flush 80 ml Q6H if allowed, adjust PRN 3) TPN if NPO >7 days 4) Monitor NPO status, lab values, wt trend, I/O Expected Outcomes/Goals: To meet >75% estimated needs Lab values to improve Fu 2-3 days Plan discussed with: Patient KRISTOPHER ARMANDO MD Jan 01, 2025 12:20
[2025-01-02] VITALS (27 sets, daily range): BP systolic 129–177; BP diastolic 75–110; PULSE 93–122; RESP 14–28; TEMP 97.1–98.6; O2SAT 91–99
[2025-01-02] MEDS: HALOPERIDOL LACTATE 5 MG/ML INJ VIAL IM PRN ×2 (03:23→20:26)
[2025-01-02 06:01] LABS: Hematocrit 30.4 % (41.0-53.0); Hemoglobin 10.3 g/dL (13.5-17.5); Mean Corpuscular Hemoglobin 29.9 pg (28.0-32.0); Mean Corpuscular Volume 88.5 fL (80.0-100.0); Nucleated Red Blood Cells % 0.0 %
[2025-01-02 06:10] LABS: Chloride 99 mmol/L (98-107); Sodium 141 mmol/L (136-145)
[2025-01-02 06:11] LABS: Anion Gap 13 (5-15); Carbon Dioxide 29 mmol/L (20-31)
[2025-01-02 06:15] LABS: Calcium 8.3 mg/dL (8.7-10.4); Potassium 3.4 mmol/L (3.5-5.1)
[2025-01-02 06:16] LABS: BUN/Creatinine Ratio 4.7 (10.0-20.0); Blood Urea Nitrogen 18 mg/dL (9-23); Glucose 80 mg/dL (74-106)
[2025-01-02] MEDS: HALOPERIDOL LACTATE 5 MG/ML INJ VIAL IM ONE (06:35)
[2025-01-02] MEDS ORDERED: HALOPERIDOL 1 MG TAB PO PRN (07:45)
--- NOTE | 2025-01-02 07:48 | DVHPN2 ---
Subjective Patient denies any symptoms. Reviewed: Care Plan, H&P, Labs, Medications, Previous Orders, Radiology Changes from previous H/P or p: Changes General: Per HPI Objective Vitals Vital Signs Date Time Temp Pulse Resp B/P (MAP) Pulse Ox O2 Delivery O2 Flow Rate FiO2 01/02/25 07:31 111 153/98 01/02/25 06:02 21 97 01/02/25 06:00 Nasal Cannula* 2 28 01/02/25 05:00 98.2 98.2 Intake/Output Intake and Output 01/02/25 07:00 Intake Total 944.036 ml Output Total 630 ml Balance 314.036 ml Intake Oral 440 ml IV Total 204.036 ml Tube Feeding 300 ml Output Urine Total 200 ml Stool Total 430 ml General Appearance: Alert, mild distress, Other (Encephalopathic) HEENT: Atraumatic, PERRLA Lungs: Clear to auscultation, Normal air movement Cardiovascular: Normal S1, Normal S2, Other (Atrial fibrillation) Abdomen: Normal bowel sounds, Soft, No tenderness, Other (Colostomy) Genitourinary: No Apparent Abnormalities (Catheter) Musculoskeletal: Weak motor strength RUE, Weak motor strength LUE, Weak motor strength RLE, Weak motor strength LLE Neuro: Other (Unable to assess) Skin: Dry, Intact Psych/Mental Status: Other (Unable to assess) Medications Current Medications Medications Dose Ordered Sig/Isidra Route Start Time Stop Time Status Last Admin Dose Admin Albuterol 2.5 mg Q6HPRN PRN NEB 12/20/24 19:30 12/28/24 00:19 2.5 MG Acetaminophen 650 mg Q6HP PRN PO 12/20/24 19:30 01/01/25 20:14 650 MG Nitroglycerin 0.4 mg Q5MINP PRN SL 12/20/24 19:30 Enoxaparin Sodium 80 mg DAILY SC 12/22/24 10:00 UNV Vancomycin HCl 0 ml @ 0 mls/hr UD IV 12/21/24 11:45 Pantoprazole Sodium 40 mg DAILY IV 12/22/24 10:00 01/02/25 07:31 40 MG Fentanyl Citrate 250 ml @ 2.5 mls/hr Q24H IV 12/21/24 11:45 12/26/24 08:28 12.5 MLS/HR Diagnostic Test (Pha) 1 strip Q6HR 12/22/24 00:00 01/02/25 06:00 1 STRIP Insulin Human Regular Q6HR SC 12/22/24 00:00 12/31/24 06:34 2 UNITS Dextrose 50 ml UD PRN IV 12/21/24 21:00 12/22/24 06:03 50 ML Enoxaparin Sodium 80 mg DAILY SC 12/26/24 10:00 01/02/25 07:31 80 MG Ceftriaxone Sodium 50 ml @ 100 mls/hr DAILY@09 IV 12/26/24 09:00 01/02/25 07:30 100 MLS/HR Docusate Sodium 100 mg BID GT 12/26/24 22:00 01/02/25 07:30 100 MG Albumin Human 100 ml @ 100 mls/hr UD PRN IV 12/27/24 16:00 12/27/24 16:08 100 MLS/HR Metoprolol Tartrate 50 mg BID PO 12/30/24 22:00 01/02/25 07:31 50 MG Morphine Sulfate 2 mg Q30M PRN IV 12/30/24 14:15 Amiodarone HCl 200 mg Q12HR PO 01/01/25 10:00 01/02/25 07:30 200 MG Haloperidol Lactate 2.5 mg Q12HP PRN IM 01/01/25 15:15 01/02/25 03:23 2.5 MG Sacubitril/ Valsartan 1 tab BID PO 01/02/25 10:00 UNV Apixaban 5 mg BID PO 01/02/25 10:00 UNV Patient Own Medication 1 tab TID PO 01/02/25 14:00 UNV Patient Own Medication 1 tab BID PO 01/02/25 10:00 UNV Laboratory Results Laboratory Tests 01/02/25 04:20 Chemistry Test 01/02/25 04:20 Calcium Level 8.3 mg/dL (8.7-10.4) L Urinalysis Test 12/22/24 12:02 Urine Color Dark yellow (Yellow) Urine Clarity Turbid (Clear) H Urine pH 7.5 (5.0-9.0) Urine Specific [place] 1.010 (1.001-1.035) Urine Protein 1+ (Negative) H Urine Ketones Negative (Negative) Urine Blood 3+ /uL (Negative) H Urine Nitrite Negative (Negative) Urine Bilirubin Negative (Negative) Urine Urobilinogen Normal mg/dL (Negative) Urine Leukocyte Esterase 3+ /uL (Negative) Urine RBC 273 /hpf (0 - 3) Urine Microscopic WBC 126 /HPF (0-3) H Urine Squamous Epithelial Cells Few /hpf (<5) Urine Bacteria None seen /hpf (None Seen) Urine Mucus Few (None Seen) Urine Glucose Normal mg/dL (Normal) Blood Gas Results Test 01/01/25 09:26 Arterial Blood pH 7.470 (7.350-7.450) FiO2 % 30.0 Microbiology Microbiology Date/Time Source Procedure Growth Status 12/25/24 18:00 Voided Urine Urine Culture - Final Complete 12/24/24 13:05 Pleural Fluid Gram Stain - Final Complete 12/24/24 13:05 Pleural Fluid Aerobic Culture - Final Complete 12/21/24 12:00 Nose MRSA Screen - Final Methicillin Resistant S.aureus Complete 12/21/24 11:46 Blood Blood Culture - Final NO GROWTH AFTER 5 DAYS OF INCUBATION. Complete 12/21/24 11:27 Sputum Gram Stain - Final Complete 12/21/24 11:27 Respiratory Culture - Final Methicillin Resistant S.aureus Complete Labs and/or images reviewed: Labs reviewed by me, Image(s) reviewed by me Assessment/Plan Assessment/Plan Impression: -acute hypoxic respiratory failure -hospital-acquired pneumonia with MRSA -end-stage renal disease with hemodialysis -status post colostomy and PEG tube placement -anemia of chronic disease -DVT right upper arm -AFib with RVR, status post cardioversion -rule out pulmonary embolism -thrombocytopenia -cholelithiasis -BPH Plan: -events: Patient extubated yesterday. Currently on 2 L via nasal cannula. Acute delirium noted with periods of agitation and combativeness. Patient placed on Haldol IM yesterday. We will restart sertraline and buspirone today. Patient's requesting transfer [facility]. Social service consultation placed. -continue amiodarone and Toprol-XL for rate control. -start Entresto for accelerated hypertension -nephrology consultation for hemodialysis, potassium replacement -continue with pureed diet -continue current antibiotic. -change Lovenox to Eliquis -PPI Repeat labs and chest x-ray in a.m. Critical care time spent with patient discussing and formulating plan of care: 40 minutes. This does not include time spent performing procedures. This medical document was created using an electronic medical record system with [employer] computerized dictation system. Although this document has been carefully reviewed, there may still be some phonetic and typographical errors. These areas are purely typographical due to imperfections of the software programs, and do not reflect any compromise in the patient's medical care. Plan discussed with: Patient, Other (RN) My Orders Orders - FLORENTINO LANGLEY NP Procedure Category Date Status Time Amiodarone Tablet PHA 01/01/25 In Process (Cordarone Tablet) 10:00 * Swallow Request ST 01/01/25 Transmitted 13:22 Pt Request For Service PT 01/01/25 Logged 13:22 Pureed DIET 01/01/25 Transmitted Dinner Haloperidol Lactate PHA 01/01/25 In Process Injection (Haldol) 15:15 Extubate JAYNE 01/01/25 In Process 10:10 * Wound Consult CONS 01/01/25 Transmitted Sacubitril-Valsartan PHA 01/02/25 Logged (Entresto 24-26 Mg 10:00 * Access Manager CONS 01/02/25 Transmitted Consult Apixaban (Eliquis) PHA 01/02/25 Transmitted 10:00 (Nf) Buspirone Hcl PHA 01/02/25 Transmitted 14:00 (Nf) Sertraline Hcl PHA 01/02/25 Transmitted 10:00 Date of Service: Jan 02, 2025 Billing Provider: FLORENTINO LANGLEY NP Common Visit Codes: 30474-[facility] 30-74 MIN FLORENTINO LANGLEY NP Jan 02, 2025 07:48
[2025-01-02] MEDS: SACUBITRIL-VALSARTAN 24mg/26mg TAB PO SCH (10:27)
[2025-01-02] MEDS: SERTRALINE HCL 50 MG TAB PO SCH (10:27)
--- NOTE | 2025-01-02 12:38 | DVHPN2 ---
Progress Note Date Seen: Jan 02, 2025 Medical Necessity Reason Pt with a Central, PICC or Fol: Yes The following are medically ne: Central Line, Stearns Catheter Reason for stearns catheter: Strict I&O Objective vital signs Vital Sign Date Time Temp Pulse Resp B/P (MAP) Pulse Ox O2 Delivery O2 Flow Rate FiO2 01/02/25 12:01 98.0 100 23 177/110 (132) 91 98.0 01/02/25 12:00 Room Air* 0 21 Total Intake and Output 01/01/25 01/01/25 01/02/25 15:00 23:00 07:00 Intake Total 104.036 ml 400 ml 440 ml Output Total 75 ml 555 ml Balance 104.036 ml 325 ml -115 ml medications Current Medications Medications Dose Ordered Sig/Isidra Route Start Time Stop Time Status Last Admin Dose Admin Albuterol 2.5 mg Q6HPRN PRN NEB 12/20/24 19:30 12/28/24 00:19 2.5 MG Acetaminophen 650 mg Q6HP PRN PO 12/20/24 19:30 01/01/25 20:14 650 MG Nitroglycerin 0.4 mg Q5MINP PRN SL 12/20/24 19:30 Enoxaparin Sodium 80 mg DAILY SC 12/22/24 10:00 UNV Vancomycin HCl 0 ml @ 0 mls/hr UD IV 12/21/24 11:45 Pantoprazole Sodium 40 mg DAILY IV 12/22/24 10:00 01/02/25 07:31 40 MG Fentanyl Citrate 250 ml @ 2.5 mls/hr Q24H IV 12/21/24 11:45 12/26/24 08:28 12.5 MLS/HR Diagnostic Test (Pha) 1 strip Q6HR 12/22/24 00:00 01/02/25 12:00 1 STRIP Insulin Human Regular Q6HR SC 12/22/24 00:00 12/31/24 06:34 2 UNITS Dextrose 50 ml UD PRN IV 12/21/24 21:00 12/22/24 06:03 50 ML Ceftriaxone Sodium 50 ml @ 100 mls/hr DAILY@09 IV 12/26/24 09:00 01/02/25 07:30 100 MLS/HR Docusate Sodium 100 mg BID GT 12/26/24 22:00 01/02/25 07:30 100 MG Albumin Human 100 ml @ 100 mls/hr UD PRN IV 12/27/24 16:00 12/27/24 16:08 100 MLS/HR Metoprolol Tartrate 50 mg BID PO 12/30/24 22:00 01/02/25 07:31 50 MG Morphine Sulfate 2 mg Q30M PRN IV 12/30/24 14:15 Amiodarone HCl 200 mg Q12HR PO 01/01/25 10:00 01/02/25 07:30 200 MG Sacubitril/ Valsartan 1 tab BID PO 01/02/25 10:00 01/02/25 10:27 1 TAB Apixaban 5 mg BID PO 01/02/25 22:00 Buspirone HCl 5 mg TID PO 01/02/25 14:00 Sertraline HCl 100 mg BID PO 01/02/25 10:00 01/02/25 10:27 100 MG Haloperidol 2 mg Q8HPRN PRN PO 01/02/25 07:45 Examination: GENERAL:Normal, CVS:Abnormal, NEURO:Abnormal laboratory and microbiology Laboratory Tests 01/02/25 04:20 Test 01/02/25 04:20 Range/Units Serum Glucose 80 74-106 mg/dL Microbiology Date/Time Source Procedure Growth Status 12/25/24 18:00 Voided Urine Urine Culture - Final Complete 12/24/24 13:05 Pleural Fluid Gram Stain - Final Complete 12/24/24 13:05 Pleural Fluid Aerobic Culture - Final Complete 12/21/24 12:00 Nose MRSA Screen - Final Methicillin Resistant S.aureus Complete 12/21/24 11:46 Blood Blood Culture - Final NO GROWTH AFTER 5 DAYS OF INCUBATION. Complete 12/21/24 11:27 Sputum Gram Stain - Final Complete 12/21/24 11:27 Respiratory Culture - Final Methicillin Resistant S.aureus Complete Problem List/Assessment/Plan Problem List/Assessment/Plan # ESRD on hemodialysis # Hypokalemia # Metabolic acidosis with respiratory alkalosis # Acute hypoxic respiratory failure, status post mechanical ventilation resolved # AFib with RVR, currently sinus rhythm with controlled heart rate # Acute on chronic decompensated systolic heart failure with reduced EF # possible septic/cardiogenic shock # Gram-positive versus Gram-negative community-acquired pneumonia # Acute DVT of right upper extremity # BPH # S/P exploratory laparotomy with colostomy Plan: - Hemodialysis darin - extubated - delirium - workers compensation analyst was consulted for outpatient chair time. - Continue IV antibiotic and other management as per primary. - strict I&O - monitor BMP Plan discussed with: Patient Dietary Evaluation Review Comments: Nutrition Recommendation: 1) TF Nepro Carbsteady @ 40ml/hr x 24hr (goal rate) along with Pro-stat 1 pk TID. TF @ goal volume along with Pro-Stat provide 2028 kcal (100% energy needs), 123 gm protein (100% protein needs), 698 ml free water. 2) Water flush 80 ml Q6H if allowed, adjust PRN 3) TPN if NPO >7 days 4) Monitor NPO status, lab values, wt trend, I/O Expected Outcomes/Goals: To meet >75% estimated needs Lab values to improve Fu 2-3 days Total Time (mins): 33 JESSICA OBRIEN MD Jan 02, 2025 12:38
[2025-01-02] MEDS: APIXABAN 5 MG TAB PO SCH (22:22)
[2025-01-02] MEDS: TEMAZEPAM 15 MG CAP PO PRN (22:48)
--- NOTE | 2025-01-02 23:50 | DVHPN2 ---
Progress Note - Dictate Date Seen: Jan 02, 2025 Medical Necessity Reason Pt with a Central, PICC or Fol: Yes The following are medically ne: Central Line, Stearns Catheter Reason for stearns catheter: Strict I&O Subjective Patient was seen and evaluated in follow up in the ICU. Overnight, patient had aggressive/combative behaviors and shouting profanity. K 3.4, KENNEL AIDE 3.83, CA 8.3. vital signs Vital Sign Date Time Temp Pulse Resp B/P (MAP) Pulse Ox O2 Delivery O2 Flow Rate FiO2 01/02/25 13:44 95 01/02/25 13:44 20 94 Room Air* 0 21 01/02/25 13:01 143/75 (97) 01/02/25 12:01 98.0 98.0 Total Intake and Output 01/01/25 01/01/25 01/02/25 15:00 23:00 07:00 Intake Total 104.036 ml 400 ml 440 ml Output Total 75 ml 555 ml Balance 104.036 ml 325 ml -115 ml medications Current Medications Medications Dose Ordered Sig/Isidra Route Start Time Stop Time Status Last Admin Dose Admin Albuterol 2.5 mg Q6HPRN PRN NEB 12/20/24 19:30 12/28/24 00:19 2.5 MG Acetaminophen 650 mg Q6HP PRN PO 12/20/24 19:30 01/01/25 20:14 650 MG Nitroglycerin 0.4 mg Q5MINP PRN SL 12/20/24 19:30 Enoxaparin Sodium 80 mg DAILY SC 12/22/24 10:00 UNV Vancomycin HCl 0 ml @ 0 mls/hr UD IV 12/21/24 11:45 Pantoprazole Sodium 40 mg DAILY IV 12/22/24 10:00 01/02/25 07:31 40 MG Fentanyl Citrate 250 ml @ 2.5 mls/hr Q24H IV 12/21/24 11:45 12/26/24 08:28 12.5 MLS/HR Diagnostic Test (Pha) 1 strip Q6HR 12/22/24 00:00 01/02/25 12:00 1 STRIP Insulin Human Regular Q6HR SC 12/22/24 00:00 12/31/24 06:34 2 UNITS Dextrose 50 ml UD PRN IV 12/21/24 21:00 12/22/24 06:03 50 ML Ceftriaxone Sodium 50 ml @ 100 mls/hr DAILY@09 IV 12/26/24 09:00 01/02/25 07:30 100 MLS/HR Docusate Sodium 100 mg BID GT 12/26/24 22:00 01/02/25 07:30 100 MG Albumin Human 100 ml @ 100 mls/hr UD PRN IV 12/27/24 16:00 12/27/24 16:08 100 MLS/HR Metoprolol Tartrate 50 mg BID PO 12/30/24 22:00 01/02/25 07:31 50 MG Morphine Sulfate 2 mg Q30M PRN IV 12/30/24 14:15 Amiodarone HCl 200 mg Q12HR PO 01/01/25 10:00 01/02/25 07:30 200 MG Sacubitril/ Valsartan 1 tab BID PO 01/02/25 10:00 01/02/25 10:27 1 TAB Apixaban 5 mg BID PO 01/02/25 22:00 Buspirone HCl 5 mg TID PO 01/02/25 14:00 01/02/25 13:53 5 MG Sertraline HCl 100 mg BID PO 01/02/25 10:00 01/02/25 10:27 100 MG Haloperidol 2 mg Q8HPRN PRN PO 01/02/25 07:45 objective GENERAL: Alert and oriented x 3. No acute distress. EYES: PERRL, EOMI. Anicteric. HENT: Moist mucous membranes. LUNGS: Decreased breath sounds. CARDIOVASCULAR: Regular rate and rhythm. ABDOMEN: Soft, nontender and nondistended. EXTREMITIES: No edema. SKIN: Warm, dry. laboratory and microbiology Laboratory Tests 01/02/25 04:20 Test 01/02/25 04:20 Range/Units Serum Glucose 80 74-106 mg/dL Problem List Atrial flutter/atrial fibrillation with RVR s/p DCCV, Stage IIIa, now NSR (on amiodarone/BB/Eliquis therapy at home-). Acute on chronic decompensated unspecified HF, NYHA Class IV. Nonischemic/dilated cardiomyopathy. Advanced CKD now ESRD with HD and associated hyperkalemia. History of cardiac ablation in 2022. Thyroid disease. Recent colon resection with colostomy. Assessment/Plan Continued all current supportive medical care. Amiodarone. Eliquis. IV antibiotics as ordered. Metoprolol. Morphine for pain management. GI prophylactics. Entresto. Additional plan as per the hospital course. Critical care time of 45 minutes provided to include time spent evaluation of patient at bedside, when appropriate patient/family education for diagnosis, treatment plan, review of pertinent medical information and discussion of care with specialty providers and PCP. Dietary Evaluation Review Comments: Nutrition Recommendation: 1) TF Nepro Carbsteady @ 40ml/hr x 24hr (goal rate) along with Pro-stat 1 pk TID. TF @ goal volume along with Pro-Stat provide 2028 kcal (100% energy needs), 123 gm protein (100% protein needs), 698 ml free water. 2) Water flush 80 ml Q6H if allowed, adjust PRN 3) TPN if NPO >7 days 4) Monitor NPO status, lab values, wt trend, I/O Expected Outcomes/Goals: To meet >75% estimated needs Lab values to improve Fu 2-3 days Plan discussed with: Patient KRISTOPHER ARMANDO MD Jan 02, 2025 14:06
[2025-01-03] VITALS (30 sets, daily range): BP systolic 135–168; BP diastolic 81–116; PULSE 76–116; RESP 16–28; TEMP 97.6–99.3; O2SAT 94–100
[2025-01-03 05:27] LABS: Hematocrit 29.3 % (41.0-53.0); Hemoglobin 9.9 g/dL (13.5-17.5); Mean Corpuscular Hemoglobin 29.8 pg (28.0-32.0); Mean Corpuscular Volume 88.0 fL (80.0-100.0); Nucleated Red Blood Cells % 0.0 %
--- NOTE | 2025-01-03 09:31 | DVHPN2 ---
Progress Note Date Seen: Jan 03, 2025 Medical Necessity Reason Pt with a Central, PICC or Fol: Yes The following are medically ne: Central Line, Stearns Catheter Reason for stearns catheter: Strict I&O Subjective Patient reports: No new complaints Other Systems: Patient seen and examined by myself today in follow-up, care time 35 minutes Objective vital signs Vital Sign Date Time Temp Pulse Resp B/P (MAP) Pulse Ox O2 Delivery O2 Flow Rate FiO2 01/03/25 08:11 107 168/116 01/03/25 08:01 95 Room Air 01/03/25 08:01 0 21 01/03/25 08:00 99.3 22 99.3 Total Intake and Output 01/02/25 01/02/25 01/03/25 15:00 23:00 07:00 Intake Total 50 ml 354 ml 280 ml Output Total 155 ml 75 ml Balance 50 ml 199 ml 205 ml medications Current Medications Medications Dose Ordered Sig/Isidra Route Start Time Stop Time Status Last Admin Dose Admin Albuterol 2.5 mg Q6HPRN PRN NEB 12/20/24 19:30 12/28/24 00:19 2.5 MG Acetaminophen 650 mg Q6HP PRN PO 12/20/24 19:30 01/01/25 20:14 650 MG Nitroglycerin 0.4 mg Q5MINP PRN SL 12/20/24 19:30 Enoxaparin Sodium 80 mg DAILY SC 12/22/24 10:00 UNV Vancomycin HCl 0 ml @ 0 mls/hr UD IV 12/21/24 11:45 Pantoprazole Sodium 40 mg DAILY IV 12/22/24 10:00 01/03/25 08:09 40 MG Fentanyl Citrate 250 ml @ 2.5 mls/hr Q24H IV 12/21/24 11:45 12/26/24 08:28 12.5 MLS/HR Diagnostic Test (Pha) 1 strip Q6HR 12/22/24 00:00 01/03/25 06:25 1 STRIP Insulin Human Regular Q6HR SC 12/22/24 00:00 12/31/24 06:34 2 UNITS Dextrose 50 ml UD PRN IV 12/21/24 21:00 12/22/24 06:03 50 ML Ceftriaxone Sodium 50 ml @ 100 mls/hr DAILY@09 IV 12/26/24 09:00 01/03/25 08:09 100 MLS/HR Docusate Sodium 100 mg BID GT 12/26/24 22:00 01/03/25 08:09 100 MG Albumin Human 100 ml @ 100 mls/hr UD PRN IV 12/27/24 16:00 12/27/24 16:08 100 MLS/HR Metoprolol Tartrate 50 mg BID PO 12/30/24 22:00 01/03/25 08:11 50 MG Morphine Sulfate 2 mg Q30M PRN IV 12/30/24 14:15 Amiodarone HCl 200 mg Q12HR PO 01/01/25 10:00 01/03/25 08:10 200 MG Sacubitril/ Valsartan 1 tab BID PO 01/02/25 10:00 01/03/25 08:10 1 TAB Apixaban 5 mg BID PO 01/02/25 22:00 01/03/25 08:11 5 MG Buspirone HCl 5 mg TID PO 01/02/25 14:00 01/02/25 13:53 5 MG Sertraline HCl 100 mg BID PO 01/02/25 10:00 01/03/25 08:10 100 MG Haloperidol 2 mg Q8HPRN PRN PO 01/02/25 07:45 Cancel Temazepam 15 mg HSPRN PRN PO 01/02/25 22:00 01/02/25 22:48 15 MG Haloperidol Lactate 2 mg Q8HP PRN IM 01/02/25 20:15 01/02/25 20:26 2 MG Examination: LUNGS:Normal, CVS:Normal, MSK:Normal laboratory and microbiology Laboratory Tests 01/03/25 04:32 01/02/25 04:20 Test 01/02/25 04:20 Range/Units Serum Glucose 80 74-106 mg/dL Microbiology Date/Time Source Procedure Growth Status 12/25/24 18:00 Voided Urine Urine Culture - Final Complete 12/24/24 13:05 Pleural Fluid Gram Stain - Final Complete 12/24/24 13:05 Pleural Fluid Aerobic Culture - Final Complete 12/21/24 12:00 Nose MRSA Screen - Final Methicillin Resistant S.aureus Complete 12/21/24 11:46 Blood Blood Culture - Final NO GROWTH AFTER 5 DAYS OF INCUBATION. Complete 12/21/24 11:27 Sputum Gram Stain - Final Complete 12/21/24 11:27 Respiratory Culture - Final Methicillin Resistant S.aureus Complete Problem List/Assessment/Plan Problem List/Assessment/Plan # ESRD on hemodialysis # Hypokalemia # Acute hypoxic respiratory failure, status post mechanical ventilation resolved # AFib with RVR # Acute on chronic decompensated systolic heart failure with reduced EF # possible septic/cardiogenic shock # Gram-positive versus Gram-negative community-acquired pneumonia # Acute DVT of right upper extremity # BPH # S/P exploratory laparotomy with colostomy Plan: Hemodialysis tomorrow [facility]ogen [id number] subQ 3 times weekly Renal diet Fluid restrictions tear down worker was consulted for outpatient chair time. Continue IV antibiotic and other management as per primary. We will continue to follow Plan discussed with: Patient Dietary Evaluation Review Comments: Nutrition Recommendation: 1) TF Nepro Carbsteady @ 40ml/hr x 24hr (goal rate) along with Pro-stat 1 pk TID. TF @ goal volume along with Pro-Stat provide 2028 kcal (100% energy needs), 123 gm protein (100% protein needs), 698 ml free water. 2) Water flush 80 ml Q6H if allowed, adjust PRN 3) TPN if NPO >7 days 4) Monitor NPO status, lab values, wt trend, I/O Expected Outcomes/Goals: To meet >75% estimated needs Lab values to improve Fu 2-3 days KIMMIE BURNETT MD Jan 03, 2025 09:31
--- NOTE | 2025-01-03 11:09 | DVHPN2 ---
Progress Note Date Seen: Jan 03, 2025 Medical Necessity Reason Pt with a Central, PICC or Fol: Yes The following are medically ne: Stearns Catheter Reason for stearns catheter: Strict I&O Subjective Patient reports: No new complaints Review of Systems: HEENT:Normal, CVS:Normal, RESPIRATORY:Normal, GI:Normal, :Normal, MSK:Normal, NEURO:Normal Objective vital signs Vital Sign Date Time Temp Pulse Resp B/P (MAP) Pulse Ox O2 Delivery O2 Flow Rate FiO2 01/03/25 09:44 103 01/03/25 09:44 22 100 Nasal Cannula* 2 28 01/03/25 08:11 168/116 01/03/25 08:00 99.3 99.3 Total Intake and Output 01/02/25 01/02/25 01/03/25 15:00 23:00 07:00 Intake Total 50 ml 354 ml 280 ml Output Total 155 ml 75 ml Balance 50 ml 199 ml 205 ml medications Current Medications Medications Dose Ordered Sig/Isidra Route Start Time Stop Time Status Last Admin Dose Admin Albuterol 2.5 mg Q6HPRN PRN NEB 12/20/24 19:30 12/28/24 00:19 2.5 MG Acetaminophen 650 mg Q6HP PRN PO 12/20/24 19:30 01/01/25 20:14 650 MG Nitroglycerin 0.4 mg Q5MINP PRN SL 12/20/24 19:30 Enoxaparin Sodium 80 mg DAILY SC 12/22/24 10:00 UNV Vancomycin HCl 0 ml @ 0 mls/hr UD IV 12/21/24 11:45 Pantoprazole Sodium 40 mg DAILY IV 12/22/24 10:00 01/03/25 08:09 40 MG Fentanyl Citrate 250 ml @ 2.5 mls/hr Q24H IV 12/21/24 11:45 12/26/24 08:28 12.5 MLS/HR Diagnostic Test (Pha) 1 strip Q6HR 12/22/24 00:00 01/03/25 06:25 1 STRIP Insulin Human Regular Q6HR SC 12/22/24 00:00 12/31/24 06:34 2 UNITS Dextrose 50 ml UD PRN IV 12/21/24 21:00 12/22/24 06:03 50 ML Ceftriaxone Sodium 50 ml @ 100 mls/hr DAILY@09 IV 12/26/24 09:00 01/03/25 08:09 100 MLS/HR Docusate Sodium 100 mg BID GT 12/26/24 22:00 01/03/25 08:09 100 MG Albumin Human 100 ml @ 100 mls/hr UD PRN IV 12/27/24 16:00 12/27/24 16:08 100 MLS/HR Metoprolol Tartrate 50 mg BID PO 12/30/24 22:00 01/03/25 08:11 50 MG Morphine Sulfate 2 mg Q30M PRN IV 12/30/24 14:15 Amiodarone HCl 200 mg Q12HR PO 01/01/25 10:00 01/03/25 08:10 200 MG Sacubitril/ Valsartan 1 tab BID PO 01/02/25 10:00 01/03/25 08:10 1 TAB Apixaban 5 mg BID PO 01/02/25 22:00 01/03/25 08:11 5 MG Buspirone HCl 5 mg TID PO 01/02/25 14:00 01/02/25 13:53 5 MG Sertraline HCl 100 mg BID PO 01/02/25 10:00 01/03/25 08:10 100 MG Haloperidol 2 mg Q8HPRN PRN PO 01/02/25 07:45 Cancel Temazepam 15 mg HSPRN PRN PO 01/02/25 22:00 01/02/25 22:48 15 MG Haloperidol Lactate 2 mg Q8HP PRN IM 01/02/25 20:15 01/02/25 20:26 2 MG Examination: GENERAL:Normal, HEENT:Normal, NECK:Normal, LUNGS:Normal, CVS:Normal, ABDOMEN:Normal, MSK:Normal, SKIN:Normal, NEURO:Normal, NEURO:Abnormal (confused), :Normal laboratory and microbiology Laboratory Tests 01/03/25 04:32 01/02/25 04:20 Test 01/02/25 04:20 Range/Units Serum Glucose 80 74-106 mg/dL Microbiology Date/Time Source Procedure Growth Status 12/25/24 18:00 Voided Urine Urine Culture - Final Complete 12/24/24 13:05 Pleural Fluid Gram Stain - Final Complete 12/24/24 13:05 Pleural Fluid Aerobic Culture - Final Complete 12/21/24 12:00 Nose MRSA Screen - Final Methicillin Resistant S.aureus Complete 12/21/24 11:46 Blood Blood Culture - Final NO GROWTH AFTER 5 DAYS OF INCUBATION. Complete 12/21/24 11:27 Sputum Gram Stain - Final Complete 12/21/24 11:27 Respiratory Culture - Final Methicillin Resistant S.aureus Complete Problem List/Assessment/Plan Problem List/Assessment/Plan #1 acute resp failure: on acv, extubated #2 shock - septic due to mrsa pneumonia?cardiac: cultures, iv antibiotics, off iv pressors #3 esrd: on dialysis #4 s/p bowel perf s/p exp lap: tube feedings #5 s/p peg/ostomy #6 a fib s/p cardioversion: amiodarone, lopressor #7 dm: ssi #8 bph: stearns cath #9 right upper extremity dvt: eliquis #10 gallstones #11 thrombocytopenia; improved #12 encephalopathy; metabolic long dw family regards current condition and code status- no cpr/cardioversion per Plan discussed with: Patient, Spouse My Orders My Orders Orders - ALY SCHROEDER MD Procedure Category Date Status Time Vancomycin,Random LAB 01/04/25 Verified 04:00 Creatinine LAB 01/04/25 Verified 04:00 Nutritional PHA 01/03/25 Verified Supplements (Nepro 11:15 D/C Tlc JAYNE 01/03/25 Verified 11:04 Basic Metabolic Panel LAB 01/04/25 Verified 06:00 Complete Blood Count LAB 01/04/25 Verified 06:00 Chest Portable XY 01/04/25 Verified 06:00 Dietary Evaluation Review Comments: Nutrition Recommendation: 1) TF Nepro Carbsteady @ 40ml/hr x 24hr (goal rate) along with Pro-stat 1 pk TID. TF @ goal volume along with Pro-Stat provide 2028 kcal (100% energy needs), 123 gm protein (100% protein needs), 698 ml free water. 2) Water flush 80 ml Q6H if allowed, adjust PRN 3) TPN if NPO >7 days 4) Monitor NPO status, lab values, wt trend, I/O Expected Outcomes/Goals: To meet >75% estimated needs Lab values to improve Fu 2-3 days Critical Care Time (mins): 38 (critical care time excluding procedures was 38 mins) Date of Service: Jan 03, 2025 Billing Provider: ALY SCHROEDER MD Common Visit Codes: [id number] CARE 30-74 MIN ALY SCHROEDER MD Jan 03, 2025 11:09
[2025-01-03] MEDS: Nepro With Carb Steady 1 Liter Bottle GT SCH (15:00)
[2025-01-03] MEDS: APIXABAN 2.5 MG TAB PO SCH (21:25)
[2025-01-04] VITALS (33 sets, daily range): BP systolic 115–156; BP diastolic 73–109; PULSE 86–120; RESP 17–23; TEMP 97.4–98.9; O2SAT 92–100
--- NOTE | 2025-01-04 00:16 | DVHPN2 ---
Progress Note - Dictate Date Seen: Jan 03, 2025 Medical Necessity Reason Pt with a Central, PICC or Fol: Yes The following are medically ne: Stearns Catheter Reason for stearns catheter: Strict I&O Subjective Patient was seen and evaluated in follow up in the ICU. Patient is resting in bed. Received wound care earlier today. HGB 9.9, HCT 29.3. vital signs Vital Sign Date Time Temp Pulse Resp B/P (MAP) Pulse Ox O2 Delivery O2 Flow Rate FiO2 01/03/25 23:00 104 19 160/106 (124) 94 01/03/25 22:00 Room Air* 0 21 01/03/25 20:43 98.4 98.4 Total Intake and Output 01/03/25 01/03/25 01/04/25 15:00 23:00 07:00 Intake Total 50 ml 400 ml Output Total 175 ml Balance 50 ml 225 ml medications Current Medications Medications Dose Ordered Sig/Isidra Route Start Time Stop Time Status Last Admin Dose Admin Albuterol 2.5 mg Q6HPRN PRN NEB 12/20/24 19:30 12/28/24 00:19 2.5 MG Acetaminophen 650 mg Q6HP PRN PO 12/20/24 19:30 01/01/25 20:14 650 MG Nitroglycerin 0.4 mg Q5MINP PRN SL 12/20/24 19:30 Enoxaparin Sodium 80 mg DAILY SC 12/22/24 10:00 UNV Vancomycin HCl 0 ml @ 0 mls/hr UD IV 12/21/24 11:45 Pantoprazole Sodium 40 mg DAILY IV 12/22/24 10:00 01/03/25 08:09 40 MG Diagnostic Test (Pha) 1 strip Q6HR 12/22/24 00:00 01/03/25 23:36 1 STRIP Insulin Human Regular Q6HR SC 12/22/24 00:00 01/03/25 23:36 2 UNITS Dextrose 50 ml UD PRN IV 12/21/24 21:00 12/22/24 06:03 50 ML Ceftriaxone Sodium 50 ml @ 100 mls/hr DAILY@09 IV 12/26/24 09:00 01/03/25 08:09 100 MLS/HR Docusate Sodium 100 mg BID GT 12/26/24 22:00 01/03/25 15:00 100 MG Albumin Human 100 ml @ 100 mls/hr UD PRN IV 12/27/24 16:00 12/27/24 16:08 100 MLS/HR Metoprolol Tartrate 50 mg BID PO 12/30/24 22:00 01/03/25 21:25 50 MG Morphine Sulfate 2 mg Q30M PRN IV 12/30/24 14:15 Amiodarone HCl 200 mg Q12HR PO 01/01/25 10:00 01/03/25 21:24 200 MG Sacubitril/ Valsartan 1 tab BID PO 01/02/25 10:00 01/03/25 21:24 1 TAB Buspirone HCl 5 mg TID PO 01/02/25 14:00 01/03/25 15:00 5 MG Sertraline HCl 100 mg BID PO 01/02/25 10:00 01/03/25 21:25 100 MG Haloperidol 2 mg Q8HPRN PRN PO 01/02/25 07:45 Cancel Temazepam 15 mg HSPRN PRN PO 01/02/25 22:00 01/02/25 22:48 15 MG Haloperidol Lactate 2 mg Q8HP PRN IM 01/02/25 20:15 01/02/25 20:26 2 MG Enteral Nutritional Formula 1,000 ml 30ML/HR GT 01/03/25 11:15 01/03/25 15:00 1,000 ML Apixaban 2.5 mg BID PO 01/03/25 22:00 01/03/25 21:25 2.5 MG objective GENERAL: Alert and oriented x 3. No acute distress. EYES: PERRL, EOMI. Anicteric. HENT: Moist mucous membranes. LUNGS: Decreased breath sounds. CARDIOVASCULAR: Regular rate and rhythm. ABDOMEN: Soft, nontender and nondistended. EXTREMITIES: No edema. SKIN: Warm, dry. laboratory and microbiology Laboratory Tests 01/03/25 04:32 01/02/25 04:20 Test 01/02/25 04:20 Range/Units Serum Glucose 80 74-106 mg/dL Problem List Atrial flutter/atrial fibrillation with RVR s/p DCCV, Stage IIIa, now NSR (on amiodarone/BB/Eliquis therapy at home-). Acute on chronic decompensated unspecified HF, NYHA Class IV. Nonischemic/dilated cardiomyopathy. Advanced CKD now ESRD with HD and associated hyperkalemia. History of cardiac ablation in 2022. Thyroid disease. Recent colon resection with colostomy. Assessment/Plan Continued all current supportive medical care. Amiodarone. Eliquis. IV antibiotics as ordered. Metoprolol. Morphine for pain management. GI prophylactics. Entresto. Additional plan as per the hospital course. Critical care time of 45 minutes provided to include time spent evaluation of patient at bedside, when appropriate patient/family education for diagnosis, treatment plan, review of pertinent medical information and discussion of care with specialty providers and PCP. Dietary Evaluation Review Comments: Nutrition Recommendation: 1) TF Nepro Carbsteady @ 40ml/hr x 24hr (goal rate) along with Pro-stat 1 pk TID. TF @ goal volume along with Pro-Stat provide 2028 kcal (100% energy needs), 123 gm protein (100% protein needs), 698 ml free water. 2) Water flush 80 ml Q6H if allowed, adjust PRN 3) TPN if NPO >7 days 4) Monitor NPO status, lab values, wt trend, I/O Expected Outcomes/Goals: To meet >75% estimated needs Lab values to improve Fu 2-3 days Plan discussed with: Patient KRISTOPHER ARMANDO MD Jan 04, 2025 00:16
--- NOTE | 2025-01-04 03:54 | DVH ---
CHEST RADIOGRAPH Indication: CHF Technique: 1 view Comparison: XY CHEST PORTABLE on DOS: 12/31/24, XY CHEST PORTABLE on DOS: 12/30/24, XY CHEST PORTABLE o n DOS: 12/29/24, XY CHEST PORTABLE on DOS: 12/28/24, XY CHEST PORTABLE on DOS: 12/26/24 FINDINGS: Lines and Tubes: Endotracheal extubation and left IJ catheter removal. Unchanged tunneled right IJ c atheter. Lungs/Pleura: Increased left perihilar density. Similar left basilar opacity, and bilateral intersti tial markings. Small left pleural effusion. No pneumothorax. Cardiomediastinum: Unchanged. Other: Unchanged osseous structures. IMPRESSION: 1. Interval endotracheal extubation and removal of the left IJ catheter. Right IJ catheter stable. 2. Worsening left perihilar airspace opacity. Bilateral interstitial opacities, left basilar consolid ation and small pleural effusion are unchanged.
[2025-01-04 05:28] LABS: Hematocrit 32.9 % (41.0-53.0); Hemoglobin 10.9 g/dL (13.5-17.5); Mean Corpuscular Hemoglobin 29.6 pg (28.0-32.0); Mean Corpuscular Volume 89.2 fL (80.0-100.0); Nucleated Red Blood Cells % 0.1 %
[2025-01-04 05:33] LABS: Chloride 101 mmol/L (98-107); Potassium 3.6 mmol/L (3.5-5.1); Sodium 141 mmol/L (136-145)
[2025-01-04 05:34] LABS: Anion Gap 13 (5-15); Carbon Dioxide 27 mmol/L (20-31)
[2025-01-04 05:36] LABS: Calcium 8.6 mg/dL (8.7-10.4)
[2025-01-04 05:39] LABS: BUN/Creatinine Ratio 3.5 (10.0-20.0); Blood Urea Nitrogen 17 mg/dL (9-23); Glucose 92 mg/dL (74-106)
[2025-01-04] MEDS: SODIUM CHL 0.9% 1000 ML BAG XX ONE (07:55)
--- NOTE | 2025-01-04 10:28 | DVHPN2 ---
Progress Note Date Seen: Jan 04, 2025 Medical Necessity Reason Pt with a Central, PICC or Fol: Yes The following are medically ne: Stearns Catheter Reason for stearns catheter: Strict I&O Subjective Patient reports: No new complaints Review of Systems: HEENT:Normal, CVS:Normal, RESPIRATORY:Normal, GI:Normal, :Normal, MSK:Normal, NEURO:Normal Objective vital signs Vital Sign Date Time Temp Pulse Resp B/P (MAP) Pulse Ox O2 Delivery O2 Flow Rate FiO2 01/04/25 08:00 110 21 94 Room Air* 0 21 01/04/25 05:31 138/104 (115) 01/04/25 00:01 98.6 98.6 Total Intake and Output 01/03/25 01/03/25 01/04/25 15:00 23:00 07:00 Intake Total 50 ml 400 ml 250 ml Output Total 175 ml 100 ml Balance 50 ml 225 ml 150 ml medications Current Medications Medications Dose Ordered Sig/Isidra Route Start Time Stop Time Status Last Admin Dose Admin Albuterol 2.5 mg Q6HPRN PRN NEB 12/20/24 19:30 12/28/24 00:19 2.5 MG Acetaminophen 650 mg Q6HP PRN PO 12/20/24 19:30 01/01/25 20:14 650 MG Nitroglycerin 0.4 mg Q5MINP PRN SL 12/20/24 19:30 Enoxaparin Sodium 80 mg DAILY SC 12/22/24 10:00 UNV Vancomycin HCl 0 ml @ 0 mls/hr UD IV 12/21/24 11:45 Pantoprazole Sodium 40 mg DAILY IV 12/22/24 10:00 01/03/25 08:09 40 MG Diagnostic Test (Pha) 1 strip Q6HR 12/22/24 00:00 01/04/25 05:49 1 STRIP Insulin Human Regular Q6HR SC 12/22/24 00:00 01/03/25 23:36 2 UNITS Dextrose 50 ml UD PRN IV 12/21/24 21:00 12/22/24 06:03 50 ML Ceftriaxone Sodium 50 ml @ 100 mls/hr DAILY@09 IV 12/26/24 09:00 01/03/25 08:09 100 MLS/HR Docusate Sodium 100 mg BID GT 12/26/24 22:00 01/03/25 15:00 100 MG Albumin Human 100 ml @ 100 mls/hr UD PRN IV 12/27/24 16:00 12/27/24 16:08 100 MLS/HR Metoprolol Tartrate 50 mg BID PO 12/30/24 22:00 01/03/25 21:25 50 MG Morphine Sulfate 2 mg Q30M PRN IV 12/30/24 14:15 Amiodarone HCl 200 mg Q12HR PO 01/01/25 10:00 01/03/25 21:24 200 MG Sacubitril/ Valsartan 1 tab BID PO 01/02/25 10:00 01/03/25 21:24 1 TAB Buspirone HCl 5 mg TID PO 01/02/25 14:00 01/03/25 15:00 5 MG Sertraline HCl 100 mg BID PO 01/02/25 10:00 01/03/25 21:25 100 MG Haloperidol 2 mg Q8HPRN PRN PO 01/02/25 07:45 Cancel Temazepam 15 mg HSPRN PRN PO 01/02/25 22:00 01/02/25 22:48 15 MG Haloperidol Lactate 2 mg Q8HP PRN IM 01/02/25 20:15 01/02/25 20:26 2 MG Enteral Nutritional Formula 1,000 ml 30ML/HR GT 01/03/25 11:15 01/03/25 15:00 1,000 ML Apixaban 2.5 mg BID PO 01/03/25 22:00 01/03/25 21:25 2.5 MG Examination: GENERAL:Normal, HEENT:Normal, NECK:Normal, LUNGS:Normal, CVS:Normal, ABDOMEN:Normal, ABDOMEN:Abnormal (PEG, OSTOMY), MSK:Normal, SKIN:Normal, NEURO:Normal, :Normal laboratory and microbiology Laboratory Tests 01/04/25 04:40 Test 01/04/25 04:40 Range/Units Serum Glucose 92 74-106 mg/dL Microbiology Date/Time Source Procedure Growth Status 12/25/24 18:00 Voided Urine Urine Culture - Final Complete 12/24/24 13:05 Pleural Fluid Gram Stain - Final Complete 12/24/24 13:05 Pleural Fluid Aerobic Culture - Final Complete 12/21/24 12:00 Nose MRSA Screen - Final Methicillin Resistant S.aureus Complete 12/21/24 11:46 Blood Blood Culture - Final NO GROWTH AFTER 5 DAYS OF INCUBATION. Complete 12/21/24 11:27 Sputum Gram Stain - Final Complete 12/21/24 11:27 Respiratory Culture - Final Methicillin Resistant S.aureus Complete Problem List/Assessment/Plan Problem List/Assessment/Plan #1 acute resp failure: on acv, extubated #2 shock - septic due to mrsa pneumonia?cardiac: cultures, iv antibiotics, off iv pressors #3 esrd: on dialysis #4 s/p bowel perf s/p exp lap: tube feedings #5 s/p peg/ostomy #6 a fib s/p cardioversion: amiodarone, lopressor #7 dm: ssi #8 bph: stearns cath #9 right upper extremity dvt: eliquis #10 gallstones #11 thrombocytopenia; improved #12 encephalopathy; metabolic advance care planning- no cpr per - time spent 18 mins long dw family regards current condition and code status- no cpr/cardioversion per Plan discussed with: Patient My Orders My Orders Orders - ALY SCHROEDER MD Procedure Category Date Status Time Nutritional PHA 01/03/25 In Process Supplements (Nepro 11:15 D/C Tlc JAYNE 01/03/25 In Process 11:04 Chest Portable XY 01/04/25 Resulted 06:00 Apixaban (Eliquis) PHA 01/03/25 In Process 22:00 Cleanse Wound With JAYNE 01/03/25 In Process Wound Clean 10:21 Nutritional PHA 01/04/25 Verified Supplements (Nepro 10:30 Transfer Orders XFER 01/04/25 Verified 10:24 Dietary Evaluation Review Comments: Nutrition Recommendation: 1) TF Nepro Carbsteady @ 40ml/hr x 24hr (goal rate) along with Pro-stat 1 pk TID. TF @ goal volume along with Pro-Stat provide 2028 kcal (100% energy needs), 123 gm protein (100% protein needs), 698 ml free water. 2) Water flush 80 ml Q6H if allowed, adjust PRN 3) TPN if NPO >7 days 4) Monitor NPO status, lab values, wt trend, I/O Expected Outcomes/Goals: To meet >75% estimated needs Lab values to improve Fu 2-3 days Date of Service: Jan 04, 2025 Billing Provider: ALY SCHROEDER MD Common Visit Codes: [id number] INP/OBS CARE(HIGH) Secondary Visit Codes: [id number] CARE PLAN 30 MINUTES ALY SCHROEDER MD Jan 04, 2025 10:28
[2025-01-04] MEDS ORDERED: Nepro With Carb Steady 1 Liter Bottle GT SCH (10:30)
--- NOTE | 2025-01-04 11:24 | DVHPN2 ---
Progress Note Date Seen: Jan 04, 2025 Resident Creating Document: JOSEFINA AKERS RESIDENT Medical Necessity Reason Pt with a Central, PICC or Fol: Yes The following are medically ne: Stearns Catheter Reason for stearns catheter: Strict I&O Subjective Review of Systems Patient was seen and examined on the bedside. status post extubation and on room air. He underwent hemodialysis today and 2 L ultrafiltration removed. Other Systems: Patient seen and examined by myself today on rounds with the medicine resident, I agree with the documented assessment and plan Objective vital signs Vital Sign Date Time Temp Pulse Resp B/P (MAP) Pulse Ox O2 Delivery O2 Flow Rate FiO2 01/04/25 08:00 110 21 94 Room Air* 0 21 01/04/25 05:31 138/104 (115) 01/04/25 00:01 98.6 98.6 Total Intake and Output 01/03/25 01/03/25 01/04/25 15:00 23:00 07:00 Intake Total 50 ml 400 ml 250 ml Output Total 175 ml 100 ml Balance 50 ml 225 ml 150 ml medications Current Medications Medications Dose Ordered Sig/Isidra Route Start Time Stop Time Status Last Admin Dose Admin Albuterol 2.5 mg Q6HPRN PRN NEB 12/20/24 19:30 12/28/24 00:19 2.5 MG Acetaminophen 650 mg Q6HP PRN PO 12/20/24 19:30 01/01/25 20:14 650 MG Nitroglycerin 0.4 mg Q5MINP PRN SL 12/20/24 19:30 Enoxaparin Sodium 80 mg DAILY SC 12/22/24 10:00 UNV Vancomycin HCl 0 ml @ 0 mls/hr UD IV 12/21/24 11:45 Pantoprazole Sodium 40 mg DAILY IV 12/22/24 10:00 01/03/25 08:09 40 MG Diagnostic Test (Pha) 1 strip Q6HR 12/22/24 00:00 01/04/25 05:49 1 STRIP Insulin Human Regular Q6HR SC 12/22/24 00:00 01/03/25 23:36 2 UNITS Dextrose 50 ml UD PRN IV 12/21/24 21:00 12/22/24 06:03 50 ML Docusate Sodium 100 mg BID GT 12/26/24 22:00 01/03/25 15:00 100 MG Albumin Human 100 ml @ 100 mls/hr UD PRN IV 12/27/24 16:00 12/27/24 16:08 100 MLS/HR Metoprolol Tartrate 50 mg BID PO 12/30/24 22:00 01/03/25 21:25 50 MG Morphine Sulfate 2 mg Q30M PRN IV 12/30/24 14:15 Amiodarone HCl 200 mg Q12HR PO 01/01/25 10:00 01/03/25 21:24 200 MG Sacubitril/ Valsartan 1 tab BID PO 01/02/25 10:00 01/03/25 21:24 1 TAB Buspirone HCl 5 mg TID PO 01/02/25 14:00 01/03/25 15:00 5 MG Sertraline HCl 100 mg BID PO 01/02/25 10:00 01/03/25 21:25 100 MG Haloperidol 2 mg Q8HPRN PRN PO 01/02/25 07:45 Cancel Temazepam 15 mg HSPRN PRN PO 01/02/25 22:00 01/02/25 22:48 15 MG Apixaban 2.5 mg BID PO 01/03/25 22:00 01/03/25 21:25 2.5 MG Enteral Nutritional Formula 1,000 ml 40ML/HR GT 01/04/25 10:30 Examination Physical examination: General Appearance: Alert, Oriented X1, Confused HEENT: Atraumatic, PERRLA, EOMI, Mucous membrane moist/pink Respiratory: Bilateral fine crackles Cardiovascular: Regular rate, Normal S1, Normal S2, No murmurs, no chest wall tenderness Abdominal: Normal bowel sounds, Soft, No tenderness, No hepatospenomegaly, No masses Extremities: No clubbing, No cyanosis, No edema, Normal pulses, No tenderness/swelling Skin: No rashes, No breakdown, No significant lesion Neuro: Normal speech, Strength at 5/5 X4 ext, Normal tone, Sensation intact, Cranial nerves 3-12 NL, Reflexes 2+ Psych/Mental Status: Could not be assessed. laboratory and microbiology Laboratory Tests 01/04/25 04:40 Test 01/04/25 04:40 Range/Units Serum Glucose 92 74-106 mg/dL Microbiology Date/Time Source Procedure Growth Status 12/25/24 18:00 Voided Urine Urine Culture - Final Complete 12/24/24 13:05 Pleural Fluid Gram Stain - Final Complete 12/24/24 13:05 Pleural Fluid Aerobic Culture - Final Complete 12/21/24 12:00 Nose MRSA Screen - Final Methicillin Resistant S.aureus Complete 12/21/24 11:46 Blood Blood Culture - Final NO GROWTH AFTER 5 DAYS OF INCUBATION. Complete 12/21/24 11:27 Sputum Gram Stain - Final Complete 12/21/24 11:27 Respiratory Culture - Final Methicillin Resistant S.aureus Complete Labs and/or images reviewed: Labs reviewed by me, Image(s) reviewed by me Problem List/Assessment/Plan Problem List/Assessment/Plan Assessment and plan: # ESRD on hemodialysis # Acute hypoxic respiratory failure, status post extubation # AFib with RVR, currently sinus rhythm with controlled heart rate # Acute on chronic decompensated systolic heart failure with reduced EF # possible septic/cardiogenic shock resolved # Gram-positive versus Gram-negative community-acquired pneumonia # Acute DVT of right upper extremity # BPH # S/P exploratory laparotomy with colostomy Plan: - Hemodialysis today - overhead worker was consulted for outpatient chair time. - Continue IV antibiotic and other management as per primary. - strict I&O - monitor BMP Thank you so much for the opportunity to consult on your patient. Nephro team will follow the patient. In case of any questions or concerns please feel free to reach out. Plan discussed with Dr. Smith . The patient and caregiver team agreed to the plan. Plan discussed with: Other (RN) Dietary Evaluation Review Comments: Nutrition Recommendation: 1) TF Nepro Carbsteady @ 40ml/hr x 24hr (goal rate) along with Pro-stat 1 pk TID. TF @ goal volume along with Pro-Stat provide 2028 kcal (100% energy needs), 123 gm protein (100% protein needs), 698 ml free water. 2) Water flush 80 ml Q6H if allowed, adjust PRN 3) TPN if NPO >7 days 4) Monitor NPO status, lab values, wt trend, I/O Expected Outcomes/Goals: To meet >75% estimated needs Lab values to improve Fu 2-3 days JOSEFINA AKERS Jan 04, 2025 11:24 KIMMIE SMITH MD Jan 04, 2025 12:09
[2025-01-04] MEDS: VANCOMYCIN 750MG KIT 100 ML IV ONE (14:54)
[2025-01-04] MEDS: EPOETIN ALFA-EPBX 10,000 UNIT/1ML VIAL SC ONE (21:25)
[2025-01-04] MEDS: Pro-Stat SF 30ml Vanilla GT SCH (21:28)
[2025-01-05] VITALS (9 sets, daily range): BP systolic 126–144; BP diastolic 88–99; PULSE 68–122; RESP 18–19; TEMP 98.1–98.6; O2SAT 94–97
--- NOTE | 2025-01-05 00:42 | DVHPN2 ---
Progress Note - Dictate Date Seen: Jan 04, 2025 Medical Necessity Reason Pt with a Central, PICC or Fol: Yes The following are medically ne: Stearns Catheter Reason for stearns catheter: Strict I&O Subjective Patient was seen and evaluated in follow up. The patient has been downgraded to tele bed. Patient received HD with 2 L removed. H&H stable. Esthetician/Skin Therapist 4.82. Telemetry reviewed. vital signs Vital Sign Date Time Temp Pulse Resp B/P (MAP) Pulse Ox O2 Delivery O2 Flow Rate FiO2 01/04/25 21:45 102 136/102 01/04/25 19:31 18 94 21 01/04/25 18:42 Room Air* 0 01/04/25 17:10 97.4 97.4 Total Intake and Output 01/04/25 01/04/25 01/05/25 15:00 23:00 07:00 Intake Total 0 ml 100 ml Output Total 200 ml Balance 0 ml -100 ml medications Current Medications Medications Dose Ordered Sig/Isirda Route Start Time Stop Time Status Last Admin Dose Admin Albuterol 2.5 mg Q6HPRN PRN NEB 12/20/24 19:30 12/28/24 00:19 2.5 MG Acetaminophen 650 mg Q6HP PRN PO 12/20/24 19:30 01/01/25 20:14 650 MG Nitroglycerin 0.4 mg Q5MINP PRN SL 12/20/24 19:30 Enoxaparin Sodium 80 mg DAILY SC 12/22/24 10:00 UNV Vancomycin HCl 0 ml @ 0 mls/hr UD IV 12/21/24 11:45 Pantoprazole Sodium 40 mg DAILY IV 12/22/24 10:00 01/04/25 11:41 40 MG Diagnostic Test (Pha) 1 strip Q6HR 12/22/24 00:00 01/04/25 17:27 1 STRIP Insulin Human Regular Q6HR SC 12/22/24 00:00 01/04/25 17:28 2 UNITS Dextrose 50 ml UD PRN IV 12/21/24 21:00 12/22/24 06:03 50 ML Docusate Sodium 100 mg BID GT 12/26/24 22:00 01/04/25 11:40 100 MG Albumin Human 100 ml @ 100 mls/hr UD PRN IV 12/27/24 16:00 12/27/24 16:08 100 MLS/HR Metoprolol Tartrate 50 mg BID PO 12/30/24 22:00 01/04/25 11:41 50 MG Morphine Sulfate 2 mg Q30M PRN IV 12/30/24 14:15 Sacubitril/ Valsartan 1 tab BID PO 01/02/25 10:00 01/04/25 11:42 1 TAB Buspirone HCl 5 mg TID PO 01/02/25 14:00 01/04/25 16:04 5 MG Haloperidol 2 mg Q8HPRN PRN PO 01/02/25 07:45 Cancel Temazepam 15 mg HSPRN PRN PO 01/02/25 22:00 01/04/25 22:35 15 MG Apixaban 2.5 mg BID PO 01/03/25 22:00 01/04/25 11:42 2.5 MG Enteral Nutritional Formula 1,000 ml 40ML/HR GT 01/04/25 10:30 Amino Acid Protein 30 ml BID GT 01/04/25 22:00 objective GENERAL: Alert and oriented x 3. No acute distress. EYES: PERRL, EOMI. Anicteric. HENT: Moist mucous membranes. LUNGS: Decreased breath sounds. CARDIOVASCULAR: Regular rate and rhythm. ABDOMEN: Soft, nontender and nondistended. EXTREMITIES: No edema. SKIN: Warm, dry. laboratory and microbiology Laboratory Tests 01/04/25 04:40 Test 01/04/25 04:40 Range/Units Serum Glucose 92 74-106 mg/dL Problem List Atrial flutter/atrial fibrillation with RVR s/p DCCV, Stage IIIa, now NSR (on amiodarone/BB/Eliquis therapy at home-). Acute on chronic decompensated unspecified HF, NYHA Class IV. Nonischemic/dilated cardiomyopathy. Advanced CKD now ESRD with HD and associated hyperkalemia. History of cardiac ablation in 2022. Thyroid disease. Recent colon resection with colostomy. Assessment/Plan Continued all current supportive medical care. Eliquis. Metoprolol. Morphine for pain management. Nitro SL. GI prophylactics. Entresto. IV antibiotics as ordered. Additional plan as per the hospital course. Dietary Evaluation Review Comments: Nutrition Recommendation: 1) TF Nepro Carbsteady @ 40ml/hr x 24hr (goal rate) along with Pro-stat 1 pk TID. TF @ goal volume along with Pro-Stat provide 2028 kcal (100% energy needs), 123 gm protein (100% protein needs), 698 ml free water. 2) Water flush 80 ml Q6H if allowed, adjust PRN 3) TPN if NPO >7 days 4) Monitor NPO status, lab values, wt trend, I/O Expected Outcomes/Goals: To meet >75% estimated needs Lab values to improve Fu 2-3 days Plan discussed with: Patient KRISTOPHER ARMANDO MD Jan 05, 2025 00:42
[2025-01-05 05:45] LABS: Anion Gap 11 (5-15); Chloride 100 mmol/L (98-107); Sodium 142 mmol/L (136-145)
[2025-01-05 05:51] LABS: BUN/Creatinine Ratio 5.0 (10.0-20.0); Blood Urea Nitrogen 19 mg/dL (9-23); Calcium 8.6 mg/dL (8.7-10.4); Carbon Dioxide 31 mmol/L (20-31); Potassium 3.3 mmol/L (3.5-5.1)
[2025-01-05 05:54] LABS: Glucose 147 mg/dL (74-106)
[2025-01-05] MEDS: POTASSIUM EFFERVESENT TAB 25 MEQ PO ONE (08:50)
--- NOTE | 2025-01-05 11:21 | DVHPN2 ---
Progress Note Date Seen: Jan 05, 2025 Medical Necessity Reason Pt with a Central, PICC or Fol: Yes The following are medically ne: Stearns Catheter Reason for stearns catheter: Strict I&O Subjective Patient reports: No new complaints Review of Systems: HEENT:Normal, CVS:Normal, RESPIRATORY:Normal, GI:Normal, :Normal, MSK:Normal, NEURO:Normal Objective vital signs Vital Sign Date Time Temp Pulse Resp B/P (MAP) Pulse Ox O2 Delivery O2 Flow Rate FiO2 01/05/25 08:38 98.5 122 19 136/99 (111) 94 98.5 01/05/25 07:44 Room Air* 0 21 Total Intake and Output 01/04/25 01/04/25 01/05/25 15:00 23:00 07:00 Intake Total 0 ml 100 ml 200 ml Output Total 200 ml 50 ml Balance 0 ml -100 ml 150 ml medications Current Medications Medications Dose Ordered Sig/Isidra Route Start Time Stop Time Status Last Admin Dose Admin Albuterol 2.5 mg Q6HPRN PRN NEB 12/20/24 19:30 12/28/24 00:19 2.5 MG Acetaminophen 650 mg Q6HP PRN PO 12/20/24 19:30 01/01/25 20:14 650 MG Nitroglycerin 0.4 mg Q5MINP PRN SL 12/20/24 19:30 Enoxaparin Sodium 80 mg DAILY SC 12/22/24 10:00 UNV Vancomycin HCl 0 ml @ 0 mls/hr UD IV 12/21/24 11:45 Pantoprazole Sodium 40 mg DAILY IV 12/22/24 10:00 01/05/25 08:30 40 MG Diagnostic Test (Pha) 1 strip Q6HR 12/22/24 00:00 01/05/25 06:00 1 STRIP Insulin Human Regular Q6HR SC 12/22/24 00:00 01/05/25 05:59 2 UNITS Dextrose 50 ml UD PRN IV 12/21/24 21:00 12/22/24 06:03 50 ML Docusate Sodium 100 mg BID GT 12/26/24 22:00 01/05/25 08:31 100 MG Albumin Human 100 ml @ 100 mls/hr UD PRN IV 12/27/24 16:00 12/27/24 16:08 100 MLS/HR Metoprolol Tartrate 50 mg BID PO 12/30/24 22:00 01/05/25 08:35 50 MG Morphine Sulfate 2 mg Q30M PRN IV 12/30/24 14:15 Sacubitril/ Valsartan 1 tab BID PO 01/02/25 10:00 01/05/25 08:30 1 TAB Buspirone HCl 5 mg TID PO 01/02/25 14:00 01/05/25 06:00 5 MG Haloperidol 2 mg Q8HPRN PRN PO 01/02/25 07:45 Cancel Temazepam 15 mg HSPRN PRN PO 01/02/25 22:00 01/04/25 22:35 15 MG Apixaban 2.5 mg BID PO 01/03/25 22:00 01/05/25 08:31 2.5 MG Enteral Nutritional Formula 1,000 ml 40ML/HR GT 01/04/25 10:30 Amino Acid Protein 30 ml BID GT 01/04/25 22:00 01/05/25 08:31 30 ML Examination: GENERAL:Normal, HEENT:Normal, NECK:Normal, LUNGS:Normal, CVS:Normal, ABDOMEN:Normal, ABDOMEN:Abnormal (OSTOMY), MSK:Normal, SKIN:Normal, NEURO:Normal, :Normal laboratory and microbiology Laboratory Tests 01/05/25 04:55 01/04/25 04:40 Test 01/05/25 04:55 Range/Units Serum Glucose 147 H 74-106 mg/dL Microbiology Date/Time Source Procedure Growth Status 12/25/24 18:00 Voided Urine Urine Culture - Final Complete 12/24/24 13:05 Pleural Fluid Gram Stain - Final Complete 12/24/24 13:05 Pleural Fluid Aerobic Culture - Final Complete 12/21/24 12:00 Nose MRSA Screen - Final Methicillin Resistant S.aureus Complete 12/21/24 11:46 Blood Blood Culture - Final NO GROWTH AFTER 5 DAYS OF INCUBATION. Complete 12/21/24 11:27 Sputum Gram Stain - Final Complete 12/21/24 11:27 Respiratory Culture - Final Methicillin Resistant S.aureus Complete Problem List/Assessment/Plan Problem List/Assessment/Plan #1 acute resp failure: on acv, extubated #2 shock - septic due to mrsa pneumonia?cardiac: cultures, iv vanc, off iv pressors #3 esrd: on dialysis #4 s/p bowel perf s/p exp lap: tube feedings #5 s/p peg/ostomy #6 a fib s/p cardioversion: amiodarone, lopressor #7 dm: ssi #8 bph: stearns cath #9 right upper extremity dvt: eliquis #10 gallstones #11 thrombocytopenia; improved #12 encephalopathy; metabolic advance care planning- no cpr per - time spent 18 mins long dw family regards current condition and code status- no cpr/cardioversion per Plan discussed with: Patient, Spouse My Orders My Orders Orders - ALY SCHROEDER MD Procedure Category Date Status Time Amino Acids-Protein PHA 01/04/25 In Process Hydrolysat (Pro-Stat 22:00 Sitter At Bedside ORDERS 01/04/25 Transmitted 16:40 Dietary Evaluation Review Comments: Nutrition Recommendation: 1) TF Nepro Carbsteady @ 40ml/hr x 24hr (goal rate) along with Pro-stat 1 pk TID. TF @ goal volume along with Pro-Stat provide 2028 kcal (100% energy needs), 123 gm protein (100% protein needs), 698 ml free water. 2) Water flush 80 ml Q6H if allowed, adjust PRN 3) TPN if NPO >7 days 4) Monitor NPO status, lab values, wt trend, I/O Expected Outcomes/Goals: To meet >75% estimated needs Lab values to improve Fu 2-3 days Date of Service: Jan 05, 2025 Billing Provider: ALY SCHROEDER MD Common Visit Codes: [id number] INP/OBS CARE(HIGH) ALY SCHROEDER MD Jan 05, 2025 11:21
--- NOTE | 2025-01-05 11:43 | DVHPN2 ---
Progress Note Date Seen: Jan 05, 2025 Resident Creating Document: JOSEFINA AKERS RESIDENT Medical Necessity Reason Pt with a Central, PICC or Fol: Yes The following are medically ne: Stearns Catheter Reason for stearns catheter: Strict I&O Subjective Review of Systems Patient was seen and examined on the bedside. status post extubation and on room air. He underwent hemodialysis yesterday and 2 L ultrafiltration removed. Other Systems: Patient seen and examined by myself today in rounds with the medicine resident, I agree with her assessment and plan Objective vital signs Vital Sign Date Time Temp Pulse Resp B/P (MAP) Pulse Ox O2 Delivery O2 Flow Rate FiO2 01/05/25 08:38 98.5 122 19 136/99 (111) 94 98.5 01/05/25 07:44 Room Air* 0 21 Total Intake and Output 01/04/25 01/04/25 01/05/25 15:00 23:00 07:00 Intake Total 0 ml 100 ml 200 ml Output Total 200 ml 50 ml Balance 0 ml -100 ml 150 ml medications Current Medications Medications Dose Ordered Sig/Isidra Route Start Time Stop Time Status Last Admin Dose Admin Albuterol 2.5 mg Q6HPRN PRN NEB 12/20/24 19:30 12/28/24 00:19 2.5 MG Acetaminophen 650 mg Q6HP PRN PO 12/20/24 19:30 01/01/25 20:14 650 MG Nitroglycerin 0.4 mg Q5MINP PRN SL 12/20/24 19:30 Enoxaparin Sodium 80 mg DAILY SC 12/22/24 10:00 UNV Vancomycin HCl 0 ml @ 0 mls/hr UD IV 12/21/24 11:45 Pantoprazole Sodium 40 mg DAILY IV 12/22/24 10:00 01/05/25 08:30 40 MG Diagnostic Test (Pha) 1 strip Q6HR 12/22/24 00:00 01/05/25 06:00 1 STRIP Insulin Human Regular Q6HR SC 12/22/24 00:00 01/05/25 05:59 2 UNITS Dextrose 50 ml UD PRN IV 12/21/24 21:00 12/22/24 06:03 50 ML Docusate Sodium 100 mg BID GT 12/26/24 22:00 01/05/25 08:31 100 MG Albumin Human 100 ml @ 100 mls/hr UD PRN IV 12/27/24 16:00 12/27/24 16:08 100 MLS/HR Metoprolol Tartrate 50 mg BID PO 12/30/24 22:00 01/05/25 08:35 50 MG Morphine Sulfate 2 mg Q30M PRN IV 12/30/24 14:15 Sacubitril/ Valsartan 1 tab BID PO 01/02/25 10:00 01/05/25 08:30 1 TAB Buspirone HCl 5 mg TID PO 01/02/25 14:00 01/05/25 06:00 5 MG Haloperidol 2 mg Q8HPRN PRN PO 01/02/25 07:45 Cancel Temazepam 15 mg HSPRN PRN PO 01/02/25 22:00 01/04/25 22:35 15 MG Apixaban 2.5 mg BID PO 01/03/25 22:00 01/05/25 08:31 2.5 MG Enteral Nutritional Formula 1,000 ml 40ML/HR GT 01/04/25 10:30 Amino Acid Protein 30 ml BID GT 01/04/25 22:00 01/05/25 08:31 30 ML Examination Physical examination: General Appearance: Alert, Oriented X1, Confused HEENT: Atraumatic, PERRLA, EOMI, Mucous membrane moist/pink Respiratory: Bilateral fine crackles Cardiovascular: Regular rate, Normal S1, Normal S2, No murmurs, no chest wall tenderness Abdominal: Normal bowel sounds, Soft, No tenderness, No hepatospenomegaly, No masses Extremities: No clubbing, No cyanosis, No edema, Normal pulses, No tenderness/swelling Skin: No rashes, No breakdown, No significant lesion Neuro: Normal speech, Strength at 5/5 X4 ext, Normal tone, Sensation intact, Cranial nerves 3-12 NL, Reflexes 2+ Psych/Mental Status: Could not be assessed. laboratory and microbiology Laboratory Tests 01/05/25 04:55 01/04/25 04:40 Test 01/05/25 04:55 Range/Units Serum Glucose 147 H 74-106 mg/dL Microbiology Date/Time Source Procedure Growth Status 12/25/24 18:00 Voided Urine Urine Culture - Final Complete 12/24/24 13:05 Pleural Fluid Gram Stain - Final Complete 12/24/24 13:05 Pleural Fluid Aerobic Culture - Final Complete 12/21/24 12:00 Nose MRSA Screen - Final Methicillin Resistant S.aureus Complete 12/21/24 11:46 Blood Blood Culture - Final NO GROWTH AFTER 5 DAYS OF INCUBATION. Complete 12/21/24 11:27 Sputum Gram Stain - Final Complete 12/21/24 11:27 Respiratory Culture - Final Methicillin Resistant S.aureus Complete Labs and/or images reviewed: Labs reviewed by me, Image(s) reviewed by me Problem List/Assessment/Plan Problem List/Assessment/Plan Assessment and plan: # ESRD on hemodialysis # Acute hypoxic respiratory failure, status post extubation # AFib with RVR, currently sinus rhythm with controlled heart rate # Acute on chronic decompensated systolic heart failure with reduced EF # possible septic/cardiogenic shock resolved # Gram-positive versus Gram-negative community-acquired pneumonia # Acute DVT of right upper extremity # BPH # S/P exploratory laparotomy with colostomy Plan: - Hemodialysis tomorrow - Arranged outpatient chair [place] with [facility] [place] [address] - Continue IV antibiotic and other management as per primary. - strict I&O - monitor BMP Care time 25 minutes Thank you so much for the opportunity to consult on your patient. Nephro team will follow the patient. In case of any questions or concerns please feel free to reach out. Plan discussed with Dr. Smith . The patient and caregiver team agreed to the plan. Plan discussed with: Other (RN) Dietary Evaluation Review Comments: Nutrition Recommendation: 1) TF Nepro Carbsteady @ 40ml/hr x 24hr (goal rate) along with Pro-stat 1 pk TID. TF @ goal volume along with Pro-Stat provide 2028 kcal (100% energy needs), 123 gm protein (100% protein needs), 698 ml free water. 2) Water flush 80 ml Q6H if allowed, adjust PRN 3) TPN if NPO >7 days 4) Monitor NPO status, lab values, wt trend, I/O Expected Outcomes/Goals: To meet >75% estimated needs Lab values to improve Fu 2-3 days JOSEFINA AKERS RESIDENT Jan 05, 2025 11:43 KIMMIE SMITH MD Jan 05, 2025 13:54
--- NOTE | 2025-01-05 23:28 | DVHPN2 ---
Progress Note - Dictate Date Seen: Jan 05, 2025 Medical Necessity Reason Pt with a Central, PICC or Fol: Yes The following are medically ne: Stearns Catheter Reason for stearns catheter: Strict I&O Subjective Patient was seen and evaluated in follow up. Sitter is at bedside. The patients colostomy appears to be functioning well. 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 Telemetry reviewed. vital signs Vital Sign Date Time Temp Pulse Resp B/P (MAP) Pulse Ox O2 Delivery O2 Flow Rate FiO2 01/05/25 08:38 98.5 122 19 136/99 (111) 94 98.5 01/05/25 07:44 Room Air* 0 21 Total Intake and Output 01/04/25 01/04/25 01/05/25 15:00 23:00 07:00 Intake Total 0 ml 100 ml 200 ml Output Total 200 ml 50 ml Balance 0 ml -100 ml 150 ml medications Current Medications Medications Dose Ordered Sig/Isidra Route Start Time Stop Time Status Last Admin Dose Admin Albuterol 2.5 mg Q6HPRN PRN NEB 12/20/24 19:30 12/28/24 00:19 2.5 MG Acetaminophen 650 mg Q6HP PRN PO 12/20/24 19:30 01/01/25 20:14 650 MG Nitroglycerin 0.4 mg Q5MINP PRN SL 12/20/24 19:30 Enoxaparin Sodium 80 mg DAILY SC 12/22/24 10:00 UNV Vancomycin HCl 0 ml @ 0 mls/hr UD IV 12/21/24 11:45 Pantoprazole Sodium 40 mg DAILY IV 12/22/24 10:00 01/05/25 08:30 40 MG Diagnostic Test (Pha) 1 strip Q6HR 12/22/24 00:00 01/05/25 11:54 1 STRIP Insulin Human Regular Q6HR SC 12/22/24 00:00 01/05/25 11:57 2 UNITS Dextrose 50 ml UD PRN IV 12/21/24 21:00 12/22/24 06:03 50 ML Docusate Sodium 100 mg BID GT 12/26/24 22:00 01/05/25 08:31 100 MG Albumin Human 100 ml @ 100 mls/hr UD PRN IV 12/27/24 16:00 12/27/24 16:08 100 MLS/HR Metoprolol Tartrate 50 mg BID PO 12/30/24 22:00 01/05/25 08:35 50 MG Morphine Sulfate 2 mg Q30M PRN IV 12/30/24 14:15 Sacubitril/ Valsartan 1 tab BID PO 01/02/25 10:00 01/05/25 08:30 1 TAB Buspirone HCl 5 mg TID PO 01/02/25 14:00 01/05/25 06:00 5 MG Haloperidol 2 mg Q8HPRN PRN PO 01/02/25 07:45 Cancel Temazepam 15 mg HSPRN PRN PO 01/02/25 22:00 01/04/25 22:35 15 MG Apixaban 2.5 mg BID PO 01/03/25 22:00 01/05/25 08:31 2.5 MG Enteral Nutritional Formula 1,000 ml 40ML/HR GT 01/04/25 10:30 Amino Acid Protein 30 ml BID GT 01/04/25 22:00 01/05/25 08:31 30 ML objective GENERAL: Alert and oriented x 3. No acute distress. EYES: PERRL, EOMI. Anicteric. HENT: Moist mucous membranes. LUNGS: Decreased breath sounds. CARDIOVASCULAR: Regular rate and rhythm. ABDOMEN: Soft, nontender and nondistended. EXTREMITIES: No edema. SKIN: Warm, dry. laboratory and microbiology Laboratory Tests 01/05/25 04:55 01/04/25 04:40 Test 01/05/25 04:55 Range/Units Serum Glucose 147 H 74-106 mg/dL Problem List Atrial flutter/atrial fibrillation with RVR s/p DCCV, Stage IIIa, now NSR (on amiodarone/BB/Eliquis therapy at home-). Acute on chronic decompensated unspecified HF, NYHA Class IV. Nonischemic/dilated cardiomyopathy. Advanced CKD now ESRD with HD and associated hyperkalemia. History of cardiac ablation in 2022. Thyroid disease. Recent colon resection with colostomy. Assessment/Plan Continued all current supportive medical care. Eliquis. Entresto. Metoprolol. GI prophylactics. IV antibiotics as ordered. Morphine for pain management. Additional plan as per the hospital course. Dietary Evaluation Review Comments: Nutrition Recommendation: 1) TF Nepro Carbsteady @ 40ml/hr x 24hr (goal rate) along with Pro-stat 1 pk TID. TF @ goal volume along with Pro-Stat provide 2028 kcal (100% energy needs), 123 gm protein (100% protein needs), 698 ml free water. 2) Water flush 80 ml Q6H if allowed, adjust PRN 3) TPN if NPO >7 days 4) Monitor NPO status, lab values, wt trend, I/O Expected Outcomes/Goals: To meet >75% estimated needs Lab values to improve Fu 2-3 days Plan discussed with: Patient KRISTOPHER ARMANDO MD Jan 05, 2025 14:08
[2025-01-06] VITALS (11 sets, daily range): BP systolic 130–150; BP diastolic 86–109; PULSE 55–109; RESP 17–18; TEMP 97.3–98.2; O2SAT 93–95
[2025-01-06 05:31] LABS: Hematocrit 31.7 % (41.0-53.0); Hemoglobin 10.5 g/dL (13.5-17.5)
[2025-01-06 06:03] LABS: Anion Gap 11 (5-15); Chloride 99 mmol/L (98-107); Potassium 3.7 mmol/L (3.5-5.1); Sodium 141 mmol/L (136-145)
[2025-01-06 06:05] LABS: Calcium 8.9 mg/dL (8.7-10.4)
[2025-01-06 06:09] LABS: BUN/Creatinine Ratio 5.0 (10.0-20.0)
[2025-01-06 06:15] LABS: Carbon Dioxide 31 mmol/L (20-31); Glucose 147 mg/dL (74-106)
[2025-01-06 06:16] LABS: Blood Urea Nitrogen 24 mg/dL (9-23)
[2025-01-06] MEDS ORDERED: SODIUM CHL 0.9% 1000 ML BAG XX ONE (07:00)
--- NOTE | 2025-01-06 10:13 | DVHDS2 ---
Discharge Summary Date of Admission Dec 20, 2024 at 19:21 Date of Discharge: Jan 07, 2025 Labs/Diagnostic Data: Laboratory Results Test 01/06/25 06:01 01/06/25 04:40 01/05/25 04:55 01/04/25 04:40 POC Glucose 156 mg/dl (70-106) Hemoglobin 10.5 g/dL (13.5-17.5) Hematocrit 31.7 % (41.0-53.0) Sodium Level 141 mmol/L (136-145) Potassium Level 3.7 mmol/L (3.5-5.1) Chloride Level 99 mmol/L (98-107) Carbon Dioxide Level 31 mmol/L (20-31) Anion Gap 11 (5-15) Blood Urea Nitrogen 24 mg/dL (9-23) Creatinine 4.77 mg/dL (0.700-1.30) Glomerular Filtration Rate Calc 12 mL/min (>90) BUN/Creatinine Ratio 5.0 (10.0-20.0) Serum Glucose 147 mg/dL (74-106) Calcium Level 8.9 mg/dL (8.7-10.4) Random Vancomycin Level 18.1 ug/mL (5-10) Magnesium Level 1.9 mg/dL (1.6-2.6) White Blood Count 6.3 10^3/uL (4.4-10.8) Red Blood Count 3.70 10^6/uL (4.5-5.90) Mean Corpuscular Volume 89.2 fL (80.0-100.0) Mean Corpuscular Hemoglobin 29.6 pg (28.0-32.0) Mean Corpuscular Hemoglobin Concent 33.2 g/dL (32.0-36.0) Red Cell Distribution Width 16.9 % (11.8-14.3) Platelet Count 213 10^3/uL (140-450) Mean Platelet Volume 9.7 fL (6.9-10.8) Neutrophils (%) (Auto) 74.4 % (37.0-80.0) Lymphocytes (%) (Auto) 16.7 % (10.0-50.0) Monocytes (%) (Auto) 6.4 % (0.0-12.0) Eosinophils (%) (Auto) 1.8 % (0.0-7.0) Basophils (%) (Auto) 0.7 % (0.0-2.0) Neutrophils # (Auto) 4.7 10 ^3/uL (1.6-8.6) Lymphocytes # (Auto) 1.1 10 ^3/uL (0.4-5.4) Monocytes # (Auto) 0.4 10 ^3/uL (0-1.3) Eosinophils # (Auto) 0.1 10 ^3/uL (0-0.8) Basophils # (Auto) 0 10 ^3/uL (0-0.2) Nucleated Red Blood Cells 0.1 % Test 01/03/25 04:32 01/01/25 09:26 12/31/24 08:06 12/31/24 04:35 Phosphorus Level 2.6 mg/dL (2.4-5.1) Vitamin D 25-Hydroxy 67.8 ng/mL (30.0-100) Parathyroid Hormone (Intact) 98.7 pg/mL (18.4-80.1) Blood Gas Specimen Type Arterial Blood Gas Sample Site Left radial Blood Gas Patient Temperature 37.0 Arterial Blood Date Drawn [id number] Arterial Blood pH 7.470 (7.350-7.450) Arterial Blood Partial Pressure CO2 40.6 mmHg (35.0-48.0) Arterial Blood Partial Pressure O2 94.2 mmHg (83.0-108.0) Arterial Blood HCO3 28.9 mmol/L (21.0-28.0) Arterial Blood Oxygen Saturation 97.3 % (94.0-98.0) Arterial Blood Base Excess 4.8 mmol/L (-2.0-3.0) Arterial Blood Oxyhemoglobin 96.4 % (94.0-98.0) Arterial Blood Carboxyhemoglobin 0.6 % (0.5-1.5) Arterial Blood Methemoglobin 0.3 % (0.0-1.5) Krishna Test Modified Blood Gas Total Hemoglobin 11.70 g/dL (13.5-17.5) Blood Gas Modality Vent - cpap Blood Gas Spontaneous Rate 12 FiO2 % 30.0 Blood Gas Spontaneous Tidal Volume 650 Blood Gas Pressure Support 7 Blood Gas PEEP or CPAP 5.0 Blood Gas Set Respiration Rate 18.0 Blood Gas Tidal Volume 500.0 Differential Total Cells Counted 100.0 (100) Neutrophils % (Manual) 71 (37.0-80.0) Band Neutrophils % (Manual) 1 Lymphocytes % (Manual) 22 (10.0-50.0) Monocytes % (Manual) 6 (0-12) Eosinophils % (Manual) 0 (0-7) Basophils % (Manual) 0 (0.0-2.0) Metamyelocytes % (manual) 0 Myelocytes % (Manual) 0 Promyelocytes % (Manual) 0 Blast Cells % (Manual) 0 Reactive Lymphocytes 0 Platelet Estimate Decreased Large Platelets Few Test 12/29/24 04:43 12/24/24 13:05 12/24/24 04:28 12/22/24 12:02 Total Bilirubin 0.4 mg/dL (0.2-1.0) Aspartate Amino Transferase (AST) 19 U/L (13-40) Alanine Aminotransferase (ALT) 29 U/L (7-40) Alkaline Phosphatase 88 U/L (46-116) Total Protein 5.7 g/dL (5.7-8.2) Albumin 3.3 g/dL (3.2-4.8) Digoxin Level 4.18 ng/mL (0.8-2) Body Fluid Source Pleural Body Fluid pH 7.0 Body Fluid WBC (Manual) 435 CUMM (0-200) Body Fluid RBC (Manual) 162 CUMM (0-2000) Body Fluid Mononuclear Cells 58 % Body Fluid Polymorphonuclear Cells 42 % (0-25) Body Fluid Glucose 124 mg/dL (.) Body Fluid Total Protein 1.7 g/dL (.) Body Fluid Lactate Dehydrogenase 77 IU/L (.) Hepatitis B Surface Antigen Negative (Negative) Urine Color Dark yellow (Yellow) Urine Clarity Turbid (Clear) Urine pH 7.5 (5.0-9.0) Urine Specific [place] 1.010 (1.001-1.035) Urine Protein 1+ (Negative) Urine Ketones Negative (Negative) Urine Blood 3+ /uL (Negative) Urine Nitrite Negative (Negative) Urine Bilirubin Negative (Negative) Urine Urobilinogen Normal mg/dL (Negative) Urine Leukocyte Esterase 3+ /uL (Negative) Urine RBC 273 /hpf (0 - 3) Urine Microscopic WBC 126 /HPF (0-3) Urine Squamous Epithelial Cells Few /hpf (<5) Urine Bacteria None seen /hpf (None Seen) Urine Mucus Few (None Seen) Urine Glucose Normal mg/dL (Normal) Test 12/22/24 04:10 12/21/24 12:44 12/21/24 11:42 12/21/24 04:21 Prothrombin Time 16.6 sec (9.3-11.8) Prothrombin Time INR 1.65 (0.9-1.15) Activated Partial Thromboplast Time 35.0 SEC (24.5-34.5) Blood Gas Critical Value Read Back yes Blood Gas Notified Whom dr. pa md Blood Gas Notified Time [id number] Blood Gas Notified By laurent guevara rrt Lactic Acid Level 7.3 mmol/L (0.4-2.0) Thyroid Stimulating Hormone (TSH) 14.60 uIU/mL (0.55-4.78) Hemoglobin A1c 6.3 % A1C (<5.7) Hepatitis A IgM Antibody Negative Hepatitis B Core IgM Antibody Negative (Negative) Hepatitis C Antibody Negative (Negative) Test 12/20/24 16:31 12/20/24 13:02 12/20/24 12:20 Troponin I High Sensitivity 8 ng/L (</=54) B-Type Natriuretic Peptide > 5000.00 pg/mL (0-100) Blood Gas Liter Flow 10.00 Other Laboratory Tests 01/06/25 04:40 01/04/25 04:40 Brief Hx & Hospital Course: see dictated note Condition at Discharge: Fair Final Diagnosis/Problems List resp failure Discharge Disposition: Home with Health Services Discharge Instruct/Medications Diet: Renal Diet comment: tube feedings Activity: No Restrictions, As Tolerated Follow Up/Referral: [facility] with [facility] Medications: resume home meds change eliquis to 2.5 mg bid Scheduled Amiodarone HCl (Amiodarone HCl), 1 TAB PO DAILY, (Reported) Apixaban Base (Eliquis), 1 TAB PO BID, (Reported) Buspirone Hcl (Buspirone Hcl), 1 TAB PO TID, (Reported) Finasteride (Finasteride), 1 TAB PO DAILY, (Reported) Levothyroxine Sodium (Levothyroxine Sodium), 1 TAB PO DAILY, (Reported) Metoprolol Succinate (Metoprolol Succinate Er), 100 MG PO UD, (Reported) Pantoprazole Sodium Sesquihydr (Pantoprazole Sodium), 1 TAB PO BID, (Reported) Sertraline Hcl (Sertraline Hcl), 1 TAB PO BID, (Reported) Tamsulosin Hcl (Tamsulosin Hcl), 1 CAP PO DAILY, (Reported) Discharge Statement: "Patient was advised to return to the ER or call 911 if any headaches, dizziness, shortness of breath, chest pain, abdominal pain, bleeding, fevers, or worsening of medical condition. Patient was counseled about treatment plan, medications, possible side effects, patientverbalized understanding. All questions were answered to the best of my ability. This discharge took greater then 30 minutes in planning, reviewing documentation, counseling the patient, and discussing with other team members." ASSESSMENT ASSESSMENT Assessment resp failure Date of Service: Jan 06, 2025 Billing Provider: ALY SCHROEDER MD Common Visit Codes: 40717-ULS/OBS DISCH DAY >30min ALY SCHROEDER MD Jan 06, 2025 10:13
--- NOTE | 2025-01-06 10:14 | DVHPN2 ---
Progress Note Date Seen: Jan 06, 2025 Resident Creating Document: JOSEFINA AKERS RESIDENT Medical Necessity Reason Pt with a Central, PICC or Fol: Yes The following are medically ne: Stearns Catheter Reason for stearns catheter: Strict I&O Subjective Review of Systems Patient was seen and examined on the bedside. status post extubation and on room air. He underwent hemodialysis today. Other Systems: Patient seen and examined by myself today on rounds with the medicine resident, I agree with her assessment and plan Patient examined hemodialysis, blood pressure stable Objective vital signs Vital Sign Date Time Temp Pulse Resp B/P (MAP) Pulse Ox O2 Delivery O2 Flow Rate FiO2 01/06/25 09:40 94 Room Air* 0 21 01/06/25 05:00 97.8 55 18 136/87 (103) 97.8 Total Intake and Output 01/05/25 01/05/25 01/06/25 15:00 23:00 07:00 Intake Total 730 ml 0 ml Output Total 150 ml 100 ml Balance 580 ml -100 ml medications Current Medications Medications Dose Ordered Sig/Isidra Route Start Time Stop Time Status Last Admin Dose Admin Albuterol 2.5 mg Q6HPRN PRN NEB 12/20/24 19:30 12/28/24 00:19 2.5 MG Acetaminophen 650 mg Q6HP PRN PO 12/20/24 19:30 01/01/25 20:14 650 MG Nitroglycerin 0.4 mg Q5MINP PRN SL 12/20/24 19:30 Enoxaparin Sodium 80 mg DAILY SC 12/22/24 10:00 UNV Vancomycin HCl 0 ml @ 0 mls/hr UD IV 12/21/24 11:45 Pantoprazole Sodium 40 mg DAILY IV 12/22/24 10:00 01/05/25 08:30 40 MG Diagnostic Test (Pha) 1 strip Q6HR 12/22/24 00:00 01/06/25 06:03 1 STRIP Insulin Human Regular Q6HR SC 12/22/24 00:00 01/06/25 06:11 2 UNITS Dextrose 50 ml UD PRN IV 12/21/24 21:00 12/22/24 06:03 50 ML Docusate Sodium 100 mg BID GT 12/26/24 22:00 01/05/25 21:49 100 MG Albumin Human 100 ml @ 100 mls/hr UD PRN IV 12/27/24 16:00 12/27/24 16:08 100 MLS/HR Metoprolol Tartrate 50 mg BID PO 12/30/24 22:00 01/05/25 21:59 50 MG Morphine Sulfate 2 mg Q30M PRN IV 12/30/24 14:15 Sacubitril/ Valsartan 1 tab BID PO 01/02/25 10:00 01/05/25 21:50 1 TAB Buspirone HCl 5 mg TID PO 01/02/25 14:00 01/06/25 06:03 5 MG Haloperidol 2 mg Q8HPRN PRN PO 01/02/25 07:45 Cancel Temazepam 15 mg HSPRN PRN PO 01/02/25 22:00 01/04/25 22:35 15 MG Apixaban 2.5 mg BID PO 01/03/25 22:00 01/05/25 21:50 2.5 MG Enteral Nutritional Formula 1,000 ml 40ML/HR GT 01/04/25 10:30 Amino Acid Protein 30 ml BID GT 01/04/25 22:00 01/05/25 08:31 30 ML Examination Physical examination: General Appearance: Alert, Oriented X1, Confused HEENT: Atraumatic, PERRLA, EOMI, Mucous membrane moist/pink Respiratory: Bilateral fine crackles Cardiovascular: Regular rate, Normal S1, Normal S2, No murmurs, no chest wall tenderness Abdominal: Normal bowel sounds, Soft, No tenderness, No hepatospenomegaly, No masses Extremities: No clubbing, No cyanosis, No edema, Normal pulses, No tenderness/swelling Skin: No rashes, No breakdown, No significant lesion Neuro: Normal speech, Strength at 5/5 X4 ext, Normal tone, Sensation intact, Cranial nerves 3-12 NL, Reflexes 2+ Psych/Mental Status: Could not be assessed. laboratory and microbiology Laboratory Tests 01/06/25 04:40 01/04/25 04:40 Test 01/06/25 04:40 Range/Units Serum Glucose 147 H 74-106 mg/dL Microbiology Date/Time Source Procedure Growth Status 12/25/24 18:00 Voided Urine Urine Culture - Final Complete 12/24/24 13:05 Pleural Fluid Gram Stain - Final Complete 12/24/24 13:05 Pleural Fluid Aerobic Culture - Final Complete 12/21/24 12:00 Nose MRSA Screen - Final Methicillin Resistant S.aureus Complete 12/21/24 11:46 Blood Blood Culture - Final NO GROWTH AFTER 5 DAYS OF INCUBATION. Complete 12/21/24 11:27 Sputum Gram Stain - Final Complete 12/21/24 11:27 Respiratory Culture - Final Methicillin Resistant S.aureus Complete Labs and/or images reviewed: Labs reviewed by me, Image(s) reviewed by me Problem List/Assessment/Plan Problem List/Assessment/Plan Assessment and plan: # ESRD on hemodialysis # Acute hypoxic respiratory failure, status post extubation # AFib with RVR, currently sinus rhythm with controlled heart rate # Acute on chronic decompensated systolic heart failure with reduced EF # possible septic/cardiogenic shock resolved # Gram-positive versus Gram-negative community-acquired pneumonia # Acute DVT of right upper extremity # BPH # S/P exploratory laparotomy with colostomy Plan: - continue with UF 2 L as tolerated - Epogen 4000 subQ 3 times weekly - Arranged outpatient chair time with [facility] [place] [address] - Continue IV antibiotic and other management as per primary. - strict I&O - monitor BMP Total care time 25 minutes Thank you so much for the opportunity to consult on your patient. Nephro team will follow the patient. In case of any questions or concerns please feel free to reach out. Plan discussed with Dr. Smith . The patient and caregiver team agreed to the plan. Plan discussed with: Other (Rn) Dietary Evaluation Review Comments: Nutrition Recommendation: 1) TF Nepro Carbsteady @ 40ml/hr x 24hr (goal rate) along with Pro-stat 1 pk TID. TF @ goal volume along with Pro-Stat provide 2028 kcal (100% energy needs), 123 gm protein (100% protein needs), 698 ml free water. 2) Water flush 80 ml Q6H if allowed, adjust PRN 3) TPN if NPO >7 days 4) Monitor NPO status, lab values, wt trend, I/O Expected Outcomes/Goals: To meet >75% estimated needs Lab values to improve Fu 2-3 days JOSEFINA AKERS RESIDENT Jan 06, 2025 10:14 KIMMIE SMITH MD Jan 06, 2025 14:02
--- NOTE | 2025-01-06 10:44 | DVHDS ---
DATE OF DISCHARGE: 01/06/2025 HISTORY OF PRESENT ILLNESS: The patient is a 79-year-old gentleman who was admitted with a history of increasing shortness of breath and then recently been discharged from a rehab facility. The patient is status post colostomy with perforated diverticulitis as well as end-stage renal disease on dialysis, congestive heart failure, diabetes, hypertension, BPH, and atrial fibrillation. He is also status post PEG placement and status post tracheostomy. HOSPITAL COURSE: The patient was intubated for acute respiratory failure. The patient had a Johnston catheter placed by Urology. Echocardiogram done showed an ejection fraction of 25%. The patient's sputum cultures grew MRSA and he was treated with IV vancomycin. The patient was in septic shock requiring pressors. The patient was eventually weaned off of pressors and extubated. The patient currently is doing well and will be discharged home to resume his home medications except his Eliquis dose will be reduced from 5 mg to 2.5 mg b.i.d. He will follow up with his primary as well as to the dialysis clinic. He will have home health for physical therapy. FINAL DIAGNOSES: * Pneumonia acute respiratory failure. * Septic shock due to MRSA pneumonia. * End-stage renal disease, on hemodialysis. * History of bowel perforation with exploratory laparotomy. * Status post PEG with colostomy. * Atrial fibrillation, status post cardioversion. * Diabetes mellitus. * BPH with Johnston catheter placement. * Right upper extremity DVT. * Gallstones. * Thrombocytopenia. * Metabolic encephalopathy. The patient was a no CPR while in the hospital. Time spent in discharge planning and review of plan with the patient's family and nursing was 39 minutes. MD LAM Banks/EKT TID: [id number] RECEIPT: [id number]
[2025-01-06] MEDS: VANCOMYCIN 750MG KIT 100 ML IV ONE (16:48)
[2025-01-06] MEDS ORDERED: VANCOMYCIN 750MG KIT 100 ML IV ONE (17:00)
[2025-01-06] MEDS: EPOETIN ALFA-EPBX 4,000 UNIT/ML VIAL SC ONE (21:48)
--- NOTE | 2025-01-06 23:59 | DVHPN2 ---
Progress Note - Dictate Date Seen: Jan 06, 2025 Medical Necessity Reason Pt with a Central, PICC or Fol: Yes The following are medically ne: Stearns Catheter Reason for stearns catheter: Strict I&O Subjective Patient was seen and evaluated in follow up. Sitter is at bedside. Patient received hemodialysis today. H&H is stable. BUN 24, ZOO CARETAKER 4.77. Telemetry reviewed. vital signs Vital Sign Date Time Temp Pulse Resp B/P (MAP) Pulse Ox O2 Delivery O2 Flow Rate FiO2 01/06/25 13:00 98.1 105 17 141/87 (105) 95 98.1 01/06/25 09:40 Room Air* 0 21 Total Intake and Output 01/05/25 01/05/25 01/06/25 15:00 23:00 07:00 Intake Total 730 ml 0 ml Output Total 150 ml 100 ml Balance 580 ml -100 ml medications Current Medications Medications Dose Ordered Sig/Isidra Route Start Time Stop Time Status Last Admin Dose Admin Albuterol 2.5 mg Q6HPRN PRN NEB 12/20/24 19:30 12/28/24 00:19 2.5 MG Acetaminophen 650 mg Q6HP PRN PO 12/20/24 19:30 01/01/25 20:14 650 MG Nitroglycerin 0.4 mg Q5MINP PRN SL 12/20/24 19:30 Enoxaparin Sodium 80 mg DAILY SC 12/22/24 10:00 UNV Vancomycin HCl 0 ml @ 0 mls/hr UD IV 12/21/24 11:45 Pantoprazole Sodium 40 mg DAILY IV 12/22/24 10:00 01/06/25 11:27 40 MG Diagnostic Test (Pha) 1 strip Q6HR 12/22/24 00:00 01/06/25 12:21 1 STRIP Insulin Human Regular Q6HR SC 12/22/24 00:00 01/06/25 06:11 2 UNITS Dextrose 50 ml UD PRN IV 12/21/24 21:00 12/22/24 06:03 50 ML Docusate Sodium 100 mg BID GT 12/26/24 22:00 01/06/25 11:05 100 MG Albumin Human 100 ml @ 100 mls/hr UD PRN IV 12/27/24 16:00 12/27/24 16:08 100 MLS/HR Metoprolol Tartrate 50 mg BID PO 12/30/24 22:00 01/06/25 11:13 50 MG Morphine Sulfate 2 mg Q30M PRN IV 12/30/24 14:15 Sacubitril/ Valsartan 1 tab BID PO 01/02/25 10:00 01/06/25 11:12 1 TAB Buspirone HCl 5 mg TID PO 01/02/25 14:00 01/06/25 14:46 5 MG Haloperidol 2 mg Q8HPRN PRN PO 01/02/25 07:45 Cancel Temazepam 15 mg HSPRN PRN PO 01/02/25 22:00 01/04/25 22:35 15 MG Apixaban 2.5 mg BID PO 01/03/25 22:00 01/06/25 11:12 2.5 MG Enteral Nutritional Formula 1,000 ml 40ML/HR GT 01/04/25 10:30 Amino Acid Protein 30 ml BID GT 01/04/25 22:00 01/05/25 08:31 30 ML objective GENERAL: Alert and oriented x 3. No acute distress. EYES: PERRL, EOMI. Anicteric. HENT: Moist mucous membranes. LUNGS: Decreased breath sounds. CARDIOVASCULAR: Regular rate and rhythm. ABDOMEN: Soft, nontender and nondistended. EXTREMITIES: No edema. SKIN: Warm, dry. laboratory and microbiology Laboratory Tests 01/06/25 04:40 01/04/25 04:40 Test 01/06/25 04:40 Range/Units Serum Glucose 147 H 74-106 mg/dL Problem List Atrial flutter/atrial fibrillation with RVR s/p DCCV, Stage IIIa, now NSR (on amiodarone/BB/Eliquis therapy at home-). Acute on chronic decompensated unspecified HF, NYHA Class IV. Nonischemic/dilated cardiomyopathy. Advanced CKD now ESRD with HD and associated hyperkalemia. History of cardiac ablation in 2022. Thyroid disease. Recent colon resection with colostomy. Assessment/Plan Continued all current supportive medical care. Eliquis. Entresto. Metoprolol. GI prophylactics. IV antibiotics as ordered. Morphine for pain management. Additional plan as per the hospital course. Dietary Evaluation Review Comments: Nutrition Recommendation: 1) TF Nepro Carbsteady @ 40ml/hr x 24hr (goal rate) along with Pro-stat 1 pk TID. TF @ goal volume along with Pro-Stat provide 2028 kcal (100% energy needs), 123 gm protein (100% protein needs), 698 ml free water. 2) Water flush 80 ml Q6H if allowed, adjust PRN 3) TPN if NPO >7 days 4) Monitor NPO status, lab values, wt trend, I/O Expected Outcomes/Goals: To meet >75% estimated needs Lab values to improve Fu 2-3 days Plan discussed with: Patient KRISTOPHER ARMANDO MD Jan 06, 2025 15:12
[2025-01-07] VITALS (8 sets, daily range): BP systolic 126–150; BP diastolic 77–102; PULSE 69–130; RESP 16–18; TEMP 36.9; O2SAT 93–98
[2025-01-07 05:32] LABS: Calcium 8.7 mg/dL (8.7-10.4); Chloride 101 mmol/L (98-107); Potassium 3.8 mmol/L (3.5-5.1); Sodium 143 mmol/L (136-145)
[2025-01-07 05:34] LABS: Anion Gap 11 (5-15); Carbon Dioxide 31 mmol/L (20-31)
[2025-01-07 05:39] LABS: BUN/Creatinine Ratio 5.6 (10.0-20.0); Blood Urea Nitrogen 20 mg/dL (9-23); Glucose 144 mg/dL (74-106)
--- NOTE | 2025-01-07 11:00 | DVHPN2 ---
Progress Note Date Seen: Jan 07, 2025 Medical Necessity Reason Pt with a Central, PICC or Fol: Yes The following are medically ne: Stearns Catheter Reason for stearns catheter: Strict I&O Subjective Patient reports: No new complaints Other Systems: Patient seen and examined by myself today in follow-up Objective vital signs Vital Sign Date Time Temp Pulse Resp B/P (MAP) Pulse Ox O2 Delivery O2 Flow Rate FiO2 01/07/25 08:33 98.5 130 17 126/77 (93) 93 98.5 01/07/25 07:55 Room Air* 0 21 Total Intake and Output 01/06/25 01/06/25 01/07/25 15:00 23:00 07:00 Intake Total 100 ml 836 ml Output Total 525 ml 275 ml Balance -425 ml 561 ml medications Current Medications Medications Dose Ordered Sig/Isidra Route Start Time Stop Time Status Last Admin Dose Admin Albuterol 2.5 mg Q6HPRN PRN NEB 12/20/24 19:30 12/28/24 00:19 2.5 MG Acetaminophen 650 mg Q6HP PRN PO 12/20/24 19:30 01/01/25 20:14 650 MG Nitroglycerin 0.4 mg Q5MINP PRN SL 12/20/24 19:30 Enoxaparin Sodium 80 mg DAILY SC 12/22/24 10:00 UNV Vancomycin HCl 0 ml @ 0 mls/hr UD IV 12/21/24 11:45 Pantoprazole Sodium 40 mg DAILY IV 12/22/24 10:00 01/06/25 11:27 40 MG Diagnostic Test (Pha) 1 strip Q6HR 12/22/24 00:00 01/07/25 05:48 1 STRIP Insulin Human Regular Q6HR SC 12/22/24 00:00 01/06/25 18:25 2 UNITS Dextrose 50 ml UD PRN IV 12/21/24 21:00 12/22/24 06:03 50 ML Docusate Sodium 100 mg BID GT 12/26/24 22:00 01/06/25 21:48 100 MG Albumin Human 100 ml @ 100 mls/hr UD PRN IV 12/27/24 16:00 12/27/24 16:08 100 MLS/HR Metoprolol Tartrate 50 mg BID PO 12/30/24 22:00 01/06/25 21:49 50 MG Morphine Sulfate 2 mg Q30M PRN IV 12/30/24 14:15 Sacubitril/ Valsartan 1 tab BID PO 01/02/25 10:00 01/06/25 21:49 1 TAB Buspirone HCl 5 mg TID PO 01/02/25 14:00 01/07/25 05:48 5 MG Haloperidol 2 mg Q8HPRN PRN PO 01/02/25 07:45 Cancel Temazepam 15 mg HSPRN PRN PO 01/02/25 22:00 01/06/25 21:50 15 MG Apixaban 2.5 mg BID PO 01/03/25 22:00 01/06/25 21:49 2.5 MG Enteral Nutritional Formula 1,000 ml 40ML/HR GT 01/04/25 10:30 Amino Acid Protein 30 ml BID GT 01/04/25 22:00 01/06/25 21:48 30 ML Examination: LUNGS:Normal, CVS:Normal, MSK:Normal laboratory and microbiology Laboratory Tests 01/07/25 04:30 01/06/25 04:40 01/04/25 04:40 Test 01/07/25 04:30 Range/Units Serum Glucose 144 H 74-106 mg/dL Microbiology Date/Time Source Procedure Growth Status 12/25/24 18:00 Voided Urine Urine Culture - Final Complete 12/24/24 13:05 Pleural Fluid Gram Stain - Final Complete 12/24/24 13:05 Pleural Fluid Aerobic Culture - Final Complete 12/21/24 12:00 Nose MRSA Screen - Final Methicillin Resistant S.aureus Complete 12/21/24 11:46 Blood Blood Culture - Final NO GROWTH AFTER 5 DAYS OF INCUBATION. Complete 12/21/24 11:27 Sputum Gram Stain - Final Complete 12/21/24 11:27 Respiratory Culture - Final Methicillin Resistant S.aureus Complete Problem List/Assessment/Plan Problem List/Assessment/Plan ESRD on hemodialysis Acute hypoxic respiratory failure, status post extubation AFib with RVR, currently sinus rhythm with controlled heart rate Acute on chronic decompensated systolic heart failure with reduced EF Sepsis Gram-positive versus Gram-negative community-acquired pneumonia Acute DVT of right upper extremity BPH S/P exploratory laparotomy with colostomy Recommendation Hemodialysis tomorrow Epogen 4000 subQ 3 times weekly Arranged outpatient chair time with [facility] [place] [address] Continue IV antibiotic and other management as per primary. strict I&O Renal diet Total care time 25 minutes Plan discussed with: Patient Dietary Evaluation Review Comments: Nutrition Recommendation: 1) TF Nepro Carbsteady @ 40ml/hr x 24hr (goal rate) along with Pro-stat 1 pk TID. TF @ goal volume along with Pro-Stat provide 2028 kcal (100% energy needs), 123 gm protein (100% protein needs), 698 ml free water. 2) Water flush 80 ml Q6H if allowed, adjust PRN 3) TPN if NPO >7 days 4) Monitor NPO status, lab values, wt trend, I/O Expected Outcomes/Goals: To meet >75% estimated needs Lab values to improve Fu 2-3 days KIMMIE BURNETT MD Jan 07, 2025 11:00
--- NOTE | 2025-01-07 12:14 | DVHPN2 ---
Subjective Patient denies any symptoms. Reviewed: Care Plan, H&P, Labs, Medications, Previous Orders, Radiology Changes from previous H/P or p: No Changes General: Per HPI Objective Vitals Vital Signs Date Time Temp Pulse Resp B/P (MAP) Pulse Ox O2 Delivery O2 Flow Rate FiO2 01/07/25 11:04 122 126/77 01/07/25 08:33 98.5 17 93 98.5 01/07/25 07:55 Room Air* 0 21 Intake/Output Intake and Output 01/07/25 07:00 Intake Total 936 ml Output Total 800 ml Balance 136 ml Intake Oral 836 ml IV Total 100 ml Output Urine Total 275 ml Stool Total 525 ml General Appearance: Alert, Cooperative, mild distress, Other (Encephalopathic) HEENT: Atraumatic, PERRLA Lungs: Clear to auscultation, Normal air movement Cardiovascular: Normal S1, Normal S2, Other (Atrial fibrillation) Abdomen: Normal bowel sounds, Soft, No tenderness, Other (Colostomy) Genitourinary: No Apparent Abnormalities (Catheter) Musculoskeletal: Weak motor strength RUE, Weak motor strength LUE, Weak motor strength RLE, Weak motor strength LLE Neuro: Other (Unable to assess) Skin: Dry, Intact Psych/Mental Status: Other (Unable to assess) Medications Current Medications Medications Dose Ordered Sig/Isidra Route Start Time Stop Time Status Last Admin Dose Admin Albuterol 2.5 mg Q6HPRN PRN NEB 12/20/24 19:30 12/28/24 00:19 2.5 MG Acetaminophen 650 mg Q6HP PRN PO 12/20/24 19:30 01/01/25 20:14 650 MG Nitroglycerin 0.4 mg Q5MINP PRN SL 12/20/24 19:30 Enoxaparin Sodium 80 mg DAILY SC 12/22/24 10:00 UNV Vancomycin HCl 0 ml @ 0 mls/hr UD IV 12/21/24 11:45 Pantoprazole Sodium 40 mg DAILY IV 12/22/24 10:00 01/07/25 11:01 40 MG Diagnostic Test (Pha) 1 strip Q6HR 12/22/24 00:00 01/07/25 05:48 1 STRIP Insulin Human Regular Q6HR SC 12/22/24 00:00 01/06/25 18:25 2 UNITS Dextrose 50 ml UD PRN IV 12/21/24 21:00 12/22/24 06:03 50 ML Docusate Sodium 100 mg BID GT 12/26/24 22:00 01/07/25 11:10 100 MG Albumin Human 100 ml @ 100 mls/hr UD PRN IV 12/27/24 16:00 12/27/24 16:08 100 MLS/HR Metoprolol Tartrate 50 mg BID PO 12/30/24 22:00 01/07/25 11:04 50 MG Morphine Sulfate 2 mg Q30M PRN IV 12/30/24 14:15 Sacubitril/ Valsartan 1 tab BID PO 01/02/25 10:00 01/07/25 11:04 1 TAB Buspirone HCl 5 mg TID PO 01/02/25 14:00 01/07/25 05:48 5 MG Haloperidol 2 mg Q8HPRN PRN PO 01/02/25 07:45 Cancel Temazepam 15 mg HSPRN PRN PO 01/02/25 22:00 01/06/25 21:50 15 MG Apixaban 2.5 mg BID PO 01/03/25 22:00 01/07/25 11:04 2.5 MG Enteral Nutritional Formula 1,000 ml 40ML/HR GT 01/04/25 10:30 Amino Acid Protein 30 ml BID GT 01/04/25 22:00 01/06/25 21:48 30 ML Laboratory Results Laboratory Tests 01/04/25 04:40 01/06/25 04:40 01/07/25 04:30 Chemistry Test 01/07/25 04:30 Calcium Level 8.7 mg/dL (8.7-10.4) Urinalysis Test 12/22/24 12:02 Urine Color Dark yellow (Yellow) Urine Clarity Turbid (Clear) H Urine pH 7.5 (5.0-9.0) Urine Specific [place] 1.010 (1.001-1.035) Urine Protein 1+ (Negative) H Urine Ketones Negative (Negative) Urine Blood 3+ /uL (Negative) H Urine Nitrite Negative (Negative) Urine Bilirubin Negative (Negative) Urine Urobilinogen Normal mg/dL (Negative) Urine Leukocyte Esterase 3+ /uL (Negative) Urine RBC 273 /hpf (0 - 3) Urine Microscopic WBC 126 /HPF (0-3) H Urine Squamous Epithelial Cells Few /hpf (<5) Urine Bacteria None seen /hpf (None Seen) Urine Mucus Few (None Seen) Urine Glucose Normal mg/dL (Normal) Microbiology Microbiology Date/Time Source Procedure Growth Status 12/25/24 18:00 Voided Urine Urine Culture - Final Complete 12/24/24 13:05 Pleural Fluid Gram Stain - Final Complete 12/24/24 13:05 Pleural Fluid Aerobic Culture - Final Complete 12/21/24 12:00 Nose MRSA Screen - Final Methicillin Resistant S.aureus Complete 12/21/24 11:46 Blood Blood Culture - Final NO GROWTH AFTER 5 DAYS OF INCUBATION. Complete 12/21/24 11:27 Sputum Gram Stain - Final Complete 12/21/24 11:27 Respiratory Culture - Final Methicillin Resistant S.aureus Complete Labs and/or images reviewed: Labs reviewed by me, Image(s) reviewed by me Assessment/Plan Assessment/Plan Impression: -acute hypoxic respiratory failure -hospital-acquired pneumonia with MRSA -end-stage renal disease with hemodialysis -status post colostomy and PEG tube placement -anemia of chronic disease -DVT right upper arm -AFib with RVR, status post cardioversion -rule out pulmonary embolism -thrombocytopenia -cholelithiasis -BPH Plan: -events: Discharged home yesterday with [facility]. Dc home today with [facility]/PT. Order placed with for transportation home and to hemodialysis this evening. Total time spent with patient discussing and formulating plan of care: 40 minutes. This does not include time spent performing procedures. This medical document was created using an electronic medical record system with [employer] dictation system. Although this document has been carefully reviewed, there may still be some phonetic and typographical errors. These areas are purely typographical due to imperfections of the software programs, and do not reflect any compromise in the patient's medical care. Plan discussed with: Patient, Spouse, Other (RN) Date of Service: Jan 07, 2025 Billing Provider: FLORENTINO LANGLEY NP Common Visit Codes: [id number] INP/OBS CARE(HIGH) FLORENTINO LANGLEY NP Jan 07, 2025 12:14
[2025-01-07] MEDS ORDERED: APIX2.5T PO (15:38)
--- NOTE | 2025-01-07 20:43 | DVHPN2 ---
Progress Note - Dictate Date Seen: Jan 07, 2025 Medical Necessity Reason Pt with a Central, PICC or Fol: Yes The following are medically ne: Stearns Catheter Reason for stearns catheter: Strict I&O Subjective Patient was seen and evaluated in follow up. Patient has no new complaints at this time. Patient denies any cardiac symptoms. Patient is cardiac stable for discharge. Telemetry reviewed. vital signs Vital Sign Date Time Temp Pulse Resp B/P (MAP) Pulse Ox O2 Delivery O2 Flow Rate FiO2 01/07/25 11:04 122 126/77 01/07/25 08:33 98.5 17 93 98.5 01/07/25 07:55 Room Air* 0 21 Total Intake and Output 01/06/25 01/06/25 01/07/25 15:00 23:00 07:00 Intake Total 100 ml 836 ml Output Total 525 ml 275 ml Balance -425 ml 561 ml medications Current Medications Medications Dose Ordered Sig/Isidra Route Start Time Stop Time Status Last Admin Dose Admin Albuterol 2.5 mg Q6HPRN PRN NEB 12/20/24 19:30 12/28/24 00:19 2.5 MG Acetaminophen 650 mg Q6HP PRN PO 12/20/24 19:30 01/01/25 20:14 650 MG Nitroglycerin 0.4 mg Q5MINP PRN SL 12/20/24 19:30 Enoxaparin Sodium 80 mg DAILY SC 12/22/24 10:00 UNV Vancomycin HCl 0 ml @ 0 mls/hr UD IV 12/21/24 11:45 Pantoprazole Sodium 40 mg DAILY IV 12/22/24 10:00 01/07/25 11:01 40 MG Diagnostic Test (Pha) 1 strip Q6HR 12/22/24 00:00 01/07/25 12:22 1 STRIP Insulin Human Regular Q6HR SC 12/22/24 00:00 01/07/25 12:21 3 UNITS Dextrose 50 ml UD PRN IV 12/21/24 21:00 12/22/24 06:03 50 ML Docusate Sodium 100 mg BID GT 12/26/24 22:00 01/07/25 11:10 100 MG Albumin Human 100 ml @ 100 mls/hr UD PRN IV 12/27/24 16:00 12/27/24 16:08 100 MLS/HR Metoprolol Tartrate 50 mg BID PO 12/30/24 22:00 01/07/25 11:04 50 MG Morphine Sulfate 2 mg Q30M PRN IV 12/30/24 14:15 Sacubitril/ Valsartan 1 tab BID PO 01/02/25 10:00 01/07/25 11:04 1 TAB Buspirone HCl 5 mg TID PO 01/02/25 14:00 01/07/25 05:48 5 MG Haloperidol 2 mg Q8HPRN PRN PO 01/02/25 07:45 Cancel Temazepam 15 mg HSPRN PRN PO 01/02/25 22:00 01/06/25 21:50 15 MG Apixaban 2.5 mg BID PO 01/03/25 22:00 01/07/25 11:04 2.5 MG Enteral Nutritional Formula 1,000 ml 40ML/HR GT 01/04/25 10:30 Amino Acid Protein 30 ml BID GT 01/04/25 22:00 01/06/25 21:48 30 ML objective GENERAL: Alert and oriented x 3. No acute distress. EYES: PERRL, EOMI. Anicteric. HENT: Moist mucous membranes. LUNGS: Decreased breath sounds. CARDIOVASCULAR: Regular rate and rhythm. ABDOMEN: Soft, nontender and nondistended. EXTREMITIES: No edema. SKIN: Warm, dry. laboratory and microbiology Laboratory Tests 01/07/25 04:30 01/06/25 04:40 01/04/25 04:40 Test 01/07/25 04:30 Range/Units Serum Glucose 144 H 74-106 mg/dL Problem List Atrial flutter/atrial fibrillation with RVR s/p DCCV, Stage IIIa, now NSR (on amiodarone/BB/Eliquis therapy at home-). Acute on chronic decompensated unspecified HF, NYHA Class IV. Nonischemic/dilated cardiomyopathy. Advanced CKD now ESRD with HD and associated hyperkalemia. History of cardiac ablation in 2022. Thyroid disease. Recent colon resection with colostomy. Assessment/Plan Continued all current supportive medical care. Eliquis. Entresto. Metoprolol. GI prophylactics. IV antibiotics as ordered. Morphine for pain management. Additional plan as per the hospital course. Dietary Evaluation Review Comments: Nutrition Recommendation: 1) TF Nepro Carbsteady @ 40ml/hr x 24hr (goal rate) along with Pro-stat 1 pk TID. TF @ goal volume along with Pro-Stat provide 2028 kcal (100% energy needs), 123 gm protein (100% protein needs), 698 ml free water. 2) Water flush 80 ml Q6H if allowed, adjust PRN 3) TPN if NPO >7 days 4) Monitor NPO status, lab values, wt trend, I/O Expected Outcomes/Goals: To meet >75% estimated needs Lab values to improve Fu 2-3 days Plan discussed with: Patient KRISTOPHER ARMANDO MD Jan 07, 2025 12:35
[2025-01-08] MEDS ORDERED: SODIUM CHL 0.9% 1000 ML BAG XX ONE (07:00)
[2025-01-08] MEDS ORDERED: EPOETIN ALFA-EPBX 10,000 UNIT/1ML VIAL SC ONE (21:00)
== END 2025-01-07 16:35 | disposition home health service (06) | DRG 870 ==
LOC: ER 11:47 → OVERFLOW 19:21 → ICU CENTRL 12-21 06:30 → TELE-EAST 01-04 17:00
PROVIDERS: ADMIT Nurse Practitioner Acute Care; ATTEND Nurse Practitioner Acute Care
PROC: 5A1955Z Respiratory Ventilation, Greater than 96 Consecutive Hours (ICD-10-PCS; principal; 2024-12-21)
PROC: 05HN33Z Insertion of Infusion Device into Left Internal Jugular Vein, Percutaneous Approach (ICD-10-PCS; 2024-12-21)
PROC: 0BH17EZ Insertion of Endotracheal Airway into Trachea, Via Natural or Artificial Opening (ICD-10-PCS; 2024-12-21)
PROC: 0T9B70Z Drainage of Bladder with Drainage Device, Via Natural or Artificial Opening (ICD-10-PCS; 2024-12-21)
PROC: 5A2204Z Restoration of Cardiac Rhythm, Single (ICD-10-PCS; 2024-12-21)
PROC: 5A1D70Z Performance of Urinary Filtration, Intermittent, Less than 6 Hours Per Day (ICD-10-PCS; 2024-12-21)
PROC: 5A1D70Z Performance of Urinary Filtration, Intermittent, Less than 6 Hours Per Day (ICD-10-PCS; 2024-12-22)
PROC: 0W9B3ZX Drainage of Left Pleural Cavity, Percutaneous Approach, Diagnostic (ICD-10-PCS; 2024-12-24)
PROC: 5A1D70Z Performance of Urinary Filtration, Intermittent, Less than 6 Hours Per Day (ICD-10-PCS; 2024-12-24)
PROC: 5A1D70Z Performance of Urinary Filtration, Intermittent, Less than 6 Hours Per Day (ICD-10-PCS; 2024-12-25)
PROC: 5A1D70Z Performance of Urinary Filtration, Intermittent, Less than 6 Hours Per Day (ICD-10-PCS; 2024-12-27)
PROC: 5A1D70Z Performance of Urinary Filtration, Intermittent, Less than 6 Hours Per Day (ICD-10-PCS; 2024-12-28)
PROC: 5A1D70Z Performance of Urinary Filtration, Intermittent, Less than 6 Hours Per Day (ICD-10-PCS; 2024-12-30)
PROC: 5A1D70Z Performance of Urinary Filtration, Intermittent, Less than 6 Hours Per Day (ICD-10-PCS; 2025-01-01)
PROC: 5A1D70Z Performance of Urinary Filtration, Intermittent, Less than 6 Hours Per Day (ICD-10-PCS; 2025-01-04)
PROC: 5A1D70Z Performance of Urinary Filtration, Intermittent, Less than 6 Hours Per Day (ICD-10-PCS; 2025-01-06)
DX: A41.02 Sepsis due to Methicillin resistant Staphylococcus aureus (principal); I50.23 Acute on chronic systolic (congestive) heart failure; J96.21 Acute and chronic respiratory failure with hypoxia; N18.6 End stage renal disease; R65.21 Severe sepsis with septic shock; J15.212 Pneumonia due to Methicillin resistant Staphylococcus aureus; G93.41 Metabolic encephalopathy; I24.89 Other forms of acute ischemic heart disease; I13.2 Hypertensive heart and chronic kidney disease with heart failure and with stage 5 chronic kidney disease, or end stage renal disease; N13.8 Other obstructive and reflux uropathy; E87.4 Mixed disorder of acid-base balance; I42.0 Dilated cardiomyopathy; I82.621 Acute embolism and thrombosis of deep veins of right upper extremity; I48.92 Unspecified atrial flutter; N39.0 Urinary tract infection, site not specified; I31.39 Other pericardial effusion (noninflammatory); I82.C11 Acute embolism and thrombosis of right internal jugular vein; T83.89XA Other specified complication of genitourinary prosthetic devices, implants and grafts, initial encounter; I48.91 Unspecified atrial fibrillation; Z99.2 Dependence on renal dialysis; E87.5 Hyperkalemia; N40.1 Benign prostatic hyperplasia with lower urinary tract symptoms; D69.6 Thrombocytopenia, unspecified; E11.22 Type 2 diabetes mellitus with diabetic chronic kidney disease; I44.1 Atrioventricular block, second degree; I44.7 Left bundle-branch block, unspecified; D63.1 Anemia in chronic kidney disease; E07.9 Disorder of thyroid, unspecified; K80.20 Calculus of gallbladder without cholecystitis without obstruction; E87.6 Hypokalemia; Z79.899 Other long term (current) drug therapy; Z93.3 Colostomy status; Z79.84 Long term (current) use of oral hypoglycemic drugs; Z79.82 Long term (current) use of aspirin; Z93.1 Gastrostomy status; Z79.01 Long term (current) use of anticoagulants; Y95 Nosocomial condition; Y84.8 Other medical procedures as the cause of abnormal reaction of the patient, or of later complication, without mention of misadventure at the time of the procedure; Y92.89 Other specified places as the place of occurrence of the external cause
CPT/HCPCS: 32555; 36415; 36556; 36600; 70450; 71045; 71250; 71275; 74018; 74176; 76604; 76775; 76942; 80048; 80053; 80074; 80162; 80202; 81001; 82306; 82565; 82805; 82962; 83036; 83605; 83735; 83880; 83970; 83986; 84100; 84132; 84443; 84484; 85007; 85014; 85018; 85025; 85027; 85610; 85730; 87040; 87070; 87077; 87081; 87086; 87186; 87205; 87340; 89051; 90935; 92610; 93005; 93306; 93970; 94002; 94003; 94640; 96365; 96367; 96368; 96375; 97110; 97116; 97163; 97530; 99291; G0378; J1642; J1815; J2185; J2470; J7060; P9047

== ENCOUNTER 2025-01-07 22:42 | Inpatient (IN) | payer OTHER, MEDICARE ==
[~2025-01-07] VITALS: Ht 182.9 cm; Wt 160.0 kg
[~2025-01-07 22:42] MED LIST changes: -AMLO1TAB23 PO; +APIX2.5T PO; -ASPI81CH43 PO; -ATEN50TA PO; -ATOR20TA50 PO; -CHOL20007 PO; -COEN10CA4 PO; -DOCU-94 PO; -FLUT1SPR5; -FURO20TA4 PO; -GABA-1250 PO; -HYDR50TA47 PO; -ISOS1TAB28 PO; -LOSA-535 PO; -MAGN400T40 PO; -MELA10TA PO; -METF-372 PO; -OLAN1TAB7 PO; -OMEP-448 PO; -RANI-185 PO; -SERT-206 PO; -TRAZ-227 PO
[2025-01-08 00:02] LABS: Hematocrit 31.6 % (41.0-53.0); Hemoglobin 10.0 g/dL (13.5-17.5); Mean Corpuscular Hemoglobin 28.9 pg (28.0-32.0); Mean Corpuscular Volume 90.7 fL (80.0-100.0); Nucleated Red Blood Cells % 0.1 %
[2025-01-08 00:08] LABS: Chloride 100 mmol/L (98-107); Potassium 3.9 mmol/L (3.5-5.1); Sodium 141 mmol/L (136-145)
[2025-01-08 00:09] LABS: Anion Gap 11 (5-15); Carbon Dioxide 30 mmol/L (20-31)
[2025-01-08 00:14] LABS: BUN/Creatinine Ratio 4.7 (10.0-20.0); Blood Urea Nitrogen 14 mg/dL (9-23)
--- NOTE | 2025-01-08 00:15 | ED.PDOC ---
History of Present Illness HPI Comments 79-year-old male who came to ER via EMS for generalized weakness. Patient was just discharged your few hours ago and was diagnosed with 1. Atrial flutter/atrial fibrillation with RVR s/p DCCV, Stage IIIa, now NSR (on amiodarone/BB/Eliquis therapy at home-)., 2. Acute on chronic decompensated unspecified HF, NYHA Class IV., 3. Nonischemic/dilated cardiomyopathy., 4. Advanced CKD now ESRD with HD and associated hyperkalemia., 5. History of cardiac ablation in 2022., 6. Thyroid disease., 7. Recent colon resection with colostomy. Patient just finishes dialysis earlier, as he was heading towards the car, he feels weak and he collapsed, hitting his right hip on the floor. Denies any head trauma or loss of consciousness. Blood sugar on scene was 115, with a blood pressure 117/80 Chief Complaint: General Weakness Time Seen by MD: 00:13 Primary Care Provider: INES Moore Notes: [employer] Notes Allergies: Coded Allergies: NO KNOWN ALLERGIES (Unverified , 02/08/14) Home Meds Active Scripts Apixaban Base (ELIQUIS) 2.5 Mg Tab, 2.5 MG PO BID for 30 Days, #60 TAB 1 Refill Prov:FLORENTINO LANGLEY NP 01/07/25 Reported Medications Tamsulosin Hcl (Tamsulosin Hcl) 0.4 Mg Cap, 1 CAP PO DAILY for 31 Days, #31 12/21/24 Sertraline Hcl (Sertraline Hcl) 100 Mg Tab, 1 TAB PO BID for 31 Days, #62 12/21/24 Buspirone Hcl (Buspirone Hcl) 5 Mg Tab, 1 TAB PO TID for 31 Days, #93 12/21/24 Finasteride (Finasteride) 5 Mg Tab, 1 TAB PO DAILY for 31 Days, #31 12/21/24 Amiodarone HCl (Amiodarone HCl) 200 Mg Tab, 1 TAB PO DAILY for 31 Days, #31 12/21/24 Metoprolol Succinate (Metoprolol Succinate Er) 100 Mg Tab, 100 MG PO UD for 31 Days, #124 12/21/24 Levothyroxine Sodium (Levothyroxine Sodium) 75 Mcg Tab, 1 TAB PO DAILY for 31 Days, #31 12/21/24 Pantoprazole Sodium Sesquihydr (Pantoprazole Sodium) 40 Mg Tab, 1 TAB PO BID for 31 Days, #62 12/21/24 Discontinued Reported Medications Apixaban Base (ELIQUIS) 5 Mg Tab, 1 TAB PO BID for 14 Days, #28 12/21/24 Information Source: Patient Mode of Arrival: EMS Severity: Moderate Timing: Hours Duration: Since onset Past Medical History PAST MEDICAL HISTORY: CHF, CKF, DM, Gallstones, HTN Surgical History: Hernia Repair Family History Family History: Reviewed,noncontributory to illness, Family hx of DM, Family hx of Cancer Family History (Other): Crohn's Disease Social History Smoker: Non-Smoker Alcohol: Rarely Drugs: Denies Drug Use Lives In: Home Constitutional: reports: weakness; denies: chills, diaphoresis, fatigue, fever, malaise, sweats, others EENTM: denies: blurred vision, double vision, ear bleeding, ear discharge, ear drainage, ear pain, ear ringing, eye pain, eye redness, hearing loss, mouth pain, mouth swelling, nasal discharge, nose bleeding, nose congestion, nose pain, photophobia, tearing, throat pain, throat swelling, voice changes, others Respiratory: denies: cough, hemoptysis, orthopnea, SOB at rest, shortness of breath, SOB with excertion, stridor, wheezing, others Cardiovascular: denies: chest pain, dizzy spells, diaphoresis, Dyspnea on exertion, edema, irregular heart beat, left arm pain, lightheadedness, palpitations, PND, syncope, others Gastrointestinal: denies: abdomen distended, abdominal pain, blood streaked bowels, constipated, diarrhea, dysphagia, difficulty swallowing, hematemesis, melena, nausea, poor appetite, poor fluid intake, rectal bleeding, rectal pain, vomiting, others Genitourinary: denies: burning, dysuria, flank pain, frequency, hematuria, incontinence, penile discharge, penile sore, pain, testicle pain, testicle swelling, urgency, others Neurological: denies: dizziness, fainting, headache, left sided numbness, left sided weakness, numbness, paresthesia, pre-existing deficit, right sided numbne ss, right sided weakness, seizure, speech problems, tingling, tremors, weakness, others Musculoskeletal: reports: joint pain (Right hip); denies: back pain, gout, joint swelling, muscle pain, muscle stiffness, neck pain, others Integumetry: denies: bruises, change in color, change in hair/nails, dryness, laceration, lesions, lumps, rash, wounds, others Allergic/Immunocompromised: denies: Difficulty Healing, Frequent Infections, Hives, Itching, others Hematologic/Lymphatic: denies: anemia, blood clots, easy bleeding, easy brui sing, swollen glands, others Endocrine: denies: excessive hunger, excessive sweating, excessive thirst, ex cessive urination, flushing, intolerance to cold, intolerance to heat, unexplained weight gain, unexplained weight loss, others Psychiatric: denies: anxiety, bipolar disorder, depression, hopeless, panic disorder, schizophrenia, sleepless, suicidal, others Physical Exam General Appearance: No Apparent Distress, Normal HEENT: Normal ENT Inspection, Pharynx Normal, TMs Normal Neck: Full Range of Motion, Non-Tender, Normal, Normal Inspection Respiratory: Chest Non-Tender, Lungs Clear, No Accessory Muscle Use, No Res piratory Distress, Normal Breath Sounds Cardiovascular: No Edema, No JVD, No Murmur, No Gallop, Normal Peripheral Pulses, Regular Rate/Rhythm Breast Exam: Deferred Gastrointestinal: No Organomegaly, Non Tender, No Pulsatile Mass, Normal Bowel Sounds, Soft Genitalia: Deferred Pelvic: Deferred Rectal: Deferred Extremities: No calf tenderness, Normal capillary refill, Normal inspection, Normal range of motion, Non-tender, No pedal edema Musculoskeletal : Apperance: Normal Neurologic: Alert, electronic maintenance supervisor II-XII nml as Tested, No Motor Deficits, Normal Affect, Normal Mood, No Sensory Deficits Cerebellar Function: Normal Reflexes: Normal Skin: Dry, Normal Color, Warm Lymphatic: No Adenopathy Was a procedure done? Was a procedure done?: No Differential Dx Considerations may include: Anemia, electrolyte imbalance, syncope, fall injury, dehydration, ESRD X-Ray, Labs, Meds, VS Vital Signs Date Time Temp Pulse Resp B/P (MAP) Pulse Ox O2 Delivery O2 Flow Rate FiO2 01/08/25 01:33 78 18 98 Room Air* 0 21 01/08/25 01:33 98.1 90 20 121/80 (94) 97 98.1 01/07/25 23:18 118 01/07/25 22:42 96.9 110 18 117/75 98 96.9 Lab Test 01/08/25 03:10 01/08/25 00:25 01/07/25 23:59 01/07/25 23:34 Range/Units Lactic Acid Level 1.6 0.4-2.0 mmol/L Troponin I High Sensitivity 13 13 </=54 ng/L Thyroid Stimulating Hormone (TSH) Pending Urine Color Yellow Yellow Urine Clarity Turbid H Clear Urine pH 8.5 5.0-9.0 Urine Specific [place] 1.021 1.001-1.035 Urine Protein 2+ H Negative Urine Ketones Negative Negative Urine Blood 2+ H Negative /uL Urine Nitrite Negative Negative Urine Bilirubin Negative Negative Urine Urobilinogen Normal Negative mg/dL Urine Leukocyte Esterase 2+ Negative /uL Urine RBC 21 0 - 3 /hpf Urine Microscopic WBC 29 H 0-3 /HPF Urine Squamous Epithelial Cells None seen <5 /hpf Urine Bacteria Few H None Seen /hpf Urine Mucus Few None Seen Urine Glucose Trace Normal mg/dL White Blood Count 8.0 # 4.4-10.8 10^3/uL Red Blood Count 3.48 L 4.5-5.90 10^6/uL Hemoglobin 10.0 L 13.5-17.5 g/dL Hematocrit 31.6 L 41.0-53.0 % Mean Corpuscular Volume 90.7 80.0-100.0 fL Mean Corpuscular Hemoglobin 28.9 28.0-32.0 pg Mean Corpuscular Hemoglobin Concent 31.8 L 32.0-36.0 g/dL Red Cell Distribution Width 17.4 H 11.8-14.3 % Platelet Count 258 140-450 10^3/uL Mean Platelet Volume 9.7 6.9-10.8 fL Neutrophils (%) (Auto) 80.6 H 37.0-80.0 % Lymphocytes (%) (Auto) 10.1 10.0-50.0 % Monocytes (%) (Auto) 8.2 0.0-12.0 % Eosinophils (%) (Auto) 0.4 0.0-7.0 % Basophils (%) (Auto) 0.7 0.0-2.0 % Neutrophils # (Auto) 6.4 1.6-8.6 10 ^3/uL Lymphocytes # (Auto) 0.8 0.4-5.4 10 ^3/uL Monocytes # (Auto) 0.7 0-1.3 10 ^3/uL Eosinophils # (Auto) 0 0-0.8 10 ^3/uL Basophils # (Auto) 0.1 0-0.2 10 ^3/uL Nucleated Red Blood Cells 0.1 % Sodium Level 141 136-145 mmol/L Potassium Level 3.9 3.5-5.1 mmol/L Chloride Level 100 98-107 mmol/L Carbon Dioxide Level 30 20-31 mmol/L Anion Gap 11 5-15 Blood Urea Nitrogen 14 9-23 mg/dL Creatinine 2.95 H 0.700-1.30 mg/dL Glomerular Filtration Rate Calc 21 >90 mL/min BUN/Creatinine Ratio 4.7 L 10.0-20.0 Serum Glucose 149 H 74-106 mg/dL Calcium Level 8.5 L 8.7-10.4 mg/dL B-Type Natriuretic Peptide 2767.87 0-100 pg/mL Current Medications Medications (Trade) Dose Ordered Sig/Isidra Route Start Time Stop Time Status Last Admin Cefepime HCl 50 ml @ 12.5 mls/hr ONCE ONCE IV 01/08/25 02:45 01/08/25 06:44 01/08/25 02:45 Vancomycin HCl 250 ml @ 250 mls/hr ONCE ONCE IV 01/08/25 02:45 01/08/25 03:44 DC 01/08/25 02:45 Time of 1ST Reevaluation: 00:14 Reevaluation 1ST: Unchanged Patient Education/Counseling: Diagnosis, Treatment Family Education/Counseling: Diagnosis, Treatment SEPSIS Sepsis Screen Date sepsis recognized/suspect: Jan 07, 2025 Time Sepsis recognized/suspect: 2241 Recent Procedure: No On Antibiotic Therapy: No Respiratory Rate >20: No Heart Rate >90: No Temp<36 C (96.8 F) or >38.3 C: No SBP <90 or MAP <65 mmHG: No New Acute Mental Status Change: No Is the patient on CPAP, BIPAP,: No Physician Orders Chest Portable (01/07/25 23:15) Head Without Contrast (01/07/25 23:15) Electrocardigram (01/08/25 00:15) Electrocardigram (01/08/25 02:15) Blood Culture (01/08/25 02:41) Cefepime 2gm/50ml Ns (Maxipime 2gm/50ml) (01/08/25 02:45) Vital Signs Date Time Temp Pulse Resp B/P (MAP) Pulse Ox O2 Delivery O2 Flow Rate FiO2 01/08/25 01:33 78 18 98 Room Air* 0 21 01/08/25 01:33 98.1 90 20 121/80 (94) 97 98.1 01/07/25 23:18 118 01/07/25 22:42 96.9 110 18 117/75 98 96.9 Laboratory Tests Test 01/07/25 23:34 01/08/25 03:10 White Blood Count 8.0 10^3/uL (4.4-10.8) # Lactic Acid Level 1.6 mmol/L (0.4-2.0) Medications Medications Dose Ordered Sig/Isidra Route Start Time Stop Time Status Last Admin Dose Admin Cefepime HCl 50 ml @ 12.5 mls/hr ONCE ONCE IV 01/08/25 02:45 01/08/25 06:44 01/08/25 02:45 Vancomycin HCl 250 ml @ 250 mls/hr ONCE ONCE IV 01/08/25 02:45 01/08/25 03:44 DC 01/08/25 02:45 Departure 1 Departure Time of Disposition: 05:38 (Patient presented with shortness of breath that was concerning for possible STEMI, ACS, PE, Pneumonia, Muscle Strain, COPD, Dissection, Acute on Chronic systolic and Diastolic dysfunction. Data: 1. I ordered and reviewed the result of at least 3 labs including a CBC, BMP, and Troponin. 2. I independently interpreted the following tests: EKG which shows sinus arrhthmia and Chest X-ray which shows cardiomegaly.Risk:This patient has a high risk of morbidity due to further diagnostic testing or treatment and may suffer from an acute cardiac or respiratory disorder but is most consitent with an acute chf exacerbation. Patient should be admitted for further workup and possible expert consultation. ) Impression: Primary Impression: Acute on chronic heart failure Qualified Codes: I50.23 - Acute on chronic systolic (congestive) heart failure Additional Impressions: Shortness of breath Syncope and collapse Disposition: ADMITTED INPATIENT Admit to: Tele Condition: Guarded Critical Care Note Critical Care Time?: Yes Critical care comment: Acute heart failure Authorized and Performed by: Bert Rowan MD Total critical care time: Approximately 44 minutes Due to a high probability of clinically significant, life threatening deterioration, the patient required my highest level of preparedness to intervene emergently and I personally spent this critical care time directly and personally managing the patient. This critical care time included obtaining a history; examining the patient; pulse oximetry; ordering and review of studies; arranging urgent treatment with development of a management plan; evaluation of patient's response to treatment; frequent reassessment; and, discussions with other providers. This critical care time was performed to assess and manage the high probability of imminent, life-threatening deterioration that could result in multi-organ failure. It was exclusive of separately billable procedures and treating other patients and teaching time. Please see my other sections and the rest of the note for further information on patient assessment and treatment. Stability Stability form required: No Heart Score Heart Score: Heart Score Response (Comments) Value History N/A 0 EKG N/A 0 Age N/A 0 Risk Factors N/A 0 Troponin N/A 0 Total 0 I personally scribed for BERT ROWAN MD ([email or web address]) on 01/08/25 at 00:15. Electronically submitted by Amrik Venegas ([email or web address]). BERT ROWAN MD Jan 08, 2025 00:15
[2025-01-08 00:16] LABS: Calcium 8.5 mg/dL (8.7-10.4); Glucose 149 mg/dL (74-106)
--- NOTE | 2025-01-08 01:17 | DVH ---
CHEST RADIOGRAPH Indication: syncope Technique: Single frontal view of the chest was obtained COMPARISON: XY CHEST PORTABLE on DOS: 01/04/25, XY CHEST PORTABLE on DOS: 12/31/24, XY CHEST PORTABLE o n DOS: 12/30/24, XY CHEST PORTABLE on DOS: 12/29/24, XY CHEST PORTABLE on DOS: 12/28/24 FINDINGS: Lines and Tubes: Right PermCath tip projects over the proximal superior vena cava. Lungs: Mild diffuse increased prominence of the pulmonary vasculature. Small bilateral pleural effusi ons are not excluded. No pneumothorax. Cardiomediastinal contours: Cardiomegaly. Bones: Unremarkable IMPRESSION: 1. Cardiomegaly with mild pulmonary vascular congestion. 2. Suspected small bilateral pleural effusions. 3. Right PermCath.
--- NOTE | 2025-01-08 01:27 | DVH ---
EXAM: CT HEAD WITHOUT CONTRAST INDICATION: syncope TECHNIQUE: CT of the head without intravenous contrast. Radiation Dose : 1. Head: CT Dose: CTDI volume is 58.91 mGy. Dose-length product is 1042.97 mGy*cm The dose indicators for CT are the volume Computed Tomography (CT) Dose Index (CTDIvol) and the Dose Length Product (DLP), and are measured in units of mGy and mGy-cm, respectively. These indicators are not patient dose, but values generated from the CT scanner acquisition factors. The report includes radiation exposure data for exposures received during this examination. COMPARISON: CT HEAD WITHOUT CONTRAST on DOS: 12/29/24 FINDINGS: There is no evidence of acute intracranial hemorrhage, extra-axial collection, mass effect, midline s hift, herniation or hydrocephalus. Increased prominence of the ventricles, sulci and cisterns consistent with the sequelae of atrophic c ortical volume loss. The hines-white differentiation is intact. Moderate diffuse confluent periventricular and subcortical white matter hypoattenuation is nonspecifi c but may be related to small vessel ischemic disease. Right maxillary mucosal sinus disease. The remaining visualized paranasal sinuses and mastoid air ce lls are clear. The surrounding soft tissues and osseous structures are unremarkable. IMPRESSION: 1. No acute intracranial abnormality. 2. 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 Radiation optimization: All CT scans at this facility use at least one of these dose optimization angela hniques: automated exposure control mA and/or kV adjustment per patient size (includes targeted exam s where dose is matched to clinical indication) or iterative reconstruction.
[2025-01-08 01:33] VITALS: PULSE 78; RESP 18; O2SAT 98
[2025-01-08 02:07] LABS: Urine Protein, UAD 2+ (Negative)
[2025-01-08] MEDS: VANCOMYCIN 1GM/250ML KIT 250 ML IV ONE (02:45)
[2025-01-08] MEDS: CEFEPIME 2GM/50ML NS 50 ML IV ONE (02:45)
[2025-01-08] MEDS ORDERED: ACETAMINOPHEN 325 MG TAB PO PRN (04:15)
[2025-01-08] MEDS ORDERED: ONDANSETRON HCL 4 MG/2 ML VIAL IV PRN (04:15)
[2025-01-08] MEDS ORDERED: MORPHINE SULFATE INJ 2 MG/ml SYRG IV PRN (04:15)
[2025-01-08] MEDS ORDERED: NITROGLYCERIN 0.4 MG SL TAB SL PRN (04:15)
[2025-01-08] MEDS ORDERED: HYDROcodone-ACET 5/325MG TAB PO PRN (04:15)
[2025-01-08] MEDS ORDERED: DOCUSATE SOD 100 MG CAP PO PRN (04:15)
[2025-01-08] MEDS ORDERED: DEXTROSE (50%) 50ML SYRG IV PRN (04:15)
--- NOTE | 2025-01-08 04:40 | DVHHP2 ---
History of Present Illness Reason for Visit: Acute exacerbation of congestive heart failure History of Present Illness The patient is a 79-year-old male with past medical history of CHF, chronic kidney failure, diabetes mellitus, gallstones, and hypertension who presented to [facility] ED with complaint of generalized weakness. [facility] hours ago with multiple past medical diagnosis. Patient just finishes dialysis earlier, as he was heading towards the car, he feels weak, dizzy, and collapsed hitting his right hip on the floor. Patient was seen and evaluated in the ED, laboratory data shows WBC 8.0, hemoglobin 10.0, hematocrit 31.6, platelets 258, sodium 141, potassium 3.9, BUN 14, creatinine 2.95, glucose 149, calcium 8.5, troponin 13, BNP 2767.87, blood pressure 121/80, heart rate 90, temperature 98.1 F, O2 saturation 97% on room air. Head CT showed no acute intracranial abnormality. Chest x-ray revealing cardiomegaly with mild pulmonary vascular congestion, suspected small bilateral pulmonary effusions, right PermCath. Please see medication orders section in the computer. On my assessment, patient denied chest pain, no dizziness, loss of consciousness, headache, diaphoresis, currently on oxygen, no abdominal pain, diarrhea, nausea, vomiting, fever, chills. Patient was admitted for further evaluation and medical management. Past Medical History CHF, CKF, DM, Gallstones, HTN Past Surgical History Hernia Repair Family History Reviewed, noncontributory to the management of this case. Past Social History The patient lives at home, denies smoking, no alcohol or illicit drugs abuse. Review of Systems Constitutional: Yes: Weakness; No: Fever, Chills, Sweats, Malaise, Other Eyes: No: Pain, Vision change, Conjunctivae inflammation, Eyelid inflammation, Other, Redness ENT: No: Ear pain, Ear discharge, Nose pain, Nose discharge, Nose congestion, Mouth pain, Mouth swelling, Throat pain, Throat swelling, Other Respiratory: No: Cough, Dry, Shortness of breath, SOB with excertion, Wheezing, Hemoptysis, Pleuritic Pain, Sputum, Wheezing, Other Cardiovascular: Other (Dizzy spells); No: Chest Pain, Palpitations, Orthopnea, Paroxysmal Noc. Dyspnea, Edema, Lt Headedness Gastrointestinal: Other (Left colostomy); No: Nausea, Vomiting, Abdominal Pain, Diarrhea, Constipation, Melena, Hematochezia Genitourinary: No Dysuria, No Frequency, No Incontinence, No Hematuria, No Retention; Other (Right PermCath/[place] catheter) Musculoskeletal: other (Right hip); No: neck pain, shoulder pain, arm pain, back pain, hand pain, leg pain, foot pain Skin: No: Rash, Lesions, Jaundice, Bruising, Other Neurological: No: Weakness, Numbness, Incoordination, Change in speech, Confusion, Seizures, Other Allergies: Coded Allergies: NO KNOWN ALLERGIES (Unverified , 02/08/14) Exam Vital Signs Vital Signs Date Time Temp Pulse Resp B/P (MAP) Pulse Ox O2 Delivery O2 Flow Rate FiO2 01/08/25 01:33 78 18 98 Room Air* 0 21 01/08/25 01:33 98.1 121/80 (94) 98.1 General Appearance: Alert, Oriented X3, Cooperative, No acute distress HEENT: Atraumatic, PERRLA, EOMI, Mucous membr. moist/pink Respiratory: Normal air movement, Other (Diminished breath sounds) Cardiovascular: Regular rate, Normal S1, Normal S2, No murmurs Abdominal: Normal bowel sounds, Soft, No tenderness, No hepatospenomegaly, No masses, Other (Colostomy bag) Extremities: No clubbing, No cyanosis, No edema, Normal pulses, Other (Hip pain) Skin: No rashes, No significant lesion Neuro: Normal speech, Normal tone, Sensation intact, Cranial nerves 3-12 NL, Reflexes 2+, Other (Generalized weakness) Psych/Mental Status: Mental status NL, Mood NL Labs/Xrays Labs Test 01/08/25 03:10 01/08/25 00:25 01/07/25 23:59 01/07/25 23:34 Range/Units Troponin I High Sensitivity 13 </=54 ng/L Urine Color Yellow Yellow Urine Clarity Turbid H Clear Urine pH 8.5 5.0-9.0 Urine Specific [place] 1.021 1.001-1.035 Urine Protein 2+ H Negative Urine Ketones Negative Negative Urine Blood 2+ H Negative /uL Urine Nitrite Negative Negative Urine Bilirubin Negative Negative Urine Urobilinogen Normal Negative mg/dL Urine Leukocyte Esterase 2+ Negative /uL Urine RBC 21 0 - 3 /hpf Urine Microscopic WBC 29 H 0-3 /HPF Urine Squamous Epithelial Cells None seen <5 /hpf Urine Bacteria Few H None Seen /hpf Urine Mucus Few None Seen Urine Glucose Trace Normal mg/dL White Blood Count 8.0 # 4.4-10.8 10^3/uL Red Blood Count 3.48 L 4.5-5.90 10^6/uL Hemoglobin 10.0 L 13.5-17.5 g/dL Hematocrit 31.6 L 41.0-53.0 % Mean Corpuscular Volume 90.7 80.0-100.0 fL Mean Corpuscular Hemoglobin 28.9 28.0-32.0 pg Mean Corpuscular Hemoglobin Concent 31.8 L 32.0-36.0 g/dL Red Cell Distribution Width 17.4 H 11.8-14.3 % Platelet Count 258 140-450 10^3/uL Mean Platelet Volume 9.7 6.9-10.8 fL Neutrophils (%) (Auto) 80.6 H 37.0-80.0 % Lymphocytes (%) (Auto) 10.1 10.0-50.0 % Monocytes (%) (Auto) 8.2 0.0-12.0 % Eosinophils (%) (Auto) 0.4 0.0-7.0 % Basophils (%) (Auto) 0.7 0.0-2.0 % Neutrophils # (Auto) 6.4 1.6-8.6 10 ^3/uL Lymphocytes # (Auto) 0.8 0.4-5.4 10 ^3/uL Monocytes # (Auto) 0.7 0-1.3 10 ^3/uL Eosinophils # (Auto) 0 0-0.8 10 ^3/uL Basophils # (Auto) 0.1 0-0.2 10 ^3/uL Nucleated Red Blood Cells 0.1 % Sodium Level 141 136-145 mmol/L Potassium Level 3.9 3.5-5.1 mmol/L Chloride Level 100 98-107 mmol/L Carbon Dioxide Level 30 20-31 mmol/L Anion Gap 11 5-15 Blood Urea Nitrogen 14 9-23 mg/dL Creatinine 2.95 H 0.700-1.30 mg/dL Glomerular Filtration Rate Calc 21 >90 mL/min BUN/Creatinine Ratio 4.7 L 10.0-20.0 Serum Glucose 149 H 74-106 mg/dL Calcium Level 8.5 L 8.7-10.4 mg/dL B-Type Natriuretic Peptide 2767.87 0-100 pg/mL PATIENT: ELIZABETH STAUFFER ACCT: [id number] UNIT: [id number] : 1945 LOC: ER ROOM / BED: / AGE / SEX: 79 / M ADM STATUS: REG ER SERVICE ORDERING PHYSICIAN: BERT ROWAN MD PROCEDURE(s): HWOCT - HEAD WITHOUT CONTRAST REASON: syncope ORDER NUMBER(s): [id number], ACCESSION NUMBER(s): [id number] EXAM: CT HEAD WITHOUT CONTRAST INDICATION: syncope TECHNIQUE: CT of the head without intravenous contrast. Radiation Dose: 1. Head: CT Dose: CTDI volume is 58.91 mGy. Dose-length product is 1042.97 mGy*cm The dose indicators for CT are the volume Computed Tomography (CT) Dose Index (CTDIvol) and the Dose Length Product (DLP), and are measured in units of mGy and mGy-cm, respectively. These indicators are not patient dose, but values generated from the CT scanner acquisition factors. The report includes radiation exposure data for exposures received during this examination. COMPARISON: CT HEAD WITHOUT CONTRAST on DOS: 12/29/24 FINDINGS: There is no evidence of acute intracranial hemorrhage, extra-axial collection, mass effect, midline shift, herniation or hydrocephalus. Increased prominence of the ventricles, sulci and cisterns consistent with the sequelae of atrophic cortical volume loss. The hines-white differentiation is intact. Moderate diffuse confluent periventricular and subcortical white matter hypoattenuation is nonspecific but may be related to small vessel ischemic disease. Right maxillary mucosal sinus disease. The remaining visualized paranasal sinuses and mastoid air cells are clear. The surrounding soft tissues and osseous structures are unremarkable. IMPRESSION: 1. No acute intracranial abnormality. 2. 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 ORDERING PHYSICIAN: BERT ROWAN MD PROCEDURE(s): CXRP - CHEST PORTABLE REASON: syncope ORDER NUMBER(s): [id number], ACCESSION NUMBER(s): [id number] CHEST RADIOGRAPH Indication: syncope Technique: Single frontal view of the chest was obtained COMPARISON: XY CHEST PORTABLE on DOS: 01/04/25, XY CHEST PORTABLE on DOS: 12/31/24, XY CHEST PORTABLE on DOS: 12/30/24, XY CHEST PORTABLE on DOS: 12/29/24, XY CHEST PORTABLE on DOS: 12/28/24 FINDINGS: Lines and Tubes: Right PermCath tip projects over the proximal superior vena cav a. Lungs: Mild diffuse increased prominence of the pulmonary vasculature. Small bilateral pleural effusions are not excluded. No pneumothorax. Cardiomediastinal contours: Cardiomegaly. Bones: Unremarkable IMPRESSION: 1. Cardiomegaly with mild pulmonary vascular congestion. 2. Suspected small bilateral pleural effusions. 3. Right PermCath. SEPSIS Sepsis Screen Date sepsis recognized/suspect: Jan 08, 2025 Time Sepsis recognized/suspect: 135 Recent Procedure: No On Antibiotic Therapy: No Respiratory Rate >20: No Heart Rate >90: No Temp<36 C (96.8 F) or >38.3 C: No SBP <90 or MAP <65 mmHG: No New Acute Mental Status Change: No Is the patient on CPAP, BIPAP,: No Physician Orders Chest Portable (01/07/25 23:15) Electrocardigram (01/07/25 23:15) Head Without Contrast (01/07/25 23:15) Electrocardigram (01/08/25 00:15) Electrocardigram (01/08/25 02:15) Lactic Acid W/ Reflex Order (01/08/25 02:41) Blood Culture (01/08/25 02:41) Cefepime 2gm/50ml Ns (Maxipime 2gm/50ml) (01/08/25 02:45) Vital Signs Date Time Temp Pulse Resp B/P (MAP) Pulse Ox O2 Delivery O2 Flow Rate FiO2 01/08/25 01:33 78 18 98 Room Air* 0 21 01/08/25 01:33 98.1 90 20 121/80 (94) 97 98.1 01/07/25 23:18 118 01/07/25 22:42 96.9 110 18 117/75 98 96.9 Laboratory Tests Test 01/07/25 23:34 01/08/25 03:10 White Blood Count 8.0 10^3/uL (4.4-10.8) # Lactic Acid Level Pending Medications Medications Dose Ordered Sig/Isidra Route Start Time Stop Time Status Last Admin Dose Admin Cefepime HCl 50 ml @ 12.5 mls/hr ONCE ONCE IV 01/08/25 02:45 01/08/25 06:44 01/08/25 02:45 12.5 MLS/HR Vancomycin HCl 250 ml @ 250 mls/hr ONCE ONCE IV 01/08/25 02:45 01/08/25 03:44 DC 01/08/25 02:45 250 MLS/HR Assessment/Plan Assessment/Plan Acute exacerbation of congestive heart failure End-stage renal disease on hemodialysis Generalized weakness Diabetes mellitus with hyperglycemia Plan 1. Admit to telemetry unit 2. Breathing treatment 3. Pain control management 4. Management of fluids and electrolytes 5. Consultation for hospitalist/nephrology 6. Diagnostic tests chest x-ray 7. DVT prophylaxis-on aspirin 8. Repeat labs CBC, CMP in a.m. 9. Continue with current medical management 10. Treatment plan discussed with patient and RN. Patient verbalized understanding. Plan discussed with: Patient, Other (RN) Problem List: (1) Acute exacerbation of congestive heart failure (2) End-stage renal disease on hemodialysis (3) Generalized weakness (4) Diabetes mellitus with hyperglycemia Date of Service: Jan 08, 2025 Billing Provider: МАРИЯ TINSLEY DNP Common Visit Codes: [id number] INP/OBS CARE (HIGH) МАРИЯ TINSLEY DNP Jan 08, 2025 04:40
--- NOTE | 2025-01-08 05:33 | ECG ---
[facility] Test Date: 2025-01-07 Test Time: 23:18:48 Pat Name: ELIZABETH STAUFFER Department: [facility] ED Patient ID: [facility]-[id number] Room: [address] [place] [address] Gender: M Certified Flex Endoscope Reprocessor: LIZET : 1945 Requested By: BERT ROWAN Order Number: [id number] Reading MD: Peyman Witt Measurements Intervals [place] Rate: 118 P: 0 GA: 0 QRS: -4 QRSD: 95 T: 96 QT: 371 QTc: 521 Interpretive Statements Atrial fibrillation Probable left ventricular hypertrophy Nonspecific T abnormalities, lateral leads Prolonged QT interval Electronically Signed On 01-08-2025 20:39:57 PDT by Peyman Witt Please click the below link to view image of tracing.
[2025-01-08] MEDS: LEVOTHYROXINE SODIUM 25 MCG TAB PO SCH (06:00)
[2025-01-08] MEDS: SODIUM CHLOR 0.9% PF (SALINE LOCK) 10ML VIAL/SYR IV SCH (06:01)
[2025-01-08] MEDS: InsuLIN REG 1unit/0.01ml Soln (100units/ml) SC SCH ×2 (06:16→21:29)
[2025-01-08] MEDS: ACCU-CHEK COMFORT CURVE STRIP VI SCH (06:16)
[2025-01-08 07:44] LABS: Hematocrit 29.5 % (41.0-53.0); Hemoglobin 9.7 g/dL (13.5-17.5); Mean Corpuscular Hemoglobin 29.3 pg (28.0-32.0); Mean Corpuscular Volume 88.8 fL (80.0-100.0); Nucleated Red Blood Cells % 0.0 %
[2025-01-08 08:00] LABS: Alanine Aminotransferase 10 U/L (7-40); Albumin 3.2 g/dL (3.2-4.8); Alkaline Phosphatase 81 U/L (46-116); Anion Gap 9 (5-15); BUN/Creatinine Ratio 6.2 (10.0-20.0); Blood Urea Nitrogen 20 mg/dL (9-23); Carbon Dioxide 30 mmol/L (20-31); Chloride 100 mmol/L (98-107); Potassium 3.8 mmol/L (3.5-5.1); Sodium 139 mmol/L (136-145); Total Protein 5.8 g/dL (5.7-8.2)
[2025-01-08 08:01] LABS: Bilirubin, Total 0.8 mg/dL (0.2-1.0)
[2025-01-08 08:03] LABS: Calcium 8.3 mg/dL (8.7-10.4); Glucose 121 mg/dL (74-106)
[2025-01-08] MEDS ORDERED: FAMOTIDINE (10MG/ML) 2ML VL IV SCH (10:00)
[2025-01-08] MEDS ORDERED: CARVEDILOL 3.125 MG TAB PO SCH (10:00)
[2025-01-08] MEDS: FAMOTIDINE (10MG/ML) 2ML VL IV SCH (10:00)
[2025-01-08 10:37] VITALS: PULSE 115; RESP 18; O2SAT 94
--- NOTE | 2025-01-08 13:32 | DVHPN2 ---
Subjective Same Reviewed: Care Plan, H&P, Labs, Medications, Previous Orders, Radiology Changes from previous H/P or p: No Changes Objective Vitals Vital Signs Date Time Temp Pulse Resp B/P (MAP) Pulse Ox O2 Delivery O2 Flow Rate FiO2 01/08/25 10:37 115 18 124/81 (95) 94 01/08/25 06:55 98.1 98.1 01/08/25 01:33 Room Air* 0 21 General Appearance: Alert, Other (Confused) HEENT: Atraumatic Lungs: Other (Few crackles bilateral lungs) Cardiovascular: Regular rate, Other (Irregular rhythm) Abdomen: Normal bowel sounds, Soft, No tenderness Medications Current Medications Medications Dose Ordered Sig/Isidra Route Start Time Stop Time Status Last Admin Dose Admin Aspirin 81 mg DAILY PO 01/08/25 10:00 Atorvastatin Calcium 10 mg HS PO 01/08/25 22:00 Famotidine 20 mg Q12HR IV 01/08/25 10:00 UNV Carvedilol 3.125 mg Q12HR PO 01/08/25 10:00 Ceftriaxone Sodium 50 ml @ 100 mls/hr DAILY@09 IV 01/08/25 09:00 01/08/25 10:09 100 MLS/HR Tamsulosin HCl 0.4 mg QPM PO 01/08/25 18:00 Levothyroxine Sodium 75 mcg QAM@0600 PO 01/08/25 06:00 Diagnostic Test (Pha) 1 strip ACHS 01/08/25 07:00 01/08/25 11:48 1 STRIP Insulin Human Regular HS SC 01/08/25 22:00 Insulin Human Regular AC SC 01/08/25 07:00 Dextrose 50 ml UD PRN IV 01/08/25 04:15 Sodium Chloride 10 ml Q8HR IV 01/08/25 06:00 01/08/25 06:01 10 ML Acetaminophen/ Hydrocodone Bitart 1 tab Q4HP PRN PO 01/08/25 04:15 Ondansetron HCl 4 mg Q4HP PRN IV 01/08/25 04:15 Docusate Sodium 100 mg BIDPRN PRN PO 01/08/25 04:15 Acetaminophen 650 mg Q6HP PRN PO 01/08/25 04:15 Nitroglycerin 0.4 mg Q5MINP PRN SL 01/08/25 04:15 Morphine Sulfate 2 mg Q30M PRN IV 01/08/25 04:15 Famotidine 20 mg DAILY IV 01/08/25 10:00 01/08/25 10:00 20 MG Laboratory Results Laboratory Tests 01/08/25 07:16 Chemistry Test 01/07/25 23:34 01/08/25 07:16 Calcium Level 8.5 mg/dL (8.7-10.4) L 8.3 mg/dL (8.7-10.4) L Albumin 3.2 g/dL (3.2-4.8) Total Protein 5.8 g/dL (5.7-8.2) Cardiac Markers Test 01/07/25 23:34 B-Type Natriuretic Peptide 2767.87 pg/mL (0-100) LFT Test 01/08/25 07:16 Alanine Aminotransferase (ALT) 10 U/L (7-40) Alkaline Phosphatase 81 U/L (46-116) Aspartate Amino Transferase (AST) 9 U/L (13-40) L Total Bilirubin 0.8 mg/dL (0.2-1.0) HgA1c, TSH Test 01/08/25 00:25 Thyroid Stimulating Hormone (TSH) 11.65 uIU/mL (0.55-4.78) H Urinalysis Test 01/07/25 23:59 Urine Color Yellow (Yellow) Urine Clarity Turbid (Clear) H Urine pH 8.5 (5.0-9.0) Urine Specific [place] 1.021 (1.001-1.035) Urine Protein 2+ (Negative) H Urine Ketones Negative (Negative) Urine Blood 2+ /uL (Negative) H Urine Nitrite Negative (Negative) Urine Bilirubin Negative (Negative) Urine Urobilinogen Normal mg/dL (Negative) Urine Leukocyte Esterase 2+ /uL (Negative) Urine RBC 21 /hpf (0 - 3) Urine Microscopic WBC 29 /HPF (0-3) H Urine Squamous Epithelial Cells None seen /hpf (<5) Urine Bacteria Few /hpf (None Seen) H Urine Mucus Few (None Seen) Urine Glucose Trace mg/dL (Normal) Assessment/Plan Assessment/Plan Acute respiratory distress/failure Pleural effusion Recent pneumonia with MRSA sepsis Recent PEG tube and colostomy AFib BPH Diabetes Lives with upper extremity DVT End-stage renal disease on hemodialysis Pleural effusion Hypothyroidism Plan: Continue current plan of care. Further plan per orders Plan discussed with: Patient, Other (Nursing) My Orders Orders - PILAR CARSON MD Procedure Category Date Status Time Tube Feeding DIET 01/08/25 Transmitted Lunch Amiodarone Tablet PHA 01/09/25 Transmitted (Cordarone Tablet) 10:00 Apixaban (Eliquis) PHA 01/08/25 Transmitted 22:00 Finasteride Tablet PHA 01/09/25 Transmitted (Proscar Tablet) 10:00 (Nf) Buspirone Hcl PHA 01/08/25 Transmitted 14:00 (Nf) Levothyroxine PHA 01/09/25 Transmitted Sodium 10:00 (Nf) Metoprolol PHA 01/08/25 Transmitted Succinate (Metoprolol 13:30 (Nf) Sertraline Hcl PHA 01/08/25 Transmitted 22:00 Date of Service: Jan 08, 2025 Billing Provider: PILAR CARSON MD Common Visit Codes: [id number] INP/OBS CARE(HIGH) PILAR CARSON MD Jan 08, 2025 13:32
[2025-01-08] MEDS ORDERED: HYDROcodone-ACET 5/325MG TAB GT PRN (14:15)
[2025-01-08] MEDS ORDERED: DOCUSATE ORAL LIQUID 100 MG/10 ML UD GT PRN (15:00)
[2025-01-08] MEDS ORDERED: ACETAMINOPHEN 650 mg PER 20.3 mL UD GT PRN (15:00)
[2025-01-08 21:00] VITALS: BP 119/83; PULSE 122; RESP 18; TEMP 98; O2SAT 91
[2025-01-08] MEDS: TAMSULOSIN HYDROCHLORIDE 0.4 MG CAP PO SCH (21:25)
[2025-01-08] MEDS: APIXABAN 2.5 MG TAB GT SCH (21:25)
[2025-01-08] MEDS: ATORVASTATIN 20 MG TAB GT SCH (21:25)
[2025-01-08] MEDS: SERTRALINE HCL 50 MG TAB GT SCH (21:25)
[2025-01-08] MEDS: METOPROLOL TARTRATE 25 MG TAB GT SCH (21:26)
[2025-01-08] MEDS: LORazepam 2MG/ML-1ML VIAL IV PRN (21:43)
[2025-01-08] MEDS ORDERED: ATORVASTATIN 20 MG TAB PO SCH (22:00)
[2025-01-08] MEDS ORDERED: APIXABAN 2.5 MG TAB PO SCH (22:00)
[2025-01-08] MEDS ORDERED: SERTRALINE HCL 50 MG TAB PO SCH (22:00)
[2025-01-09] MEDS: LORazepam 2MG/ML-1ML VIAL IV PRN (00:46)
[2025-01-09 04:48] VITALS: BP 130/89; PULSE 116; RESP 14; O2SAT 91
[2025-01-09] MEDS ORDERED: LEVOTHYROXINE SODIUM 50 MCG TAB PO SCH (06:00)
[2025-01-09 06:05] LABS: Hematocrit 28.6 % (41.0-53.0); Hemoglobin 9.5 g/dL (13.5-17.5); Mean Corpuscular Hemoglobin 29.9 pg (28.0-32.0); Mean Corpuscular Volume 90.2 fL (80.0-100.0); Nucleated Red Blood Cells % 0.1 %
[2025-01-09] MEDS: LEVOTHYROXINE SODIUM 50 MCG TAB GT SCH (06:16)
[2025-01-09 06:22] LABS: Alanine Aminotransferase 13 U/L (7-40); Albumin 3.3 g/dL (3.2-4.8); Alkaline Phosphatase 83 U/L (46-116); Anion Gap 12 (5-15); BUN/Creatinine Ratio 5.7 (10.0-20.0); Blood Urea Nitrogen 23 mg/dL (9-23); Calcium 8.7 mg/dL (8.7-10.4); Carbon Dioxide 30 mmol/L (20-31); Chloride 100 mmol/L (98-107); Potassium 3.8 mmol/L (3.5-5.1); Sodium 142 mmol/L (136-145); Total Protein 6.0 g/dL (5.7-8.2)
[2025-01-09 06:23] LABS: Bilirubin, Total 0.9 mg/dL (0.2-1.0)
[2025-01-09 06:53] LABS: Glucose 110 mg/dL (74-106)
--- NOTE | 2025-01-09 08:14 | DVHPN2 ---
Subjective No change Reviewed: Care Plan, H&P, Labs, Medications, Previous Orders, Radiology Changes from previous H/P or p: No Changes Objective Vitals Vital Signs Date Time Temp Pulse Resp B/P (MAP) Pulse Ox O2 Delivery O2 Flow Rate FiO2 01/09/25 04:48 116 14 130/89 (103) 91 01/08/25 21:00 98.0 98.0 01/08/25 10:37 Nasal Cannula* 2 28 General Appearance: Alert, Cooperative, Other (Confused) HEENT: Atraumatic Lungs: Other (Few crackles bilateral lungs) Cardiovascular: Regular rate, Other (Irregular rhythm) Abdomen: Normal bowel sounds, Soft, No tenderness Medications Current Medications Medications Dose Ordered Sig/Isidra Route Start Time Stop Time Status Last Admin Dose Admin Famotidine 20 mg Q12HR IV 01/08/25 10:00 UNV Ceftriaxone Sodium 50 ml @ 100 mls/hr DAILY@09 IV 01/08/25 09:00 01/08/25 10:09 100 MLS/HR Tamsulosin HCl 0.4 mg QPM PO 01/08/25 18:00 01/08/25 21:25 0.4 MG Diagnostic Test (Pha) 1 strip ACHS 01/08/25 07:00 01/09/25 06:16 1 STRIP Insulin Human Regular HS SC 01/08/25 22:00 Insulin Human Regular AC SC 01/08/25 07:00 Dextrose 50 ml UD PRN IV 01/08/25 04:15 Sodium Chloride 10 ml Q8HR IV 01/08/25 06:00 01/09/25 06:16 10 ML Ondansetron HCl 4 mg Q4HP PRN IV 01/08/25 04:15 Nitroglycerin 0.4 mg Q5MINP PRN SL 01/08/25 04:15 Morphine Sulfate 2 mg Q30M PRN IV 01/08/25 04:15 Famotidine 20 mg DAILY IV 01/08/25 10:00 01/08/25 10:00 20 MG Metoprolol Tartrate 50 mg BID GT 01/08/25 22:00 01/08/25 21:26 50 MG Amiodarone HCl 200 mg DAILY GT 01/09/25 10:00 Apixaban 2.5 mg BID GT 01/08/25 22:00 01/08/25 21:25 2.5 MG Aspirin 81 mg DAILY GT 01/09/25 10:00 Atorvastatin Calcium 10 mg HS GT 01/08/25 22:00 01/08/25 21:25 10 MG Buspirone HCl 5 mg TID GT 01/08/25 22:00 01/09/25 06:16 5 MG Finasteride 5 mg DAILY GT 01/09/25 10:00 Acetaminophen/ Hydrocodone Bitart 1 tab Q4HP PRN GT 01/08/25 14:15 Levothyroxine Sodium 75 mcg QAM@0600 GT 01/09/25 06:00 01/09/25 06:16 75 MCG Sertraline HCl 100 mg BID GT 01/08/25 22:00 01/08/25 21:25 100 MG Acetaminophen 650 mg Q6HP PRN GT 01/08/25 15:00 Docusate Sodium 100 mg BIDPRN PRN GT 01/08/25 15:00 Lorazepam 0.5 mg Q4HP PRN IV 01/09/25 00:45 01/09/25 00:46 0.5 MG Laboratory Results Laboratory Tests 01/09/25 05:29 Chemistry Test 01/09/25 05:29 Albumin 3.3 g/dL (3.2-4.8) Calcium Level 8.7 mg/dL (8.7-10.4) Total Protein 6.0 g/dL (5.7-8.2) LFT Test 01/09/25 05:29 Alanine Aminotransferase (ALT) 13 U/L (7-40) Alkaline Phosphatase 83 U/L (46-116) Aspartate Amino Transferase (AST) 10 U/L (13-40) L Total Bilirubin 0.9 mg/dL (0.2-1.0) Urinalysis Test 01/07/25 23:59 Urine Color Yellow (Yellow) Urine Clarity Turbid (Clear) H Urine pH 8.5 (5.0-9.0) Urine Specific [place] 1.021 (1.001-1.035) Urine Protein 2+ (Negative) H Urine Ketones Negative (Negative) Urine Blood 2+ /uL (Negative) H Urine Nitrite Negative (Negative) Urine Bilirubin Negative (Negative) Urine Urobilinogen Normal mg/dL (Negative) Urine Leukocyte Esterase 2+ /uL (Negative) Urine RBC 21 /hpf (0 - 3) Urine Microscopic WBC 29 /HPF (0-3) H Urine Squamous Epithelial Cells None seen /hpf (<5) Urine Bacteria Few /hpf (None Seen) H Urine Mucus Few (None Seen) Urine Glucose Trace mg/dL (Normal) Microbiology Microbiology Date/Time Source Procedure Growth Status 01/08/25 03:00 Blood Blood Culture - Preliminary NO GROWTH AFTER 24 HOURS OF INCUBATION. Resulted Assessment/Plan Assessment/Plan Acute respiratory distress/failure Pleural effusion Recent pneumonia with MRSA sepsis Recent PEG tube and colostomy AFib BPH Diabetes Lives with upper extremity DVT End-stage renal disease on hemodialysis Pleural effusion Hypothyroidism Plan: Repeat chest x-ray. CBC. Nephrology. Further plan per orders Plan discussed with: Other (Nursing) My Orders Orders - PILAR CARSON MD Procedure Category Date Status Time Tube Feeding DIET 01/08/25 Transmitted Lunch Amiodarone Tablet PHA 01/09/25 In Process (Cordarone Tablet) 10:00 Apixaban (Eliquis) PHA 01/08/25 In Process 22:00 Aspirin Tablet PHA 01/09/25 In Process 10:00 Atorvastatin (Lipitor) PHA 01/08/25 In Process 22:00 Buspirone Hcl Tablet PHA 01/08/25 In Process (Buspar Tablet) 22:00 Finasteride Tablet PHA 01/09/25 In Process (Proscar Tablet) 10:00 Hydrocodone-Acet PHA 01/08/25 In Process 5/325mg Tab ([place] 14:15 Levothyroxine Tablet PHA 01/09/25 In Process (Synthroid Tablet) 06:00 Sertraline Hcl PHA 01/08/25 In Process (Zoloft) 22:00 Metoprolol Tartrate PHA 01/08/25 In Process Tablet (Lopressor Ta 22:00 Date of Service: Jan 09, 2025 Billing Provider: PILAR CARSON MD Common Visit Codes: [id number] INP/OBS CARE(HIGH) PILAR CARSON MD Jan 09, 2025 08:14
[2025-01-09 08:43] VITALS: PULSE 111; RESP 14; O2SAT 94
[2025-01-09] MEDS ORDERED: FINASTERIDE 5 MG TAB PO SCH (10:00)
[2025-01-09] MEDS ORDERED: AMIODARONE HCL 200 MG TAB PO SCH (10:00)
[2025-01-09] MEDS: AMIODARONE HCL 200 MG TAB GT SCH (10:00)
[2025-01-09] MEDS: FINASTERIDE 5 MG TAB GT SCH (11:02)
--- NOTE | 2025-01-09 15:41 | DVHDS2 ---
Discharge Summary Date of Admission Jan 08, 2025 at 04:09 Date of Discharge: Jan 09, 2025 Admitting Diagnosis Patient was admitted from the emergency room with respiratory failure. Labs/Diagnostic Data: Laboratory Results Test 01/09/25 11:36 01/09/25 05:29 01/08/25 03:10 01/08/25 00:25 POC Glucose 99 mg/dl (70-106) White Blood Count 6.7 10^3/uL (4.4-10.8) Red Blood Count 3.17 10^6/uL (4.5-5.90) Hemoglobin 9.5 g/dL (13.5-17.5) Hematocrit 28.6 % (41.0-53.0) Mean Corpuscular Volume 90.2 fL (80.0-100.0) Mean Corpuscular Hemoglobin 29.9 pg (28.0-32.0) Mean Corpuscular Hemoglobin Concent 33.1 g/dL (32.0-36.0) Red Cell Distribution Width 17.3 % (11.8-14.3) Platelet Count 220 10^3/uL (140-450) Mean Platelet Volume 9.3 fL (6.9-10.8) Neutrophils (%) (Auto) 72.4 % (37.0-80.0) Lymphocytes (%) (Auto) 15.9 % (10.0-50.0) Monocytes (%) (Auto) 9.9 % (0.0-12.0) Eosinophils (%) (Auto) 0.9 % (0.0-7.0) Basophils (%) (Auto) 0.9 % (0.0-2.0) Neutrophils # (Auto) 4.8 10 ^3/uL (1.6-8.6) Lymphocytes # (Auto) 1.1 10 ^3/uL (0.4-5.4) Monocytes # (Auto) 0.7 10 ^3/uL (0-1.3) Eosinophils # (Auto) 0.1 10 ^3/uL (0-0.8) Basophils # (Auto) 0.1 10 ^3/uL (0-0.2) Nucleated Red Blood Cells 0.1 % Sodium Level 142 mmol/L (136-145) Potassium Level 3.8 mmol/L (3.5-5.1) Chloride Level 100 mmol/L (98-107) Carbon Dioxide Level 30 mmol/L (20-31) Anion Gap 12 (5-15) Blood Urea Nitrogen 23 mg/dL (9-23) Creatinine 4.05 mg/dL (0.700-1.30) Glomerular Filtration Rate Calc 14 mL/min (>90) BUN/Creatinine Ratio 5.7 (10.0-20.0) Serum Glucose 110 mg/dL (74-106) Calcium Level 8.7 mg/dL (8.7-10.4) Total Bilirubin 0.9 mg/dL (0.2-1.0) Aspartate Amino Transferase (AST) 10 U/L (13-40) Alanine Aminotransferase (ALT) 13 U/L (7-40) Alkaline Phosphatase 83 U/L (46-116) Total Protein 6.0 g/dL (5.7-8.2) Albumin 3.3 g/dL (3.2-4.8) Lactic Acid Level 1.6 mmol/L (0.4-2.0) Troponin I High Sensitivity 13 ng/L (</=54) Thyroid Stimulating Hormone (TSH) 11.65 uIU/mL (0.55-4.78) Test 01/07/25 23:59 01/07/25 23:34 Urine Color Yellow (Yellow) Urine Clarity Turbid (Clear) Urine pH 8.5 (5.0-9.0) Urine Specific [place] 1.021 (1.001-1.035) Urine Protein 2+ (Negative) Urine Ketones Negative (Negative) Urine Blood 2+ /uL (Negative) Urine Nitrite Negative (Negative) Urine Bilirubin Negative (Negative) Urine Urobilinogen Normal mg/dL (Negative) Urine Leukocyte Esterase 2+ /uL (Negative) Urine RBC 21 /hpf (0 - 3) Urine Microscopic WBC 29 /HPF (0-3) Urine Squamous Epithelial Cells None seen /hpf (<5) Urine Bacteria Few /hpf (None Seen) Urine Mucus Few (None Seen) Urine Glucose Trace mg/dL (Normal) B-Type Natriuretic Peptide 2767.87 pg/mL (0-100) Other Laboratory Tests 01/09/25 05:29 Brief Hx & Hospital Course: The patient was admitted from the emergency room with respiratory failure. Patient was discharged the day before with the same. The informed me that they had discussed his condition and dialysis and prognosis and they decided to stop dialysis and no more aggressive treatment and to go on hospice. We will consult social service for hospice evaluation. Condition at Discharge: Poor Final Diagnosis/Problems List Acute on chronic respiratory failure Pleural effusion Pneumonia with recent sepsis with MRSA Recent PEG tube placement and colostomy AFib Diabetes Right upper extremity DVT End-stage renal disease on hemodialysis Hypothyroidism Discharge Disposition: Hospice - Home Discharge Instruct/Medications Diet: Cardiac 2g Na,low cholest, Renal Activity: Bed rest Follow Up/Referral: With hospice provider Medications: As per list Scheduled Amiodarone HCl (Amiodarone HCl), 1 TAB PO DAILY, (Reported) Apixaban Base (Eliquis), 2.5 MG PO BID Buspirone Hcl (Buspirone Hcl), 1 TAB PO TID, (Reported) Finasteride (Finasteride), 1 TAB PO DAILY, (Reported) Levothyroxine Sodium (Levothyroxine Sodium), 1 TAB PO DAILY, (Reported) Metoprolol Succinate (Metoprolol Succinate Er), 100 MG PO UD, (Reported) Pantoprazole Sodium Sesquihydr (Pantoprazole Sodium), 1 TAB PO BID, (Reported) Sertraline Hcl (Sertraline Hcl), 1 TAB PO BID, (Reported) Tamsulosin Hcl (Tamsulosin Hcl), 1 CAP PO DAILY, (Reported) Discontinued Medications Apixaban Base (Eliquis), 1 TAB PO BID, (Reported) 45 Discharge Statement: "Patient was advised to return to the ER or call 911 if any headaches, dizziness, shortness of breath, chest pain, abdominal pain, bleeding, fevers, or worsening of medical condition. Patient was counseled about treatment plan, medications, possible side effects, patientverbalized understanding. All questions were answered to the best of my ability. This discharge took greater then 30 minutes in planning, reviewing documentation, counseling the patient, and discussing with other team members." ASSESSMENT ASSESSMENT Assessment Date of Service: Jan 09, 2025 Billing Provider: PILAR CARSON MD Common Visit Codes: 56957-GUW/[id number] DISCH DAY >30min PILAR CARSON MD Jan 09, 2025 15:41
--- NOTE | 2025-01-09 16:44 | DVHINCON2 ---
Date of service: Jan 09, 2025 Referring Physician Raf Lepe, nurse practitioner Reason for Consultation Patient is a 79-year-old male with past medical history of end-stage renal disease, CHF, DM, Gallstones, and HTN who was just discharged from [facility] yesterday is readmitted for rapid AFib and chest palpitation. Nephrology is consulted for management of ESRD History of Present Illness End-stage renal disease on hemodialysis Congestive heart failure Hypertension Past Medical History Tunneled IJ hemodialysis catheter Allergies: Coded Allergies: NO KNOWN ALLERGIES (Unverified , 02/08/14) Home Meds Active Scripts Apixaban Base (ELIQUIS) 2.5 Mg Tab, 2.5 MG PO BID for 30 Days, #60 TAB 1 Refill Prov:[employer] 01/07/25 Reported Medications Tamsulosin Hcl (Tamsulosin Hcl) 0.4 Mg Cap, 1 CAP PO DAILY for 31 Days, #31 12/21/24 Sertraline Hcl (Sertraline Hcl) 100 Mg Tab, 1 TAB PO BID for 31 Days, #62 12/21/24 Buspirone Hcl (Buspirone Hcl) 5 Mg Tab, 1 TAB PO TID for 31 Days, #93 12/21/24 Finasteride (Finasteride) 5 Mg Tab, 1 TAB PO DAILY for 31 Days, #31 12/21/24 Amiodarone HCl (Amiodarone HCl) 200 Mg Tab, 1 TAB PO DAILY for 31 Days, #31 12/21/24 Metoprolol Succinate (Metoprolol Succinate Er) 100 Mg Tab, 100 MG PO UD for 31 Days, #124 12/21/24 Levothyroxine Sodium (Levothyroxine Sodium) 75 Mcg Tab, 1 TAB PO DAILY for 31 Days, #31 12/21/24 Pantoprazole Sodium Sesquihydr (Pantoprazole Sodium) 40 Mg Tab, 1 TAB PO BID for 31 Days, #62 12/21/24 Discontinued Reported Medications Apixaban Base (ELIQUIS) 5 Mg Tab, 1 TAB PO BID for 14 Days, #28 12/21/24 Current Medications Current Medications Medications (Trade) Dose Ordered Sig/Isidra Route PRN Reason Start Time Stop Time Status Last Admin Atorvastatin Calcium (Lipitor) 10 mg HS PO 01/08/25 22:00 01/08/25 14:21 DC Tamsulosin HCl (Flomax) 0.4 mg QPM PO 01/08/25 18:00 01/08/25 21:25 Insulin Human Regular (InsuLIN R) HS SC 01/08/25 22:00 Amiodarone HCl (Cordarone Tablet) 200 mg DAILY PO 01/09/25 10:00 01/08/25 14:21 DC Apixaban (Eliquis) 2.5 mg BID PO 01/08/25 22:00 01/08/25 14:21 DC Finasteride (Proscar Tablet) 5 mg DAILY PO 01/09/25 10:00 01/08/25 14:21 DC Levothyroxine Sodium (Synthroid Tablet) 75 mcg QAM@0600 PO 01/09/25 06:00 01/08/25 14:21 DC Metoprolol Tartrate (Lopressor Tablet) 50 mg BID GT 01/08/25 22:00 01/08/25 21:26 Sertraline HCl (Zoloft) 100 mg BID PO 01/08/25 22:00 01/08/25 14:21 DC Amiodarone HCl (Cordarone Tablet) 200 mg DAILY GT 01/09/25 10:00 Apixaban (Eliquis) 2.5 mg BID GT 01/08/25 22:00 01/08/25 21:25 Aspirin 81 mg DAILY GT 01/09/25 10:00 Atorvastatin Calcium (Lipitor) 10 mg HS GT 01/08/25 22:00 01/08/25 21:25 Buspirone HCl (Buspar Tablet) 5 mg TID GT 01/08/25 22:00 01/09/25 06:16 Finasteride (Proscar Tablet) 5 mg DAILY GT 01/09/25 10:00 Levothyroxine Sodium (Synthroid Tablet) 75 mcg QAM@0600 GT 01/09/25 06:00 01/09/25 06:16 Sertraline HCl (Zoloft) 100 mg BID GT 01/08/25 22:00 01/08/25 21:25 Lorazepam (Ativan Inj) 0.5 mg Q8HP PRN IV ANXIETY 01/08/25 20:30 01/09/25 00:36 DC 01/08/25 21:43 Lorazepam (Ativan Inj) 0.5 mg Q4HP PRN IV ANXIETY 01/09/25 00:45 01/09/25 00:46 Family History: Autoimmune disorder G8 MOTHER Review of Systems All 12 item review of systems reviewed with the patient nonsignificant except what is mentioned in the history of present illness H&P Exam Vital Signs/I&O Vital Sign Date Time Temp Pulse Resp B/P (MAP) Pulse Ox O2 Delivery O2 Flow Rate FiO2 01/09/25 16:00 106 16 121/85 (97) 01/09/25 10:00 95 01/09/25 08:43 Nasal Cannula* 2 28 01/09/25 08:00 97.9 97.9 Physical Exam Moderate respiratory distress Bilaterally Cardiac exam is tachycardic GI soft nontender normal Extremity no clubbing cyanosis or edema Neuro patient is awake and alert Labs/Diagnostic Data Labs/Diagnostic Data Laboratory Tests Test 01/09/25 11:36 01/09/25 05:37 01/09/25 05:29 01/08/25 20:53 Range/Units POC Glucose 99 93 114 H 70-106 mg/dl White Blood Count 6.7 4.4-10.8 10^3/uL Red Blood Count 3.17 L 4.5-5.90 10^6/uL Hemoglobin 9.5 L 13.5-17.5 g/dL Hematocrit 28.6 L 41.0-53.0 % Mean Corpuscular Volume 90.2 80.0-100.0 fL Mean Corpuscular Hemoglobin 29.9 28.0-32.0 pg Mean Corpuscular Hemoglobin Concent 33.1 32.0-36.0 g/dL Red Cell Distribution Width 17.3 H 11.8-14.3 % Platelet Count 220 140-450 10^3/uL Mean Platelet Volume 9.3 6.9-10.8 fL Neutrophils (%) (Auto) 72.4 37.0-80.0 % Lymphocytes (%) (Auto) 15.9 10.0-50.0 % Monocytes (%) (Auto) 9.9 0.0-12.0 % Eosinophils (%) (Auto) 0.9 0.0-7.0 % Basophils (%) (Auto) 0.9 0.0-2.0 % Neutrophils # (Auto) 4.8 1.6-8.6 10 ^3/uL Lymphocytes # (Auto) 1.1 0.4-5.4 10 ^3/uL Monocytes # (Auto) 0.7 0-1.3 10 ^3/uL Eosinophils # (Auto) 0.1 0-0.8 10 ^3/uL Basophils # (Auto) 0.1 0-0.2 10 ^3/uL Nucleated Red Blood Cells 0.1 % Sodium Level 142 136-145 mmol/L Potassium Level 3.8 3.5-5.1 mmol/L Chloride Level 100 98-107 mmol/L Carbon Dioxide Level 30 20-31 mmol/L Anion Gap 12 5-15 Blood Urea Nitrogen 23 9-23 mg/dL Creatinine 4.05 H 0.700-1.30 mg/dL Glomerular Filtration Rate Calc 14 >90 mL/min BUN/Creatinine Ratio 5.7 L 10.0-20.0 Serum Glucose 110 H 74-106 mg/dL Calcium Level 8.7 8.7-10.4 mg/dL Total Bilirubin 0.9 0.2-1.0 mg/dL Aspartate Amino Transferase (AST) 10 L 13-40 U/L Alanine Aminotransferase (ALT) 13 7-40 U/L Alkaline Phosphatase 83 46-116 U/L Total Protein 6.0 5.7-8.2 g/dL Albumin 3.3 3.2-4.8 g/dL Test 01/08/25 17:53 01/08/25 11:46 01/08/25 07:16 01/08/25 06:15 Range/Units POC Glucose 111 H 117 H 116 H 70-106 mg/dl White Blood Count 6.8 4.4-10.8 10^3/uL Red Blood Count 3.32 L 4.5-5.90 10^6/uL Hemoglobin 9.7 L 13.5-17.5 g/dL Hematocrit 29.5 L 41.0-53.0 % Mean Corpuscular Volume 88.8 80.0-100.0 fL Mean Corpuscular Hemoglobin 29.3 28.0-32.0 pg Mean Corpuscular Hemoglobin Concent 32.9 32.0-36.0 g/dL Red Cell Distribution Width 17.3 H 11.8-14.3 % Platelet Count 257 140-450 10^3/uL Mean Platelet Volume 9.4 6.9-10.8 fL Neutrophils (%) (Auto) 74.4 37.0-80.0 % Lymphocytes (%) (Auto) 14.9 10.0-50.0 % Monocytes (%) (Auto) 9.3 0.0-12.0 % Eosinophils (%) (Auto) 0.4 0.0-7.0 % Basophils (%) (Auto) 1.0 0.0-2.0 % Neutrophils # (Auto) 5.1 1.6-8.6 10 ^3/uL Lymphocytes # (Auto) 1.0 0.4-5.4 10 ^3/uL Monocytes # (Auto) 0.6 0-1.3 10 ^3/uL Eosinophils # (Auto) 0 0-0.8 10 ^3/uL Basophils # (Auto) 0.1 0-0.2 10 ^3/uL Nucleated Red Blood Cells 0.0 % Sodium Level 139 136-145 mmol/L Potassium Level 3.8 3.5-5.1 mmol/L Chloride Level 100 98-107 mmol/L Carbon Dioxide Level 30 20-31 mmol/L Anion Gap 9 5-15 Blood Urea Nitrogen 20 9-23 mg/dL Creatinine 3.25 H 0.700-1.30 mg/dL Glomerular Filtration Rate Calc 19 >90 mL/min BUN/Creatinine Ratio 6.2 L 10.0-20.0 Serum Glucose 121 H 74-106 mg/dL Calcium Level 8.3 L 8.7-10.4 mg/dL Total Bilirubin 0.8 0.2-1.0 mg/dL Aspartate Amino Transferase (AST) 9 L 13-40 U/L Alanine Aminotransferase (ALT) 10 7-40 U/L Alkaline Phosphatase 81 46-116 U/L Total Protein 5.8 5.7-8.2 g/dL Albumin 3.2 3.2-4.8 g/dL Test 01/08/25 03:10 01/08/25 00:25 01/07/25 23:59 01/07/25 23:34 Range/Units Lactic Acid Level 1.6 0.4-2.0 mmol/L Troponin I High Sensitivity 13 13 </=54 ng/L Thyroid Stimulating Hormone (TSH) 11.65 H 0.55-4.78 uIU/mL Urine Color Yellow Yellow Urine Clarity Turbid H Clear Urine pH 8.5 5.0-9.0 Urine Specific [place] 1.021 1.001-1.035 Urine Protein 2+ H Negative Urine Ketones Negative Negative Urine Blood 2+ H Negative /uL Urine Nitrite Negative Negative Urine Bilirubin Negative Negative Urine Urobilinogen Normal Negative mg/dL Urine Leukocyte Esterase 2+ Negative /uL Urine RBC 21 0 - 3 /hpf Urine Microscopic WBC 29 H 0-3 /HPF Urine Squamous Epithelial Cells None seen <5 /hpf Urine Bacteria Few H None Seen /hpf Urine Mucus Few None Seen Urine Glucose Trace Normal mg/dL White Blood Count 8.0 # 4.4-10.8 10^3/uL Red Blood Count 3.48 L 4.5-5.90 10^6/uL Hemoglobin 10.0 L 13.5-17.5 g/dL Hematocrit 31.6 L 41.0-53.0 % Mean Corpuscular Volume 90.7 80.0-100.0 fL Mean Corpuscular Hemoglobin 28.9 28.0-32.0 pg Mean Corpuscular Hemoglobin Concent 31.8 L 32.0-36.0 g/dL Red Cell Distribution Width 17.4 H 11.8-14.3 % Platelet Count 258 140-450 10^3/uL Mean Platelet Volume 9.7 6.9-10.8 fL Neutrophils (%) (Auto) 80.6 H 37.0-80.0 % Lymphocytes (%) (Auto) 10.1 10.0-50.0 % Monocytes (%) (Auto) 8.2 0.0-12.0 % Eosinophils (%) (Auto) 0.4 0.0-7.0 % Basophils (%) (Auto) 0.7 0.0-2.0 % Neutrophils # (Auto) 6.4 1.6-8.6 10 ^3/uL Lymphocytes # (Auto) 0.8 0.4-5.4 10 ^3/uL Monocytes # (Auto) 0.7 0-1.3 10 ^3/uL Eosinophils # (Auto) 0 0-0.8 10 ^3/uL Basophils # (Auto) 0.1 0-0.2 10 ^3/uL Nucleated Red Blood Cells 0.1 % Sodium Level 141 136-145 mmol/L Potassium Level 3.9 3.5-5.1 mmol/L Chloride Level 100 98-107 mmol/L Carbon Dioxide Level 30 20-31 mmol/L Anion Gap 11 5-15 Blood Urea Nitrogen 14 9-23 mg/dL Creatinine 2.95 H 0.700-1.30 mg/dL Glomerular Filtration Rate Calc 21 >90 mL/min BUN/Creatinine Ratio 4.7 L 10.0-20.0 Serum Glucose 149 H 74-106 mg/dL Calcium Level 8.5 L 8.7-10.4 mg/dL B-Type Natriuretic Peptide 2767.87 0-100 pg/mL Microbiology Date/Time Source Procedure Growth Status 01/08/25 08:40 Nose MRSA Screen - Final Methicillin Resistant S.aureus Complete Assessment End-stage renal disease on hemodialysis Acute on chronic respiratory failure, O2 supplements Congestive heart failure exacerbation AFib with RVR Hypertension Anemia of chronic kidney disease Recommendations Hemodialysis tomorrow Epogen 45315 subQ 3 times weekly Strict I&Os Renal diet Resume home medications Cardiology consult Blood pressure control We will continue to follow Patient seen and examined by myself. I discussed my plan of care with the patient and primary nurse at the bedside I would like to thank Raf for the consult, will follow Total care time 35 minutes Plan discussed with: Patient KIMMIE BURNETT MD Jan 09, 2025 16:44
[2025-01-09 17:17] LABS: Magnesium 2.0 mg/dL (1.6-2.6)
[2025-01-10] VITALS: BP 138/89; PULSE 108; RESP 15; TEMP 98.2
[2025-01-10 04:09] VITALS: BP 136/84; PULSE 97; RESP 15
[2025-01-10 04:49] LABS: Hematocrit 29.8 % (41.0-53.0); Hemoglobin 9.6 g/dL (13.5-17.5); Mean Corpuscular Hemoglobin 28.8 pg (28.0-32.0); Mean Corpuscular Volume 89.4 fL (80.0-100.0); Nucleated Red Blood Cells % 0.0 %
--- NOTE | 2025-01-10 05:23 | DVH ---
CHEST RADIOGRAPH Indication: fu Technique: Single frontal view of the chest was obtained COMPARISON: XY CHEST PORTABLE on DOS: 01/08/25, XY CHEST PORTABLE on DOS: 01/04/25, XY CHEST PORTABLE on DOS: 12/31/24, XY CHEST PORTABLE on DOS: 12/30/24, XY CHEST PORTABLE on DOS: 12/29/24 FINDINGS: Lines and Tubes: Right permCath unchanged in position. Lungs: Progressively worsening left pleural effusion with moderate left hemithoracic opacification. N ew moderate patchy right hemithoracic pulmonary airspace disease. No pneumothorax. Cardiomediastinal contours: Cardiomegaly. Bones: Unremarkable IMPRESSION: 1. Progressively worsening left pleural effusion with moderate left hemithoracic opacification. 2. New moderate patchy right hemithoracic pulmonary airspace disease. 3. Cardiomegaly. 4. Right PermCath.
[2025-01-10 08:00] VITALS: PULSE 103; RESP 20; TEMP 96.9; O2SAT 100
[2025-01-10] MEDS: SODIUM CHL 0.9% 1000 ML BAG XX ONE (09:33)
--- NOTE | 2025-01-10 14:11 | DVHPN2 ---
Progress Note Date Seen: Jan 10, 2025 Medical Necessity Reason Pt with a Central, PICC or Fol: Yes The following are medically ne: Stearns Catheter Reason for stearns catheter: Bladder Retention/Obstruc Subjective Patient reports: No new complaints Review of Systems: HEENT:Normal, CVS:Normal, RESPIRATORY:Normal, GI:Normal, :Normal, MSK:Normal, NEURO:Normal Objective vital signs Vital Sign Date Time Temp Pulse Resp B/P (MAP) Pulse Ox O2 Delivery O2 Flow Rate FiO2 01/10/25 12:24 96 127/79 01/10/25 12:01 15 90 01/10/25 08:00 Nasal Cannula* 4 36 01/10/25 08:00 96.9 96.9 Total Intake and Output 01/09/25 01/09/25 01/10/25 15:00 23:00 07:00 Intake Total 50 ml Balance 50 ml medications Current Medications Medications Dose Ordered Sig/Isidra Route Start Time Stop Time Status Last Admin Dose Admin Famotidine 20 mg Q12HR IV 01/08/25 10:00 UNV Ceftriaxone Sodium 50 ml @ 100 mls/hr DAILY@09 IV 01/08/25 09:00 01/10/25 09:22 100 MLS/HR Tamsulosin HCl 0.4 mg QPM PO 01/08/25 18:00 01/08/25 21:25 0.4 MG Diagnostic Test (Pha) 1 strip ACHS 01/08/25 07:00 01/10/25 12:24 1 STRIP Insulin Human Regular HS SC 01/08/25 22:00 Insulin Human Regular AC SC 01/08/25 07:00 Dextrose 50 ml UD PRN IV 01/08/25 04:15 Sodium Chloride 10 ml Q8HR IV 01/08/25 06:00 01/10/25 14:03 10 ML Ondansetron HCl 4 mg Q4HP PRN IV 01/08/25 04:15 Nitroglycerin 0.4 mg Q5MINP PRN SL 01/08/25 04:15 Morphine Sulfate 2 mg Q30M PRN IV 01/08/25 04:15 Famotidine 20 mg DAILY IV 01/08/25 10:00 01/10/25 10:15 20 MG Metoprolol Tartrate 50 mg BID GT 01/08/25 22:00 01/10/25 10:15 50 MG Amiodarone HCl 200 mg DAILY GT 01/09/25 10:00 01/10/25 10:15 200 MG Apixaban 2.5 mg BID GT 01/08/25 22:00 01/10/25 10:15 2.5 MG Aspirin 81 mg DAILY GT 01/09/25 10:00 01/10/25 10:15 81 MG Atorvastatin Calcium 10 mg HS GT 01/08/25 22:00 01/08/25 21:25 10 MG Buspirone HCl 5 mg TID GT 01/08/25 22:00 01/10/25 14:06 5 MG Finasteride 5 mg DAILY GT 01/09/25 10:00 01/10/25 10:15 5 MG Acetaminophen/ Hydrocodone Bitart 1 tab Q4HP PRN GT 01/08/25 14:15 Levothyroxine Sodium 75 mcg QAM@0600 GT 01/09/25 06:00 01/10/25 06:18 75 MCG Sertraline HCl 100 mg BID GT 01/08/25 22:00 01/10/25 10:14 100 MG Acetaminophen 650 mg Q6HP PRN GT 01/08/25 15:00 Docusate Sodium 100 mg BIDPRN PRN GT 01/08/25 15:00 Lorazepam 0.5 mg Q4HP PRN IV 01/09/25 00:45 01/09/25 00:46 0.5 MG Hydromorphone HCl 0.5 mg Q4HPRN PRN IV 01/10/25 13:30 Examination: GENERAL:Normal, HEENT:Normal, NECK:Normal, LUNGS:Normal, CVS:Normal, ABDOMEN:Normal, MSK:Normal, SKIN:Normal, NEURO:Normal, NEURO:Abnormal (encephalopathy), :Normal laboratory and microbiology Laboratory Tests 01/10/25 03:32 01/09/25 05:29 Test 01/09/25 05:29 Range/Units Serum Glucose 110 H 74-106 mg/dL Microbiology Date/Time Source Procedure Growth Status 01/08/25 08:40 Nose MRSA Screen - Final Methicillin Resistant S.aureus Complete 01/08/25 03:00 Blood Blood Culture - Preliminary NO GROWTH AFTER 48 HOURS OF INCUBATION. Resulted Problem List/Assessment/Plan Problem List/Assessment/Plan * s/p recent acute respiratory failure. * s/p Septic shock due to MRSA pneumonia. * End-stage renal disease, on hemodialysis. * History of bowel perforation with exploratory laparotomy. * Status post PEG with colostomy. * Atrial fibrillation, status post cardioversion. * Diabetes mellitus. * BPH with Stearns catheter placement. * Right upper extremity DVT. * Gallstones. * Thrombocytopenia. * Metabolic encephalopathy. * s/p fall family has decided on hospice care Plan discussed with: Other (rn) My Orders My Orders Orders - ALY SCHROEDER MD Procedure Category Date Status Time Hydromorphone PHA 01/10/25 In Process Injection (Dilaudid 13:30 Date of Service: Jan 10, 2025 Billing Provider: ALY SCHROEDER MD Common Visit Codes: [id number] INP/OBS CARE(HIGH) ALY SCHROEDER MD Jan 10, 2025 14:11
[2025-01-10] MEDS: HYDROmorphone HCL 2 MG/ML VL/or syr IV PRN (14:23)
[2025-01-10] MEDS: LIDOCAINE 2%HCL (LOCAL ANESTH.) INJ 10ml MDV ONE (14:58)
[2025-01-10 15:00] VITALS: BP 103/74; PULSE 89; RESP 10; O2SAT 90
--- NOTE | 2025-01-10 16:50 | DVHPN2 ---
Progress Note Date Seen: Jan 10, 2025 Medical Necessity Reason Pt with a Central, PICC or Fol: Yes The following are medically ne: Stearns Catheter Reason for stearns catheter: Bladder Retention/Obstruc Subjective Patient reports: Other (weak ) Review of Systems: Deferred Objective vital signs Vital Sign Date Time Temp Pulse Resp B/P (MAP) Pulse Ox O2 Delivery O2 Flow Rate FiO2 01/10/25 15:00 89 10 103/74 (84) 90 01/10/25 08:00 Nasal Cannula* 4 36 01/10/25 08:00 96.9 96.9 Total Intake and Output 01/09/25 01/09/25 01/10/25 15:00 23:00 07:00 Intake Total 50 ml Balance 50 ml medications Current Medications Medications Dose Ordered Sig/Isidra Route Start Time Stop Time Status Last Admin Dose Admin Famotidine 20 mg Q12HR IV 01/08/25 10:00 UNV Ceftriaxone Sodium 50 ml @ 100 mls/hr DAILY@09 IV 01/08/25 09:00 01/10/25 09:22 100 MLS/HR Tamsulosin HCl 0.4 mg QPM PO 01/08/25 18:00 01/08/25 21:25 0.4 MG Diagnostic Test (Pha) 1 strip ACHS 01/08/25 07:00 01/10/25 12:24 1 STRIP Insulin Human Regular HS SC 01/08/25 22:00 Insulin Human Regular AC SC 01/08/25 07:00 Dextrose 50 ml UD PRN IV 01/08/25 04:15 Sodium Chloride 10 ml Q8HR IV 01/08/25 06:00 01/10/25 14:03 10 ML Ondansetron HCl 4 mg Q4HP PRN IV 01/08/25 04:15 Nitroglycerin 0.4 mg Q5MINP PRN SL 01/08/25 04:15 Morphine Sulfate 2 mg Q30M PRN IV 01/08/25 04:15 Famotidine 20 mg DAILY IV 01/08/25 10:00 01/10/25 10:15 20 MG Metoprolol Tartrate 50 mg BID GT 01/08/25 22:00 01/10/25 10:15 50 MG Amiodarone HCl 200 mg DAILY GT 01/09/25 10:00 01/10/25 10:15 200 MG Apixaban 2.5 mg BID GT 01/08/25 22:00 01/10/25 10:15 2.5 MG Aspirin 81 mg DAILY GT 01/09/25 10:00 01/10/25 10:15 81 MG Atorvastatin Calcium 10 mg HS GT 01/08/25 22:00 01/08/25 21:25 10 MG Buspirone HCl 5 mg TID GT 01/08/25 22:00 01/10/25 14:06 5 MG Finasteride 5 mg DAILY GT 01/09/25 10:00 01/10/25 10:15 5 MG Acetaminophen/ Hydrocodone Bitart 1 tab Q4HP PRN GT 01/08/25 14:15 Levothyroxine Sodium 75 mcg QAM@0600 GT 01/09/25 06:00 01/10/25 06:18 75 MCG Sertraline HCl 100 mg BID GT 01/08/25 22:00 01/10/25 10:14 100 MG Acetaminophen 650 mg Q6HP PRN GT 01/08/25 15:00 Docusate Sodium 100 mg BIDPRN PRN GT 01/08/25 15:00 Lorazepam 0.5 mg Q4HP PRN IV 01/09/25 00:45 01/09/25 00:46 0.5 MG Hydromorphone HCl 0.5 mg Q4HPRN PRN IV 01/10/25 13:30 01/10/25 14:23 0.5 MG laboratory and microbiology Laboratory Tests 01/10/25 03:32 01/09/25 05:29 Test 01/09/25 05:29 Range/Units Serum Glucose 110 H 74-106 mg/dL Microbiology Date/Time Source Procedure Growth Status 01/08/25 08:40 Nose MRSA Screen - Final Methicillin Resistant S.aureus Complete 01/08/25 03:00 Blood Blood Culture - Preliminary NO GROWTH AFTER 48 HOURS OF INCUBATION. Resulted Problem List/Assessment/Plan Problem List/Assessment/Plan End-stage renal disease on hemodialysis Acute on chronic respiratory failure, Congestive heart failure exacerbation AFib with RVR Hypertension Anemia of chronic kidney disease recs Patient refused dialysis further Discussed with patient's son and patient's bedside they also said patient does not want dialysis and catheter to be removed IR consulted Patient going home on hospice We will sign off this case Discussed with RN bedside Plan discussed with: Spouse, Son My Orders My Orders Orders - CIRO KEY MD Procedure Category Date Status Time * Radiologist Consult CONS 01/10/25 Transmitted 11:19 CIRO KEY MD Jan 10, 2025 16:50
[2025-01-10] MEDS ORDERED: EPOETIN ALFA-EPBX 10,000 UNIT/1ML VIAL SC ONE (21:00)
== END 2025-01-10 15:17 | disposition hospice, home (50) | DRG 871 ==
LOC: EDBD 22:42 → EDUNIT# 22:42 → ER 22:42 → OVERFLOW 01-08 04:09
PROVIDERS: ADMIT Internal Medicine; ATTEND Internal Medicine
DX: A41.02 Sepsis due to Methicillin resistant Staphylococcus aureus (principal); G93.41 Metabolic encephalopathy; J15.212 Pneumonia due to Methicillin resistant Staphylococcus aureus; N18.6 End stage renal disease; J96.20 Acute and chronic respiratory failure, unspecified whether with hypoxia or hypercapnia; I13.2 Hypertensive heart and chronic kidney disease with heart failure and with stage 5 chronic kidney disease, or end stage renal disease; I82.621 Acute embolism and thrombosis of deep veins of right upper extremity; E03.9 Hypothyroidism, unspecified; E11.22 Type 2 diabetes mellitus with diabetic chronic kidney disease; E11.65 Type 2 diabetes mellitus with hyperglycemia; I48.91 Unspecified atrial fibrillation; N40.0 Benign prostatic hyperplasia without lower urinary tract symptoms; D69.6 Thrombocytopenia, unspecified; I50.9 Heart failure, unspecified; Z93.1 Gastrostomy status; Z93.3 Colostomy status; D63.1 Anemia in chronic kidney disease; Z79.899 Other long term (current) drug therapy; Z87.01 Personal history of pneumonia (recurrent); Z99.2 Dependence on renal dialysis
CPT/HCPCS: 36415; 70450; 71045; 80048; 80053; 81001; 82306; 82962; 83605; 83735; 83880; 83970; 84100; 84443; 84484; 85025; 87040; 87081; 93005; 96365; 96367; 96368; 99291; G0378; J0692; J2003; J3490